=== PATIENT | female | born 1985 | race Caucasian/White ===

== ENCOUNTER 2022-10-04 12:18 | Emergency (ER) | payer OTHER, SELFPAY ==
[2022-10-04 12:30] VITALS: BP 118/88; PULSE 96; RESP 20; TEMP 36.9; O2SAT 99; BMI 35.4
--- NOTE | 2022-10-04 12:36 | XR_ITS ---
The [address] [address] Patient Name: OLR HILLMAN MRN: [id number] date: 1985 Sex: F Assigned Patient Location: ER Current Patient Location: ER Accession/Order Number: [id number] Exam Date: 10/04/2022 12:40 Report Date: 10/04/2022 13:08 At the request of: MARILYN GUTIERREZ Procedure: XR ankle LT min 3V PROCEDURE: XR ankle LT min 3V HISTORY: c/o pain ; acute medial left ankle pain; no known injury COMPARISON: None. FINDINGS: BONES:No fracture, dislocation, articular surface irregularity. A few tiny degenerative enthesophytes. Prominent 1.7 cm sclerotic focus within the dorsal aspect of posterior calcaneus. SOFT TISSUES:No visible soft tissue swelling. EFFUSION:None visible. OTHER: Negative. IMPRESSION: 1. No acute bone abnormality. 2. Sclerotic focus within posterior calcaneus; nonspecific but favoring a benign bone island. Electronically authenticated by: MEGAN MACDONALD Date: 10/04/2022 13:08
--- NOTE | 2022-10-04 13:12 | ED.LOWEXI1 ---
HPI - Extremity Injury (Lower) General Chief Complaint: Extremity Injury, Lower Stated Complaint: LOWER EXTREMITY INJURY LEFT LEG Time Seen by Provider: 10/04/22 13:11 Source: patient Mode of arrival: walk-in Limitations: no limitations History of Present Illness HPI Narrative: patient with posterior left ankle pain for the last week - no known injury. She said that after walking at [place] yesterday the pain became worse. Triage nurse sent her for xrays. She said that this area had not bothered her prior to last week. Related Data Allergies Allergy/AdvReac Type Severity Reaction Status Date / Time No Known Drug Allergies Allergy Verified 10/04/22 12:29 PFSH PFSH Social History Smoking status: Never smoker Exam Narrative Exam Narrative: Nurses notes and vital signs reviewed and patient is not hypoxic. AFEBRILE General: Well-appearing and in no apparent distress. Skin: Warm, dry, no pallor noted. No rash. Head: Normocephalic, atraumatic. Cardiovascular: normal peripheral perfusion. Respiratory: No accessory muscle use or respiratory distress. Musculoskeletal: tenderness throughout the left calcaneus without swelling or achilles deformity. Left foot and ankle with normal ROM. No calf or popliteal tenderness, no lower extremity edema/swelling Neurological: A&O x4. No cranial nerve dysfunction observed. No truncal ataxia. Moves all extremities. Sensation intact. Psychiatric: Cooperative and interactive. Normal mood and affect. Constitutional Vital Signs - 24 hr 10/04/22 12:30 Temperature 98.4 F Pulse Rate [Monitor] 96 H Respiratory Rate 20 Blood Pressure [Left Arm] 118/88 H Pulse Oximetry 99 Oxygen Delivery Method Room Air Course Vital Signs Vital signs: Vital Signs Temperature 98.4 F 10/04/22 12:30 Pulse Rate 96 H 10/04/22 12:30 Respiratory Rate 20 10/04/22 12:30 Blood Pressure 118/88 H 10/04/22 12:30 Pulse Oximetry 99 10/04/22 12:30 Oxygen Delivery Method Room Air 10/04/22 12:30 Temperature 98.4 F 10/04/22 12:30 Pulse Rate 96 H 10/04/22 12:30 Respiratory Rate 20 10/04/22 12:30 Blood Pressure 118/88 H 10/04/22 12:30 Pulse Oximetry 99 10/04/22 12:30 Oxygen Delivery Method Room Air 10/04/22 12:30 MDM - Extremity Injury (Lower) MDM Narrative Medical decision making narrative: the patient's xrays reveal a bone island on the left calcaneus, which may be causing the patient's pain. She asked for something to help support the left ankle so the ED nurse applied an air cast to the patient's left ankle. She was discharged home and referred to Podiatry for follow up. Recommended motrin/NSAIDs to control her pain. Imaging Data xr ankle: Attestation: I have reviewed the pertinent imaging results. Radiologist's impression: Patient Name: LOR HILLMAN MRN: [id number] date: 1985 Sex: F Assigned Patient Location: ER Current Patient Location: ER Accession/Order Number: [id number] Exam Date: 10/04/2022 12:40 Report Date: 10/04/2022 13:08 At the request of: MARILYN GUTIERREZ Procedure: XR ankle LT min 3V PROCEDURE: XR ankle LT min 3V HISTORY: c/o pain ; acute medial left ankle pain; no known injury COMPARISON: None. FINDINGS: BONES:No fracture, dislocation, articular surface irregularity. A few tiny degenerative enthesophytes. Prominent 1.7 cm sclerotic focus within the dorsal aspect of posterior calcaneus. SOFT TISSUES:No visible soft tissue swelling. EFFUSION:None visible. OTHER: Negative. IMPRESSION: 1. No acute bone abnormality. 2. Sclerotic focus within posterior calcaneus; nonspecific but favoring a benign bone island. Electronically authenticated by: MEGAN MACDONALD Date: 10/04/2022 13:08 Discharge Plan Discharge Chief Complaint: Extremity Injury, Lower Clinical Impression: Acute left ankle pain Patient Disposition: Home, Self-Care Time of Disposition Decision: 13:29 Instructions: Arthralgia (ED) Stand Alone Forms: Portal Instructions Referrals: Navi Delgado MD [Primary Care Provider] - 1 week Chaparro Shearer MD [Physician] - 1 week
== END 2022-10-04 13:46 | disposition home or self-care (01) ==
PROVIDERS: Emergency Provider Emergency Medicine; PCP Family Medicine
DX: M25.572 Pain in left ankle and joints of left foot (principal)
CPT/HCPCS: 73610; 99283

== ENCOUNTER 2022-11-13 22:42 | Outpatient (REF) | payer OTHER, SELFPAY ==
[2022-11-17 11:09] LABS: Age Gdln ACOG Testing Note (.); HPV Aptima Negative (Negative); IGP, Aptima HPV, rfx 16/18,45 Note (.)
== END 2022-11-13 22:43 | disposition home or self-care (01) ==
LOC: LAB 22:42
PROVIDERS: PCP Family Medicine; Visit Provider Obstetrics & Gynecology
DX: Z01.419 Encounter for gynecological examination (general) (routine) without abnormal findings (principal)
CPT/HCPCS: 87624; G0145

== ENCOUNTER 2022-12-23 05:52 | Emergency (ER) | payer OTHER, SELFPAY ==
[2022-12-23 05:59] LABS: Clarity Urine CLEAR (CLEAR); Color Urine DK. ORANGE (YELLOW)
[2022-12-23 06:00] LABS: Hematocrit 36.6 % (36.0-48.0); Hemoglobin 11.9 g/dL (12.0-16.0); Mean Corpuscular HGB Conc 32.5 g/dL (29.9-35.2); Mean Corpuscular Hemoglobin 28.4 pg (26.7-34.0); Mean Corpuscular Volume 87.4 fL (81.0-99.0); Mean Platelet Volume 8.7 fL (9.5-13.5); Platelet Count 258 10^3/uL (150-450); Red Blood Count 4.19 10^6/uL (4.20-5.40); Red Cell Distribution Width 13.7 % (11.0-15.0); White Blood Count 14.9 10^3/uL (4.0-11.0)
[2022-12-23 06:01] LABS: Basophils Percent Auto 0.2 % (0.2-2.0); Eosinophils Percent Auto 0.1 % (0.9-7.0); Immature Granulocytes Pct Auto 0.4 % (0.0-0.5); Lymphocytes Absolute Auto 1.3 10^3/uL (1.2-3.8); Lymphocytes Percent Auto 9.1 % (20.5-60.0); Monocytes Absolute Auto 0.8 10^3/uL (0.3-0.8); Monocytes Percent Auto 5.8 % (1.7-12.0); Neutrophils Percent Auto 84.4 % (43.0-75.0)
[2022-12-23 06:02] LABS: Anion Gap 14.6; BUN Creatinine Ratio 13.9; Calcium 7.6 mg/dL (8.5-10.1); Carbon Dioxide 27.1 mmol/L (21.0-32.0); Chloride 100 mmol/L (98-107); Estimated GFR (African America >60 (>=60); Estimated GFR (Non-African Ame >60 (>=60); Glucose 99 mg/dL (74-106); Immature Granulocytes Abs Auto 0.05 10^3/uL (0.00-0.03); Potassium 3.7 mmol/L (3.5-5.1); Sodium 138 mmol/L (136-145)
[2022-12-23 10:05] LABS: Bilirubin Urine COLOR INTERFERENCE (NEGATIVE); Blood Urine COLOR INTERFERENCE (NEGATIVE); Glucose Urine UA COLOR INTERFERENCE mg/dL (NEGATIVE); Ketones Urine COLOR INTERFERENCE mg/dL (NEGATIVE); Leukocyte Esterase Urine COLOR INTERFERENCE (NEGATIVE); Nitrite Urine COLOR INTERFERENCE (NEGATIVE); Protein Urine COLOR INTERFERENCE mg/dL (NEG/TRACE); Urobilinogen Urine COLOR INTERFERENCE EU/dL (0.2-1.0); pH Urine COLOR INTERFERENCE (5.0-9.0)
== END 2022-12-23 05:56 | disposition home or self-care (01) ==
LOC: ER 05:54
PROVIDERS: Emergency Provider Emergency Medicine; PCP Family Medicine
DX: M25.572 Pain in left ankle and joints of left foot (principal)
CPT/HCPCS: 36415; 80048; 81003; 85025; 87086; 87150; 87186; 99284

== ENCOUNTER 2023-11-08 11:42 | Outpatient (OUT) | payer OTHER, SELFPAY ==
--- NOTE | 2023-11-08 12:02 | XR_ITS ---
The [address] [address] Patient Name: LOR HILLMAN MRN: [id number] date: 1985 Sex: F Assigned Patient Location: LAB Current Patient Location: LAB Accession/Order Number: [id number] Exam Date: 11/08/2023 12:20 Report Date: 11/08/2023 12:46 At the request of: DAQUAN AGOSTO Procedure: XR hip BI w PEL 1V EXAMINATION: XR hip BI w PEL 1V HISTORY: Acute Hip Pain M25.559 COMPARISON: No relevant comparison available. FINDINGS: RIGHT FINDINGS: BONES: Normal. No significant arthropathy or acute abnormality. SOFT TISSUES: Negative. No visible soft tissue swelling. OTHER: Negative. LEFT FINDINGS: BONES: Normal. No significant arthropathy or acute abnormality. SOFT TISSUES: Negative. No visible soft tissue swelling. OTHER: Negative. XR/XR hip BI w PEL 1V IMPRESSION: No acute abnormality or significant arthritis of the hips Electronically authenticated by: EMILIE HUSSEIN Date: 11/08/2023 12:46
[2023-11-08 12:11] LABS: Erythrocyte Sedimentation Rate 97 mm/hr (<=20)
[2023-11-08 12:42] LABS: C Reactive Protein 2.12 mg/dL (<=0.50); Uric Acid 5.1 mg/dL (2.6-6.0)
[2023-11-09 04:07] LABS: Antistreptolysin O Ab 856.4 IU/mL (0.0-200.0); Rheumatoid Factor (RF) <10.0 IU/mL (<14.0)
[2023-11-09 16:10] LABS: Antinuclear Antibodies, IFA Negative (.)
== END 2023-11-08 11:43 | disposition home or self-care (01) ==
LOC: LAB 11:45
PROVIDERS: PCP Family Medicine; Visit Provider Family Medicine
DX: M25.551 Pain in right hip (principal); M25.552 Pain in left hip
CPT/HCPCS: 36415; 73523; 84550; 85652; 86038; 86060; 86140; 86431

== ENCOUNTER 2024-01-14 15:57 | Outpatient (OUT) | payer OTHER, SELFPAY ==
--- OUTSIDE RECORDS SUMMARY | 2024-01-14 16:02 | XMS_ITS | CCD ---
Author Organization [facility] Care Team Providers Care Contact Lens Molder Name Role Phone Daquan Delgado Primary Care Physician LEONARDO TUTTLE Attending Unavailable LEONARDO TUTTLE Attending Unavailable MD Merrick DUNCAN Attending Unavailable FLY, MD Merrick Doshi Admitting Unavailable DUNCAN, MD Mrerick Doshi Attending Unavailable DUNCAN, MD Merrick Doshi Referring Unavailable FLY, MD Merrick Doshi Admitting Unavailable FLY, MD Merrick Doshi Attending Unavailable DUNCAN, MD Merrick Doshi Consulting Unavailable DUNCAN, Merrick Doshi Consulting Unavailable DUNCAN, Merrick Doshi Consulting Unavailable DUNCAN, Merrick Doshi Consulting Unavailable DUNCAN, Merrick R Consulting Unavailable DUNCAN, Merrick R Consulting Unavailable DUNCAN, Merrick R Consulting Unavailable DUNCAN, Merrick R Consulting Unavailable DUNCAN, Merrick R Consulting Unavailable DUNCAN, Merrick R Consulting Unavailable DUNCAN, Merrick R Consulting Unavailable DUNCAN, Merrick R Consulting Unavailable DUNCAN, Merrick R Consulting Unavailable DUNCAN, Merrick Doshi Consulting Unavailable DUNCAN, MD Merrick Doshi Attending Unavailable FLY, MD Merrick Doshi Attending Unavailable HOY ., DR BUTT Admitting Unavailable HOY ., DR BUTT Attending Unavailable HOY ., DR BUTT Consulting Unavailable HOY ., DR BUTT Primary Care Unavailable KIRKLIN, DR EMILIE Connor Consulting Unavailable APRIL ., DR TAMEZ Admitting Unavailable APRIL ., DR TAMEZ Attending Unavailable HOY ., DR BUTT Primary Care Unavailable APRIL ., DR TAMEZ Consulting Unavailable APRIL ., DR TAMEZ Admitting Unavailable APRIL ., DR TAMEZ Attending Unavailable HOY ., DR BUTT Primary Care Unavailable APRIL ., DR TAMEZ Consulting Unavailable ZIEBER, DR RUSLAN Doshi Consulting Unavailable HOY ., DR BUTT Admitting Unavailable HOY ., DR BUTT Attending Unavailable HOY ., DR BUTT Consulting Unavailable HOY ., DR BUTT Primary Care Unavailable HOY ., DR BUTT Admitting Unavailable HOY ., DR BUTT Attending Unavailable TRINY ., DR BUTT Primary Care Unavailable APRIL ., DR TAMEZ Consulting Unavailable APRIL ., DR TAMEZ Admitting Unavailable APRIL ., DR TAMEZ Attending Unavailable TRINY ., DR BUTT Primary Care Unavailable TORRES, DR RUSLAN Doshi Consulting Unavailable AGUBOSIVINH Chance Consulting Unavailable SHARLA HAMMONDS Attending Unavailable DASHAWN EATON Attending Unavailable DASHAWN EATON Attending Unavailable Allergies Allergy Classification Reported Allergen(s) Allergy Type Date of Onset Reaction(s) Facility (6 sources) benzoin resin; Translations: [benzoin topical] Drug Allergy Skinrash, irritation, and blisters [facility] (2 sources) Adhesive agent Drug allergy (disorder) [facility] (2 sources) Latex Drug allergy (disorder) [facility] (1 source) Misc-Other; Translations: [Misc-Other] Propensity to adverse reactions (disorder) [facility] Medications Current Medications Medication Drug Class(es) Dates Sig (Normalized) Sig (Original) cephalexin 500 mg oral capsule (4 sources) Cephalosporin Antibacterial Start: 08-25-2021 take 1 capsule by mouth twice daily Keflex 500 mg Cap 500 mg = 1 cap(s), Oral, BID, Start the day prior to procedure, # 14 cap(s), Refills(s) 0, Pharmacy: [facility], 158, cm, 08/05/21 8:44:00 EDT, Height/Length Dosing, 89.3, kg, 08/05/21 8:44:00 EDT, Weight Dosing Start Date: 08/25/21 Status: Ordered Start: 12-03-2020 take 1 capsule by mo [facility] twice daily Keflex 500 mg Cap 500 mg = 1 cap(s), Oral, BID, Start on December 13, # 14 cap(s), Refills(s) 0, Pharmacy: [facility], 158, cm, 12/03/20 10:41:00 EDT, Height/Length Dosing, 88.2, kg, 12/03/20 10:41:00 EDT, Weight Dosing Start Date: 12/03/20 Status: Ordered citalopram 40 mg oral tablet (5 sources) Serotonin Reuptake Inhibitor Start: 08-05-2021 take 1 mg by mouth once daily CeleXA 40 mg Tab mg tab(s), Oral, Daily, Refills(s) 0 Start Date: 08/05/21 Status: Ordered Pristiq (5 sources) Serotonin and Norepinephrine Reuptake Inhibitor Start: 11-15-2020 Pristiq Oral, Daily, Refills(s) 0 Start Date: 11/15/20 Status: Ordered esomeprazole 40 mg delayed release oral capsule (1 source) Proton Pump Inhibitor Start: 01-24-2021 esomeprazole 40 mg Cap-EC 40 mg = 1 cap(s) Start Date: 01/24/21 Status: Ordered esomeprazole 40 mg Cap-EC (4 sources) Start: 01-24-2021 esomeprazole 40 mg Cap-EC 40 mg = 1 cap(s) Start Date: 01/24/21 Status: Ordered 24 hr metoprolol succinate 25 mg extended release oral tablet (5 sources) beta-Adrenergic Fanta Start: 08-05-2021 take 1 mg by mouth once daily metoprolol 25 mg ER Tab mg tab(s), Oral, Daily, Refills(s) 0 Start Date: 08/05/21 Status: Ordered 24 hr mirabegron 50 mg extended release oral tablet (4 sources) beta3-Adrenergic Agonist Start: 08-05-2021 take 1 tablet by mouth once daily Myrbetriq 50 mg oral tablet, extended release 50 mg = 1 tab(s), Oral, Daily, # 90 tab(s), Refills(s) 3, Pharmacy: [facility], 158, cm, 08/05/21 8:44:00 EDT, Height/Length Dosing, 89.3, kg, 08/05/21 8:44:00 EDT, Weight Dosing Start Date: 08/05/21 Status: Ordered solifenacin succinate 5 mg oral tablet (4 sources) Cholinergic Muscarinic Antagonist Start: 11-24-2020 take 1 tablet by mouth once daily solifenacin 5 mg Tab 5 mg = 1 tab(s), Oral, Daily, # 30 tab(s), Refills(s) 6, Pharmacy: [facility], 158, cm, 11/15/20 10:34:00 EDT, Height/Length Dosing, 88.2, kg, 11/15/20 10:34:00 EDT, Weight Dosing Start Date: 11/24/20 Status: Ordered Problems Active Problems Problem Classification Problem Date Documented Date Episodic/Chronic Abdominal pain (5 sources) Pain in pelvis 04-23-2020 Episodic Anxiety disorders (5 sources) Mixed anxiety and depressive disorder 04-23-2020 Chronic Asthma (5 sources) Asthma 04-23-2020 Chronic Deficiency and other anemia (5 sources) Anemia 04-23-2020 Episodic Genitourinary symptoms and ill-defined conditions (18 sources) Urge incontinence; Translations: [Stress incontinence (female) (male)] Onset: 08-05-2021 Chronic Genitourinary symptoms and ill-defined conditions (6 sources) Nocturia; Translations: [Nocturia] Onset: 08-05-2021 Episodic Heart valve disorders (5 sources) Mitral valve prolapse 04-23-2020 Chronic Inflammatory diseases of female pelvic organs (5 sources) Inflammation of cervix 04-23-2020 Episodic Nonspecific chest pain (1 source) Chest pain, unspecified; Translations: [CHEST PAIN UNSPECIFIED] Onset: 07-21-2022 Episodic Other female genital disorders (5 sources) Pain in female genitalia on intercourse 04-23-2020 Chronic Other lower respiratory disease (1 source) Acute respiratory distress; Translations: [ACUTE RESPIRATORY DISTRESS] Onset: 07-21-2022 Episodic Other non-traumatic joint disorders (1 source) Pain in unspecified joint; Translations: [PAIN IN UNSPECIFIED JOINT] Onset: 07-21-2022 Episodic Other nutritional; endocrine; and metabolic disorders (5 sources) Body mass index 30+ - obesity 04-23-2020 Chronic Residual codes; unclassified (4 sources) Obstructive sleep apnea (adult) (pediatric); Translations: [OBSTRUCTIVE SLEEP APNEA] Onset: 07-26-2022 Chronic Spondylosis; intervertebral disc disorders; other back problems (5 sources) Backache 04-23-2020 Episodic Thyroid disorders (5 sources) Hypothyroidism 04-23-2020 Chronic Unclassified (4 sources) Unspecified lump in the right breast, overlapping quadrants; Translations: [UNS LUMP RT BREAST OVRLPNG QUADRNTS] Onset: 11-10-2021 Past or Other Problems Problem Classification Problem Date Documented Date Episodic/Chronic Immunizations and screening for infectious disease (1 source) Encounter for screening for human papillomavirus (HPV); Translations: [ENC SCREENING HUMAN PAPILLOMAVIRUS] Onset: 11-12-2021 Episodic Nonmalignant breast conditions (5 sources) Unspecified lump in the right breast, upper outer quadrant; Translations: [Unspecified lump in the right breast, lower inner quadrant] Onset: 11-16-2021 Episodic Other and unspecified benign neoplasm (1 source) Benign neoplasm of right breast; Translations: [BENIGN NEOPLASM OF RIGHT BREAST] Onset: 11-21-2021 Episodic Other screening for suspected conditions (not mental disorders or infectious disease) (4 sources) Encounter for screening for malignant neoplasm of cervix; Translations: [ENC SCREENING MALIG NEOPLASM CERV] Onset: 11-09-2021 Episodic Results Test Name Value Interpretation Reference Range Facil ity INSULINon 07-14-2022 Insulin 28.7 uIU/mL Critically high 2.6-24.9 [facility] Comment on above: Performed By: #### I NSULIN #### [facility] [address] [place] [address] Dr. Hanna Seaman RHEUMATOID FACTORon 07-15-19 23 RA Latex Turbid. <10.0 Normal <14.0 [facility] Comment on above: Performed By: #### R F #### [facility] [address] [place] [address] Dr. Hanna Seaman CBC AUTO DIFFon 07-13-2022 BASO # 0.1 103/ul Normal 0.0-0.1 [facility] Comment on above: Performed By: #### C BC ####[facility] [address] [place] [address]Dr. Hanna Seaman Basophils/100 WBC (Bld) 0.6 % Normal 0.2-2.0 [facility] Comment on above: Performed By: #### C BC ####[facility] [address] [place] [address]Dr. Hanna Seaman EO # 0.1 103/ul Normal 0.0-0.7 [facility] Comment on above: Performed By: #### C BC ####[facility] [address] [place] [address]Dr. Hanna Seaman Eosinophils/100 WBC (Bld) 1.8 % Normal 0.9-7.0 [facility] Comment on above: Performed By: #### C BC ####[facility] [address] [place] [address]Dr. Hanna Seaman Erythrocyte distribution width (RBC) [Ratio] 13.5 % Normal 11.0-15.0 [facility] Comment on above: Performed By: #### C BC ####[facility] [address] [place], [place] [address]Dr. Hanna Seaman Hematocrit (Bld) [Volume fraction] 38.6 % Normal 36.0-48.0 [facility] Comment on above: Performed By: #### C BC ####[facility] [address] [place], [place] [address]Dr. Hanna Seaman Hemoglobin (Bld) [Mass/Vol] 12.5 g/dL Normal 12.0-16.0 [facility] Comment on above: Performed By: #### C BC ####[facility] [address] [place], [place] [address]Dr. Hanna Seaman IG # 0.03 10e3/ul Normal 0.00-0.03 [facility] Comment on above: Performed By: #### C BC ####[facility] [address] [place], [place] [address]Dr. Hanna Seaman IG % 0.4 % Normal 0.0-0.5 [facility] Comment on above: Performed By: #### C BC ####[facility] [address] [place], [place] [address]Dr. Hanna Seaman LYMPH # 2.4 103/ul Normal 1.2-3.8 [facility] Comment on above: Performed By: #### C BC ####[facility] [address] [place], [place] [address]Dr. Hanna Seaman Lymphocytes/100 WBC (Bld) 30.1 % Normal 20.5-60.0 [facility] Comment on above: Performed By: #### C BC ####[facility] [address] [place], [place] [address]Dr. Hanna Seaman MANUAL DIFF REQ NO Normal [facility] Comment on above: Performed By: #### C BC ####[facility] [address] [place] [address]Dr. Hanna Jurgen MCH (RBC) [Entitic mass] 28.2 pg Normal 26.7-34.0 [facility] Comment on above: Performed By: #### C BC ####[facility] [address] [place], [place] [address]Dr. Hanna Jurgen MCHC (RBC) [Mass/Vol] 32.4 g/dL Normal 29.9-35.2 [facility] Comment on above: Performed By: #### C BC ####[facility] [address] [place], [place] [address]Dr. Hanna Seaman MCV (RBC) [Entitic vol] 87.1 fL Normal 81.0-99.0 [facility] Comment on above: Performed By: #### C BC ####[facility] [address] [place], [place] [address]Dr. Hanna Seaman MONO # 0.5 103/ul Normal 0.3-0.8 [facility] Comment on above: Performed By: #### C BC ####[facility] Ran[address] [place], [place] [address]Dr. Hanna Seaman Monocytes/100 WBC (Bld) 6.2 % Normal 1.7-12.0 [facility] Comment on above: Performed By: #### C BC ####[facility] [address] [place], [place] [address]DrLink Seaman NEUT # 4.8 103/ul Normal 1.4-6.5 [facility] Comment on above: Performed By: #### C BC ####[facility] [address] [place], [place] [address]DrLink Seaman Neutrophils/100 WBC (Bld) 60.9 % Normal 43.0-75.0 [facility] Comment on above: Performed By: #### C BC ####[facility] S[address] [place], [place] [address]Dr. Hanna Seaman Platelet mean volume (Bld) [Entitic vol] 8.7 fL Critically low 9.5-13.5 [facility] Comment on above: Performed By: #### C BC ####[facility] [address] [place] [id number] Seaman PLT 305 103/ul Normal 150-450 [facility] Comment on above: Performed By: #### C BC ####[facility] [address] [place] [address]DrLink Seaman RBC 4.43 106/ul Normal 4.20-5.40 [facility] Comment on above: Performed By: #### C BC ####[facility] [address] [place] [address]DrLink Seaman WBC 7.9 103/ul Normal 4.0-11.0 [facility] Comment on above: Performed By: #### C BC ####[facility] [address] [place] [address]Dr. Hanna Seaman FREE THYROXINE INDEX T7on FTI 2.39 Normal 1.30-4.50 [facility] Comment on above: Performed By: #### C MP, LIPID, TSH, T7 #### [facility] [address] [place] [address] [address] Hanna Seaman T3U 31.0 % Normal 30.0-39.0 [facility] Comment on above: Performed By: #### C MP, LIPID, TSH, T7 #### [facility] [address] [place] [address] [address] Hanna Seaman T4 [Mass/Vol] 7.70 ug/dL Normal 4.80-13.90 [facility] Comment on above: Performed By: #### C MP, LIPID, TSH, T7 #### [facility] [address] [place] [address] [address] Hanna Seaman GLYCOHEMOGLOBIN A1Con 2022 ADA RECOMMENDATION SEE BELOW Normal [facility] Comment on above: Result Comment: ADA RECOMMENDED LIMIT 4.0 - 6.0 ADA THERAPEUTIC TARGET < 7.0 ACTION SUGGESTED > 7.0 Performed By: #### A 1C #### [facility] [address] [place] [address] [address] Hanna Seaman Glucose [Mass/Vol] 111 mg/dL Normal [facility] Comment on above: Performed By: #### A 1C #### [facility] [address] [place] [address] [address] Hanna Seaman HbA1c (Bld) [Mass fraction] 5.5 % Normal 4.5-6.2 [facility] Comment on above: Performed By: #### A 1C #### [facility] [address] [place] [address] [address] Hanna Seaman IRONon 07-13-2022 Iron [Mass/Vol] 40.0 ug/dL Critically low 50.0-170.[address] [facility] Comment on above: Performed By: #### I BROOKS ####[facility] [address] [place] [address]Dr. Hanna Seaman LIPID PROFILEon 07-13-2022 CHOL-HDL RATIO NORM SEE BELOW Normal [facility] Comment on above: Result Comment: 3.3 - 4.4 LOW RISK 4.4 - 7.1 AVERAGE RISK 7.1 - 11.0 MODERATE RISK >11.0 HIGH RISK Performed By: #### C MP, LIPID, TSH, T7 #### [facility] [address] [place] [address] [address] Hanna Seaman Cholesterol [Mass/Vol] 149 mg/dL Normal <=200 [facility] Comment on above: Performed By: #### C MP, LIPID, TSH, T7 #### [facility] [address] [place] [address] [address] Hanna Seaman Cholesterol in HDL [Mass/Vol] 41 mg/dL Normal 40-60 [facility] Comment on above: Performed By: #### C MP, LIPID, TSH, T7 #### [facility] [address] [place] [address] [address] Hanna Seaman Cholesterol in LDL [Mass/Vol] 81.0 mg/dL Normal [facility] Comment on above: Performed By: #### C MP, LIPID, TSH, T7 #### [facility] [address] [place], [place] [address] Dr. Hanna Seaman Cholesterol.total/C holesterol in HDL [Mass ratio] 3.6 {ratio} Normal [facility] Comment on above: Performed By: #### C MP, LIPID, TSH, T7 #### [facility] [address] [place], [place] [address] Dr. Hanna Seaman HDL NORMAL > or = 60 mg/dl - LOW CARDIOVASCULAR RISK <40 mg/dl - HIGH CARDIOVASCULAR RISK Normal [facility] Comment on above: Performed By: #### C MP, LIPID, TSH, T7 #### [facility] [address] [place] [address] [address] Hanna Seaman LDL CALC NORMAL SEE BELOW Normal [facility] Comment on above: Result Comment: <100 mg/dl OPTIMAL 100 - 129 mg/dl NEAR OR ABOVE OPTIMAL 130 - 159 mg/dl BORDERLINE HIGH 160 - 189 mg/dl HIGH >190 mg/dl VERY HIGH Performed By: #### C MP, LIPID, TSH, T7 #### [facility] [address] [place] [address] [address] Hanna Seaman Triglyceride [Mass/Vol] 135 mg/dL Normal <=150 [facility] Comment on above: Performed By: #### C MP, LIPID, TSH, T7 #### [facility] [address] [place] [address] [address] Hanna Seaman VLDL CALC 27.0 mg/dL Normal [facility] Comment on above: Performed By: #### C MP, LIPID, TSH, T7 #### [facility] [address] [place] [address] [address] Hanna Seaman NM STRESS/REST MULTIon 07-13 NM STRESS/REST MULTI Patient: LOR HILLMANLink Exam Date: 07/13/2022 : 1985 Gender:F Ordering : DR DAQUAN DELGADO . Admission #: [id number] Family : Order #: [id number] CLICK HERE TO VIEW EXAM RADIOLOGY REPORT PROCEDURE: RADIONUCLIDE IMAGING STRESS/REST MULTI COMPARISON: None. INDICATIONS: Chest pain TECHNIQUE: Exam Description: Stress/Rest one day protocol gated SPECT Rest Imagin.8 mCi Tc-99m Cardiolite IV on 07/13/2022 Stress Imaging 30.1 mCi Tc-99m Cardiolite IV on 07/13/2022 Exercise Protocol: Keagan Heart Rate (bpm): Rest: 78 Max: 166 PMHR: 90 Blood Pressure: Rest: 128/92 Max: 174/92 Exercise Time: Minutes: 8 Seconds: 00 Stage Reached: Stage: 3 Mets 10.1 Symptoms: none Rest and peak stress ECG findings were normal and the exercise portion of the study was normal per attending physician Dr. Simons . For more details please see separate cardiac stress test report. FINDINGS: QUALITY OF STUDY: Good. PERFUSION DEFECT: None. LOCATION: N/A SIZE: N/A. SEVERITY: N/A. TYPE: N/A. WALL MOTION: Normal. LV SIZE: Normal. 76 mL. TID / TCD: None; 0.6 LVEF: Normal. Calculated EF 73%. SUMMARY: Myocardial perfusion imaging study is NORMAL. CONCLUSION: 1. No reversible ischemia 2. Normal exercise test Dictated by: Emilie Grace MD on 07/13/2022 at 14:51 Approved by: Emilie Grace MD on 07/13/2022 at 14:55 Normal [facility] PROF 14(COMP METB)on 023 Albumin [Mass/Vol] 3.3 g/dL Critically low 3.4-5.0 [facility] Comment on above: Performed By: #### C MP, LIPID, TSH, T7 ####[facility] [address] [place] [id number] Seaman Albumin/Globulin [Mass ratio] 0.7 {ratio} Normal [facility] Comment on above: Performed By: #### C MP, LIPID, TSH, T7 ####[facility] [address] [place], [place] [address]Nx. Hanna Seaman ALP [Catalytic activity/Vol] 76 U/L Normal 46-116 [facility] Comment on above: Performed By: #### C MP, LIPID, TSH, T7 ####[facility] [address] [place] [id number] Seaman ALT [Catalytic activity/Vol] 30 U/L Normal 14-59 [facility] Comment on above: Performed By: #### C MP, LIPID, TSH, T7 ####[facility] [address] [place] [address]Dr. Hanna Seaman Anion gap [Moles/Vol] 13.2 mmol/L Normal [facility] Comment on above: Performed By: #### C MP, LIPID, TSH, T7 ####[facility] [address] [place] [address]Dr. Hanna Seaman AST [Catalytic activity/Vol] 17 U/L Normal 15-37 [facility] Comment on above: Performed By: #### C MP, LIPID, TSH, T7 ####[facility] [address] [place] [address]Dr. Hanna Seaman Bilirubin [Mass/Vol] 0.2 mg/dL Normal 0.2-1.0 [facility] Comment on above: Performed By: #### C MP, LIPID, TSH, T7 ####[facility] [address] [place] [address]Dr. Hanna Seaman Calcium [Mass/Vol] 8.0 mg/dL Critically low 8.5-10.1 [facility] Comment on above: Performed By: #### C MP, LIPID, TSH, T7 ####[facility] [address] [place] [address]Dr. Hanna Seaman Chloride [Moles/Vol] 101 mmol/L Normal 98-107 [facility] Comment on above: Performed By: #### C MP, LIPID, TSH, T7 ####[facility] [address] [place] [address]Dr. Hanna Seaman CO2 [Moles/Vol] 31.2 mmol/L Normal 21.0-32.0 [facility] Comment on above: Performed By: #### C MP, LIPID, TSH, T7 ####[facility] [address] [place] [address]Dr. Hanna Seaman Creatinine [Mass/Vol] 0.79 mg/dL Normal 0.55-1.02 [facility] Comment on above: Performed By: #### C MP, LIPID, TSH, T7 ####[facility] [address] [place] [id number]. Hanna Seaman EGFR-AF GUINEAN >60 Normal >=60 [facility] Comment on above: Performed By: #### C MP, LIPID, TSH, T7 ####[facility] [address] [place] [id number]. Hanna Seaman EGFR-NON AF GUINEAN >60 Normal >=60 [facility] Comment on above: Performed By: #### C MP, LIPID, TSH, T7 ####[facility] [address] [place] [id number]. Hanna Seaman Globulin (S) [Mass/Vol] 4.6 g/dL Normal [facility] Comment on above: Performed By: #### C MP, LIPID, TSH, T7 ####[facility] [address] [place] [id number]. Hanna Seaman Glucose [Mass/Vol] 94 mg/dL Normal 74-106 [facility] Comment on above: Performed By: #### C MP, LIPID, TSH, T7 ####[facility] [address] [place] [id number]. Hanna Seaman Potassium [Moles/Vol] 4.4 mmol/L Normal 3.5-5.1 [facility] Comment on above: Performed By: #### C MP, LIPID, TSH, T7 ####[facility] [address] [place] [id number]. Tomekalan Seaman Protein [Mass/Vol] 7.9 g/dL Normal 6.4-8.2 [facility] Comment on above: Performed By: #### C MP, LIPID, TSH, T7 ####[facility] [address] [place] [id number]. Hanna Seaman Sodium [Moles/Vol] 141 mmol/L Normal 136-145 [facility] Comment on above: Performed By: #### C MP, LIPID, TSH, T7 ####[facility] [address] [place] [address]Dr. Hanna Seaman Urea nitrogen [Mass/Vol] 17.0 mg/dL Normal 7.0-18.0 [facility] Comment on above: Performed By: #### C MP, LIPID, TSH, T7 ####[facility] [address] [place], [place] [address]Aw. Hanna Seaman Urea nitrogen/Creatinine [Mass ratio] 21.5 mg/mg Normal [facility] Comment on above: Performed By: #### C MP, LIPID, TSH, T7 ####[facility] [address] [place], [place] [address]Zl. Hanna Seaman TSHon 07-13-2022 TSH 1.591 uIU/mL Normal 0.358-3.740 [facility] Comment on above: Performed By: #### C MP, LIPID, TSH, T7 ####[facility] [address] [place], [place] [address]Ru. Hanna Seaman US VAC ASST BX BREAST RT W C LIPon 11-30-2021 US VAC ASST BX BREAST RT W CLIP Begin Addendum #1 COLLECTED DATE/TIME: 11/16/2021 08:49 EDT Final Diagnosis Report for [facility], [place] (A) RIGHT BREAST AT 10 O'CLOCK, BIOPSY: -FIBROCYSTIC CHANGES. -COLUMNAR CELL CHANGES. COMMENT: Deeper sections have been examined. (B) RIGHT BREAST AT 5 O'CLOCK MASS, EXCISION: -FIBROEPITHELIAL LESION, FAVOR FIBROADENOMA. 11/21/[address] Eaton. Verified with Tayla that report was present in the office. Original Report EXAM: US VAC ASST BX BREAST RT W CLIP, US BX BRST RT ADD LESION HISTORY: Lump of subareolar area of right breast COMPARISON: Ultrasound breast right 11/02/2021, mammography diagnostic 11/10/2021 TECHNIQUE: After obtaining informed consent a vacuum-assisted ultrasound-guided biopsy was performed in the usual sterile manner. The location of the biopsy was then marked as indicated below. FINDINGS: Specimen number, location: 4 core specimens 10:00 lesion; 3 core specimens 5:00 lesion. Biopsy needle: Separate 13-gauge vacuum core biopsy needle for each lesion. Markers placed: A metallic marker was placed at the 10:00 and 5:00 positions. Medication: Buffered 1% lidocaine with epinephrine administered locally. Complications: None Pathology: Pending IMPRESSION: 1. Uneventful ultrasound guided breast biopsies at 10:00 and 5:00. 2. Pathology results are pending. An addendum to this report will be provided after pathology results are available. Normal [facility] MAMMO POST BIOPSY RIGHTon MAMMO POST BIOPSY RIGHT Patient: LOR HILLMAN Exam Date: 11/16/2021 : 1985 Gender:F Ordering : DR DASHAWN EATON . Admission #: [id number] Family : Order #: [id number] CLICK HERE TO VIEW EXAM RADIOLOGY REPORT PROCEDURE: MAMMOGRAM POST BIOPSY IMAGES COMPARISON: MG MAMM DIAGNOSTIC 3D TY CAD, 11/10/2021. INDICATIONS: Mammographic mass of right breast BREAST COMPOSITION: FINDINGS: BIOPSY MARKER: A metallic marker has been placed in the targeted location at 5 o'clock (butterfly shaped marker), and 10 o'clock (spring shaped marker) of the right breast. BREAST FINDINGS: Expected post biopsy findings. RECOMMENDATIONS: Dictated by: Ruslan Rizzo M.D. on 11/16/2021 at 12:19 Approved by: Ruslan Rizzo M.D. on 11/16/2021 at 12:21 [facility] PAP ACOG PANEL 2: 30 to 65on 11-15-2021 . . Normal [facility] Comment on above: Result Comment: Perf ormed at: WB Performed By: #### [id number] ####[facility] [address] [place] [address]Dr. Hanna Seaman Age Gdln ACOG Testing 30-65 Normal [facility] Comment on above: Performed By: #### 4 [id number] ####[facility] [address] [place] [id number] Seaman DIAGNOSIS: Comment Normal [facility] Comment on above: Result Comment: NEGA TIVE FOR INTRAEPITHELIAL LESION OR MALIGNANCY. PREDOMINANCE OF COCCOBACILLI CONSISTENT WITH SHIFT IN VAGINAL CLAY IS PRESENT. Performed at: WB Performed By: #### [id number] ####[facility] [address] [place] [address]DrLink Seaman HPV Aptima Negative Normal Negative [facility] Comment on above: Result Comment: This nucleic acid amplification test detects fourteen high-risk HPV types (16,18,31,33,35,39,45,51,52,56,58,59,66,68) without differentiation. Performed at: =G Performed By: #### 4 [id number] ####[facility] [address] [place] [id number] Seaman Methodology: CTIM Normal [facility] Comment on above: Result Comment: The Thin Prep(R) Clinical Recruiter was unable to read this specimen. Therefore a manual review was performed. Performed at: WB Performed By: #### 4 [id number] ####[facility] [address] [place] [address]DrLink Seaman Note: Comment Normal [facility] Comment on above: Result Comment: The Pap smear is a screening test designed to aid in the detection of premalignant and malignant conditions of the uterine cervix. It is not a diagnostic procedure and should not be used as the sole means of detecting cervical cancer. Both false-positive and false-negative reports do occur. . Performed at: WB Performed By: #### [id number] ####[facility] [address] [place], [place] [address]DrLink Seaman Performed by: Comment Normal [facility] Comment on above: Result Comment: Jared Morgan, Cleaner Window (ASCP) Performed at: WB Performed By: #### 4 [id number] ####[facility] [address] [place], [place] [address]DrLink Seaman Specimen adequacy: Comment Normal [facility] Comment on above: Result Comment: Sati sfactory for evaluation. No endocervical cells are present. This is consistent with a history of hysterectomy. Performed at: WB Performed By: #### 4 [id number] ####[facility] [address] [place], [place] [address]DrLink Seaman MG MAMM DIAGNOSTIC 3D TY CA Don 11-10-2021 MG MAMM DIAGNOSTIC 3D TY CAD Patient: LOR HILLMAN Exam Date: 11/10/2021 : 1985 Gender:F Ordering : DR DASHAWN EATON . Admission #: [id number] Family : Order #: [id number] CLICK HERE TO VIEW EXAM RADIOLOGY REPORT PROCEDURE: MAMMOGRAM DIAGNOSTIC 3D BILATERAL CAD, 11/10/2021, 09:04 ULTRASOUND BREAST RIGHT LIMITED, 11/10/2021, 09:41 COMPARISON: None. INDICATIONS: Lump in right breast Calculator Name NCI Breast Cancer Risk Assessment Tool 5 Year Breast Cancer Risk Not Reported. Lifetime Breast Cancer Risk Not Reported. Personal Breast Cancer No Personal Ovarian Cancer No Treatments None Family Cancers None LOCATION: [facility] BREAST COMPOSITION: Heterogeneously dense,which may obscure small masses. FINDINGS: DIAGNOSTIC CATEGORY 4--SUSPICIOUS FOR MALIGNANCY. FINDING DOES NOT EXHIBIT CLASSIC FINDINGS OF BREAST CANCER: RIGHT BREAST: Subtle 9 x 6 mm opacity within the upper outer quadrant near the skin surface marker localizing the patient's palpable lump. Round well-circumscribed 1.3 cm mass within lower-inner quadrant. Ultrasound evaluation demonstrates a 6 x 5 x 3 mm geographic shaped hypodensity at the 10 o'clock position, 2a, which appears to have a thick rim and demonstrates posterior shadowing. Ultrasound-guided tissue sampling is recommended. Ultrasound evaluation demonstrates a 12 x 11 x 11 mm rounded heterogeneous hypoechoic mass with prominent posterior shadowing at the 5 o'clock position, 3b. Ultrasound-guided tissue sampling is recommended. Findings, recommendations, and alternatives were discussed with the patient and the patient's questions were addressed. Our radiology department nurse is working with the patient to schedule biopsy. LEFT BREAST: No significant suspicious finding. RECOMMENDATIONS: ULTRASOUND-GUIDED CORE BIOPSY: RIGHT BREAST PLEASE NOTE: A NORMAL MAMMOGRAM DOES NOT EXCLUDE THE POSSIBILITY OF BREAST CANCER. A CLINICALLY SUSPICIOUS PALPABLE LUMP SHOULD BE BIOPSIED. Dictated by: Ruslan Rizzo M.D. on 11/10/2021 at 10:07 Approved by: Ruslan Rizzo M.D. on 11/10/2021 at 10:24 Normal [facility] US BREAST RIGHT LIMITEDon US BREAST RIGHT LIMITED Patient: LOR HILLMAN Exam Date: 11/10/2021 : 1985 Gender:F Ordering : DR DASHAWN EATON . Admission #: [id number] Family : Order #: [id number] CLICK HERE TO VIEW EXAM RADIOLOGY REPORT PROCEDURE: MAMMOGRAM DIAGNOSTIC 3D BILATERAL CAD, 11/10/2021, 09:04 ULTRASOUND BREAST RIGHT LIMITED, 11/10/2021, 09:41 COMPARISON: None. INDICATIONS: Lump in right breast Calculator Name NCI Breast Cancer Risk Assessment Tool 5 Year Breast Cancer Risk Not Reported. Lifetime Breast Cancer Risk Not Reported. Personal Breast Cancer No Personal Ovarian Cancer No Treatments None Family Cancers None LOCATION: [facility] BREAST COMPOSITION: Heterogeneously dense,which may obscure small masses. FINDINGS: DIAGNOSTIC CATEGORY 4--SUSPICIOUS FOR MALIGNANCY. FINDING DOES NOT EXHIBIT CLASSIC FINDINGS OF BREAST CANCER: RIGHT BREAST: Subtle 9 x 6 mm opacity within the upper outer quadrant near the skin surface marker localizing the patient's palpable lump. Round well-circumscribed 1.3 cm mass within lower-inner quadrant. Ultrasound evaluation demonstrates a 6 x 5 x 3 mm geographic shaped hypodensity at the 10 o'clock position, 2a, which appears to have a thick rim and demonstrates posterior shadowing. Ultrasound-guided tissue sampling is recommended. Ultrasound evaluation demonstrates a 12 x 11 x 11 mm rounded heterogeneous hypoechoic mass with prominent posterior shadowing at the 5 o'clock position, 3b. Ultrasound-guided tissue sampling is recommended. Findings, recommendations, and alternatives were discussed with the patient and the patient's questions were addressed. Our radiology department nurse is working with the patient to schedule biopsy. LEFT BREAST: No significant suspicious finding. RECOMMENDATIONS: ULTRASOUND-GUIDED CORE BIOPSY: RIGHT BREAST PLEASE NOTE: A NORMAL MAMMOGRAM DOES NOT EXCLUDE THE POSSIBILITY OF BREAST CANCER. A CLINICALLY SUSPICIOUS PALPABLE LUMP SHOULD BE BIOPSIED. Dictated by: Ruslan Rizzo M.D. on 11/10/2021 at 10:07 Approved by: Ruslan Rizzo M.D. on 11/10/2021 at 10:24 Normal [facility] Ambulatory Visit Summaryon 0 09-28-2021 Ambulatory Visit Summary KADYLOR CARRASCO Robson :1985 Visit Date:09/28/2021 Ambulatory Visit Instructions Your Diagnosis Urge incontinence Tests Performed Urnls Dip Stick Auto w/o Microscopy POC 31609 Your Care Team Attending Physician - PARAG LOCKETT, LEONARDO Kenyon Primary Care Physician - Daquan Delgado MD This Is Your Medications List cephalexin (Keflex 500 mg Cap) citalopram (CeleXA 40 mg Tab) desvenlafaxine (Pristiq) esomeprazole (esomeprazole 40 mg Cap-EC) metoprolol (metoprolol 25 mg ER Tab) mirabegron (Myrbetriq 50 mg oral tablet, extended release) solifenacin (solifenacin 5 mg Tab) Procedures Performed Injection of therapeutic substance into bladder wall (01/11/2021), Abdominal hysterectomy (01/18/2018), Dilation and curettage of uterus (10/26/2017), Diagnostic laparoscopy (2011), CS - section (2010), CS - section (2006). Discharge Vitals Heart Rate (Peripheral) 78 Respiratory Rate 16 Blood Pressure 145/89 Height 158.0 cm Height 158 cm Weight 89.3 kg Weight 89.3 kg BMI 35.77 What to do next Scheduled Follow-Up Appointments Sunday 3:00 PM EST With: PARAG LOCKETT, LEONARDO Kenyon Where: [facility] Patient Educationon 09-29-19 Patient Education Obstetrics and Gynecology Overactive Bladder, Adult Overactive bladder refers to a condition in which a person has a sudden need to pass urine. The person may leak urine if he or she cannot get to the bathroom fast enough (urinary incontinence). A person with this condition may also wake up several times in the night to go to the bathroom. Overactive bladder is associated with poor nerve signals between your bladder and your brain. Your bladder may get the signal to empty before it is full. You may also have very sensitive muscles that make your bladder squeeze too soon. These symptoms might interfere with daily work or social activities. What are the causes? This condition may be associated with or caused by: ? Urinary tract infection. ? Infection of nearby tissues, such as the prostate. ? Prostate enlargement. ? Surgery on the uterus or urethra. ? Bladder stones, inflammation, or tumors. ? Drinking too much caffeine or alcohol. ? Certain medicines, especially medicines that get rid of extra fluid in the body (diuretics). ? Muscle or nerve weakness, especially from: ? A spinal cord injury. ? Stroke. ? Multiple sclerosis. ? Parkinson's disease. ? Diabetes. ? Constipation. What increases the risk? You may be at greater risk for overactive bladder if you: ? Are an older adult. ? Smoke. ? Are going through menopause. ? Have prostate problems. ? Have a neurological disease, such as stroke, dementia, Parkinson's disease, or multiple sclerosis (MS). ? Eat or drink things that irritate the bladder. These include alcohol, spicy food, and caffeine. ? Are overweight or obese. What are the signs or symptoms? Symptoms of this condition include: ? Sudden, strong urge to urinate. ? Leaking urine. ? Urinating 8 or more times a day. ? Waking up to urinate 2 or more times a night. How is this diagnosed? Your health care provider may suspect overactive bladder based on your symptoms. He or she will diagnose this condition by: ? A physical exam and medical history. ? Blood or urine tests. You might need bladder or urine tests to help determine what is causing your overactive bladder. You might also need to see a health care provider who specializes in urinary tract problems (urologist). How is this treated? Treatment for overactive bladder depends on the cause of your condition and whether it is mild or severe. You can also make lifestyle changes at home. Options include: ? Bladder training. This may include: ? Learning to control the urge to urinate by following a schedule that directs you to urinate at regular intervals (timed voiding). ? Doing Kegel exercises to strengthen your pelvic floor muscles, which support your bladder. Toning these muscles can help you control urination, even if your bladder muscles are overactive. ? Special devices. This may include: ? Biofeedback, which uses sensors to help you become aware of your body's signals. ? Electrical stimulation, which uses electrodes placed inside the body (implanted) or outside the body. These electrodes send gentle pulses of electricity to strengthen the nerves or muscles that control the bladder. ? Women may use a plastic device that fits into the vagina and supports the bladder (pessary). ? Medicines. ? Antibiotics to treat bladder infection. ? Antispasmodics to stop the bladder from releasing urine at the wrong time. ? Tricyclic antidepressants to relax bladder muscles. ? Injections of botulinum toxin type A directly into the bladder tissue to relax bladder muscles. ? Lifestyle changes. This may include: ? Weight loss. Talk to your health care provider about weight loss methods that would work best for you. ? Diet changes. This may include reducing how much alcohol and caffeine you consume, or drinking fluids at different times of the day. ? Not smoking. Do not use any products that contain nicotine or tobacco, such as cigarettes and e-cigarettes. If you need help quitting, ask your health care provider. ? Surgery. ? A device may be implanted to help manage the nerve signals that control urination. ? An electrode may be implanted to stimulate electrical signals in the bladder. ? A procedure may be done to change the shape of the bladder. This is done only in very severe cases. Follow these instructions at home: Lifestyle ? Make any diet or lifestyle changes that are recommended by your health care provider. These may include: ? Drinking less fluid or drinking fluids at different times of the day. ? Cutting down on caffeine or alcohol. ? Doing Kegel exercises. ? Losing weight if needed. ? Eating a healthy and balanced diet to prevent constipation. This may include: ? Eating foods that are high in fiber, such as fresh fruits and vegetables, whole grains, and beans. ? Limiting foods that are high in fat and processed sugars, such as fried and sweet foods. General instructions ? Take ove (more content not included)... Normal [facility] Urology Office/Clinic Noteon 09-28-2021 Urology Office/Clinic Note Chief Complaint follow up to Botox HPI Staff pt is PRW pt here for f/u to Botox done 09/06/21. previous dx: urgency incontinence (S/P botox 01/11/21. PVR-53ml), Nocturia, & stress incontinence. Dysuria: _Denies Incomplete bladder emptying: _Denies Hematuria: _Denies Frequency: _Denies Urgency: _mild Nocturia: _Denies Stream: _steady Leaking: _Denies Post void dripping: _Denies Wearing pads/ Depends: _Denies Urge incontinence: _Denies Stress incontinence: _Denies Incontinence without Sensory Awareness: _Denies Abdominal pain: _Denies Flank pain: _Denies Sexual complaints: _ History of Present Illness staff HPI reviewed and agree. Review of Systems PHQ Score Initial Depression Screen Score: 0 no fever, chills, malaise, myalgia. no rash/lesions. no chest pain, palpitations, or SOB. no abdominal pain, nausea, vomiting. no unilateral calf swelling, redness, pain Physical Exam Vitals & Measurements HR: 78(Peripheral) RR: 16 BP: 145/89 HT: 158.0 cm HT: 158 cm WT: 89.3 kg WT: 89.3 kg BMI: 35.77 General: nontoxic, NAD Mouth: moist mucosa Lungs: normal respiratory effort Cardio: regular rate, good distal perfusion Abdomen: nondistended, no suprapubic distention or tenderness, no CVA tenderness Neurologic: Grossly normal Skin: No rashes or suspicious lesions Assessment/Plan no bladder scanner so pt was straight cathed for PVR which was <1 oz UA completed in office today shows no microhematuria or signs of infection. 1. Urge incontinence (N39.41: Urge incontinence) pt doing much better since Botox 09/06. continues to take Myrbetriq 50 mg daily. discussed pros/cons of attempting to wean off this. she would like to at least try. advised that if sx return then just resume it and let us know. otherwise f/u in 6 mos. Ordered: E&M of Est. Patient Low 20-29 Min 76423 Urnls Dip Stick Auto w/o Microscopy POC 99578 Follow-up With When Contact Information PARAG LOCKETT, LEONARDO Kenyon, URL Within 6 months [address] [place] [address] [employer] (1) Additional Instructions: Patient Education Overactive Bladder, Adult Problem List/Past Medical History Ongoing Anemia Anxiety and depression Asthma Back pain Cervicitis Dyspareunia, female Hypothyroidism Mitral valve prolapse Nocturia Obesity (BMI 30-39.9) Pelvic pain Stress incontinence Urge incontinence Urgency incontinence Historical No qualifying data Procedure/Surgical History Injection of therapeutic substance into bladder wall (01/11/2021), Abdominal hysterectomy (01/18/2018), Dilation and curettage of uterus (10/26/2017), Diagnostic laparoscopy (2011), CS - section (2010), CS - section (2006). Medications CeleXA 40 mg Tab, Oral, Daily esomeprazole 40 mg Cap-EC, 40 mg= 1 cap(s) metoprolol 25 mg ER Tab, Oral, Daily Pristiq, Oral, Daily Allergies Benzoin Tincture (Skinrash, irritation, and blisters) Social History Alcohol - Low Risk, 04/23/2020 Tobacco - Denies Tobacco Use, 04/23/2020 Never (less than 100 in lifetime) Tobacco Use:. Never Smokeless Tobacco Use:., 09/28/2021 Family History Breast cancer: Grandparent. Liver cancer: Grandparent. Osteoporosis: Mother. Prostate cancer: Grandparent. Skin cancer: Father. Immunizations Vaccine Date Status Comments influenza virus vaccine, inactivated - Not Given Postpone due to refusal SARS-CoV-2 (COVID-19) Ad26 vaccine - Not Given Postpone due to refusal Lab Results Ambulatory Point of Care Results Bilirubin Urine Dipstick: Negative (09/28/21 11:12:00) Blood Urine Dipstick: Trace-lysed (09/28/21 11:12:00) Glucose Urine Dipstick: Negative (09/28/21 11:12:00) Ketones Urine Dipstick: Negative (09/28/21 11:12:00) Leukocytes Urine Dipstick: Negative (09/28/21 11:12:00) Nitrite Urine Dipstick: Negative (09/28/21 11:12:00) Protein Urine Dipstick: Negative (09/28/21 11:12:00) Specific [place] Urine Dipstick: 1.020 (09/28/21 11:12:00) Urine Appearance Urine Dipstick: Clear (09/28/21 11:12:00) Urine Color Urine Dipstick: Yellow (09/28/21 11:12:00) Urobilinogen Urine Dipstick: Normal 0.2-1 EU/dl (09/28/21 11:12:00) pH Urine Dipstick: 7 (09/28/21 11:12:00) Normal [facility] Comment on above: Result Comment: Elec tronically Signed By: LEONARDO TUTTLE PA-C\.br\Date and Time Signed: 09/28/21 14:19 EDT Coding Summary.on 09-08-2021 Coding Summary. CD:[id number] Gh0bWw+PGhlYWQ+PE1FV RIvN83abMVwuE6KQ7vNJ C7UDDDBUCWFCS8KXD4ra RP7NVaxK2PfwoNd TgitnNUoNR24TIn6KSL7 eRhgJSvyuO9auGIoR2n4 AyIfKH37aB97THrgAYIg KmC1ZnRcxlcswQCw U1vjXmJhyLMaVax+PHRh YmxlIHdpZHRoPScxMDAl PnWhlKelVD5gEu8gUVPn LWNvbGxhcHNlOiBj t5osQPSwQFoyJE0qyFyj H6KhuHS8AQApc4r3Ci93 dHI+YCSrAKM1wZamAOxa l050EwIxu8ciKHY2 pTSfODiaLKI1T81ia2H9 CIJrEAVcUYI0vML0lK6v lJmzxenhT6RjjAPjAgL9 YWV9bGWypX5tgDoo iqpzsM3wMac+B97YBB3E UCPYMU5EVod8K9PuDdjk dHI+QU38OLZrLE00jHYo pTWgz4yexNt7PbLt JFClVXP7qEkbRDeue3Yj BKMaE73cnUQdr4F0ASLb pTwngMHlJoHglJQ4kF8g KUuuclzxr5kgzhiq Liqot9bzxx90kR67V14n TUmxVKQeAYO4TJQkLXEr zZzbgm3sfS4sAg6+IDxj o7lax6mskZc2GsDr ERKnuoElaIciOXO8e2Zx Zw10W0UrtAits1NwAum5 qm53vNVrc0N4kEM6XMxt MNCjyE1wMWatHmU7 YPCyFoBieJ63yVSbZKre Es5wgXinuPmsXQ3eIWSk yzemKLLdxD4oCSEotVQo oEnhXF3eTZZzvymh j384UyYiWCF4KBOvsNHs X5JpsZ1nBsAaQWHbHTPf P9IyjKZrWQacC514KBgr NqS0NWRhzzRbG4Ae URCsfMjyJgT9w9U2Eo2G l7YtnhcqWQQ9TKabSAY0 AfX0NcAcSaJ2H9XpFkr4 ZGXyeGbuCN1hO6Ux ZUEegriuqqxpyRZ0PBJs UIRlfU35oKLzZEvfXw6r w4C6s185CAUfFWIvcN21 Su5okNkvUQDayOFT yZ8hcouna2qjeylgAxQi IABdCXt1PWe2DCHxgKiu LrMyHDQ0EoH7OMW4oXBn nO4bePdpbmwygG6n Oyc+C36ujD3zVOS6DHP1 mepfFZKxynWxCG82DH58 A6AzLglefOGfrYF+PGRp fbOgoFwgHB8jLeZp c4auj6RhTGbwN3IqSBDh DKcpMmk5HHLkQZW3gSI5 jC7oNFCtGAsnn3I5hEU1 P6NdjbUnzx6bf7rd TFJhLVsyW32bjFAku5P9 RTFjnNV6RZImnRmcAuXo hT63Rgm+LJUfaVpym5Kn Uhtgm9gcl2rksQw7 IjMwJSIgdmFsaWduPSJ0 j0RbHk94S04vJWluEIRz GTUbLEIhHCMoiUxzgd4k fO4lRs0+PGNvbCB3 mCT7tM2wQWEyTzX2KTxe R232LfVpjAEmVjhnb5zi w9mbfQh8RzImXGVoqwDc rXxbVTS3q9DgCz96 B52hEIxdSMJzLXAsHZFn ICOsyUqggc5zfR5pVu4+ IU8vv8kpxy45oB65vKG+ KZBkIOI9pGieHHsb KNPbeQ7xUWivDaJ8MOWp MwMxsY32gRMcPXvmCb3w oOzneJopQD3wSHGsewdq s656UjVyj4vpGANi tYNeVBvdULH4A23kx5O6 XEZrWXEqKJY1rNF8qU6a bGlnbjogbGVmdDsgdmVy eEbaENlySXzoF911 IHRvcDsnPlBhdGllbnQg ZsKtJMv8P2WrRuk9USVu dQyyTI5zjJEvUMiwKk9h zOpcoStpIA3fIXHw dgrpy382WdKkk1kzNTAe fAMaPZsmEJL0W53xo3U2 CTHbUUFcHVC0jHN4fO4h bGlnbjogbGVmdDsg dsTrtBanTPnoBJaaX100 IHRvcDsnPkJpcnRoIERh kYD4IR29MG19eDUqs8G9 eUR4V0SxGBCrytnu nypheYQ2HILzEDAfpD41 Mq2phOtyIv0jZYCdFBG9 ZPSvrGMaJ0HwvN7jWfJo KOBlDMPeG7XxkRCu MYfiB706MZssWzA6CVKu wbHfQ3QoGPEphAgyKxT7 l0I9Hd9SX7N9KI85HT04 dFGbe8M7zQU6V2Zq CLHdsjdbwvniuOP6TJAp XUDclW11Ca8aqIkkYd4t DTJbBDH3HXSqbEDfC9Bs hW6yDzZdFJWfUWJp F2JcrBEuKOsdU042EKga YdD2OABytfUhF8WaDPIo lYddMfV0b2Z3Cr0UTBh0 HK40OT21rYKgs7L2 cGL1Z2TkJQIydeblwjyo rLG0URKvZGPmkE06Jr6c oLqtGv1qTQWmTVL6DMYc mZDdE1DhjE0gSkLm LQFqBUUwR1JtqCFlAEmh R461IMgnNrF4YUKvjiDb I7OeFCNfaXozAxU5f5V1 Yk2WBPXwSY29BZR5 qGE7JZ47YL88J4RpDkqo dGFibGU+PHRhYmxlIHdp ZHRoPScxMDAlJyBzdHls GY6mFt4eHPUsFFUx hAlpzCXnCkNgk0yyAGLn WCuuYT1fwKcgA2YajHC4 GOYis0x8Nz72V50mD3Iz dXA+SFFsfHJ8lUU8 bE3hAwRsWaN5CAhsC510 DeAajCIhEwmeh1ftw9if hUt5MmY7KCImszBixYke BDL4x6SkIr43V07t IHdpZHRoPSIxNSUiIHZh vHopta8jnJ1tBa8+PGNv nDE0tQL5aV4dFeYtQsM3 VDxyD971OkBehBKw Rwjpj6xpw4ztgNt5YzEh PNYzpjAjgGexKYR6b2Jh Fj22N4WhuPztb9RyFiv2 qi39cPPdj5O7qJB1 V9JcRXGqbomkiXFobFgi SG0eHOLusqjiEICivT3q RGRwM6f9GcNdXcC3TSnm M9BnjsP5DYRauRIn DYzmZLP2O05oj9T4ZRJc PJQoECH9bJJ8lF5rvXpp bjogbGVmdDsgdmVydGlj MGylJRipW431FJPv pNefHBKnaN9dSNGrmOKh pBozWO4bLQXcxhskFxAK UEkQWVJBBXVFXI91C2Kx Why8EBAygXczZR0o aJPjIMhoPh4shAyxsTrm DG9hXHXqcinwXJXtnN9t YFNaqIAinEwsDQ8jUYCm lufar125TbCjMOD5 XHBywEOaB5AabS4wExJp VFZyGSRuT6VgeRJxDWlu Q305JKpxOjM5FRInnxKo W8DhTWGsgEdwYtT0 x8U9Pv7hPJ8lZp3pPIn7 IH56JT80xRVgj1Q1dIH7 N2DrBQTfgovpuuhxjOA0 WDDrXZQmaC55lIVd ZNsrVc3ag6R6r143FZOj IOQurM70Hz0xtBrfSDOe lVEIaY4wwltbq2kvrwyl JoTyAIJnDOk6RIf4 OXEqxMpkEiXtFOR1XxQ2 QBG6ySHxpO6yoJmzglym eS7lAzn+MzcgWWVhcnM8 Q1NnHsq9HNGpaDwb GH6xhERjSNsxKn2tnLzv fAsmIB2qYFYdtklgDKTs gJ8fUHKqjDFpjAmbJG1i DKHmdjaur023IjRv UBK0BKGhvNHtN3AsvS1s PuMtEZKoBBTbA8SegRLg DTigE687IRnwRjD9QAJo taLtH7AwOYQouRwg GaG1y3U4Of5XCP2urVX4 T4NdDry2JJIhzHkiHX8u eJByOTsaIi5jbJmbwNyn UF0cOMWsqkkfADSv xM9hKHFtbYPoqLokWI1t NVOnwrrky321IrRrYSN3 VBHpkNFsX4GmvA1gGhTy MGJxSDTzD7KvyGCf TCopN970ZMrzRwS5BUGl ctPyP2KwWPApvLvkDxC1 v0R0Aw7MRZEnEDJdwIOx XvB4P7FjXjstsLI+ JJ09XJWbGP67tRZriAGt x4jfsRi4WsTrTHGwGVG4 mTugDGyyj2JqQOAkO86a lJJsg6F1UEItsPen yAOkPiRhzVU4oP4cPTwa wzdkx3dsdxxkPqddd8dm kg98sL79Y20lVAihABEs PSIzMCUiIHZhbGln ba9bqC5uUg4+PGNvbCB3 dMA2iK2oXwWeCyF9GIwt W900LkCryQKqIrulh2rr d4iubRy2IvUsMOTr wlNnqEkxSSH3s8PjQj27 I26vSHetVCAcAOKpQXLt EJNlfNdjfz5jpM9oWk0+ XE3ef3hsvd53mL56 dHI+PIHxJJB2yRxcLXwt TSNofE3mTLdbBvS8CMUx VjLexG70yVVbLNrbOe0r qMfscHwfJG5jSQTr hrvjl826YkPgx8hcJZNb xREuVNgcEVJ5P67fg6X8 VHZeQORhYUO7zXA0vC9z bGlnbjogbGVmdDsg hrRwkUqiWEefXXijP340 NWLvdRrpXsVneGZbE8jd sgUJEX8iQfjbjPG+PHRk RTL4hXstPHsnJLAy dU3qHWQkE9l7FiHySyK8 ADlqS1XlbzB9XGUqiNDi RVSzwWBYxC9jjktvb7ct cjogIzAwMDAwMDt0 LMv3SUGvyDflHzXtHZF3 FjQ8BKT0hUOtyI8mgWrx nxfixM5fRqa+RklOOjwv dGQ+KIVnTLE4yNav RPaqQTKpxN1aXDToJ2h9 EkIfOvU9IJndG2ZivgI5 QCWlvACqYIAxfMYXjC2t zsdsw2cedjjmQsTv EOXhHPa9BHp5SJUumSby XdMbMDP5SbQ5ZWP8xFKp lC8woOotknywmT3bGnd+ TVJOOjwvdGQ+PHRk YYC8iNxqAQvcHQLrgV9a VOSkS6h1SqQqOjS2RZuz W0OkniM2MFKtvORuODAc bTROmU6bmzwle1uj rwtzObNxPPQcMVu7DZw4 ABGvqTciHdVrJDK1FhX6 VCE8qWIbuG9huBdlftco zH7tJik+OFG4KYU8 UG26AF13E5CuDlceuKMw bGU+PHRhYmxlIHdpZHRo ZEtkBPAsOdNtoKwvGS4j Ok2rRKJdUUAzqFip cHNl (more content not included)... Normal [facility] Coding Summary.on 09-07-2021 Coding Summary. CD:[id number]:[id number] Gh0bWw+PGhlYWQ+PE1FV VFeH80bjFNwjM3GC3hJD J4ZCESLNLQPND3NXW0qj SD5BVvyS3EyhgUj QwzhlSOjXD95ZUz5PXA5 qOxrMTikmS3hyGPbX0l5 YuTgCN04kC24WGmpSHLw SsA7HiVriatxbBIx W7cdFqHndASvStj+PHRh YmxlIHdpZHRoPScxMDAl EdOyjXtvDW0uIk2kPSNy LWNvbGxhcHNlOiBj b0tfINZqVKejJJ4mmHtk M5LinNS8FQGiu8i3Ru10 dHI+GKFyGMW3qEdcUUyr a224PwTck3lyOQG9 eKMdEPshWPO8B73rg9C0 ZPTkRCPdSYC4eGV3kM8b bPfiypbbI0TktJMtJpY7 YDL3vKUrfG2hiSdk biuevC0jDzz+A83GDY4J EPGEUB5QHcy6Q7LwHwee dHI+KM10NJHoQO83rDAc eJZck1hmmBc2AdKh KDBhYTC8vEmxSCkkj4Jr SGEaK28elBIcb5D9FTCh lHhxiWKcJuNugAX2tA9m IZlvdscsx7njvcpf Ycoac1jahp98gQ66L84l QDcvQAPzVLN2LNRrFEDg xCpafi8lnW2pHq3+IDxj o8ckg0sicTb0VjZr LTAnfpNqtWtzLCA2l1Ww On36E3KqwScez6XwFdy3 iu18kUDhb2W4sIT9HPuh WJTblT1uKAjzKsJ4 KDLyReUbdE26tPGhTLoo Kl7xaGvqmIrrPG5lLDTu abywVDZriM5iTIHdtSJw fHtwCC6nSNXwrzww d726LiTuUVZ5EUOrkRAh I6AgfM8eGiCpCGHoNCSz B0AnuJCwEJuwP920HInz KzJ8DMEupdGkD0Ji NZBscLpiAzH8x6H0Nk7R h2XnnvjrGWJ3PVpmLIS6 QcA9SvBaAaX3W8SxFjy4 CCPcdHwnQF6wR8Hr PWZwymmnsnwzgAT0BPZw LVEusP93vUAxYVzlQa5n y4R9f846TJItYRQhfO92 Jy3kiParARJllHMI hG4zktscq4gcwyxhQpWh GETpQCi5LLi9BSYmuZqs AgFyFED3ZcM4RVO7wMIh yA4axPhojvjsaN4f Oyc+S25suH0pKJP0TBI9 tzavNTWauoRxQU21LV11 E1GlOvqqvZHnlVJ+PGRp mvHjhLorVV8tFsPr t2arm8IpLIudD4IdXSBw BWftWio3HIGxATF6cBH2 yO1bTPJeKRnjk0T5pYH8 Z2XqgaIqlu5ih3fd GSRkOUshQ72psSZie4Q0 UKNhiVT8HDEagXsaVzTu nN43Rff+HFLfoRtzu5Md Esqcf6zou5lpoBr7 IjMwJSIgdmFsaWduPSJ0 u6HbEl21R31nQTvmUZZk PKNjHHYiNATvgZcgdi8z qH3rHg2+PGNvbCB3 cWB6kI8pYHZiBsJ5CUew J887VjPckVMxQjhhq5nt x3wzoGr5NoIkFILtibIp yFhpJSQ1t4ZuUk76 B38uFBpxXTJxPCPxDQNo SBAwsMuqzv5tiX1bWb6+ TJ0dg8vkum68dF60gAR+ EWOmPOK5jToyTOne RNThoU7pFFczHrZ5JFBl DlZdhS55vXUbYDfsPg6l dAispLnzXA5iAIVuafoc t062VgRqt6hwEGIv oJAhXRjwMOV4R57qf8H6 BTEzBLSgQAL9bMU9bV2a bGlnbjogbGVmdDsgdmVy lLgsTMqaBDtmO072 IHRvcDsnPlBhdGllbnQg PwSoDDp6N4UtIbb0QACz jEwcAY1pkNRgJEuaUn1l hWsuxDxbRW4cDUXz wajss837OpAud3yrIVYn bJPsDOugETJ7D00vo4P6 RHIwKKZhTAM5oOC2zT4l bGlnbjogbGVmdDsg ikPujBpuOQrqMJawL861 IHRvcDsnPkJpcnRoIERh eYI7GX51LS49mMWgz5Q7 bDE8U9JiUSPqbaub oxrpgAO1GCYoOJTjbC16 Rv4jkDsaUe1aNABzNMN8 OCYmtSXgP8AslH0zMdMl KNCzJVWxA8WacHQa FTuxZ489DMyqEkQ9NMAj loXnT6FbZMOmpRjkShV2 v6T1Gh6OX8V3QV53JS89 eSJzd5M2bCY1G3Nz TNVvdozzsnekdQF0IPPo VBZxlV67Xd0ypRgjXq7p PREnINC9GFVhxVSqC1Sq eZ4bIrDsNBGbCLZh F1GqqECwEVeiP665CSur XnT1ISNevyCaM2AoSDGk vBmmAcR2h4R1Kj3KNYg4 NU34CG22fWRzi8V7 wAV5Y3MrJOTgnxvezbfp aOP9MJWxAWOyuA75Gm3n jZzqHe8hVKYxCON9XEOy wJNeQ2XbkK7fLnTa XGThTBGnL0XasZSeCNay O753ASzrSfM3NWDmheDh P9BgZVDjdCxyJnI8o2O0 Ag5XSLSiGN62ZQD6 tHG4BW73TM52Z5KeMtto dGFibGU+PHRhYmxlIHdp ZHRoPScxMDAlJyBzdHls UE6iXh2aQMLqGKUw cUwpqTRaAvHqh0oyFSFr ELhoSM6mxIpvI0SeuDW6 NBWbr6y6Lw81L35vD1Zm dXA+PWYanRB9jLK5 tX0rVuGkZtT2VHryY870 XdJthYFpPyjgm1pvg3em iLo9ZwJ4BHBdneGbfAvu WOA0g7LxTt36N00l IHdpZHRoPSIxNSUiIHZh mGbzrh7tvW6mUq6+PGNv lNI6vJA1dW8tVgCuUpS5 EMtuH101TdNnrDFk Zziqa2uxm8xrxFy0TbMt WFKuoaPklMgvVLC1r5If Bd81D6DgtCzjb0LaDmr8 eu08tWWrn8R6cPK7 Z6XxZKEdnwicsORwbVzt MX0tSNIqjaktVCCxzI5l TJXhO7g0WbQvAqV1NUgg S1CftyI0ZMYnlFGf TIieIKM0Q54gw7D8SGDf PBHhLTP9mVQ4mR3izNdt bjogbGVmdDsgdmVydGlj KCzzPDpxQ883FTYn aPncOIFjfO3eHKNkoTSr tHtwRA3qIOYeylviHdKS GVvBPHYFZSFWNN07L7Dj Kjv6QQSlvImbYN9p cJEpRAewTc7bqLkcnXqr DB3yRCOqjuibRYWwqP3w DDQjmSDtaTdbTY7yANBu txkhb749AdWzUBS1 PCUhaVYiH7SuoD5mLvWn RQBqUGEhC0UwvMXnIBmh S058XOzkRbV7SRQsnbMo E3AfXWXkwLnrEhD5 r1S9Ij1zLX7zWp7vKPb9 MU28SS34eLQwy1A8mPR7 M5BeWLJsaxlkiohaoOT2 ZYUxDFStbX31sKNw JFieWy3vx2M3f291BTVe RVOcoL85Iu7mdLlsMWPe pVINhD8yppdue4hsedyb GwUsZPQjAGk7MNv8 XLPzaBfeNjSaSUH5SkW6 VKB3pWOhcL8dsIqrtkxv rT0yObg+MzcgWWVhcnM8 T0FpFmk9DHYgrDzj MF5clAVuKTkgVy2ibOvt gSnyQW9fHNEfimkaNBRd vK8bOZPezRFfsCovVP6y UGQddlezp091ZdZq TPX3FHFfcOUcL2FlaJ5i QlYfUONvVGMoE2ReyFSi QXxmY806WMasQgQ6XLEk gjNyP4XmCEDtiTov MzB6i4I6Jw1LRQ3vyFB8 N2KtQtp0FUSjfJcySQ1f iGQvXKukUn2ahHvblGoi VO3eTJShlifuYACk fQ9tVDEqiEZcjXarMG1z ANCqcnvmv931QsKjLFU4 NNWvxTOrE4LsbO2tCqYn PTEjWGCzH6KuhLCx OJccU210KTcyQeX0LUEh dkFzP0JeNCWaoMdwCkI9 x9H7Nv7OrGTdTKXgEI16 RY13DD34F5ZyQkcl dGFibGU+PHRhYmxlIHdp ZHRoPScxMDAlJyBzdHls IV4tHl9xCDGeRDElrRjk mVAcNtAkv0uzRCOa UJkiZT9grHckV5WzaZG5 UENxw0j3Sd42I52xC3Bs dXA+DCLsnTI1eBC4tG3i ZiKdSjR5SSljY581 JmAyeFYcYexpi3eox7pv xHd7OqIwPKQepzDucUbz SJQ0m8TmQy86R35yVIpm ZHRoPSIyMCUiIHZh zWxszp0mqE4kXi8+PGNv gIH9dVY7cS7aXuCgGjC8 VSmtL959AgYjjPJvJzea W57qH8DzxVR+PHRy Jty7FTIadMwuSM7laBGw XOxoRn8hAEF8GmVcFrAg QGmfH6XcOQLahiafmipz hGH4ZQOoNXHbyY00 Wu1daZsyEq1rYYOjJRO1 WAFjrFLyX7GdmJ3kPaGz ZOCpORSeF6SadIRjVRpy U302RLifVxT2VPBd jfZsW8HdXWGypDlwOgK0 k5K5Am7JrNlszSFgDU3f UwGrGAe6D6EeRln5NOHp pItzCI7zxWHaQRnc Bn4liUoetEedBF9dJTUw gyvlu029LdRjk5urYCRu tIYlOLyhHWK9N84tz2O4 RWJgGSJhWGN4tHM6 iH5heHsrpmqvfCRefUik wmUewEnaJUhpEZvbG046 MONxwUqdMnXYCii6W8Ns Prw7BTGjyPpaEV5h kPZpZFteYe9arJqhlIcq WN0qELOuxdgrr349PvDd c8atQXMxgYHmLIptRMH0 L99ri6A5BZZzEJRg BJH1bUZ9gP8spQalamhc bGVmdDsgdmVydGljYWwt GOviM854EFNsoIryXr0J Szu4V2IjXgb0UBHc zTasFF4quUJwFEpfFt9n dOvjcMokMD1oBRPrawav a316LeDre2lrERYgaPLj OGkgJRN0B50lg4G0 YLXzONDpHUF9pCL2rS5j bGlnbjogbGVmdDsgdmVy oZxzMPcvKQdjT731LVGy cDsnPlBheWVyOjwv dGQ+KX39au61I3CfTbfq Vpo6FJEjVCI9lDS1kM3f DSHeCYutp9S0wLY5H9Cd ybZitj2qm2pkOTDp ZTog (more content not included)... Normal [facility] Consent for Procedure/Surger yon 09-06-2021 Consent for Procedure/Surgery [id number] 4#1.00CD:127 Normal [facility] Consent for Treatmenton -2 Consent for Treatment [id number] #1.00CD:127 Normal [facility] IntraOperative Documentson 0 09-06-2021 IntraOperative Documents [id number] 3#1.00CD:127 [facility] Main OR Intraoperative Recor don 09-06-2021 Main OR Intraoperative Record IntraOp Document Type FTURO Summary Primary Physician: Merrick DUNCAN MD Finalized Date/Time: 09/06/21 12:14:38 Pt. Name: LOR HILLMAN/Sex: 1985 Female Med Rec #: [id number] Physician: Merrick DUNCAN MD Financial #: [id number] Pt. Type: O Room/Bed: / Admit/Disch: 09/06/21 10:46:07 - Institution: Case Times FTURO Entry 1 Patient Times In Room 09/06/21 11:55:00 Out Room 09/06/21 12:07:00 Procedure Times Start 09/06/21 11:58:00 Stop 09/06/21 12:04:00 Anesthesia Times Last Modified By: Gyale Saavedra RN 09/06/21 12:07:06 Case Attendance FTURO Entry 1 Entry 2 Entry 3 Case Attendee FLY STEINER, Merrick Workman MAT LINKER, Gayle Saavedra RN, Gayle Lopez Role Performed Surgeon - Primary Scrub - Primary Medical Lead - Primary Time In 09/06/21 11:55:00 09/06/21 11:55:00 09/06/21 11:55:00 Time Out 09/06/21 12:07:00 09/06/21 12:07:00 09/06/21 12:07:00 Procedure CYSTOSCOPY LOCAL BOTOX CYSTOSCOPY LOCAL BOTOX CYSTOSCOPY LOCAL BOTOX INJECTION(.) INJECTION(.) INJECTION(.) Comments Last Modified By: Quentin CHAUDHARY, Gayle Saavedra RN, Gayle Rivers RN 09/06/21 12:07:07 09/06/21 12:07:07 09/06/21 12:07:07 Surgical Procedures FTURO Entry 1 Procedure Description Procedure CYSTOSCOPY LOCAL BOTOX Modifiers . INJECTION Surgeon Description CYSTOSCOPY WITH BOTOX 100 UNITS LOT NUMBER [id number] EXP DATE Primary Procedure Yes Primary Surgeon Merrick DUNCAN MD 09/06/21 11:58:00 Stop 09/06/21 12:04:00 Anesthesia Type Local Surgical Service Urology Wound Class 2 - Clean-Contaminated Last Modified By: Gayle Saavedra RN 09/06/21 12:04:52 General Case Data FTURO Pre-Care Text: Classifies surgical wound, implements aseptic technique, initiates traffic control Entry 1 Case Information OR URO 1 FT Case Level None Wound Class 2 - Clean-Contaminated Specialty Urology Preop Diagnosis URGE INCONTINENCE Postop Same As Preop Yes Postop Diagnosis URGE INCONTINENCE Outcomes Met? Yes Last Modified By: Gayle Saavedra RN 09/06/21 12:02:48 Post-Care Text: The patient is free from signs and symptoms of infection EU IntraOp - FTURO Pre-Care Text: Implements protective measures prior to operative or invasive procedure, confirms identity before the operative or invasive procedure, verifies operative procedure, surgical site, and laterality Entry 1 EU Perioperative Protocols Procedure(s) CYSTOSCOPY LOCAL BOTOX Patient Identity Birthday, ID Band INJECTION(.) Verified (select at Check, Patient least 2): Participation Consents / H and P HandP, Surgery/Procedure Operative Site N/A Verified Consent Marking Verified Surgical Site Yes Laterality Verified Yes Verified Procedure Verified Yes Correct Patient Yes Position Verified Availability Equipment, Medication Time Out Merrick DUNCAN MD, Verified (If Participants Gayle Workman CST Applicable) Quentin Jones RN, Kimberly Y Time Out Complete 09/06/21 11:56:00 Allergies Reviewed? Yes Allergies Reviewed Self/Patient With Body Position Low Lithotomy Prep Area PERINEUM Prep Agents Betadine Solution Skin. Condition Dry, Warm, Unable to Description UNABLE TO VISALIZE DUE Visualize TO PATIENT PARTIALLY CLOTHED Additional None Specimens Collected Vitals - EU Blood Pressure 128/77 Pulse 90 bpm Respirations 16 br/min SPO2 EBL 0 IandO - EU Total Intake 0 mL Total Output 0 mL Outcomes Met? Yes Last Modified By: Gayle Saavedra RN 09/06/21 12:04:18 Post-Care Text: The patient is free from signs and symptoms of injury caused by extraneous objects Sign Out FTURO Entry 1 Before Patient Leaves OR Nurse verbally Yes Nurse verbally Yes confirms with the confirms with the team the name of team that the procedure(s) instrument, sponge, recorded and needle counts are correct (or N/A) Nurse verbally n/a Nurse verbally Yes confirms with the confirms with the team how the team whether there specimen is labeled are any equipment (including patient problems to be name), if applicable addressed Sign Out Complete 09/06/21 12:04:00 Last Modified By: Gayle Saavedra RN 09/06/21 12:04:51 Case Comments Finalized By: Gayle Saavedra RN Document Signatures Signed By: Gayle Saavedra RN 09/06/21 12:07 Gayle Saavedra RN 09/06/21 12:14 Normal [facility] Main OR Preoperative Recordo n 09-06-2021 Main OR Preoperative Record Holding Area Document Type FTURO Summary Primary Physician: Merrick DUNCAN MD Finalized Date/Time: 09/06/21 11:59:31 Pt. Name: LOR HILLMAN/Sex: 1985 Female Med Rec #: [id number] Physician: Merrick DUNCAN MD Financial #: [id number] Pt. Type: O Room/Bed: / Admit/Disch: 09/06/21 10:46:07 - Institution: Case Times Holding FTURO Pre-Care Text: Verifies consent for planned procedure, identifies individual values and wishes concerning care, includes family members in perioperative teaching Secures patient's records' belongings, and valuables, maintains patient's dignity and privacy, and maintains patient confidentiality Entry 1 In Holding 09/06/21 11:22:00 Outcomes Met? Yes Last Modified By: Sridhar Suazo LPN 09/06/21 11:22:21 Post-Care Text: The patient participates in decisions affecting his or her perioperative plan of care The patient's right to privacy is maintained Surgery Checklist FTURO Entry 1 Patient Birthday, Patient Procedure History and Physical, Identification: Participation Verification: Surgical Consent, With Patient NPO after Midnight: n/a Personal Items: Glasses Complaints of Pain: No Skin Integrity Unable to Visualize Vitals - EU Blood Pressure 128/77 Pulse 90 bpm Respirations 16 br/min SPO2 RN Reviewed Yes Last Modified By: Gayle Saavedra RN 09/06/21 11:59:29 General Comments: Temp 36.5 Finalized By: Gayle Saavedra RN Document Signatures Signed By: Sridhar Suazo LPN 09/06/21 11:25 Sridhar Suazo LPN 09/06/21 11:25 Gayle Saavedra RN 09/06/21 11:59 Normal [facility] Operative Reporton Operative Report Patient: LOR HILLMAN Age: 36 years Sex: Female : 1985 Associated Diagnoses: None Author: Merrick DUNCAN MD Procedure Operative Information Details: Date/ Time: 09/06/2021 12:06:00. Pre-Op Dx: Incont/Urge - N39.41. Post-Op Dx: Same. Anesthesia Type: Local. Procedure: Local Cystoscopy with botox injection. Complications: None. Risks/Benefits/Infor med Consent: Surgical risks, benefits, details of the procedure have been explained to the patient, Full informed consent has been obtained. Intraoperative Information Prepped: Patient is brought back to the endoscopy suite, Male Prep, Female Prep (Patient is placed in modified dorso/lithotomy position, 5 cc 2% Xylocaine Jelly is placed per Urethra, Straight cath inserted to obtain urine specimen, 60 cc 2% Xylocaine liquid inserted into bladder, 5 additional cc 2% Xylocaine Jelly is placed per Urethra, Patient in sitting position for 20 min dwell), Urine Specimen Results Negative for infection, Patient prepped in the usual fashion with Betadine solution, After waiting several minutes the Cystoscope is introduced. Procedure: The trigone was identified and evaluated, 20 template injection sites were identified, The bladder was instilled with enough saline to achieve adequate visualization for the injections, The needle was inserted approximately 2 mm into the detrusor spaced approximately 1 cm apart, A total of 20 injections with a 0.5 ml volume was delivered at each site for a total of 100 units of Botox. The Urethra is: Normal. The Bladder is: Normal, No bladder tumors. The ureteral orifices: Show efflux of clear urine. Devices Implanted: None. Removal: Cystoscope is removed, The patient tolerated it well. Postoperative Information Discharge: Patient is discharged home with antibiotic coverage, Follow up arranged. Patient is to follow-up in 2 weeks. Normal [facility] Comment on above: Result Comment: Elec tronically Signed By: FLY STEINER, Merrick Doshi\.br\Date and Time Signed: 09/06/21 12:07 EDT Reminderson 09-05-2021 Reminders - From: Cristiano Castillo MA To: EU - Clinical; Sent: 08/31/2021 11:40:26 EDT Show up: 09/03/2021 11:40:00 EDT Subject: Ambulatory Reminder Reminder/Recall urine culture Minh Dorsey addressed. Normal [facility] C Urineon 09-02-2021 Bacteria identified Cx Nom (U) Microbiology PROCEDURE: Urine Culture [R1] SOURCE: U Random BODY SITE: COLLECTED DATE/TIME: 08/31/2021 09:09 EDT RECEIVED DATE/TIME: 08/31/2021 18:10 EDT START DATE/TIME: 08/31/2021 18:10 EDT FREE TEXT SOURCE: FLY STEINER, Merrick DUNCAN MD, Merrick Doshi FINAL REPORTS Final Report [] Verified Date/Time: 09/02/2021 12:09 EDT 60,000 cfu/ml Escherichia coli SUSCEPTIBILITY RESULTS LEGEND: S=Susceptible, N/R=Not Reported, Blank=Data not available, or drug not advisable or tested, I=Intermediate, ESBL=Extended spectrum beta-lactamase, R=Resistant, TFG=Thymidine-depend ent strain, MARYLOU=Beta-lactamase positive, SHANELL=mcg/m;(mg/L), S*=Predicted susceptible interp, R*=Predicted resistant interp EC Antibiotic SHANELL Dilutn SHANELL Interp Amikacin <=16 S Ampicillin <=8 S Ampicillin/ <=8/4 S Sulbactam Aztreonam <=4 S Cefazolin <=2 S Cefepime <=2 S Cefoxitin <=8 S Ceftazidime <=1 S Ceftazidime/ <=8 S Avibactam Ceftriaxone <=1 S Ciprofloxacin <=1 S Ertapenem <=0.5 S Gentamicin <=4 S Levofloxacin <=2 S Meropenem <=1 S Nitrofurantoin <=32 S Piperacillin/ <=16 S Tazobactam Tetracycline <=4 S Tigecycline <=2 S Tobramycin <=4 S Trimethoprim/ <=2/38 S Sulfa Performing Locations R1: This test was performed at: [facility], [address] [place] [address], [id number], [facility] Comment on above: Performed By: #### [id number] ####[facility] Ince[address] Sa[address] [facility] [place] [address] Ambulatory Visit Summaryon 0 08-31-2021 Ambulatory Visit Summary LOR HILLMAN :1985 Visit Date:08/31/2021 Ambulatory Visit Instructions Your Care Team Attending Physician - FLY STEINER, Merrick Doshi Primary Care Physician - Daquan Delgado MD This Is Your Medications List cephalexin (Keflex 500 mg Cap) citalopram (CeleXA 40 mg Tab) desvenlafaxine (Pristiq) esomeprazole (esomeprazole 40 mg Cap-EC) metoprolol (metoprolol 25 mg ER Tab) mirabegron (Myrbetriq 50 mg oral tablet, extended release) solifenacin (solifenacin 5 mg Tab) Procedures Performed Injection of therapeutic substance into bladder wall (01/11/2021), Abdominal hysterectomy (01/18/2018), Dilation and curettage of uterus (10/26/2017), Diagnostic laparoscopy (2011), CS - section (2010), CS - section (2006). What to do next Scheduled Follow-Up Appointments Sunday 11:30 AM EDT With: Where: [facility] Sunday 10:00 AM EDT With: PARAG LOCKETT, LEONARDO Kenyon Where: [facility] [address] [place] [address]- \.br\ Medications\.br\ What How Much When Instructions\.br\ Unchanged cephalexin (Keflex 500 mg Cap) 1 Capsules By Mouth 2 times a day Start the day prior to procedure \.br\ Unchanged citalopram (CeleXA 40 mg Tab) By Mouth Every day\.br\ Unchanged desvenlafaxine (Pristiq) By Mouth Every day\.br\ Unchanged esomeprazole (esomeprazole 40 mg Cap-EC) 1 Capsules\.br\ Unchanged metoprolol (metoprolol 25 mg ER Tab) By Mouth Every day\.br\ Unchanged mirabegron (Myrbetriq 50 mg oral tablet, extended release) 1 Tablets By Mouth Every day\.br\ Unchanged solifenacin (solifenacin 5 mg Tab) 1 Tablets By Mouth Every day\.br\ Allergies\.br\ Benzoin Tincture (Skinrash, irritation, and blisters)\.br\ Problems\.br\ Ongoing - Any problem that you are currently receiving treatment for.\.br\ Anemia\.br\ Anxiety and depression\.br\ Asthma\.br\ Back pain\.br\ Cervicitis\.br\ Dyspareunia, female\.br\ Hypothyroidism\.br \ Mitral valve prolapse\.br\ Nocturia\.br\ Obesity (BMI 30-39.9)\.br\ Pelvic pain\.br\ Stress incontinence\.br\ Urge incontinence\.br\ Urgency incontinence\.br\ \.br\ [facility] Pre-Certification Formon Pre-Certification Form [id number] 4#1.00CD:127 Normal [facility] Ambulatory Visit Summaryon 0 08-05-2021 Ambulatory Visit Summary KADYFALLON CARRASCORobert Chance :1985 Visit Date:08/05/2021 Ambulatory Visit Instructions Your Diagnosis Urgency incontinence Nocturia Stress incontinence Tests Performed Urnls Dip Stick Auto w/o Microscopy POC 20128 Your Care Team Attending Physician - Merrick DUNCAN MD Primary Care Physician - Daquan Delgado MD This Is Your Medications List mirabegron (Myrbetriq 50 mg oral tablet, extended release) Contact prescribing physician if questions or concerns cephalexin (Keflex 500 mg Cap) citalopram (CeleXA 40 mg Tab) desvenlafaxine (Pristiq) esomeprazole (esomeprazole 40 mg Cap-EC) metoprolol (metoprolol 25 mg ER Tab) solifenacin (solifenacin 5 mg Tab) Procedures Performed Injection of therapeutic substance into bladder wall (01/11/2021), Abdominal hysterectomy (01/18/2018), Dilation and curettage of uterus (10/26/2017), Diagnostic laparoscopy (2011), CS - section (2010), CS - section (2006). Discharge Vitals Heart Rate (Peripheral) 79 Blood Pressure 150/91 Height 158 cm Height 158.0 cm Weight 89.3 kg Weight 89.3 kg BMI 35.77 What to do next Scheduled Follow-Up Appointments Sunday 8:00 AM EDT With: Merrick DUNCAN MD Where: [facility] Yovany Normal [facility] Patient Educationon 08-06-19 Patient Education Urology Urinary Incontinence Urinary incontinence refers to a condition in which a person is unable to control where and when to pass urine. A person with this condition will urinate when he or she does not mean to (involuntarily). What are the causes? This condition may be caused by: ? Medicines. ? Infections. ? Constipation. ? Overactive bladder muscles. ? Weak bladder muscles. ? Weak pelvic floor muscles. These muscles provide support for the bladder, intestine, and, in women, the uterus. ? Enlarged prostate in men. The prostate is a gland near the bladder. When it gets too big, it can pinch the urethra. With the urethra blocked, the bladder can weaken and lose the ability to empty properly. ? Surgery. ? Emotional factors, such as anxiety, stress, or post-traumatic stress disorder (PTSD). ? Pelvic organ prolapse. This happens in women when organs shift out of place and into the vagina. This shift can prevent the bladder and urethra from working properly. What increases the risk? The following factors may make you more likely to develop this condition: ? Older age. ? Obesity and physical inactivity. ? and childbirth. ? Menopause. ? Diseases that affect the nerves or spinal cord (neurological diseases). ? Long-term (chronic) coughing. This can increase pressure on the bladder and pelvic floor muscles. What are the signs or symptoms? Symptoms may vary depending on the type of urinary incontinence you have. They include: ? A sudden urge to urinate, but passing urine involuntarily before you can get to a bathroom (urge incontinence). ? Suddenly passing urine with any activity that forces urine to pass, such as coughing, laughing, exercise, or sneezing (stress incontinence). ? Needing to urinate often, but urinating only a small amount, or constantly dribbling urine (overflow incontinence). ? Urinating because you cannot get to the bathroom in time due to a physical disability, such as arthritis or injury, or communication and thinking problems, such as Alzheimer disease (functional incontinence). How is this diagnosed? This condition may be diagnosed based on: ? Your medical history. ? A physical exam. ? Tests, such as: ? Urine tests. ? X-rays of your kidney and bladder. ? Ultrasound. ? CT scan. ? Cystoscopy. In this procedure, a health care provider inserts a tube with a light and camera (cystoscope) through the urethra and into the bladder in order to check for problems. ? Urodynamic testing. These tests assess how well the bladder, urethra, and sphincter can store and release urine. There are different types of urodynamic tests, and they vary depending on what the test is measuring. To help diagnose your condition, your health care provider may recommend that you keep a log of when you urinate and how much you urinate. How is this treated? Treatment for this condition depends on the type of incontinence that you have and its cause. Treatment may include: ? Lifestyle changes, such as: ? Quitting smoking. ? Maintaining a healthy weight. ? Staying active. Try to get 150 minutes of moderate-intensity exercise every week. Ask your health care provider which activities are safe for you. ? Eating a healthy diet. ? Avoid high-fat foods, like fried foods. ? Avoid refined carbohydrates like white bread and white rice. ? Limit how much alcohol and caffeine you drink. ? Increase your fiber intake. Foods such as fresh fruits, vegetables, beans, and whole grains are healthy sources of fiber. ? Pelvic floor muscle exercises. ? Bladder training, such as lengthening the amount of time between bathroom breaks, or using the bathroom at regular intervals. ? Using techniques to suppress bladder urges. This can include distraction techniques or controlled breathing exercises. ? Medicines to relax the bladder muscles and prevent bladder spasms. ? Medicines to help slow or prevent the growth of a man's prostate. ? Botox injections. These can help relax the bladder muscles. ? Using pulses of electricity to help change bladder reflexes (electrical nerve stimulation). ? For women, using a medical customer service representative to prevent urine leaks. This is a small, tampon-like, disposable device that is inserted into the urethra. ? Injecting collagen or carbon beads (bulking agents) into the urinary sphincter. These can help thicken tissue and close the bladder opening. ? Surgery. Follow these instructions at home: Lifestyle ? Limit alcohol and caffeine. These can fill your bladder quickly and irritate it. ? Keep yourself clean to help prevent odors and skin damage. Ask your doctor about special skin creams and cleansers that can protect the skin from urine. ? Consider wearing pads or adult diapers. Make sure to change them regularly, and always change them right after experiencing incontinence. General instructions ? Take myoh-fih-pbiagzh and prescription medicines only as (more content not included)... Normal [facility] Urology Office/Clinic Noteon 08-05-2021 Urology Office/Clinic Note Chief Complaint pt is here for 6mo f/u due to stress incontinence HPI Staff pt is here for 6mo f/u due to stress incontinence. previous dx: urgency incontinence (S/P botox 01/11/21) pt says sxs have improved since treatment, nocturia, and stress incontinence. pt says 3mos after botox she could feel her bladder spasms coming back, at first they were just occasionally now it's getting worse.pt is still having some urgency, no incontinence yet, but she can tell it's getting back to that point. PVR-53ml Dysuria: _denies Incomplete bladder emptying: _denies Hematuria: _denies visibly,UA shows trace-intact Frequency: _denies Urgency: _yes Nocturia: _denies Stream: _steady Leaking: _denies Post void dripping: _denies Wearing pads/ Depends: _denies Urge incontinence: _not yet, but can tell it's getting back to that point Stress incontinence: _denies Incontinence without Sensory Awareness: _denies Abdominal pain: _denies Flank pain: _denies Sexual complaints: _ History of Present Illness I have reviewed and verified the staff HPI to be accurate for this encounter. Review of Systems PHQ Score Initial Depression Screen Score: 0 ROS - Provider Constitutional: denies weight loss, denies hot flashes. Eyes: denies eye problems. Gastrointestinal: denies nausea, denies vomiting. Cardiovascular: denies chest pain or angina. Integumentary: no dryness Musculoskeletal: denies musculoskeletal symptoms. ENMT: denies otolaryngeal symptoms. Respiratory: no shortness of breath. Heme/Lymph: denies easy bleeding tendency, denies easy bruising tendency. Psychiatric: no confusion, no anxiety. Genitourinary: denies vaginal discharge, denies incontinence, denies dysuria, denies hematuria, denies urinary frequency, denies amenorrhea, denies menorrhagia, denies abnormal bleeding, denies pelvic pain, denies genital sores, and denies decreased libido. Physical Exam Vitals & Measurements HR: 79(Peripheral) BP: 150/91 HT: 158 cm HT: 158.0 cm WT: 89.3 kg WT: 89.3 kg BMI: 35.77 General Appearance: alert , no acute distress, well nourished, well developed female. Genitourinary: bladder nonpalpable, no flank pain. Assessment/Plan 1. Urgency incontinence (N39.41: Urge incontinence) S/p Botox 01/11/21. PVR-53ml Pt states she did well with the Botox but after a few months but her bladder spasms have returned. Pt states it is not as bad as it was before her first Botox treatment but she definitely notices that things are starting to get worse again. Discussed with pt that when she gets a second treatment the results should last twice as long as the first treatment. Pt states the urgency is starting to come back gradually. Discussed with pt we can repeat the Botox treatment or we can try Myrbetriq. Pt states previous medications helped but she had side effects. We will start pt on Myrbetriq and start the process for another Botox treatment. Will schedule Botox. The procedural risks, benefits, details, and treatment alternatives have been discussed with the patient. These include bleeding, infection, continued problems with overactive bladder, inability to empty the bladder which could require an indwelling catheter or need for in/out catheterization to empty the bladder, and need for repeat procedures over time (usually lasts up to six months), as well as fatigue and insomnia, among others. There is a minimal risk of Botox entering the blood stream and causing neurological problems, which is quite rare. Full informed consent has been obtained. Will order Local anesthesia. 2. Nocturia (R35.1: Nocturia) pt denies at this time. Improved w/ Botox. 3. Stress incontinence (N39.3: Stress incontinence (female) (male)) Pt states this has improved and at times she does have to be careful so she doesn't leak when she sneezes. Follow-up With When Contact Information Merrick DUNCAN MD, FUNMILAYO In 3 months 11/04/2021 EDT [facility] [address] [place] [address]- [phone] Additional Instructions: Patient Education Urinary Incontinence I, Adriana Ventura, personally scribed for Dr. Duncan on 08/05/2021 09:11:32. . Documentation recorded by the scribe, Adriana Ventura, accurately reflects the services(s) I performed and decisions made by me. Problem List/Past Medical History Ongoing Anemia Anxiety and depression Asthma Back pain Cervicitis Dyspareunia, female Hypothyroidism Mitral valve prolapse Nocturia Obesity (BMI 30-39.9) Pelvic pain Stress incontinence Urge incontinence Urgency incontinence Historical No qualifying data Procedure/Surgical History Injection of therapeutic substance into bladder wall (01/11/2021), Abdominal hysterectomy (01/18/2018), Dilation and curettage of uterus (10/26/2017), Diagnostic laparoscopy (2011), CS - section (2010), CS - section (2006). Medications CeleXA 40 mg Tab, Oral, Daily es (more content not included)... Normal [facility] Comment on above: Result Comment: Elec tronically Signed By: Merrick DUNCNA MD\.br\Date and Time Signed: 08/05/21 09:15 EDT\.br\Electronically Co-Signed By: Adriana Ventura MA\.br\Date and Time Co-Signed: 08/05/21 09:11 EDT Vital Signs Date Time Vital Sign Value Performing Clinician Nae doyle 09-28-2021 10:48-0400 Blood Pressure Location LEONARDO TUTTLE [facility] 09-28-2021 10:48-0400 Diastolic blood pressure 89 mm[Hg] [facility] 09-28-2021 10:48-0400 Heart rate 78 /min LEONARDO TUTTLE [facility] [place] 09-28-2021 10:48-0400 Respiratory rate 16 /min LEONARDO TUTTLE [facility] Carpenter 09-28-2021 10:48-0400 Systolic blood pressure 145 mm[Hg] LEONARDO [facility]UTTLE [facility] 08-05-2021 08:42-0400 Blood Pressure Location [facility]UNCAN [facility] [employer] 08-05-2021 08:42-0400 Diastolic blood pressure 91 mm[Hg] Merrick DUNCAN [facility] [place] 08-05-2021 08:42-0400 Heart rate 79 /min Merrick DUNCAN [facility] Carpenter 08-05-2021 08:42-0400 Systolic blood pressure 150 mm[Hg] [facility] DUNCAN [facility] Encounters Encounter Date Encounter Type Care Provider Facility Start: 12-24-2023 End: 12-24-2023 ambulatory DASHAWN APRIL Not Available Start: 11-26-2023 End: 11-26-2023 ambulatory DASHAWN APRIL Not Available Start: 03-06-2023 End: 03-06-2023 ambulatory SHARLA HAMMONDS Not Available Start: 09-13-[address] DAQUAN DELGADO . Facili ty:[facility] Start: 07-26-2022 End: 07-27-[address] DAQUAN DELGADO . Facility:[facility] Start: 07-21-2022 Encounter for genera l adult medical examination without abnormal findings DR DAQUAN DELGADO . [facility] Start: 07-13-2022 End: 07-14-[address] DAQUAN DELGADO . Facility:[facility] Start: 07-13-2022 End: 07-14-2022 Encounter for general adult medical examination without abnormal findings DR DAQUAN DELGADO . Facility:[facility] Start: 04-12-2022 ambulatory LEONARDO TUTTLE Facili ty:[facility] Start: 11-16-2021 End: 11-16-[address] DASHAWN EATON . Facility: Start: 11-11-2021 ambulatory MD Merrick DUNCAN Fac ility:[facility] Start: 11-10-2021 End: 11-11-[address] DASHAWN EATON . Facility: Start: 11-09-2021 End: 11-09-[address] DASHAWN EATON . Facility: Start: 09-28-2021 End: 09-29-2021 ambulatory LEONARDO TUTTLE Facility:[facility] Start: 09-28-2021 End: 09-28-2021 Patient encounter procedure LEONARDO TUTTLE [facility] Start: 09-06-2021 End: 09-07-2021 ambulatory MD Merrick DUNCAN Facility:[facility] Start: 09-06-2021 End: 09-06-2021 Patient encounter procedure Merrick DUNCAN [facility] Start: 08-31-2021 End: 09-01-2021 ambulatory MD Merrick DUNCAN Facility:[facility] Start: 08-31-2021 End: 08-31-2021 Lab Drop off Merrick DUNCAN [facility] Start: 08-31-2021 End: 08-31-2021 Patient encounter procedure Merrick DUNCAN [facility] Start: 08-05-2021 End: 2021 ambulatory MD Merrick DUNCAN Facility:[facility] Start: 08-05-2021 End: 08-05-2021 Patient encounter procedure Merrick DUNCAN [facility] Procedures Date Procedure Procedure Detail Performing Clinician Start: 01-11-2021 Injection of therape utic substance into bladder wall Merrick DUNCAN Start: 01-18-2018 Abdominal hysterectomy Merrick DUNCAN Start: 10-26-2017 Dilation and curetta ge of uterus Merrick DUNCAN Start: 04-16-2011 Diagnostic laparoscopy Merrick DUNCAN Start: 04-16-2010 section Gerber DUNCAN Start: 04-16-2006 section Gerber flaquita FLY Immunizations Immunization Date Immunization Notes Care Provider Pooja tillman NEGATED: Highlighted row has not occurred!08-05-2021 influenza virus vaccine, unspecified formulation Merrick DUNCAN [facility] NEGATED: Highlighted row has not occurred!08-05-2021 SARS-CoV-2 (COVID-19) Ad26 vaccine, recombinant Merrick DUNCAN [facility] Payers Date Payer Category Payer Unknown [id number] 2.16.8 [id number] 1984 Unknown [id number] 2.16.8 [id number] 1984 Unknown [id number] 2.16.8 [id number] 1984 Unknown [id number] 2.16.8 [id number] 1984 Unknown [id number] 2.16.8 [id number] 1984 Unknown [id number] 2.16.8 [id number] 1984 Unknown [id number] 2.16.8 [id number] 1984 Unknown [id number] 2.16.84 [id number] 1984 Unknown [id number] 2.16.84 [id number] 1984 Unknown [id number] 2.16.84 [id number] 1984 Unknown [id number] 2.16.84 [id number] 1984 Unknown [id number] 2.16.84 [id number] 1984 Unknown [id number] 2.16.84 [id number] 1984 Unknown [id number] 2.16.84 [id number] 1984 Unknown [id number] 2.16.84 [id number] 1984 Unknown [id number] 2.16.840 .[id number] 1959 Unknown [id number] 1959 Unknown [id number] Social History Date Type Detail Facility Start: 08-05-2021 End: 09-28-2021 Tobacco smoking status Never smoked tobacco (finding) [facility] [place] Sex Assigned At Female [facility] Tobacco smoking status Never [facility] [place] Functional Status Date Assessment Result Facility 09-28-2021 Functional Status N/A [facility] [place] Clinical Notes 08-05-2021 to 09-28-2021 Note Date & Type Note Facility 09-28-2021 Hospital Discharg e instructions Patient Education 09/28/2021 14:18:58 Overactive Bladder, Adult Overactive Bladder, Adult Overactive bladder refers to a condition in which a person has a sudden need to pass urine. The person may leak urine if he or she cannot get to the bathroom fast enough (urinary incontinence). A person with this condition may also wake up several times in the night to go to the bathroom. Overactive bladder is associated with poor nerve signals between your bladder and your brain. Your bladder may get the signal to empty before it is full. You may also have very sensitive muscles that make your bladder squeeze too soon. These symptoms might interfere with daily work or social activities. What are the causes? This condition may be associated with or caused by: Urinary tract infection. Infection of nearby tissues, such as the prostate. Prostate enlargement. Surgery on the uterus or urethra. Bladder stones, inflammation, or tumors. Drinking too much caffeine or alcohol. Certain medicines, especially medicines that get rid of extra fluid in the body (diuretics). Muscle or nerve weakness, especially from: ?A spinal cord injury. ?Stroke. ?Multiple sclerosis. ?Parkinson's disease. Diabetes. Constipation. What increases the risk? You may be at greater risk for overactive bladder if you: Are an older adult. Smoke. Are going through menopause. Have prostate problems. Have a neurological disease, such as stroke, dementia, Parkinson's disease, or multiple sclerosis (MS). Eat or drink things that irritate the bladder. These include alcohol, spicy food, and caffeine. Are overweight or obese. What are the signs or symptoms? Symptoms of this condition include: Sudden, strong urge to urinate. Leaking urine. Urinating 8 or more times a day. Waking up to urinate 2 or more times a night. How is this diagnosed? Your health care provider may suspect overactive bladder based on your symptoms. He or she will diagnose this condition by: A physical exam and medical history. Blood or urine tests. You might need bladder or urine tests to help determine what is causing your overactive bladder. You might also need to see a health care provider who specializes in urinary tract problems (urologist). How is this treated? Treatment for overactive bladder depends on the cause of your condition and whether it is mild or severe. You can also make lifestyle changes at home. Options include: Bladder training. This may include: ?Learning to control the urge to urinate by following a schedule that directs you to urinate at regular intervals (timed voiding). ?Doing Kegel exercises to strengthen your pelvic floor muscles, which support your bladder. Toning these muscles can help you control urination, even if your bladder muscles are overactive. Special devices. This may include: ?Biofeedback, which uses sensors to help you become aware of your body's signals. ?Electrical stimulation, which uses electrodes placed inside the body (implanted) or outside the body. These electrodes send gentle pulses of electricity to strengthen the nerves or muscles that control the bladder. ?Women may use a plastic device that fits into the vagina and supports the bladder (pessary). Medicines. ?Antibiotics to treat bladder infection. ?Antispasmodics to stop the bladder from releasing urine at the wrong time. ?Tricyclic antidepressants to relax bladder muscles. ?Injections of botulinum toxin type A directly into the bladder tissue to relax bladder muscles. Lifestyle changes. This may include: ?Weight loss. Talk to your health care provider about weight loss methods that would work best for you. ?Diet changes. This may include reducing how much alcohol and caffeine you consume, or drinking fluids at different times of the day. ?Not smoking. Do not use any products that contain nicotine or tobacco, such as cigarettes and e-cigarettes. If you need help quitting, ask your health care provider. Surgery. ?A device may be implanted to help manage the nerve signals that control urination. ?An electrode may be implanted to stimulate electrical signals in the bladder. ?A procedure may be done to change the shape of the bladder. This is done only in very severe cases. Follow these instructions at home: Lifestyle Make any diet or lifestyle changes that are recommended by your health care provider. These may include: ?Drinking less fluid or drinking fluids at different times of the day. ?Cutting down on caffeine or alcohol. ?Doing Kegel exercises. ?Losing weight if needed. ?Eating a healthy and balanced diet to prevent constipation. This may include: ?Eating foods that are high in fiber, such as fresh fruits and vegetables, whole grains, and beans. ?Limiting foods that are high in fat and processed sugars, such as fried and sweet foods. General instructions Take genq-wsz-hyztkti and prescription medicines only as told by your health care provider. If you were prescribed an antibiotic medicine, take it as told by your health care provider. Do not stop taking the antibiotic even if you start to feel better. Use any implants or pessary as told by your health care provider. If needed, wear pads to absorb urine leakage. Keep a journal or log to track how much and when you drink and when you feel the need to urinate. This will help your health care provider monitor your condition. Keep all follow-up visits as told by your health care provider. This is important. Contact a health care provider if: You have a fever. Your symptoms do not get better with treatment. Your pain and discomfort get worse. You have more frequent urges to urinate. Get help right away if: You are not able to control your bladder. Summary Overactive bladder refers to a condition in which a person has a sudden need to pass urine. Several conditions may lead to an overactive bladder. Treatment for overactive bladder depends on the cause and severity of your condition. Follow your health care provider's instructions about lifestyle changes, doing Kegel exercises, keeping a journal, and taking medicines. This information is not intended to replace advice given to you by your health care provider. Make sure you discuss any questions you have with your health care provider. Document Released: 01/27/2010 Document Revised: 07/24/2019 Document Reviewed: 04/18/2018 [employer] Patient Education 2020 [employer]. Follow Up Care 08/25/2021 15:11:49 With:PARAG LOCKETT, LEONARDO Kenoyn, URL Address: [address] [place] [address] Business (1) When:6 months [facility] [place] 09-06-2021 Note [id number] [facility] 09-06-2021 Hospital Discharg e instructions Patient Education 09/06/2021 12:05:43 [facility] - Cystoscopy with Botox Injection Discharge Instructions (CUSTOM) Cystoscopy with Botox injection Voiding after the procedure: there may be some pain, burning, urgency, frequency and blood tinged urine following the procedure. These symptoms usually resolve within 2-5 days. Drink the amount of fluid it takes to keep the urine pink to yellow or clear in color. Drinking enough water and fluids will help to ease any discomfort after your procedure. It may take a few days to a week to notice a gradual improvement in the overactive bladder symptoms. If you are having problems that seem out of the ordinary, please call. If unable to contact your physician and you feel it is an emergency, go to the nearest emergency room or call 911 Do not lift more than fifteen pounds for 1-2 days. If you see a lot of blood, you probably did too much. Diet you may resume your normal diet. Pain control You may take extra strength Tylenol or Motrin for discomfort. Call if you have a fever over 100 degrees. Follow Up Care 08/25/2021 15:16:33 With:Merrick DUNCAN Address: [facility] [address] [place] [address]- Business (1) When: Unknown Comments:Keep scheduled appointment [facility] 09-06-2021 Note Custom Cystoscopy with Botox injection ? Voiding after the procedure: there may be some pain, burning, urgency, frequency and blood tinged urine following the procedure. These symptoms usually resolve within 2-5 days. Drink the amount of fluid it takes to keep the urine pink to yellow or clear in color. Drinking enough water and fluids will help to ease any discomfort after your procedure. ? It may take a few days to a week to notice a gradual improvement in the overactive bladder symptoms. ? If you are having problems that seem out of the ordinary, please call. ? If unable to contact your physician and you feel it is an emergency, go to the nearest emergency room or call 911 ? Do not lift more than fifteen pounds for 1-2 days. If you see a lot of blood, you probably did too much. ? Diet ? you may resume your normal diet. ? Pain control ? You may take extra strength Tylenol or Motrin for discomfort. ? Call if you have a fever over 100 degrees. [facility] 08-05-2021 Hospital Discharg e instructions Patient Education 08/05/2021 09:10:42 Urinary Incontinence Urinary Incontinence Urinary incontinence refers to a condition in which a person is unable to control where and when to pass urine. A person with this condition will urinate when he or she does not mean to (involuntarily). What are the causes? This condition may be caused by: Medicines. Infections. Constipation. Overactive bladder muscles. Weak bladder muscles. Weak pelvic floor muscles. These muscles provide support for the bladder, intestine, and, in women, the uterus. Enlarged prostate in men. The prostate is a gland near the bladder. When it gets too big, it can pinch the urethra. With the urethra blocked, the bladder can weaken and lose the ability to empty properly. Surgery. Emotional factors, such as anxiety, stress, or post-traumatic stress disorder (PTSD). Pelvic organ prolapse. This happens in women when organs shift out of place and into the vagina. This shift can prevent the bladder and urethra from working properly. What increases the risk? The following factors may make you more likely to develop this condition: Older age. Obesity and physical inactivity. and childbirth. Menopause. Diseases that affect the nerves or spinal cord (neurological diseases). Long-term (chronic) coughing. This can increase pressure on the bladder and pelvic floor muscles. What are the signs or symptoms? Symptoms may vary depending on the type of urinary incontinence you have. They include: A sudden urge to urinate, but passing urine involuntarily before you can get to a bathroom (urge incontinence). Suddenly passing urine with any activity that forces urine to pass, such as coughing, laughing, exercise, or sneezing (stress incontinence). Needing to urinate often, but urinating only a small amount, or constantly dribbling urine (overflow incontinence). Urinating because you cannot get to the bathroom in time due to a physical disability, such as arthritis or injury, or communication and thinking problems, such as Alzheimer disease (functional incontinence). How is this diagnosed? This condition may be diagnosed based on: Your medical history. A physical exam. Tests, such as: ?Urine tests. ?X-rays of your kidney and bladder. ?Ultrasound. ?CT scan. ?Cystoscopy. In this procedure, a health care provider inserts a tube with a light and camera (cystoscope) through the urethra and into the bladder in order to check for problems. ?Urodynamic testing. These tests assess how well the bladder, urethra, and sphincter can store and release urine. There are different types of urodynamic tests, and they vary depending on what the test is measuring. To help diagnose your condition, your health care provider may recommend that you keep a log of when you urinate and how much you urinate. How is this treated? Treatment for this condition depends on the type of incontinence that you have and its cause. Treatment may include: Lifestyle changes, such as: ?Quitting smoking. ?Maintaining a healthy weight. ?Staying active. Try to get 150 minutes of moderate-intensity exercise every week. Ask your health care provider which activities are safe for you. ?Eating a healthy diet. ?Avoid high-fat foods, like fried foods. ?Avoid refined carbohydrates like white bread and white rice. ?Limit how much alcohol and caffeine you drink. ?Increase your fiber intake. Foods such as fresh fruits, vegetables, beans, and whole grains are healthy sources of fiber. Pelvic floor muscle exercises. Bladder training, such as lengthening the amount of time between bathroom breaks, or using the bathroom at regular intervals. Using techniques to suppress bladder urges. This can include distraction techniques or controlled breathing exercises. Medicines to relax the bladder muscles and prevent bladder spasms. Medicines to help slow or prevent the growth of a man's prostate. Botox injections. These can help relax the bladder muscles. Using pulses of electricity to help change bladder reflexes (electrical nerve stimulation). For women, using a medical customer service representative to prevent urine leaks. This is a small, tampon-like, disposable device that is inserted into the urethra. Injecting collagen or carbon beads (bulking agents) into the urinary sphincter. These can help thicken tissue and close the bladder opening. Surgery. Follow these instructions at home: Lifestyle Limit alcohol and caffeine. These can fill your bladder quickly and irritate it. Keep yourself clean to help prevent odors and skin damage. Ask your doctor about special skin creams and cleansers that can protect the skin from urine. Consider wearing pads or adult diapers. Make sure to change them regularly, and always change them right after experiencing incontinence. General instructions Take [id number] and prescription medicines only as told by your health care provider. Use the bathroom about every 3 4 hours, even if you do not feel the need to urinate. Try to empty your bladder completely every time. After urinating, wait a minute. Then try to urinate again. Make sure you are in a relaxed position while urinating. If your incontinence is caused by nerve problems, keep a log of the medicines you take and the times you go to the bathroom. Keep all follow-up visits as told by your health care provider. This is important. Contact a health care provider if: You have pain that gets worse. Your incontinence gets worse. Get help right away if: You have a fever or chills. You are unable to urinate. You have redness in your groin area or down your legs. Summary Urinary incontinence refers to a condition in which a person is unable to control where and when to pass urine. This condition may be caused by medicines, infection, weak bladder muscles, weak pelvic floor muscles, enlargement of the prostate (in men), or surgery. The following factors increase your risk for developing this condition: older age, obesity, and childbirth, menopause, neurological diseases, and chronic coughing. There are several types of urinary incontinence. They include urge incontinence, stress incontinence, overflow incontinence, and functional incontinence. This condition is usually treated first with lifestyle and behavioral changes, such as quitting smoking, eating a healthier diet, and doing regular pelvic floor exercises. Other treatment options include medicines, bulking agents, medical devices, electrical nerve stimulation, or surgery. This information is not intended to replace advice given to you by your health care provider. Make sure you discuss any questions you have with your health care provider. Document Released: 05/10/2005 Document Revised: 04/12/2018 Document Reviewed: 07/12/2017 [employer] Patient Education 2020 [employer] Follow Up Care 01/24/2021 09:26:41 With:FLY STEINER, FUNMILAYO Bob Address: [facility] [address] [place] [phone]- [phone] When:11/04/2021 [facility] Evaluation + Plan note Future Appointments Appointment Date:11/11/2021 08:00:00 AM Scheduled Provider:Merrick DUNCAN MD Location:[facility] Appointment Type:URO Office Visit [facility] Evaluation + Plan note Future Appointments Appointment Date:09/06/2021 11:30:00 AM Scheduled Provider: Location:[facility] Appointment Type:Urology FT Appointment Date:09/28/2021 10:00:00 AM Scheduled Provider:LEONARDO TUTTLE PA-C [facility] Appoint[facility] Type:URO Office Visit Appointment Date:11/11/2021 08:00:00 AM Scheduled Provider:Merrick DUNCAN MD [facility] App[facility] Type:URO Office Visit [facility] Evaluation + Plan note Future Appointments Appointment Date:09/06/2021 11:30:00 AM Scheduled Provider: Location:[facility] Appointment Type:Urology FT Appointment Date:09/28/2021 10:00:00 AM Scheduled Provider:LEONARDO TUTTLE PA-C [facility] Appointment Type:URO Office Visit Appointment Date:11/11/2021 08:00:00 AM Scheduled Provider:Merrick DUNCAN MD [facility] Appointment Type:URO Office Visit Diagnostic Tests PendingUrine Culture 08/31/21 [facility] Evaluation + Plan note Future Appointments Appointment Date:09/28/2021 10:00:00 AM Scheduled Provider:LEONARDO TUTTLE PA-C [facility] Appointment Type:URO Office Visit Appointment Date:11/11/2021 08:00:00 AM Scheduled Provider:Merrick DUNCAN MD [facility] App[facility] Type:[facility] Office Visit [facility] Evaluation + Plan note Future Appointments Appointment Date:04/12/2022 03:00:00 PM Scheduled Provider:LEONARDO TUTTLE PA-C Location:[facility] Appointment Type:URO Office Visit [facility] Hospital course Narrative No data available for this section [facility] Hospital Discharge instructions No data available for this section [facility] Progress note No data available for this section [facility] Summary Purpose Family History No Family History Records FoundNo Family History Records FoundNo Family History Records Found Advance Directives No Advanced Directives Records FoundNo Advanced Directives Records FoundNo Advanced Directives Records Found Additional Source Comments Care Team (unrecognized sect ion and content) Personnel Name: Daquan Delgado MD Address: [address] [place] [address] INFORMATION SOURCE (unrecogn ized section and content) DATE CREATED AUTHOR 04/10/2022 [facility] DATE CREATED AUTHOR AUTHOR'S ORGANIZ ATION 09/22/[address] [facility] p[facility] DATE CREATED AUTHOR AUTHOR'S ORGANIZ ATION 12/25/2023 [facility] EPIC FOR RECORDS PERTAINING TO PATIENTS WHO ARE OR HAVE BEEN ENROLLED IN A CHEMICAL DEPENDENCY/SUBSTANCEABUSE PROGRAM, SOME INFORMATION MAY BE OMITTED. This clinical summary was aggregated from multiple sources. Caution should be exercised in using it in the provision of clinical care. This summary normalizes information from multiple sources, and as a consequence, information in this document may materially change the coding, format and clinical context of patient data. In addition, data may be omitted in some cases. CLINICAL DECISIONS SHOULD BE BASED ON THE PRIMARY CLINICAL RECORDS. [employer] provides no warranty or guarantee of the accuracy or completeness of information in this document.
[2024-01-14 17:04] LABS: Estimated Average Glucose 114 mg/dL; Glycohemoglobin A1C 5.6 % (4.5-6.2)
[2024-01-14 17:16] LABS: Free T3 1.55 pg/mL (2.18-3.98); Free T4 0.95 ng/dL (0.76-1.46); Glucose 88 mg/dL (74-106); Thyroid Stimulating Hormone 1.294 uIU/mL (0.358-3.740)
[2024-01-16 06:10] LABS: Sex Horm Binding Glob, Serum 40.1 nmol/L (24.6-122.0)
[2024-01-16 07:10] LABS: Estradiol 45.5 pg/mL (.)
[2024-01-16 08:13] LABS: Thyroid Peroxidase (TPO) Ab 15 IU/mL (0-34)
[2024-01-16 09:13] LABS: Insulin 42.1 uIU/mL (2.6-24.9)
[2024-01-16 10:12] LABS: C-Peptide, Serum 5.3 ng/mL (1.1-4.4)
[2024-01-16 16:12] LABS: Thyroglobulin Antibody <1.0 IU/mL (0.0-0.9)
== END 2024-01-14 15:58 | disposition home or self-care (01) ==
PROVIDERS: PCP Family Medicine; Visit Provider Obstetrics & Gynecology
DX: R61 Generalized hyperhidrosis (principal); E89.41 Symptomatic postprocedural ovarian failure; E34.9 Endocrine disorder, unspecified; Z90.710 Acquired absence of both cervix and uterus
CPT/HCPCS: 36415; 82530; 82627; 82652; 82670; 82679; 82728; 82947; 83036; 83525; 84144; 84260; 84270; 84402; 84403; 84432; 84436; 84439; 84443; 84481; 84482; 84681; 86376; 86800

== ENCOUNTER 2024-01-14 22:00 | Outpatient (REF) | payer OTHER, SELFPAY ==
--- OUTSIDE RECORDS SUMMARY | 2024-01-14 22:03 | XMS_ITS | CCD ---
Author Organization [facility] Care Team Providers Care Inside Solar Sales Consultant Name Role Phone Daquan Delgado Primary Care Physician LEONARDO TUTTLE Attending Unavailable LEONARDO TUTTLE Attending Unavailable MD Merrick DUNCAN Attending Unavailable FLY, MD Merrick Doshi Admitting Unavailable DUNCAN, MD Merrick Doshi Attending Unavailable DUNCAN, MD Merrick Doshi Referring Unavailable FLY, MD Merrick Doshi Admitting Unavailable FLY, MD Merrick Doshi Attending Unavailable DUNCAN, MD Merrick Doshi Consulting Unavailable DUNCAN, Merrikc Doshi Consulting Unavailable DUNCAN, Merrick Doshi Consulting [...] HOY ., DR BUTT Primary Care Unavailable [place], DR EMILIE Connor Consulting Unavailable APRIL ., [...] Skinrash, irritation, and blisters [facility] (2 sources) Adhesive agent Drug allergy (disorder) [facility] (2 sources) Latex Drug allergy (disorder) [facility] (1 source) Misc-Other; Translations: [Misc-Other] Propensity to adverse reactions (disorder) [facility] Medications Current Medications Medication Drug Class(es) Dates Sig (Normalized) Sig (Original) cephalexin 500 mg oral capsule (4 sources) Cephalosporin Antibacterial Start: 08-25-2021 take 1 capsule by mouth twice daily Keflex 500 mg Cap 500 mg = 1 cap(s), Oral, BID, Start the day prior to procedure, # 14 cap(s), Refills(s) 0, Pharmacy: [facility], 158, cm, 08/05/21 8:44:00 EDT, Height/Length Dosing, 89.3, kg, 08/05/21 8:44:00 EDT, Weight Dosing Start Date: 08/25/21 Status: Ordered Start: 12-03-2020 take 1 capsule by mo [facility] twice daily Keflex 500 mg Cap 500 mg = 1 cap(s), Oral, BID, Start on December 13, # 14 cap(s), Refills(s) 0, Pharmacy: [facility], 158, cm, 12/03/20 10:41:00 EDT, [...] Daily, # 90 tab(s), Refills(s) 3, Pharmacy: [facility], 158, cm, 08/05/21 8:44:00 EDT, Height/Length Dosing, 89.3, kg, 08/05/21 8:44:00 EDT, Weight Dosing Start Date: 08/05/21 Status: Ordered solifenacin succinate 5 mg oral tablet (4 sources) Cholinergic Muscarinic Antagonist Start: 11-24-2020 take 1 tablet by mouth once daily solifenacin 5 mg Tab 5 mg = 1 tab(s), Oral, Daily, # 30 tab(s), Refills(s) 6, Pharmacy: [facility], 158, cm, 11/15/20 10:34:00 EDT, [...] Insulin 28.7 uIU/mL Critically high 2.6-24.9 [facility] Comment on above: Performed By: #### I NSULIN #### [facility] [address] [place] [address] Dr. Hanna Seaman RHEUMATOID FACTORon 07-15-19 23 RA Latex Turbid. <10.0 Normal <14.0 [facility] Comment on above: Performed By: #### R F #### [facility] [address] [place] [address] Dr. Hanna Seaman CBC AUTO DIFFon 07-13-2022 BASO # 0.1 103/ul Normal 0.0-0.1 [facility] Comment on above: Performed By: #### C BC ####[facility] [address] [place] [address]Dr. Hanna Seaman Basophils/100 WBC (Bld) 0.6 % Normal 0.2-2.0 [facility] Comment on above: Performed By: #### C BC ####[facility] [address] [place] [address]Dr. Hanna Seaman EO # 0.1 103/ul Normal 0.0-0.7 [facility] Comment on above: Performed By: #### C BC ####[facility] [address] [place] [address]Dr. Hanna Seaman Eosinophils/100 WBC (Bld) 1.8 % Normal 0.9-7.0 [facility] Comment on above: Performed By: #### C BC ####[facility] [address]angaponn[address] [place] [address]Dr. Hanna Seaman Erythrocyte distribution width (RBC) [Ratio] 13.5 % Normal 11.0-15.0 [facility] Comment on above: Performed By: #### C BC ####[facility] [address] [place], [place] [address]Dr. Hanna Seaman Hematocrit (Bld) [Volume fraction] 38.6 % Normal 36.0-48.0 [facility] Comment on above: Performed By: #### C BC ####[facility] [address] [place], [place] [address]Dr. Hanna Seaman Hemoglobin (Bld) [Mass/Vol] 12.5 g/dL Normal 12.0-16.0 [facility] Comment on above: Performed By: #### C BC ####[facility] Y[address] [place], [place] [address]Dr. Hanna Seaman IG # 0.03 10e3/ul Normal 0.00-0.03 [facility] Comment on above: Performed By: #### C BC ####[facility] [address] [place], [place] [address]Dr. Hanna Seaman IG % 0.4 % Normal 0.0-0.5 [facility] Comment on above: Performed By: #### C BC ####[facility] Op[address] [place], [place] [address]Dr. Hanna Seaman LYMPH # 2.4 103/ul Normal 1.2-3.8 [facility] Comment on above: Performed By: #### C BC ####[facility] Pbqxkvldbb[address] [place], [place] [address]Dr. Hanna Seaman Lymphocytes/100 WBC (Bld) 30.1 % Normal 20.5-60.0 [facility] Comment on above: Performed By: #### C BC ####[facility] Opqnuzivmi[address] [place], [place] [address]Dr. Hanna Seaman MANUAL DIFF REQ NO Normal [facility] Comment on above: Performed By: #### C BC ####[facility] [address] [place] [address]Dr. Hanna Jurgen MCH (RBC) [Entitic mass] 28.2 pg Normal 26.7-34.0 [facility] Comment on above: Performed By: #### C BC ####[facility] [address] [place], [place] [address]Dr. Hanna Jurgen MCHC (RBC) [Mass/Vol] 32.4 g/dL Normal 29.9-35.2 [facility] Comment on above: Performed By: #### C BC ####[facility] [address] [place], [place] [address]Dr. Hanna Seaman MCV (RBC) [Entitic vol] 87.1 fL Normal 81.0-99.0 [facility] Comment on above: Performed By: #### C BC ####[facility] [address] [place], [place] [address]Dr. Hanna Seaman MONO # 0.5 103/ul Normal 0.3-0.8 [facility] Comment on above: Performed By: #### C BC ####[facility] [address] [place], [place] [address]Dr. Hanna Seaman Monocytes/100 WBC (Bld) 6.2 % Normal 1.7-12.0 [facility] Comment on above: Performed By: #### C BC ####[facility] [address] [place], [place] [address]DrLink Seaman NEUT # 4.8 103/ul Normal 1.4-6.5 [facility] Comment on above: Performed By: #### C BC ####[facility] Hun[address] [place], [place] [address]DrLink Seaman Neutrophils/100 WBC (Bld) 60.9 % Normal 43.0-75.0 [facility] Comment on above: Performed By: #### C BC ####[facility] [address]at[address] [place], [place] [address]Dr. Hanna Seaman Platelet mean volume (Bld) [Entitic vol] 8.7 fL Critically low 9.5-13.5 [facility] Comment on above: Performed By: #### C BC ####[facility] [address] [place] [id number] Seaman PLT 305 103/ul Normal 150-450 [facility] Comment on above: Performed By: #### C BC ####[facility] [address] [place] [address]DrLink Seaman RBC 4.43 106/ul Normal 4.20-5.40 [facility] Comment on above: Performed By: #### C BC ####[facility] [address] [place] [address]DrLink Seaman WBC 7.9 103/ul Normal 4.0-11.0 [facility] Comment on above: Performed By: #### C BC ####[facility] [address] [place] [address]Dr. Hanna Seaman FREE THYROXINE INDEX T7on FTI 2.39 Normal 1.30-4.50 [facility] Comment on above: Performed By: #### C MP, LIPID, TSH, T7 #### [facility] [address] [place] [address] [address] Hanna Seaman T3U 31.0 % Normal 30.0-39.0 [facility] Comment on above: Performed By: #### C MP, LIPID, TSH, T7 #### [facility] [address] [place] [address] [address] Hanna Seaman T4 [Mass/Vol] 7.70 ug/dL Normal 4.80-13.90 [facility] Comment on above: Performed By: #### C MP, LIPID, TSH, T7 #### [facility] [address] [place] [address] [address] Hanna Seaman GLYCOHEMOGLOBIN A1Con 2022 ADA RECOMMENDATION SEE BELOW Normal [facility] Comment on above: Result Comment: ADA RECOMMENDED LIMIT 4.0 - 6.0 ADA THERAPEUTIC TARGET < 7.0 ACTION SUGGESTED > 7.0 Performed By: #### A 1C #### [facility] [address] [place] [address] [address] Hanna Seaman Glucose [Mass/Vol] 111 mg/dL Normal [facility] Comment on above: Performed By: #### A 1C #### [facility] [address] [place] [address] [address] Hanna Seaman HbA1c (Bld) [Mass fraction] 5.5 % Normal 4.5-6.2 [facility] Comment on above: Performed By: #### A 1C #### [facility] [address] [place] [address] [address] Hanna Seaman IRONon 07-13-2022 Iron [Mass/Vol] 40.0 ug/dL Critically low 50.0-170.0 [facility] Comment on above: Performed By: #### I BROOKS ####[facility] [address] [place] [address]Dr. Hanna Seaman LIPID PROFILEon 07-13-2022 CHOL-HDL RATIO NORM SEE BELOW Normal [facility] Comment on above: Result Comment: 3.3 - 4.4 LOW RISK 4.4 - 7.1 AVERAGE RISK 7.1 - 11.0 MODERATE RISK >11.0 HIGH RISK Performed By: #### C MP, LIPID, TSH, T7 #### [facility] [address] [place] [address] [address] Hanna Seaman Cholesterol [Mass/Vol] 149 mg/dL Normal <=200 [facility] Comment on above: Performed By: #### C MP, LIPID, TSH, T7 #### [facility] [address] [place] [address] [address] Hanna Seaman Cholesterol in HDL [Mass/Vol] 41 mg/dL Normal 40-60 [facility] Comment on above: Performed By: #### C MP, LIPID, TSH, T7 #### [facility] [address] [place] [address] [address] Hanna Seaman Cholesterol in LDL [Mass/Vol] 81.0 mg/dL Normal [facility] Comment on above: Performed By: #### C MP, LIPID, TSH, T7 #### [facility] [address] [place], [place] [address] Dr. Hanna Seaman Cholesterol.total/C holesterol in HDL [Mass ratio] 3.6 {ratio} Normal [facility] Comment on above: Performed By: #### C MP, LIPID, TSH, T7 #### [facility] [address] [place], [place] [address] Dr. Hanna Seaman HDL NORMAL > or = 60 mg/dl - LOW CARDIOVASCULAR RISK <40 mg/dl - HIGH CARDIOVASCULAR RISK Normal [facility] Comment on above: Performed By: #### C MP, LIPID, TSH, T7 #### [facility] [address] [place] [address] [address] Hanna Seaman LDL CALC NORMAL SEE BELOW Normal [facility] Comment on above: Result Comment: <100 mg/dl OPTIMAL 100 - 129 mg/dl NEAR OR ABOVE OPTIMAL 130 - 159 mg/dl BORDERLINE HIGH 160 - 189 mg/dl HIGH >190 mg/dl VERY HIGH Performed By: #### C MP, LIPID, TSH, T7 #### [facility] [address] [place] [address] [address] Hanna Seaman Triglyceride [Mass/Vol] 135 mg/dL Normal <=150 [facility] Comment on above: Performed By: #### C MP, LIPID, TSH, T7 #### [facility] [address] [place] [address] [address] Hanna Seaman VLDL CALC 27.0 mg/dL Normal [facility] Comment on above: Performed By: #### C MP, LIPID, TSH, T7 #### [facility] [address] [place] [address] [address] Hanna Seaman NM STRESS/REST MULTIon 07-13 NM STRESS/REST MULTI Patient: LOR HILLMANLink Exam Date: 07/13/2022 : 1985 Gender:F Ordering : DR DAQUAN DELGADO . Admission #: [id number] Family : Order #: [id number] CLICK HERE TO VIEW EXAM RADIOLOGY REPORT [...] MD on 07/13/2022 at 14:55 Normal [facility] PROF 14(COMP METB)on 023 Albumin [Mass/Vol] 3.3 g/dL Critically low 3.4-5.[address] [facility] Comment on above: Performed By: #### C MP, LIPID, TSH, T7 ####[facility] [address] [place] [id number] Seaman Albumin/Globulin [Mass ratio] 0.7 {ratio} Normal [facility] Comment on above: Performed By: #### C MP, LIPID, TSH, T7 ####[facility] [address] [place], [place] [address]Uk. Hanna Seaman ALP [Catalytic activity/Vol] 76 U/L Normal 46-116 [facility] Comment on above: Performed By: #### C MP, LIPID, TSH, T7 ####[facility] [address] [place] [id number] Seaman ALT [Catalytic activity/Vol] 30 U/L Normal 14-59 [facility] Comment on above: Performed By: #### C MP, LIPID, TSH, T7 ####[facility] [address] [place] [address]Dr. Hanna Seaman Anion gap [Moles/Vol] 13.2 mmol/L Normal [facility] Comment on above: Performed By: #### C MP, LIPID, TSH, T7 ####[facility] [address] [place] [address]Dr. Hanna Seaman AST [Catalytic activity/Vol] 17 U/L Normal 15-37 [facility] Comment on above: Performed By: #### C MP, LIPID, TSH, T7 ####[facility] [address] [place] [address]Dr. Hanna Seaman Bilirubin [Mass/Vol] 0.2 mg/dL Normal 0.2-1.0 [facility] Comment on above: Performed By: #### C MP, LIPID, TSH, T7 ####[facility] [address] [place] [address]Dr. Hanna Seaman Calcium [Mass/Vol] 8.0 mg/dL Critically low 8.5-10.[address] [facility] Comment on above: Performed By: #### C MP, LIPID, TSH, T7 ####[facility] [address] [place] [address]Dr. Hanna Seaman Chloride [Moles/Vol] 101 mmol/L Normal 98-107 [facility] Comment on above: Performed By: #### C MP, LIPID, TSH, T7 ####[facility] [address] [place] [address]Dr. Hanna Seaman CO2 [Moles/Vol] 31.2 mmol/L Normal 21.0-32.0 [facility] Comment on above: Performed By: #### C MP, LIPID, TSH, T7 ####[facility] [address] [place] [address]Dr. Hanna Seaman Creatinine [Mass/Vol] 0.79 mg/dL Normal 0.55-1.02 [facility] Comment on above: Performed By: #### C MP, LIPID, TSH, T7 ####[facility] [address] [place] [id number]. Hanna Seaman EGFR-AF FIJIAN >60 Normal >=60 [facility] Comment on above: Performed By: #### C MP, LIPID, TSH, T7 ####[facility] [address]ox[address]enh[address] [place] [id number]. Hanna Seaman EGFR-NON AF FIJIAN >60 Normal >=60 [facility] Comment on above: Performed By: #### C MP, LIPID, TSH, T7 ####[facility] [address]bekarv[address] [place] [address]Dr. Hanna Seaman Globulin (S) [Mass/Vol] 4.6 g/dL Normal [facility] Comment on above: Performed By: #### C MP, LIPID, TSH, T7 ####[facility] [address] [place] [address]Dr. Hanna Seaman Glucose [Mass/Vol] 94 mg/dL Normal 74-106 [facility] Comment on above: Performed By: #### C MP, LIPID, TSH, T7 ####[facility] [address]ftmc[address] [place] [id number]. Hanna Seaman Potassium [Moles/Vol] 4.4 mmol/L Normal 3.5-5.1 [facility] Comment on above: Performed By: #### C MP, LIPID, TSH, T7 ####[facility] G[address]jfqlc[address] [place] [id number]. Tomekalan Seaman Protein [Mass/Vol] 7.9 g/dL Normal 6.4-8.2 [facility] Comment on above: Performed By: #### C MP, LIPID, TSH, T7 ####[facility] S[address]sojx[address] [place] [id number]. Hanna Seaman Sodium [Moles/Vol] 141 mmol/L Normal 136-145 [facility] Comment on above: Performed By: #### C MP, LIPID, TSH, T7 ####[facility] [address]ud[address] [place] [address]Dr. Hanna Seaman Urea nitrogen [Mass/Vol] 17.0 mg/dL Normal 7.0-18.0 [facility] Comment on above: Performed By: #### C MP, LIPID, TSH, T7 ####[facility] [address] [place], [place] [address]Cx. Hanna Seaman Urea nitrogen/Creatinine [Mass ratio] 21.5 mg/mg Normal [facility] Comment on above: Performed By: #### C MP, LIPID, TSH, T7 ####[facility] [address] [place], [place] [address]Pz. Hanna Seaman TSHon 07-13-2022 TSH 1.591 uIU/mL Normal 0.358-3.740 [facility] Comment on above: Performed By: #### C MP, LIPID, TSH, T7 ####[facility] [address] [place], [place] [address]Yf. Hanna Seaman US VAC ASST BX BREAST RT W C LIPon 11-30-2021 US VAC ASST BX BREAST RT W CLIP Begin Addendum #1 COLLECTED DATE/TIME: 11/16/2021 08:49 EDT Final Diagnosis Report for THE [place], [place] (A) RIGHT BREAST AT 10 O'CLOCK, [...] provided after pathology results are available. Normal [facility] MAMMO POST BIOPSY RIGHTon MAMMO POST BIOPSY RIGHT Patient: LOR HILLMAN Exam Date: 11/16/2021 : 1985 Gender:F Ordering : DR DASHAWN EATON . Admission #: [id number] Family : Order #: [id number] CLICK HERE TO VIEW EXAM RADIOLOGY REPORT [...] Ruslan Rizzo M.D. on 11/16/2021 at 12:21 [facility] PAP ACOG PANEL 2: 30 to 65on 11-15-2021 . . Normal [facility] Comment on above: Result Comment: Perf ormed at: WB Performed By: #### 4 [id number] ####[facility] [address] [place] [address]Dr. Hanna Seaman Age Gdln ACOG Testing 30-65 Normal [facility] Comment on above: Performed By: #### 4 [id number] ####[facility] [address] [place] [id number] Seaman DIAGNOSIS: Comment Normal [facility] Comment on above: Result Comment: NEGA TIVE FOR INTRAEPITHELIAL LESION OR MALIGNANCY. PREDOMINANCE OF COCCOBACILLI CONSISTENT WITH SHIFT IN VAGINAL CLAY IS PRESENT. Performed at: WB Performed By: #### 4 [id number] ####[facility] [address] [place] [address]DrLink Seaman HPV Aptima Negative Normal Negative [facility] Comment on above: Result Comment: This nucleic acid amplification test detects fourteen high-risk HPV types (16,18,31,33,35,39,45,51,52,56,58,59,66,68) without differentiation. Performed at: =G Performed By: #### 4 [id number] ####[facility] [address] [place] [id number] Seaman Methodology: CTIM Normal [facility] Comment on above: Result Comment: The Thin Prep(R) Back Up Machine Operator was unable to read this specimen. Therefore a manual review was performed. Performed at: WB Performed By: #### 4 [id number] ####[facility] [address] [place] [address]DrLink Seaman Note: Comment Normal [facility] Comment on above: Result Comment: The Pap smear is a screening test designed to aid in the detection of premalignant and malignant conditions of the uterine cervix. It is not a diagnostic procedure and should not be used as the sole means of detecting cervical cancer. Both false-positive and false-negative reports do occur. . Performed at: WB Performed By: #### 4 [id number] ####[facility] [address] [place], [place] [address]DrLink Seaman Performed by: Comment Normal [facility] Comment on above: Result Comment: Jared Morgan, Theatre Instructor (ASCP) Performed at: WB Performed By: #### 4 [id number] ####[facility] [address] [place], [place] [address]DrLink Seaman Specimen adequacy: Comment Normal [facility] Comment on above: Result Comment: Sati sfactory for evaluation. No endocervical cells are present. This is consistent with a history of hysterectomy. Performed at: WB Performed By: #### 4 [id number] ####[facility] [address] [place], [place] [address]DrLink Seaman MG MAMM DIAGNOSTIC 3D TY CA Don 11-10-2021 MG MAMM DIAGNOSTIC 3D TY CAD Patient: LOR HILLMAN Exam Date: 11/10/2021 : 1985 Gender:F Ordering : DR DASHAWN EATON . Admission #: [id number] Family : Order #: [id number] CLICK HERE TO VIEW EXAM RADIOLOGY REPORT PROCEDURE: MAMMOGRAM DIAGNOSTIC 3D BILATERAL CAD, 11/10/2021, 09:04 ULTRASOUND BREAST RIGHT LIMITED, 11/10/2021, 09:41 COMPARISON: None. INDICATIONS: Lump in right breast Calculator Name NCI Breast Cancer Risk Assessment Tool 5 Year Breast Cancer Risk Not Reported. Lifetime Breast Cancer Risk Not Reported. Personal Breast Cancer No Personal Ovarian Cancer No Treatments None Family Cancers None LOCATION: [facility] BREAST COMPOSITION: Heterogeneously dense,which may obscure small [...] M.D. on 11/10/2021 at 10:24 Normal [facility] US BREAST RIGHT LIMITEDon US BREAST RIGHT LIMITED Patient: LOR HILLMAN Exam Date: 11/10/2021 : 1985 Gender:F Ordering : DR DASHAWN EATON . Admission #: [id number] Family : Order #: [id number] CLICK HERE TO VIEW EXAM RADIOLOGY REPORT [...] Treatments None Family Cancers None LOCATION: [facility] BREAST COMPOSITION: Heterogeneously dense,which may obscure [...] M.D. on 11/10/2021 at 10:24 Normal [facility] Ambulatory Visit Summaryon 0 09-28-2021 Ambulatory Visit Summary KADYLOR CARRASCO Robson :1985 Visit Date:09/28/2021 Ambulatory Visit Instructions Your Diagnosis Urge incontinence Tests Performed Urnls Dip Stick Auto w/o Microscopy POC [id number] Your Care Team Attending Physician - PARAG [...] LOCKETT, LEONARDO Ken[place] Where: [facility] Patient Educationon 09-29-19 Patient Education Obstetrics and [...] Take ove (more content not included)... Normal [facility] Urology Office/Clinic Noteon 09-28-2021 Urology Office/Clinic Note [...] E&M of Est. Patient Low 20-29 Min [id number] Urnls Dip Stick Auto w/o Microscopy POC [id number] Follow-up With When Contact Information PARAG LOCKETT, LEONARDO [place], URL Within 6 months [address] [place] [address] Enlighted (1) Additional Instructions: Patient Education Overactive Bladder, [...] Protein Urine Dipstick: Negative (09/28/21 11:12:00) Specific [place] Urine Dipstick: 1.020 (09/28/21 11:12:00) Urine Appearance Urine Dipstick: Clear (09/28/21 11:12:00) Urine Color Urine Dipstick: Yellow (09/28/21 11:12:00) Urobilinogen Urine Dipstick: Normal 0.2-1 EU/dl (09/28/21 11:12:00) pH Urine Dipstick: 7 (09/28/21 11:12:00) Normal [facility] Comment on above: Result Comment: Elec tronically Signed By: LEONARDO TUTTLE PA-C\.br\Date and Time Signed: 09/28/21 14:19 EDT Coding Summary.on 09-08-2021 Coding Summary. [id number] Gh0bWw+PGhlYWQ+PE1FV DWcO76pzJTmqV0CY2dXC B9FSQNUBNZXIL6JTK7dt HA3LTaaM9AynpVn AnssaQBbIF96RNk8WBB0 qLesIZqdtC9caLFxT0r5 RxTxXW12fT99FWckJBOs YiJ3VnEshywwlYUn X4goGeRbdAEcBid+PHRh YmxlIHdpZHRoPScxMDAl VyAtjWgvXQ3xSf3aVUTt LWNvbGxhcHNlOiBj b5cqDKVxNNngOV5icQkm W3VenGV9UUJzh6r2Sm02 dHI+PKDaLTX0wXjrNSju t954XdHcz0lmZUK9 uPFwOVpvBRO8P68di0Z5 TUIjAOQbEVT6xIN2mR2o jOkxdszgL2OqwQCmCbG5 SMC1eBWzcK8bkVhf mwekpE2zCpd+Z84MKC5X IOYKYG7ISge2B6ToWkwp dHI+SA34DSSyKK03aOAm aNSpj4qlqUd3NjFo YGFiXDK7bUgnYQvij0To JLFtS47tcBXks7L2OMPr iTjapHGvXlTllBX0zB9k TPlfpkbwf9zqlrui Qcmvu1givw60nN16B40p FWjoHSJqNNA4OOPxBKMv bSqzkf1czG8zYh2+IDxj t5ahu9etvWf3UeXd GSTyawQprEwwHQF3z9Db Gq24S7ExwEpiw7QwHes1 vm78gAXup9Z1cFT2APid LWOuqQ0zYClyCpY3 CPTrOiVyrO82iGSnJSqv Dv8ohFalcMqpNG9aOGQn wsrxGOBwbE5uMERnkMXy wTmlFH4kETIksccw g082ZxVdXHS5IBTxcASr B0RjhL6eAhPuYVGfULFd H4JurVXtFMdkL122SRuc PrY0SMJfafEyM8Aj OGEreAduEtP9h4Y0Ke7P r9HpfsxeTBR7IBcnSYD3 DmY6ZnJaWiP6M1KqWhu9 XYLqtPisDH0nD8Xa FYByfqpnexxshSZ5ZPJg DSGevQ37mYQuZKkeWr8p s4K2l888YSHvNQOumQ09 At7jzVxsJDXsfKEN vY3fgftpi0leaoihXhGv XBUtKAt7AFw6HFAgiNsv UcEoDMT1UdO2RPI4gZGd iP8naZyjpbcntY0g Oyc+O12mhR0aZRS0XNF5 ukjqRACkkaIlEH72SH78 U4AiNnkwsDSrzAW+PGRp qpSzxHlgRP3fYdPe h5rdx1SkBEzjX7EgTMRg BExxJzh5FSOfQVA8mFH6 hV2fANXgJWclx2G4wEP9 D2IcxiVtpz5qy1gf SLVwPPsyF18fgMLkj0W4 HDCqgKT8NDQrjGdaClYb nV02Slj+IODsoAqzm3Ji Fpiyv2htx3bhhVe3 IjMwJSIgdmFsaWduPSJ0 p2LiZo68I78qHLyfNLIs VJHiMOArKAZzxZwouj3i kM0rXa4+PGNvbCB3 rRP1rT2gIPLcReE1VQmq V290HxXflFUjFpdzp8gn w6ygwSx6UzZxPWMpbxKk cMdzXNQ9x6QeIa89 N72cVPllTJGkJTFlYVNd XIClpXweuy6nxA4tAc5+ LA9vm5ssty07uI13xIH+ BBFlKOH1uNboSAgp HJHskZ2tNGfvEdG8SOKc WsEyvK05nNIhOOttPs9z fGzoqLhqQB2dHSLnkbih z478JqCey8ogYGCg vQOtOVycMSN3Q29vg0N2 NUEdMUGzOGS9kHA0nP8n bGlnbjogbGVmdDsgdmVy mHnwOClwUMneE551 IHRvcDsnPlBhdGllbnQg AvBoXLy6V8OpLpn9OKOa sQjxVS8nfTBsSHznSa3f eTsweMtnFO6rZMZk fqxla621JjUjn9wwHLAs nXQkHJyoQFR3U34mx1J6 LWKkBJIpQDK7cHL1bN5r bGlnbjogbGVmdDsg zkXjrRwkFLeaYKmfH354 IHRvcDsnPkJpcnRoIERh eUZ8UJ57BO06pUQtc8X4 iHG2Y8WcZZRgscvc djpexPC9DUDgYKHuaB05 Yk1osXurVm0gMOVzKIJ9 DAKykOOfU5IqzH5qKuEv TYKvFKOqS8JneNDk HUyaI487MHqbBlH9RQEm tiKlQ9AiWJTlwKfqQzB0 b6M7Jv3IL0L0HF85OL00 lVWhz1J8mOS9A6Gu LMCavaxynoejoGK4KHGc KCNdgK78Bd1tjKusMt6l CMVxYEA7GFTqsBZzS4Gw jK9bFnIvGRIkWAGw P9AbsASvXQroG925OQyh ErN8KBCvjhGeA7JbHHMg oBvxTjA5x6S7Up8YZFl6 NR97IU10qFYlb7S6 tCC2U5ZfYSVandfqrwbn iYW3IWGqPZBghQ14Iw4n jBngUg4iKIXdRYS3FSMq kMLkW3IsyX4fPhDt ICQoNAWgU5MngEPvXWow E832WOlyKkE4ZXWurwVp T5FlCYLdcLujCpV9o9G9 Xz8BHAInBS97GRJ2 aUU4OP72WQ97Z4JlGcva dGFibGU+PHRhYmxlIHdp ZHRoPScxMDAlJyBzdHls HK0tVq2wFVLfXMAb eRakxVNjAvYjf6mbLVRy HYavFQ5clEupY7QmwSW0 IJAux1f5Jh82K79mQ5Va dXA+PBSmlLJ1fEN8 uR8eKzSkIfF6ZAcpU168 VcNczNGqHcbju3wqo0lw cVf3OoZ9SMAqwoHnnSwa EWA9n0NlIa13O47g IHdpZHRoPSIxNSUiIHZh uIhjvd8ucO6jMy4+PGNv bPT4cWC9vP3mSvLeAbM8 ESxiW744TkVlyBAx Vypsp8srl5rfxKv7IfTt JMBrmgSsfZcfNRJ2i1Cr Dj55V4UctFpqa1JiWpm0 hm90nAGtc4C6pWE9 D3ViYEGechwrhVMwwPfu FJ4qITKqtvhcZJXvbM3v ZSLsZ2a9ZxNvYlY2YQwn G1PlbhN9NGEmyTTi UQxpMIE7A56hv8Y9LCBa KHVvZBF5fNW9oV5kdExx bjogbGVmdDsgdmVydGlj EZguRRlyT469XAXt gEuxHFUxvJ5lBPCzjJLa hIewTC5fBUMjokvgUxSC QJxAAPQPSCKKLP93N2Ux Xwi8LTVrnBtuQD0n rMWwVCuvAo1zzKesoSlm HT8lCNZcpkrlWQQprT0m QSSntKHloZrqEE0tIZYy jdpqf987IkBgYQR2 ONYbiUFvQ7EwbD0wZmFi ENXxQXWvW3NazQSeOEyb C805EUdpKzS1TULhxxIn M4WdXLSqnDzcCxE6 d3P1Ue4tNP4yEz2fPCm8 VO65BX46cOZgj6Y9bNL1 J3WcULCfbvdsllitdTD7 RMLjKEHpsT73aTYb XYgdUn8wz5P6j613ROEv OWEomF32Il6lzUfwQCLo zNOXtY0nsienj2bhzbsx JqLcQAKnMDd2ISh0 XLNojZoaRvGgGGT3NvL3 IPU4pVOpiI7fhXhenesf qC6oJev+MzcgWWVhcnM8 M4IeEqa0ONJboAxf HI6hsQDkWPccEp0kdPiv uUlmSI3aKQDvzdshONCx tY0xIGFqsWWqqGaqJG1a ERZjqapki953UsKx OPI5XPWanPFyH7WwmU5k SeQjZWYaQCYkL5VhwADs BFrfI827YHaiUvL5RCKk nyVwA3IuZZPomOdw PcK2a2W9Pd4EQQ9ipYW9 A3NyNad3WRWoiZbnJA8d jMXxLXofTj6klJxifUuo LJ3iGZRtqerlYIYr gI4oHMErqARigTcuPT2d DDNvsyqnb031IrKsSXD0 WVLprKXrX9JulP7kEiVj PMNpRREfQ0FjtKCx ZUpgS949NEelNaU4AQKl xrAdS9NcXKNyrEdlLsG9 d0U2Xv6PKDOxPTDujMSm QgS5X3IyLmngrJS+ NX01RXUxNF61pUCnfCGc r7hdtAm2MqVgMHXzSQR6 nPbyLGdvl1PyFQWxU37p zOIfj2Q3ZHVchNnb rZEcRbNzvLX3jC3nOAsx yscap6gfbxzkWgnuz7io fm60tH12P75jULhpDAUl PSIzMCUiIHZhbGln ax5laJ6uDt4+PGNvbCB3 sZS1xQ0jQnWkKlD8CGnf Q419DfIaqAZtTlqjg0yh b9mgjZb0QfEmNFCa xnVjpCguPOI7x7UqMm66 T57pQBkvNVUvMEDxUDYp YZMktGrhdc5bnE8iGu3+ DA7cl0oqls40mV36 dHI+KYCcOPK7dNnrYVtp RBRenK8hZWozClD4BDWq MpMijW60tCJgPVdbCq4a fBbpiNvhEJ3vGUJg eurva789LmLsv3daCCBy qRAfXLhkPXE3C85ue5Y6 QTJrZWFmTHP1vET7bN3a bGlnbjogbGVmdDsg esPwlKjaVAodFJfaP355 NZZsbTdwSiKeyJUtU6tl giYBJM2uFunkdNG+PHRk DBC5cIjiZNcgDPHi zD0cHHUrG9u1DiDuUuW0 TIxuG2KcylI1NRRzxUFc KLEqqUMCxT6pntajx0xh cjogIzAwMDAwMDt0 ASr6RLLwrCqjTaMaMOT6 EcH5YDT6tWRbkM3ivCaz mouemH4cFag+RklOOjwv dGQ+GGKbMFI7aFtw XEkbTPMuoU2bTQJvE6t6 VvEuNgI2FWhnB4InpjI9 FSAtvPOoCTKpbDDSmL8r xovmo6mfhcawItOg YUWfDDh3GLb1PTUljGwc DyUgYPC8MiQ6XYB4oNFi lP1syCuotynanJ3nIvh+ TVJOOjwvdGQ+PHRk LHR8jIozCAqpCEZheE4o IGPoC2d7GdKrRkJ1WDaj V3VkwiI2AAXosFOyRWXd uFASzJ6clteas4zm lcprHbBpBZOnTHd5COy9 WADaqRipQbIwJFM9VvE2 IGA3vFNscF4azNjrcemj nJ6dOrk+YDT8LYO9 NR89ER65H8JqVzbvvCOb bGU+PHRhYmxlIHdpZHRo HPhyJWMbPrLcvWjcKI0t Em9lLSKwHMKdsQsm cHNl (more content not included)... Normal [facility] Coding Summary.on 09-07-2021 Coding Summary. CD:[id number]:[id number] Gh0bWw+PGhlYWQ+PE1FV XDdY48wjJLqpE8CQ5jZU P3JVVADLKVGPE1ZLM0zu SK4YMxeH0CwxgHp ZrdqgCAhIZ75PHz7WEI4 pJzfIGpupZ8vnUTxM5r9 UlSdRL47fC61VIcbHPMo AaN4KqMnagsvhSIz F3sgTvZivQDdVnb+PHRh YmxlIHdpZHRoPScxMDAl HcEraBgbUE2xUr0kRUGr LWNvbGxhcHNlOiBj m5apSKXnDKbiHF2fgUlu H1EgvZY2ZBNcm7e9Fw15 dHI+NTAkKVI1lStmPWdg z133MbTiy2biHXX9 dFPqWNkePBV8O26os5T6 ETLoQLDkUFG6aIH0xK6p lDtweycoN9ZonSKaFwV2 WDG1pCIsqW0esHng vtqmvA9pLzo+L00OSJ5P WCPKUH6GLih8G1MsAntd dHI+OR60MJGhEP89jEHl eYVfz9acmSt4FxOp XHZyBSG4zQpfVVefd5Sv NWWxD23bzIBar2I8SILy lYftpRQkQpJocPL6qG0a GEvreizcr6qasedl Wfptj1wjox82fN33Q38z PXziVGUsDHX0UPTyEXEl sUlxae9eyB3hXf4+IDxj f3qbp5dpoSt0UoPb CBYgakMayPudDDD2z4Id Xh89Z9FgtAihz4OxKvu2 jm66uCDur1S2hMX4IXsx YDHyfL2cCGkjRvF3 PVLwVmYgrY00cALfPYwo Vl8maEfxwFuyXK4pJWVe iyfwCJAkwP6xOZIulLNn uUqhEY5eIISojaxe m864DpWhSGP3BFEgoRMn T0VmsF8mWaWvYOTpYSZx S7JhhNDtVVdcH116NYyy NlQ8MQThtcAvF2It VWSghAqgDrM0u0R1Og6J b8QmrrscBNZ4YJxhIQW4 JnA3AhPvEjO7G8NuEmo8 JYVyqLyjMU9mP1Si WTAzgelxvuojcCU0WMOv CISreS63wORjDTubLy9w y5E5r442NKIhKNSfeV49 Fr7wqMpiTXYetDPP oZ3uekolo1ayzyxiGlDf POAiHUi8QFy6ROJhfZly NdJpOLZ3SmD2XEB9zILk sX3tdTpvwbxhtK8c Oyc+C04ddC6yNTE4PGO3 iubbSAOrdxQhAI28XV34 W7KvBctxdQYduXY+PGRp ktOopIzdET7vZdKk y4hvl4HsEAmjA4GpIVCy RIqkDpv3EPTtGPI4aYQ7 wC3oXKHkXMrom4B8nAC6 Q8HcoxTbse0fe4ue MMZwCAokD00bcQUxh7Q5 CDBrcCS7ETAiuYoiQjIk pY50Bpt+KKEoaHuvd3Kl Mjhee9kzi1yjzYe8 IjMwJSIgdmFsaWduPSJ0 v2ZyBd83O70zEMpaIOFk AJXlXKQmQGIyvWmeur2r uK9xRp3+PGNvbCB3 zMP2bX9nBALdXaV6IYel N875FuSjuJKvJtmnd1sw f5nwsDs3JeOcBFUrubEk oVgnNTD2v3QoKy95 J60gJVojIGJnYCJjADIh FJXklFyqrt2qeO3gVb7+ EV5wc1xrew20mW55tMZ+ OBYbYFS1hQhpMXyo UGTeuG5lOKdvXjA3SFZv DkEmxD83tOGcYUekHr7s uOpseYlgVJ2cSMTpghei j453OkUqq9dvTGPc tZPiMVstZLD2A08gz1U9 XPSbLDEzYGK1sAY9fK1g bGlnbjogbGVmdDsgdmVy qIapTCczAEqjS316 IHRvcDsnPlBhdGllbnQg MkEaJQq9I3CnKxu5AMWm jOkuOO3upFNeKBlbWi9i xTpavOucAP4eDKXv mtvql542MnIcm8lsEDSv aFCmKTqpOTO4I93jd3O6 HHYfAREoZDT6rJE3iN7g bGlnbjogbGVmdDsg nhVlhXugLZwbTYnoZ323 IHRvcDsnPkJpcnRoIERh kMN4GZ31EW57rQUzs6K5 uES8V5UmGMHdwybj sldpdIP8BIZcKVPegZ54 Gg0wbMlmZc4sULGnBCJ7 APFsrVMjC0PhfD1qRcAp YSUlLRCaZ2VpdRQy YGioR431BXovMsC3PMFv zjQcK1RnDVWzmXjwPrN4 y5G4Yi0YP3F5WT79AM80 mYAwp6T2gLF4Z2Zo XMPyqucvhpwkqZH3QOVy MUCjiX18Zl6hhNuiOd4b CRPmHRZ9AWUnpLIyX7Th jS7cTsUdVJBzCHSr Y8PwwCMlXQjcS911XUbd KwO9PYQdcqJaK9JzZFGi gQphBsH4e1S6Nm1YYIy2 WQ52MY63sVNjj0C2 iQH6I7HlEMAmikjhcdqe nKA7LYVtXLMpfJ52Lg3q kIjeFa3oMLArBJJ7YKRi gWFuN6VrwG9fToGy FYZhELMiK2XcjKLkNHik I593IFfcXxV9XNEcnqIw O8UgVIJsgUsaXbT7m2U7 Rh3CWWSsMQ97QVK7 uBR2JM11KM09L3UqCdgg dGFibGU+PHRhYmxlIHdp ZHRoPScxMDAlJyBzdHls AE9vOk9iSIKgEUAg dMggcNOpHxWjz9wfZVIz BBskVP1klLyiL6IldQH3 QYKgd2c2Cg21F94kK5Jt dXA+UQXhqDG6sLY4 gI2cXbJgAcB2VYmhM955 KeNjxFKnQyftb2dxa3kl bMb8BeX2LENtzuAcvZku QNB2a4FjDj07C18f IHdpZHRoPSIxNSUiIHZh tZasbq2kmG0iOj6+PGNv sZF3vGV7kK1mKxDgOyC2 TTzjJ588DpXkqQPd Nvegm2hwv8eqsMk7OvGx VKSmggSunJrrFAB3d7Wg Lt78K0XpiHvbf0QbXcx4 nh78oXRkr7T2eZR6 M4LpHZLvhbwjfHUdnJyn RL8kSGAovkkkLHOfdX8q NRLoK3x1ThCeRmP2RDlw M7ViqdX7QQJxgKOm DXbuXMO5W76al9O7NLQq FHJcZYO5eVT5eJ1njMds bjogbGVmdDsgdmVydGlj XByvERjvB181PSKs mQflTYAibO6aVIDziAVk sPlsSH8oRUYuosrwAsPA HRuXRTRSXTRDLV86C1Zs Ucw4WIQmuKqzTF1p sDNkYEnvCk3rcGmleJqu OU1vMFCleckkJFNzwB2i LTEenLJtqKitSL6mJIVk zmino670WdNbTXW5 HDYjoGEvQ8GucD2hMdVr XPPpJHOhZ4SysSEsYGvg L356HFsuHuZ9XSJeklLj W7XuCXRszRbtUuT0 l6R9Ku5zZV6uKc5zGZi9 GJ42DS04wDElj2N8iJZ4 I9WgOHPugofbjynuaLG0 GBKfOLBbpC94xZDd PDdoLt4bt1Z1i852KUAy VIFyoC70Ln3tjVysOBSa bEJToG3eqcdsv3oiwhwm QlOiVNRzNBf3CYw0 XJXvqEjfMmHnBLM5OrH6 HJV8lICxxH0trUbuxkag aS1mSps+MzcgWWVhcnM8 X7YnBys6XDIdbNoq OW7hvNBjAVvmLo4aaPuf eAmyJO4aUJTpogzbVSNn sG6gDKCexFTxpYnbRK0w ZEMmyzeuz353IoMh OKH2WHGqhHDfO3KzoZ2m ClOoXXBoPLQsO3WgwGDx GFnwR180QAcyLuA1JYQc xzWaE6UnLBYulGve JeD0m4L7Gm0ESW1fbOF0 K1PqSvm4KIVjgVvsEX4p aDZgECokJr6kuByvgFty ZN6lGQLbnxaqPOHo rL8pKYKyjRYywGovIX9k PWLopooid475VhMiSYZ0 YRYqqMCiI3NqtP6zUiNp ECZfPUMrV1LxcZDd MYsgE975VPmsDgF3BXGg odHeM0YuBQWulWucRuS8 q5V8Ti7WiGHpNTJlPP24 KH73UO54V6MtRmox dGFibGU+PHRhYmxlIHdp ZHRoPScxMDAlJyBzdHls CH7hMz1aRRFdAIJnrVdk vYBkYxIgz3fxMPPg QIdiYF5gmCmiO4IvsWI6 RSAak2l1Ad79F35fT3Gv dXA+MCLerQV9oMU4fT8f RnVzRiT4POfnQ948 AxBbeHJvKiluy8xfy9wd pTz3GsCvDFXsqtUuoGnt CWT1v0BiDm57D52nWQer ZHRoPSIyMCUiIHZh bNipak1efJ0mPr4+PGNv hVL3eAW1eQ4dDdSfLrZ1 BHtjS977FsRyuYQkDzgp M22aA1IdgOA+PHRy Uwd3TOCgyVjiPQ9uaZEr OMiyZv6zVBW8MzTeCbFe OKqhA7PeRHBkvbdxyjoh cII2BVGwAHUbbY69 Lu7vmDfnWx8aKSKeTFI4 NZKjhLYgQ9MtdJ9gHvNj CHJtSZTrU8PrcXIsSAtq B029YZrfGdZ6ENJo hjIxG6JhZTTfiPjcVlX6 l2Q3Ml5NxEobtCVhCX0a NjZqXYm8T2CbPwb4UACd uDgeEE9jaBXxTZrc Ne6ueWrmvSovSW8gKQCp xtjic077HsOux1qqDIKj lCVgPYyyEWH7E69qp7D0 VKLbESViCCJ1hPN5 bG4piFaclwhvrCEslZga ceLmtHjxQUfkLHlvV493 QAOzjIkfVvCDLze7C5Nl Spq3PKYmnTwgLM1c hHIqLHzqPc4fbWpeuLvo JF4lZPKxezavg277WxVn s8igJRTjaVLfFRpfULM7 P71ag1Z6OSGyCGJi OJP1xMM8cD0baZutvuxi bGVmdDsgdmVydGljYWwt YFhsY896MVAdnEpiOu8F Bax5N1NeIcp6BJRw rRekXM6laGVlGTqnMf4w eFctcBdnBH1yISNcumov u676IsAjs8psIZYaeSWp PGrhQMS8L93qq6U9 UCByYZXwZTT2uJE2fU1l bGlnbjogbGVmdDsgdmVy hYzwYZooAWkmT270JKKz cDsnPlBheWVyOjwv dGQ+QF76bk69K2YuBshw Ksv8MNNzHZH6eLF0pE2x IZUkORxvl8I3zZN1Z5Yq msGuag4ro0glZNVs ZTog (more content not included)... Normal [facility] Consent for Procedure/Surger yon 09-06-2021 Consent for Procedure/Surgery [id number] 4#1.00CD:127 Normal [facility] Consent for Treatmenton -2 Consent for Treatment [id number] #1.00CD:127 Normal [facility] IntraOperative Documentson 0 09-06-2021 IntraOperative Documents [id number] 3#1.00CD:[address] [facility] Main OR Intraoperative Recor don 09-06-2021 Main OR Intraoperative Record IntraOp Document Type FTURO Summary Primary Physician: Merrick DUNCAN MD Finalized Date/Time: 09/06/21 12:14:38 Pt. Name: LOR HILLMAN/Sex: 1985 Female Med Rec #: [id number] Physician: Merrick DUNCAN MD Financial #: [id number] Pt. Type: O Room/Bed: / Admit/Disch: 09/06/21 10:46:07 - Institution: Case Times FTURO Entry 1 Patient Times In Room 09/06/21 11:55:00 Out Room 09/06/21 12:07:00 Procedure Times Start 09/06/21 11:58:00 Stop 09/06/21 12:04:00 Anesthesia Times Last Modified By: Gayle Saavedra RN 09/06/21 12:07:06 Case Attendance FTURO Entry 1 Entry 2 Entry 3 Case Attendee FLY STEINER, Merrick Workman TANK TRUCK MILK RECEIVER, Gayle Saavedra RN, Gayle Lopez Role Performed Surgeon - Primary Scrub - Primary Finishing Range Supervisor - Primary Time In 09/06/21 11:55:00 09/06/21 [...] CYSTOSCOPY WITH BOTOX 100 UNITS LOT NUMBER [id number] EXP DATE Primary Procedure Yes Primary Surgeon [...] 12:07 Gayle Saavedra RN 09/06/21 12:14 Normal [facility] Main OR Preoperative Recordo n 09-06-2021 Main OR Preoperative Record Holding Area Document Type FTURO Summary Primary Physician: Merrick DUNCAN MD Finalized Date/Time: 09/06/21 11:59:31 Pt. Name: LOR HILLMAN/Sex: 1985 Female Med Rec #: [id number] Physician: Merrick DUNCAN MD Financial #: [id number] Pt. Type: O Room/Bed: / Admit/Disch: 09/06/21 [...] 11:25 Gayle Saavedra RN 09/06/21 11:59 Normal [facility] Operative Reporton Operative Report Patient: LOR HILLMAN [...] is to follow-up in 2 weeks. Normal [facility] Comment on above: Result Comment: Elec tronically Signed By: FLY STEINER, Merrick Doshi\.br\Date and Time Signed: 09/06/21 12:07 EDT Reminderson 09-05-2021 Reminders - From: Cristiano Castillo MA To: EU - Clinical; Sent: 08/31/2021 11:40:26 EDT Show up: 09/03/2021 11:40:00 EDT Subject: Ambulatory Reminder Reminder/Recall urine culture Minh Dorsey addressed. Normal [facility] C Urineon 09-02-2021 Bacteria identified Cx Nom [...] Locations R1: [facility] at[facility] [address] [place] [address], [id number], [facility] Comment on above: Performed By: #### 2 [id number] ####[facility] Mrlderbfun193 Adalid Sa[facility] [place] [address] Ambulatory Visit Summaryon 0 08-31-2021 Ambulatory Visit [...] Appointments Sunday 11:30 AM EDT With: Where: [facility] Sunday 10:00 AM EDT With: PARAG LOCKETT, LEONARDO Kenyon Where: [facility] [address] [place] [address]- \.br\ Medications\.br\ What How Much When Instructions\.br\ [...] Stress incontinence\.br\ Urge incontinence\.br\ Urgency incontinence\.br\ \.br\ [facility] Pre-Certification Formon Pre-Certification Form [id number] 4#1.00CD:127 Normal [facility] Ambulatory Visit Summaryon 0 08-05-2021 Ambulatory Visit Summary KADYFALLON CARRASCORobert Chance :1985 Visit Date:08/05/2021 Ambulatory Visit Instructions Your Diagnosis Urgency incontinence Nocturia Stress incontinence Tests Performed Urnls Dip Stick Auto w/o Microscopy POC 44341 Your Care Team Attending Physician - Merrick [...] Merrick DUNCAN MD Where: [facility] [place] Normal [facility] Patient Educationon 08-06-19 Patient Education Urology Urinary [...] nerve stimulation). ? For women, using a diploma medical assistant to prevent urine leaks. This is a [...] after experiencing incontinence. General instructions ? Take enrl-kbi-adktdvq and prescription medicines only as (more content not included)... Normal [facility] Urology Office/Clinic Noteon 08-05-2021 Urology Office/Clinic Note [...] EDT [facility] [address] [place] [address]- [phone] Additional Instructions: Patient Education Urinary Incontinence I, [...] Daily es (more content not included)... Normal [facility] Comment on above: Result Comment: Elec tronically Signed By: Merrick DUNCAN MD\.br\Date and Time Signed: 08/05/21 09:15 EDT\.br\Electronically Co-Signed By: Adriana Ventura MA\.br\Date and Time Co-Signed: 08/05/21 09:11 EDT Vital Signs Date Time Vital Sign Value Performing Clinician Nae doyle 09-28-2021 10:48-0400 Blood Pressure Location LEONARDO TUTTLE [facility] 09-28-2021 10:48-0400 Diastolic blood pressure 89 mm[Hg] [facility] 09-28-2021 10:48-0400 Heart rate 78 /min LEONARDO TUTTLE [facility] [place] 09-28-2021 10:48-0400 Respiratory rate 16 /min LEONARDO TUTTLE [facility] [place] 09-28-2021 10:48-0400 Systolic blood pressure 145 mm[Hg] [facility] 08-05-2021 08:42-0400 Blood Pressure Location [facility] [place] 08-05-2021 08:42-0400 Diastolic blood pressure 91 mm[Hg] Merrick DUNCAN [facility] [place] 08-05-2021 08:42-0400 Heart rate 79 /min Merrick DUNCAN [facility] [place] 08-05-2021 08:42-0400 Systolic blood pressure 150 mm[Hg] [facility]UNCAN [facility] En[facility]ters Encounter Date Encounter Type Care Provider [...] without abnormal findings DR DAQUAN DELGADO . [facility] Start: 07-13-2022 End: 07-14-[address] DAQUAN DELGADO . Facility:[facility] Start: 07-13-2022 End: 07-14-2022 Encounter for general adult medical examination without abnormal findings DR DAQUAN DELGADO . Facility:[facility] Start: 04-12-2022 ambulatory LEONARDO TUTTLE Facili ty:[facility] Start: 11-16-2021 End: 11-16-[address] DASHAWN EATON . Facility: Start: 11-11-2021 ambulatory MD Merrick DUNCAN Fac ility:[facility] Start: 11-10-2021 End: 11-11-[address] DASHAWN EATON . Facility: Start: 11-09-2021 End: 11-09-[address] DASHAWN EATON . Facility: Start: 09-28-2021 End: 09-29-2021 ambulatory LEONARDO TUTTLE Facility:[facility] Start: 09-28-2021 End: 09-28-2021 Patient encounter procedure LEONARDO TUTTLE [facility] Start: 09-06-2021 End: 09-07-2021 ambulatory MD Merrick DUNCAN Facility:[facility] Start: 09-06-2021 End: 09-06-2021 Patient encounter procedure Merrick DUNCAN [facility] Start: 08-31-2021 End: 09-01-2021 ambulatory MD Merrick DUNCAN Facility:[facility] Start: 08-31-2021 End: 08-31-2021 Lab Drop off Merrick DUNCAN [facility] Start: 08-31-2021 End: 08-31-2021 Patient encounter procedure Merrick DUNCAN [facility] Start: 08-05-2021 End: 2021 ambulatory MD Merrick DUNCAN Facility:[facility] Start: 08-05-2021 End: 08-05-2021 Patient encounter procedure Merrick DUNCAN [facility] Procedures Date Procedure Procedure Detail Performing [...] unspecified formulation Merrick DUNCAN [facility] NEGATED: Highlighted row has not occurred!08-05-2021 SARS-CoV-2 (COVID-19) Ad26 vaccine, recombinant Merrick DUNCAN [facility] Payers Date Payer Category Payer Unknown [id number] 2.16.8 40.1.585400.3.579.2.727 1985 Unknown [id number] 2.16.8 40.1.209868.3.579.2.727 1985 Unknown [id number] 2.16.8 40.1.776058.3.579.2.727 1985 Unknown [id number] 2.16.8 40.1.224452.3.579.2.727 1985 Unknown [id number] 2.16.8 40.1.174720.3.579.2.727 1985 Unknown [id number] 2.16.8 40.1.105212.3.579.2.727 1984 Unknown [id number] 2.16.8 40.1.353436.3.579.2.727 1985 Unknown [id number] 2.16.84 0.1.684699.3.579.2.593 1985 Unknown [id number] 2.16.84 0.1.103815.3.579.2.593 1985 Unknown [id number] 2.16.84 0.1.906261.3.579.2.593 1985 Unknown [id number] 2.16.84 0.1.883642.3.579.2.593 1985 Unknown [id number] 2.16.84 0.1.846770.3.579.2.593 1985 Unknown [id number] 2.16.84 0.1.079548.3.579.2.593 1985 Unknown [id number] 2.16.84 0.1.342386.3.579.2.1259 1984 Unknown [id number] 2.16.84 0.1.294709.3.579.2.1259 1984 Unknown [id number] 2.16.840 .1.460204.3.579.2.1259 1959 Unknown [id number] 1959 Unknown [id number] Social History Date Type Detail Facility Start: 08-05-2021 End: 09-28-2021 Tobacco smoking status Never smoked tobacco (finding) [facility] Sex Assigned At Female [facility] Tobacco smoking status Never [facility] Functional Status Date Assessment Result Facility 09-28-2021 Functional Status N/A [facility] Clinical Notes 08-05-2021 to 09-28-2021 Note [...] fried and sweet foods. General instructions Take hgkt-iam-nmmnxzf and prescription medicines only as told by [...] 01/27/2010 Document Revised: 07/24/2019 Document Reviewed: 04/18/2018 [employer] Patient Education 2020 Intoloop. Follow Up Care 08/25/2021 15:11:49 With:PARAG LOCKETT, LEONARDO [place], URL Address: [address] [place] [address] Business (1) When:6 months [facility] 09-06-2021 Note [id number]:[id number] [facility] 09-06-2021 Hospital Discharg e instructions Patient Education [...] Address: [facility] [address] [place] [address]- Business (1) When: Unknown Comments:Keep scheduled appointment [facility] 09-06-2021 Note Custom Cystoscopy with Botox [...] you have a fever over 100 degrees. [facility] 08-05-2021 Hospital Discharg e instructions Patient Education [...] (electrical nerve stimulation). For women, using a diploma medical assistant to prevent urine leaks. This is a [...] right after experiencing incontinence. General instructions Take nzpj-nlq-lszqgxr and prescription medicines only as told by [...] 05/10/2005 Document Revised: 04/12/2018 Document Reviewed: 07/12/2017 [employer] Patient Education 2020 Intoloop. Follow Up Care 01/24/2021 09:26:41 With:FLY STEINER, FUNMILAYO Bob Address: [facility] [address] [place] [address]- [phone] When:11/04/2021 [facility] Evaluation + Plan note Future Appointments Appointment Date:11/11/2021 08:00:00 AM Scheduled Provider:Merrick DUNCAN MD [facility] Appointment Type:URO Office Visit [facility] Evaluation + Plan note Future Appointments Appointment Date:09/06/2021 11:30:00 AM Scheduled Provider: Location:[facility] Appointment Type:Urology FT Appointment Date:09/28/2021 10:00:00 AM Scheduled Provider:LEONARDO TUTTLE PA-C [facility] Type:[facility] Office Visit Appointment Date:11/11/2021 08:00:00 AM Scheduled Provider:Merrick DUNCAN MD [facility] Type:[facility]O Office Visit [facility] Evaluation + Plan note Future Appointments Appointment Date:09/06/2021 11:30:00 AM Scheduled Provider: Location:[facility] Appointment Type:Urology FT Appointment Date:09/28/2021 10:00:00 AM Scheduled Provider:LEONARDO TUTTLE PA-C [facility] App[facility] Type:URO Office Visit Appointment Date:11/11/2021 08:00:00 AM Scheduled Provider:Merrick DUNCAN MD [facility] App[facility] Type:URO Office Visit Diagnostic Tests PendingUrine Culture 08/31/21 [facility] Evaluation + Plan note Future Appointments Appointment Date:09/28/2021 10:00:00 AM Scheduled Provider:LEONARDO TUTTLE PA-C [facility] App[facility] Type:URO Office Visit Appointment Date:11/11/2021 08:00:00 AM Scheduled Provider:[facility] Office Visit [facility] Evaluation + Plan note Future Appointments Appointment Date:04/12/2022 03:00:00 PM Scheduled Provider:LEONARDO TUTTLE PA-C [facility] Appointment Type:URO Office Visit [facility] Hospital course Narrative No data available for this section [facility] Hospital Discharge instructions No data available for this section [facility] Progress note No data available for this section [facility] Summary Purpose Family History No Family History Records FoundNo Family History Records FoundNo Family History Records Found Advance Directives No Advanced Directives Records FoundNo Advanced Directives Records FoundNo Advanced Directives Records Found Additional Source Comments Care Team (unrecognized sect ion and content) Personnel Name: Daquan Delgado MD Address: [address] [place] [address] INFORMATION SOURCE (unrecogn ized section and content) DATE CREATED AUTHOR 04/10/2022 [facility] DATE CREATED AUTHOR AUTHOR'S ORGANIZ ATION 09/22/2022 [facility] pital DATE CREATED AUTHOR AUTHOR'S ORGANIZ ATION 12/25/2023 [facility] EPIC FOR RECORDS PERTAINING [...] BE BASED ON THE PRIMARY CLINICAL RECORDS. [employer] provides no warranty or guarantee of the accuracy or completeness of information in this document.
== END 2024-01-14 22:01 | disposition home or self-care (01) ==
LOC: LAB 22:00
PROVIDERS: PCP Family Medicine; Visit Provider Obstetrics & Gynecology
DX: Z01.419 Encounter for gynecological examination (general) (routine) without abnormal findings (principal); R61 Generalized hyperhidrosis; E89.41 Symptomatic postprocedural ovarian failure; E34.9 Endocrine disorder, unspecified; Z90.710 Acquired absence of both cervix and uterus
CPT/HCPCS: 36415; 82530; 82627; 82652; 82670; 82679; 82728; 82947; 83036; 83525; 84144; 84260; 84270; 84402; 84403; 84432; 84436; 84439; 84443; 84481; 84482; 84681; 86376; 86800; 87624; 88175

== ENCOUNTER 2025-01-27 15:41 | Outpatient (REF) | payer OTHER, SELFPAY ==
--- OUTSIDE RECORDS SUMMARY | 2025-01-27 15:47 | XMS_ITS | CCD ---
Author Organization [facility] Care Team Providers Care Gallery Or Museum Technician Name Role Phone Navi Delgado Primary Care Physician [phone] LEONARDO TUTTLE Attending Unavailable LEONARDO TUTTLE Attending Unavailable MD Merrick DUNCAN Attending Unavailable FLY, MD Merrick Doshi Admitting Unavailable DUNCAN, MD Merrick Doshi Attending Unavailable MD Merrick DUNCAN Referring Unavailable MD Merrick DUNCAN Admitting Unavailable DUNCAN, MD Merrick Doshi Attending Unavailable LFY, MD Merrick Doshi Consulting Unavailable DUNCAN, Merrick [...] Unavailable DUNCAN, Merrick R Consulting Unavailable DUNCAN, MD Merrick Doshi Attending Unavailable FLY, MD Merrick Doshi Attending Unavailable HOY ., DR BUTT Admitting Unavailable HOY ., DR BUTT Attending Unavailable HOY ., DR BUTT Consulting Unavailable HOY ., DR BUTT Primary Care Unavailable KEENAN, DR EMILIE Connor Consulting Unavailable UMA ., DR TAMEZ Admitting Unavailable UMA ., DR TAMEZ Attending Unavailable HOY ., DR BUTT Primary Care Unavailable UMA ., DR TAMEZ Consulting Unavailable UMA ., DR TAMEZ Admitting Unavailable UMA ., DR TAMEZ Attending Unavailable HOY ., DR BUTT Primary Care Unavailable UMA ., DR TAMEZ Consulting Unavailable ZIEBER, DR MEGAN Doshi Consulting Unavailable HOY ., DR BUTT Admitting Unavailable HOY ., DR BUTT Attending Unavailable HOY ., DR BUTT Consulting Unavailable HOY ., DR BUTT Primary Care Unavailable HOY ., DR NAVI Admitting Unavailable TRINY ., DR BUTT Attending Unavailable TRINY ., DR BUTT Primary Care Unavailable UMA ., DR TAMEZ Consulting Unavailable UMA ., DR TAEMZ Admitting Unavailable UMA ., DR TAMEZ Attending Unavailable TRINY ., DR BUTT Primary Care Unavailable TORRES, DR MEGAN Doshi Consulting Unavailable VINH BRAVO Consulting Unavailable Navi Delgado MD Primary Care Provider [phone] MARCEL EATON Attending Unavailable MARCEL EATON Attending Unavailable MARCEL EATON Attending Unavailable MARCEL EATON Attending Unavailable DAVID COLE Attending Unavailable Allergies Allergy Classification Reported Allergen(s) Allergy Type Date of Onset Reaction(s) Facility (20 sources) benzoin resin; Translations: [benzoin topical] Drug Allergy Unknown [facility] (2 sources) Adhesive agent Drug allergy (disorder) [facility] (2 sources) Latex Drug allergy (disorder) [facility] (1 source) Misc-Other; Translations: [Misc-Other] Propensity to adverse reactions (disorder) [facility] Medications Current Medications Medication Drug Class(es) Dates Sig (Normalized) Sig (Original) ALPRAZolam 0.25 mg oral tablet (12 sources) Benzodiazepine Start: 11-07-2023 take 1 tablet by mouth every six hours ALPRAZolam (Xanax) 0.25 MG tablet Take 0.25 mg by mouth every 6 (six) hours 11/07/2023 Active amitriptyline hydrochloride 25 mg oral tablet (2 sources) Tricyclic Antidepressant Start: 03-12-2024 End: 03-12-2025 take 1 tablet by mouth once daily amitriptyline (Elavil) 25 MG tablet Indications: Primary insomnia Take 1 tablet (25 mg) by mouth Daily 30 tablet 2 03/12/2024 03/12/2025 Active 24 hr buPROPion hydrochloride 150 mg extended release oral tablet (15 sources) Aminoketone Start: 11-26-2023 End: 11-25-2024 take 1 tablet by mouth once daily buPROPion XL (Wellbutrin XL) 150 MG 24 hr tablet Indications: Mood changes Take 1 tablet (150 mg) by mouth Daily Do not crush, chew, or split. 30 tablet 11 11/26/2023 03/12/2024 Discontinued (Ineffective) cephalexin 500 mg oral capsule (4 sources) Cephalosporin Antibacterial Start: 08-25-2021 take 1 capsule by mouth twice daily Keflex 500 mg Cap 500 mg = 1 cap(s), Oral, BID, Start the day prior to procedure, # 14 cap(s), Refills(s) 0, Pharmacy: [facility], 158, cm, 08/05/21 8:44:00 EDT, Height/Length Dosing, 89.3, kg, 08/05/21 8:44:00 EDT, Weight Dosing Start Date: 08/25/21 Status: Ordered Start: 12-03-2020 take 1 capsule by [facility] twice daily Keflex 500 mg Cap 500 mg = 1 cap(s), Oral, BID, Start on December 13, # 14 cap(s), Refills(s) 0, Pharmacy: [facility], 158, cm, 12/03/20 10:41:00 EDT, Height/Length Dosing, 88.2, kg, 12/03/20 10:41:00 EDT, Weight Dosing Start Date: 12/03/20 Status: Ordered citalopram 40 mg oral tablet (15 sources) Serotonin Reuptake Inhibitor Start: 08-05-2021 End: 01-28-2024 take 1 mg by mouth once daily CeleXA 40 mg Tab mg tab(s), Oral, Daily, Refills(s) 0 Start Date: 08/05/21 Status: Ordered Pristiq (5 sources) Serotonin and Norepinephrine Reuptake Inhibitor Start: 11-15-2020 Pristiq Oral, Daily, Refills(s) 0 Start Date: 11/15/20 Status: Ordered diclofenac sodium 75 mg delayed release oral tablet (12 sources) Nonsteroidal Anti-inflammatory Drug Start: 01-08-2024 take 1 tablet by mouth twice daily as needed diclofenac (Voltaren) 75 MG EC tablet Take 75 mg by mouth 2 (two) times a day as needed 01/08/2024 Active esomeprazole 40 mg delayed release oral capsule (1 source) Proton Pump Inhibitor Start: 01-24-2021 esomeprazole 40 mg Cap-EC 40 mg = 1 cap(s) Start Date: 01/24/21 Status: Ordered esomeprazole 40 mg Cap-EC (4 sources) Start: 01-24-2021 esomeprazole 40 mg Cap-EC 40 mg = 1 cap(s) Start Date: 01/24/21 Status: Ordered 24 hr metFORMIN hydrochloride 500 mg extended release oral tablet (17 sources) Biguanide Start: 11-13-2022 End: 03-23-2024 take 1 tablet by mouth every twenty-four hours in the morning metFORMIN XR (Glucophage-XR) 500 MG 24 hr tablet Indications: Encounter for weight management Take 1 tablet (500 mg) by mouth in the morning and 1 tablet (500 mg) before bedtime. Do not crush, chew, or split.. 60 tablet 2 12/24/2023 03/23/2024 Active 24 hr metoprolol succinate 25 mg extended release oral tablet (20 sources) beta-Adrenergic Fanta Start: 08-05-2021 take 1 mg by mouth once daily metoprolol 25 mg ER Tab mg tab(s), Oral, Daily, Refills(s) 0 Start Date: 08/05/21 Status: Ordered metoprolol tartr ate (Lopressor) 25 MG tablet Active 24 hr mirabegron 50 mg extended release oral tablet (11 sources) beta3-Adrenergic Agonist Start: 08-05-2021 take 1 tablet by mouth once daily Myrbetriq 50 mg oral tablet, extended release 50 mg = 1 tab(s), Oral, Daily, # 90 tab(s), Refills(s) 3, Pharmacy: [facility], 158, cm, 08/05/21 8:44:00 EDT, Height/Length Dosing, 89.3, kg, 08/05/21 8:44:00 EDT, Weight Dosing Start Date: 08/05/21 Status: Ordered End: 01-28-2024 mirabegron ER (Myrbetriq) 50 MG 24 hr tablet 01/28/2024 Discontinued pantoprazole 40 mg delayed release oral tablet (15 sources) Proton Pump Inhibitor Protonix 4 0 MG EC tablet Active phentermine hydrochloride 37.5 mg oral tablet (20 sources) Sympathomimetic Amine Anorectic Start: 11-26-19 End: 04-27-19 take 1 tablet by mouth before mealtime phentermine (Adipex-P) 37.5 MG tablet Indications: Encounter for weight management Take 1 tablet (37.5 mg) by mouth in the morning. Take before meals. 30 tablet 12/24/2023 01/23/2024 Active solifenacin succinate 5 mg oral tablet (4 sources) Cholinergic Muscarinic Antagonist Start: 11-25-19 take 1 tablet by mouth once daily solifenacin 5 mg Tab 5 mg = 1 tab(s), Oral, Daily, # 30 tab(s), Refills(s) 6, Pharmacy: [facility], 158, cm, 11/15/20 10:34:00 EDT, Height/Length Dosing, 88.2, kg, 11/15/20 10:34:00 EDT, Weight Dosing Start Date: 11/24/20 Status: Ordered 24 hr venlafaxine 37.5 mg extended release oral capsule (9 sources) Serotonin and Norepinephrine Reuptake Inhibitor Start: 03-12-20 End: 03-12-20 take 2 capsules by mouth once daily venlafaxine XR (Effexor XR) 37.5 MG 24 hr capsule Indications: Mood changes , Hormone disorder Take 2 capsules (75 mg) by mouth Daily Do not crush or chew. 30 capsule 6 03/12/2024 03/12/2025 Active Start: 01-28-2024 End: 01-27-2025 take 1 capsule by mouth once daily venlafaxine XR (Effexor XR) 37.5 MG 24 hr capsule Indications: Hormone disorder , Mood changes Take 1 capsule (37.5 mg) by mouth Daily Do not crush or chew. 30 capsule 6 01/28/2024 03/12/2024 Discontinued (Reorder) Problems Active Problems Problem Classification Problem Date Documented Date Episodic/Chronic Abdominal pain (5 sources) Pain in pelvis 04-23-2020 Episodic Administrative/social admission (3 sources) Patient encounter status; Translations: [Persons encountering health services in other specified circumstances] 01-28-2024 Episodic Anxiety disorders (5 sources) Mixed anxiety and depressive disorder 04-23-2020 Chronic Asthma (5 sources) Asthma 04-23-2020 Chronic Complications of surgical procedures or medical care (2 sources) Menopausal flushing; Translations: [Symptomatic postprocedural ovarian failure] 01-14-2024 Chronic Deficiency and other anemia (5 sources) Anemia 04-23-2020 Episodic Genitourinary symptoms and ill-defined conditions (18 sources) Urge incontinence; Translations: [Stress incontinence (female) (male)] Onset: 08-05-2021 Chronic Genitourinary symptoms and ill-defined conditions (6 sources) Nocturia; Translations: [Nocturia] Onset: 08-05-2021 Episodic Heart valve disorders (5 sources) Mitral valve prolapse 04-23-2020 Chronic Inflammatory diseases of female pelvic organs (5 sources) Inflammation of cervix 04-23-2020 Episodic Miscellaneous mental health disorders (2 sources) Primary insomnia; Translations: [Primary insomnia] 03-12-2024 Chronic Mood disorders (4 sources) Disturbance in mood; Translations: [Emotional lability] 01-28-2024 Episodic Nonspecific chest pain (1 source) Chest pain, unspecified; Translations: [CHEST PAIN UNSPECIFIED] Onset: 07-21-2022 Episodic Other endocrine disorders (6 sources) Disorder of endocrine system; Translations: [Endocrine disorder, unspecified] 01-28-2024 Episodic Other female genital disorders (5 sources) Pain in female genitalia on intercourse 04-23-2020 Chronic Other lower respiratory disease (1 source) Acute respiratory distress; Translations: [ACUTE RESPIRATORY DISTRESS] Onset: 07-21-2022 Episodic Other lower respiratory disease (2 sources) Snoring; Translations: [Snoring] 03-12-2024 Episodic Other non-traumatic joint disorders (1 source) Pain in unspecified joint; Translations: [PAIN IN UNSPECIFIED JOINT] Onset: 07-21-2022 Episodic Other nutritional; endocrine; and metabolic disorders (5 sources) Body mass index 30+ - obesity 04-23-2020 Chronic Other nutritional; endocrine; and metabolic disorders (2 sources) Overweight; Translations: [Overweight] 03-12-2024 Episodic Other skin disorders (14 sources) Night sweats; Translations: [Generalized hyperhidrosis] Onset: 01-14-2024 01-14-2024 Episodic Residual codes; unclassified (4 sources) Obstructive sleep apnea (adult) (pediatric); Translations: [OBSTRUCTIVE SLEEP APNEA] Onset: 07-26-2022 Chronic Residual codes; unclassified (2 sources) Obstructive sleep apnea syndrome; Translations: [Obstructive sleep apnea (adult) (pediatric)] 03-12-2024 Chronic Residual codes; unclassified (2 sources) Hypersomnia; Translations: [Hypersomnia, unspecified] 03-12-2024 Chronic Spondylosis; intervertebral disc disorders; other back [...] Name Value Interpretation Reference Range Facil ity MLR HEMOGLOBIN A1Con 024 Glucose [Mass/Vol] 114 mg/dL [facility] HbA1c (Bld) [Mass fraction] 5.6 % 4.5 - 6.2 % [facility] Comment on above: ADA RECOMMENDED LIMI T 4.0 - 6.0 ADA THERAPEUTIC TARGET < 7.0 ACTION SUGGESTED > 7.0 [facility] INSULINon 07-14-2022 Insulin 28.7 uIU/mL Critically high 2.6-24.9 [facility] Comment on above: Performed By: #### I NSULIN #### [facility] [address] [address] [address] Hanna Seaman RHEUMATOID FACTORon 07-15-19 23 RA Latex Turbid. <10.0 Normal <14.0 [facility] Comment on above: Performed By: #### R F #### [facility] [address], [place] [address] Dr. Hanna Seaman CBC AUTO DIFFon 07-13-2022 BASO # 0.1 103/ul Normal 0.0-0.1 [facility] Comment on above: Performed By: #### C BC ####[facility] [address] [id number]. Hanna Seaman Basophils/100 WBC (Bld) 0.6 % Normal 0.2-2.0 [facility] Comment on above: Performed By: #### C BC ####[facility] [address] [address]DrLink Seaman EO # 0.1 103/ul Normal 0.0-0.7 [facility] Comment on above: Performed By: #### C BC ####[facility] [address] [place] [address]DrLink Seaman Eosinophils/100 WBC (Bld) 1.8 % Normal 0.9-7.0 [facility] Comment on above: Performed By: #### C BC ####[facility] [address] [address]DrLink Seaman Erythrocyte distribution width (RBC) [Ratio] 13.5 % Normal 11.0-15.0 [facility] Comment on above: Performed By: #### C BC ####[facility] [address] [address]DrLink Seaman Hematocrit (Bld) [Volume fraction] 38.6 % Normal 36.0-48.0 [facility] Comment on above: Performed By: #### C BC ####[facility] [address] [place] [address]DrLink Seaman Hemoglobin (Bld) [Mass/Vol] 12.5 g/dL Normal 12.0-16.0 [facility] Comment on above: Performed By: #### C BC ####[facility] [address] [address]DrLink Seaman IG # 0.03 10e3/ul Normal 0.00-0.03 [facility] Comment on above: Performed By: #### C BC ####[facility] [address] [address]Dr. Tomekachela Seaman IG % 0.4 % Normal 0.0-0.5 [facility] Comment on above: Performed By: #### C BC ####[facility] [address] [address]Dr. Hanna Jurgen LYMPH # 2.4 103/ul Normal 1.2-3.8 [facility] Comment on above: Performed By: #### C BC ####[facility] [address] [place] [address]Dr. Tomekachela Seaman Lymphocytes/100 WBC (Bld) 30.1 % Normal 20.5-60.0 [facility] Comment on above: Performed By: #### C BC ####[facility] [address] [place], [place] [address]Dr. Hanna Seaman MANUAL DIFF REQ NO Normal [facility] Comment on above: Performed By: #### C BC ####[facility] [address] [address]Dr. Hanna Jurgen MCH (RBC) [Entitic mass] 28.2 pg Normal 26.7-34.0 [facility] Comment on above: Performed By: #### C BC ####[facility] [address] [address]Dr. Hanna Jurgen MCHC (RBC) [Mass/Vol] 32.4 g/dL Normal 29.9-35.2 [facility] Comment on above: Performed By: #### C BC ####[facility] [address] [address]Dr. Hanna Jurgen MCV (RBC) [Entitic vol] 87.1 fL Normal 81.0-99.0 [facility] Comment on above: Performed By: #### C BC ####[facility] [address] [place], [place] [address]Dr. Hanna Seaman MONO # 0.5 103/ul Normal 0.3-0.8 [facility] Comment on above: Performed By: #### C BC ####[facility] [address] [place] [id number]. Hanna Seaman Monocytes/100 WBC (Bld) 6.2 % Normal 1.7-12.0 [facility] Comment on above: Performed By: #### C BC ####[facility] [address] [place] [address]Dr. Hanna Seaman NEUT # 4.8 103/ul Normal 1.4-6.5 [facility] Comment on above: Performed By: #### C BC ####[facility] [address] [place] [address]Dr. Hanna Seaman Neutrophils/100 WBC (Bld) 60.9 % Normal 43.0-75.0 [facility] Comment on above: Performed By: #### C BC ####[facility] [address] [place] [id number]. Hanna Seaman Platelet mean volume (Bld) [Entitic vol] 8.7 fL Critically low 9.5-13.5 [facility] Comment on above: Performed By: #### C BC ####[facility] [address] [place] [id number]. Hanna Seaman PLT 305 103/ul Normal 150-450 [facility] Comment on above: Performed By: #### C BC ####[facility] [address] [place] [id number]. Hanna Seaman RBC 4.43 106/ul Normal 4.20-5.40 [facility] Comment on above: Performed By: #### C BC ####[facility] [address] [place] [id number]. Hanna Seaman WBC 7.9 103/ul Normal 4.0-11.0 [facility] Comment on above: Performed By: #### C BC ####[facility] [address] [place] [id number]. Hanna Seaman FREE THYROXINE INDEX T7on FTI 2.39 Normal 1.30-4.50 [facility] Comment on above: Performed By: #### C MP, LIPID, TSH, T7 #### [facility] [address] [address] [address] Hanna Seaman T3U 31.0 % Normal 30.0-39.0 [facility] Comment on above: Performed By: #### C MP, LIPID, TSH, T7 #### [facility] [address] [address] [address] Hanna Seaman T4 [Mass/Vol] 7.70 ug/dL Normal 4.80-13.90 [facility] Comment on above: Performed By: #### C MP, LIPID, TSH, T7 #### [facility] [address] [address] [address] Hanna Seaman GLYCOHEMOGLOBIN A1Con 2022 ADA RECOMMENDATION SEE BELOW Normal [facility] Comment on above: Result Comment: ADA RECOMMENDED LIMIT 4.0 - 6.0 ADA THERAPEUTIC TARGET < 7.0 ACTION SUGGESTED > 7.0 Performed By: #### A 1C #### [facility] [address] [address] [address] Hanna Seaman Glucose [Mass/Vol] 111 mg/dL Normal [facility] Comment on above: Performed By: #### A 1C #### [facility] [address] [address] [address] Hanna Seaman HbA1c (Bld) [Mass fraction] 5.5 % Normal 4.5-6.2 [facility] Comment on above: Performed By: #### A 1C #### [facility] [address] [address] [address] Hanna Seaman IRONon 07-13-2022 Iron [Mass/Vol] 40.0 ug/dL Critically low 50.0-170.0 [facility] Comment on above: Performed By: #### I BROOKS ####[facility] [address] [address]Dr. Hanna Seaman LIPID PROFILEon 07-13-2022 CHOL-HDL RATIO NORM SEE BELOW Normal [facility] Comment on above: Result Comment: 3.3 - 4.4 LOW RISK 4.4 - 7.1 AVERAGE RISK 7.1 - 11.0 MODERATE RISK >11.0 HIGH RISK Performed By: #### C MP, LIPID, TSH, T7 #### [facility] [address] [address] [address] Hanna Seaman Cholesterol [Mass/Vol] 149 mg/dL Normal <=200 [facility] Comment on above: Performed By: #### C MP, LIPID, TSH, T7 #### [facility] [address] [address] [address] Hanna Seaman Cholesterol in HDL [Mass/Vol] 41 mg/dL Normal 40-60 [facility] Comment on above: Performed By: #### C MP, LIPID, TSH, T7 #### [facility] [address] [address] [address] Hanna Seaman Cholesterol in LDL [Mass/Vol] 81.0 mg/dL Normal [facility] Comment on above: Performed By: #### C MP, LIPID, TSH, T7 #### [facility] [address] [place] [address] Dr. Hanna Seaman Cholesterol.total/C holesterol in HDL [Mass ratio] 3.6 {ratio} Normal [facility] Comment on above: Performed By: #### C MP, LIPID, TSH, T7 #### [facility] [address] [address] [address] Hanna Seaman HDL NORMAL > or = 60 mg/dl - LOW CARDIOVASCULAR RISK <40 mg/dl - HIGH CARDIOVASCULAR RISK Normal [facility] Comment on above: Performed By: #### C MP, LIPID, TSH, T7 #### [facility] [address] [place] [address] Dr. Hanna Seaman LDL CALC NORMAL SEE BELOW Normal [facility] Comment on above: Result Comment: <100 mg/dl OPTIMAL 100 - 129 mg/dl NEAR OR ABOVE OPTIMAL 130 - 159 mg/dl BORDERLINE HIGH 160 - 189 mg/dl HIGH >190 mg/dl VERY HIGH Performed By: #### C MP, LIPID, TSH, T7 #### [facility] [address] [address] [address] Hanna Seaman Triglyceride [Mass/Vol] 135 mg/dL Normal <=150 [facility] Comment on above: Performed By: #### C MP, LIPID, TSH, T7 #### [facility] [address] [place], [place] [address] Dr. Hanna Seaman VLDL CALC 27.0 mg/dL Normal [facility] Comment on above: Performed By: #### C MP, LIPID, TSH, T7 #### [facility] [address] [place], [place] [address] Dr. Hanna Seaman NM STRESS/REST MULTIon 07-13 NM STRESS/REST MULTI Patient: KALA HILLMAN Exam Date: 07/13/2022 : 1985 Gender:F Ordering : DR NAVI DELGADO . Admission #: [id number] Family : Order #: [id number] CLICK HERE TO VIEW EXAM RADIOLOGY REPORT [...] MD on 07/13/2022 at 14:55 Normal [facility] PROF 14(COMP METB)on 023 Albumin [Mass/Vol] 3.3 g/dL Critically low 3.4-5.0 [facility] Comment on above: Performed By: #### C MP, LIPID, TSH, T7 ####[facility] [address] [address]Dr. Hanna Seaman Albumin/Globulin [Mass ratio] 0.7 {ratio} Normal [facility] Comment on above: Performed By: #### C MP, LIPID, TSH, T7 ####[facility] [address] [address]Dr. Tomekachela Seaman ALP [Catalytic activity/Vol] 76 U/L Normal 46-116 [facility] Comment on above: Performed By: #### C MP, LIPID, TSH, T7 ####[facility] [address] [place] [address]Dr. Hanna Seaman ALT [Catalytic activity/Vol] 30 U/L Normal 14-59 [facility] Comment on above: Performed By: #### C MP, LIPID, TSH, T7 ####[facility] [address] [place] [address]Dr. Hanna Seaman Anion gap [Moles/Vol] 13.2 mmol/L Normal [facility] Comment on above: Performed By: #### C MP, LIPID, TSH, T7 ####[facility] [address] [address]Dr. Hanna Seaman AST [Catalytic activity/Vol] 17 U/L Normal 15-37 [facility] Comment on above: Performed By: #### C MP, LIPID, TSH, T7 ####[facility] [address] [place] [address]Dr. Hanna Seaman Bilirubin [Mass/Vol] 0.2 mg/dL Normal 0.2-1.0 [facility] Comment on above: Performed By: #### C MP, LIPID, TSH, T7 ####[facility] [address] [place] [address]Dr. Hanna Seaman Calcium [Mass/Vol] 8.0 mg/dL Critically low 8.5-10.1 [facility] Comment on above: Performed By: #### C MP, LIPID, TSH, T7 ####[facility] [address] [address]Dr. Hanna Seaman Chloride [Moles/Vol] 101 mmol/L Normal 98-107 [facility] Comment on above: Performed By: #### C MP, LIPID, TSH, T7 ####[facility] [address] [address]Dr. Hanna Seaman CO2 [Moles/Vol] 31.2 mmol/L Normal 21.0-32.0 [facility] Comment on above: Performed By: #### C MP, LIPID, TSH, T7 ####[facility] [address] [place] [address]Dr. Hanna Seaman Creatinine [Mass/Vol] 0.79 mg/dL Normal 0.55-1.02 [facility] Comment on above: Performed By: #### C MP, LIPID, TSH, T7 ####[facility] [address] [place] [address]Dr. Hanna Seaman EGFR-AF TOGOLESE >60 Normal >=60 [facility] Comment on above: Performed By: #### C MP, LIPID, TSH, T7 ####[facility] [address] [address]Dr. Hanna Seaman EGFR-NON AF TOGOLESE >60 Normal >=60 [facility] Comment on above: Performed By: #### C MP, LIPID, TSH, T7 ####[facility] [address] [place] [address]Dr. Hanna Seaman Globulin (S) [Mass/Vol] 4.6 g/dL Normal [facility] Comment on above: Performed By: #### C MP, LIPID, TSH, T7 ####[facility] [address] [place] [address]Dr. Hanna Seaman Glucose [Mass/Vol] 94 mg/dL Normal 74-106 [facility] Comment on above: Performed By: #### C MP, LIPID, TSH, T7 ####[facility] [address] [place] [address]Dr. Hanna Seaman Potassium [Moles/Vol] 4.4 mmol/L Normal 3.5-5.1 [facility] Comment on above: Performed By: #### C MP, LIPID, TSH, T7 ####[facility] [address] [place] [id number]. Hanna Seaman Protein [Mass/Vol] 7.9 g/dL Normal 6.4-8.2 [facility] Comment on above: Performed By: #### C MP, LIPID, TSH, T7 ####[facility] [address] [place] [id number]. Hanna Seaman Sodium [Moles/Vol] 141 mmol/L Normal 136-145 [facility] Comment on above: Performed By: #### C MP, LIPID, TSH, T7 ####[facility] [address] [place] [id number]. Hanna Seaman Urea nitrogen [Mass/Vol] 17.0 mg/dL Normal 7.0-18.0 [facility] Comment on above: Performed By: #### C MP, LIPID, TSH, T7 ####[facility] [address] [place] [id number]. Hanna Seaman Urea nitrogen/Creatinine [Mass ratio] 21.5 mg/mg Normal [facility] Comment on above: Performed By: #### C MP, LIPID, TSH, T7 ####[facility] [address] [place], [place] [address]Cj. Hanna Seaman TSHon 07-13-2022 TSH 1.591 uIU/mL Normal 0.358-3.740 [facility] Comment on above: Performed By: #### C MP, LIPID, TSH, T7 ####[facility] [address] [place] [id number]. Hanna Seaman US VAC ASST BX BREAST RT W C LIPon 11-30-2021 US VAC ASST BX BREAST RT W CLIP Begin Addendum #1 COLLECTED DATE/TIME: 11/16/2021 08:49 EDT Final Diagnosis Report for THE [place] (A) RIGHT BREAST AT 10 O'CLOCK, [...] provided after pathology results are available. Normal [facility] MAMMO POST BIOPSY RIGHTon MAMMO POST BIOPSY RIGHT Patient: KALA HILLMAN Exam Date: 11/16/2021 : 1985 Gender:F Ordering : DR MARCEL EATON . Admission #: [id number] Family : Order #: [id number] CLICK HERE TO VIEW EXAM RADIOLOGY REPORT [...] Expected post biopsy findings. RECOMMENDATIONS: Dictated by: Megan Rizzo M.D. on 11/16/2021 at 12:19 Approved by: Megan Rizzo M.D. on 11/16/2021 at 12:21 Normal [facility] PAP ACOG PANEL 2: 30 to 65on 11-15-2021 . . Normal [facility] Comment on above: Result Comment: Perf ormed at: WB Performed By: #### 4 [id number] ####[facility] [address] [place] [address]Dr. Tomekachela Jurgen Age Gdln ACOG Testing 30-65 Normal [facility] Comment on above: Performed By: #### 4 [id number] ####[facility] [address] [place] [address]Dr. Hanna Seaman DIAGNOSIS: Comment Normal [facility] Comment on above: Result Comment: NEGA TIVE FOR INTRAEPITHELIAL LESION OR MALIGNANCY. PREDOMINANCE OF COCCOBACILLI CONSISTENT WITH SHIFT IN VAGINAL CLAY IS PRESENT. Performed at: WB Performed By: #### 4 [id number] ####[facility] [address] [place], [place] [address]Dr. Hanna Seaman HPV Aptima Negative Normal Negative [facility] Comment on above: Result Comment: This nucleic acid amplification test detects fourteen high-risk HPV types (16,18,31,33,35,39,45,51,52,56,58,59,66,68) without differentiation. Performed at: =G Performed By: #### 4 [id number] ####[facility] [address] [place], [place] [address]Dr. Hanna Seaman Methodology: CTIM Normal [facility] Comment on above: Result Comment: The Thin Prep(R) Testing Engineer was unable to read this specimen. Therefore a manual review was performed. Performed at: WB Performed By: #### 4 [id number] ####[facility] [address] [place], [place] [address]Dr. Hanna Seaman Note: Comment Normal [facility] Comment on above: Result Comment: The Pap smear is a screening test designed to aid in the detection of premalignant and malignant conditions of the uterine cervix. It is not a diagnostic procedure and should not be used as the sole means of detecting cervical cancer. Both false-positive and false-negative reports do occur. . Performed at: WB Performed By: #### 4 [id number] ####[facility] [address] [place] [address]Fg. Hanna Seaman Performed by: Comment Normal [facility] Comment on above: Result Comment: Jared Morgan, Speech Therapist Early Intervention (ASCP) Performed at: WB Performed By: #### 4 [id number] ####[facility] [address] [place], [place] [address]Bt. Hanna Seaman Specimen adequacy: Comment Normal [facility] Comment on above: Result Comment: Sati sfactory for evaluation. No endocervical cells are present. This is consistent with a history of hysterectomy. Performed at: WB Performed By: #### 4 [id number] ####[facility] [address] [place], [place] [address]Xg. Hanna Seaman MG MAMM DIAGNOSTIC 3D TY CA Don 11-10-2021 MG MAMM DIAGNOSTIC 3D TY CAD Patient: KALA HILLMAN Exam Date: 11/10/2021 : 1985 Gender:F Ordering : DR MARCEL EATON . Admission #: [id number] Family : Order #: [id number] CLICK HERE TO VIEW EXAM RADIOLOGY REPORT [...] Treatments None Family Cancers None LOCATION: [facility] BREAST COMPOSITION: Heterogeneously dense,which may obscure small [...] PALPABLE LUMP SHOULD BE BIOPSIED. Dictated by: Megan Rizzo M.D. on 11/10/2021 at 10:07 Approved by: Megan Rizzo M.D. on 11/10/2021 at 10:24 Normal [facility] US BREAST RIGHT LIMITEDon US BREAST RIGHT LIMITED Patient: KALA HILLMAN Exam Date: 11/10/2021 : 1985 Gender:F Ordering : DR MARCEL EATON . Admission #: [id number] Family : Order #: [id number] CLICK HERE TO VIEW EXAM RADIOLOGY REPORT [...] Treatments None Family Cancers None LOCATION: [facility] BREAST COMPOSITION: Heterogeneously dense,which may obscure small [...] PALPABLE LUMP SHOULD BE BIOPSIED. Dictated by: Megan Rizzo M.D. on 11/10/2021 at 10:07 Approved by: Megan Rizzo M.D. on 11/10/2021 at 10:24 Normal [facility] Ambulatory Visit Summaryon 0 09-28-2021 Ambulatory Visit Summary KALA HILLMAN :1985 Visit Date:09/28/2021 Ambulatory Visit Instructions Your Diagnosis Urge incontinence Tests Performed Urnls Dip Stick Auto w/o Microscopy POC 26247 Your Care Team Attending Physician - LEONARDO TUTTLE PA-C Primary Care Physician - Navi Delgado MD This Is Your Medications List [...] Follow-Up Appointments Sunday 3:00 PM EST With: LEONARDO TUTTLE PA-C Where: [facility] Patient Educationon 09-29-19 Patient [...] Take ove (more content not included)... Normal [facility] Urology Office/Clinic Noteon 09-28-2021 Urology Office/Clinic Note [...] E&M of Est. Patient Low 20-29 Min 43183 Urnls Dip Stick Auto w/o Microscopy POC 83789 Follow-up With When Contact Information PARAG LOCKETT, LEONARDO [place], URL Within 6 months [address] [place] [address] [facility] (1) Additional Instructions: Patient Education Overactive Bladder, [...] Protein Urine Dipstick: Negative (09/28/21 11:12:00) Specific Piru Urine Dipstick: 1.020 (09/28/21 11:12:00) Urine Appearance Urine Dipstick: Clear (09/28/21 11:12:00) Urine Color Urine Dipstick: Yellow (09/28/21 11:12:00) Urobilinogen Urine Dipstick: Normal 0.2-1 EU/dl (09/28/21 11:12:00) pH Urine Dipstick: 7 (09/28/21 11:12:00) Normal [facility] Comment on above: Result Comment: Elec tronically Signed By: LEONARDO TUTTLE PA-C\Date and Time Signed: 09/28/21 14:19 EDT Coding Summary.on 09-08-2021 Coding Summary. [id number] Gh0bWw+PGhlYWQ+PE1FV NSvM44fqEWfzG4HY6kEQ D1LZFPQMIIWZC1OOF0rc NB9AYgvK5JlukQe XsnlsDIsBA67CAq0XUN0 eYzdCQbldO1xxLFvV2r4 KpRbHJ81jC84WQupMKXu MzX2SmDqavyymHLw D6yvZwGmfAVeKbm+PHRh YmxlIHdpZHRoPScxMDAl XxZgfFxpPX4cNu1yLHCo LWNvbGxhcHNlOiBj e0lkQMIiEQkmZI7fmGem J3EdgTJ5MQZoi3y5Lu72 dHI+IFXnPLI7eIxbLIvy q202EeSyd5hxIYK1 uFHyMVmpXKB9Z53bl2W6 JLJsGWKhETJ8qQV6xK1m uJobvjxlG4PddBLvMoZ9 HWK1iZDghD3vwFti wgceyK1yCbn+I70WGK0B FRBSWK3QFme2F5HjIdsk dHI+ZI35NDRnRM24xAPv zRDpc2moaWf5DtSn BEHyHFO2uPdbJBwoi6Mr EGMtL98gcCAjq5X9ETVd lJpszKIpNuOxjTQ1yY3u ODzkibojl3zqztwt Hutxf6ekwz63eS94B98h PNpzHBHuTZP0IAKbNJDi wEyopj8oeN5xXe0+IDxj s3tea4auaEx3CjMo CYZhozFqdZsqRVQ8q2Eh Zz76C9PwlNotg2WqIhj0 mo27kAOod6I3kKX3KNvu IDQynC1dTAduCdY2 DJTwZcWviZ86oHVgVTfh Nc9qrElycBiqPZ1qICJh opolFBMqmJ2qIEQohUTw kEktBF8cBQGqisds g028KkZnBXJ2IOCjwIVg I3JyaY0gBlHcFJGnIWDs C6TozHGiZSmbZ148AEnt EmK2EWLthtDgV1Qp YKUyfPquGmB2d8X2Zw2E u9LvwglxJWD7AMflRYH1 QzI2OnZqRqL3H5RhJbe8 ZQYijIbzAO1qO8Mi HJQskuihuxmkmOH6FORc JWUhaP34vLBsYCafRi6i n4M9n574HHCpSNAkiU05 Zl9fxOnmZSWcjPUW rF1melsdz7uiyecrKcSj XLKhWGe7ZTi5RTXinXsj WoOjCCA0BeU9QOB0hMBp pA6hoQvaanlmuW1l Oyc+J45gbL1vFSI2MIR1 qmevYFAovaKnPM59IN42 A6WvIphrlXYpeDS+PGRp mdAzaWugSE2iXjBb b9xcr8QqXWyaQ4VsYYAy DXksMfd1ARXhFTM2gRR7 gN2nUYXhYSwun2G5hYN7 B7TdxtSgyf3he4si DJXlQBpoC44ccKNjq7O5 LFZdsWN1VGYgjCqtGiUy sZ85Iht+OSSwoRcsv5Jf Iocgq5kxj6wacPg4 IjMwJSIgdmFsaWduPSJ0 z1VeVk28U51xKMadUZSk KLXuYWQwXMKwjDmixp2p tA9iAq7+PGNvbCB3 uUJ4zU6vKPZnGgA1UEkl L771VsXhdTRsZeins7jy i2grhMv7LyKpAHBqvkLe hPyxJHW6z0NkLe98 O42cQXnbYWNaVFVyZWOq XXKyqKivbo4xtP4jEc5+ ED6hf2doin29vI13kUQ+ VEUaUXU3aChfWVqr AFVboM5aVLlvFtT4CSAl JaPsjI94jGCoZVelAj3w nKioiEvvVQ8zVNTzgxpt o038GfXku6aaXMNz rNSsJFbiRUY0I34qn2L9 XRSkBXObKLY5bUV0kM9p bGlnbjogbGVmdDsgdmVy qPcaBIwrDZwjL229 IHRvcDsnPlBhdGllbnQg KsMxVBy6M3VhVlg0UFXz kMxuGE4nkPYeQWbaNr4m iBqmpRcvTR5uAQAe qgkqm920NiLlm5lyVCQt jYMaKSaxIRB4A10xp4L5 JTCsMHRjBRI6zHL9fC8l bGlnbjogbGVmdDsg frYlkFgfTLmvWUyuA444 IHRvcDsnPkJpcnRoIERh uFO2TH00EA12eCLjb7X0 fAD5D5WmNXLbyqsj zktmqQQ0SGQkQYOloQ35 Am9lhQxjJb5tQMVvJUM4 RVMkuOCpW5HxyB9gPzNg ACSzNOTqP9LfjRKv RTabW777OGapNhT4AJQp dcWnL3PvMRWirTpdSlK6 l8Z2Ag5CS3F1JM42WA27 qYCgk7V4jNM9Y8Ze PCQagxurhcinzYV1GTFq IWGpdL14Zw7wuHiuLj0g DZXyMVB7TCXcvIBcN3Zx xH2hOwHkFOHwYSVx V9WmiNTwWApvW300XCyu MpX3QOMctbEuR8VlVSMw fOrrHvA7a3H5Ln5RNUz1 BE98BE39gFQat0U6 fVL3S5NyUXRzcubmfoou tEQ4DESzLNFaqF28Pm3e cRinFu2mUFQlPHK2HMKs bMFvB4VlwY9gJyBo LBZbYHWkY4FeaPCqRTpe V700VSgeEhC7IUPtshKm K6QtIBPgmFbaMzI7c7W3 Wm9QKIKpYS61FLK0 mHT5ZX59LL26A8QrCeqa dGFibGU+PHRhYmxlIHdp ZHRoPScxMDAlJyBzdHls WT7lCz5dUWKjJHLk jRhgmTCqTqOcp9msCUMy JRfpVU0lgAesD8UwgFS0 TAZqe4y6Lb15P84tX3Ef dXA+LLNopSW8uPL6 uM2tHsKwWaB8FUkwB366 RpOytWFsUhngi3trx5mx fVl0PmE2EKDmgoJejMsa XTB3p8BoWk76E76i IHdpZHRoPSIxNSUiIHZh uRgqpz0mzW9jKm6+PGNv xAX4vCW2nU9uYcVfHlI5 EIpgA373QaCmuYVb Mfokb8tar5ayfGy1QkDc KPSgvoPttCogCXW0g6Eo In84C8TfxWbsj7HsLdw4 bb36rOVhg9J7qZH2 J7AnIMNsqvxvuDTwqRkl MW5lFLMflkanRKWpaM7s QSYjS4h0VtBbSvZ5WBsy M8TxubI6BCFnkOAp SPibKRM7I97mp5O7IFLq CQBtCQD4mVF7gE2ulVwj bjogbGVmdDsgdmVydGlj GIqgZLhbA775VFAn hLdhMSDjnM6dBJIvbGBy dLupZJ9hFEXhohacTeSL SNfPKKNSTCJRZW17W5Ls Skl0ELDfgYibPK5e xBBpOKtuJv3ovShnfFqk XX8aOXZyutweXGFhtZ3b VLBxhFEgbParHL5aHSYr wimkb481WxOvZRQ6 XCKbsZOdC7GgyA5cWjNs NRCuNRMoV0HpcFEgKBbv R798OZzlPbL4ISQmedQx Q4XiSKWanOdnOrL4 z2G0Fx1kYY1lMg4yTBm5 LD57FD79sGQij3P0iVA6 H7CsEAIfqpjparswkLP9 EZXoVHDwlC10yYYm OJtdNi9bc3B8y877RCXw VGTqnW31Ta2tyNkbXFOc uPDAwY2nsovwz3wgdpcj EeNvXFPoFZq7EQq5 RMFmzZbrDzBuAMG8FdY7 APY1oRWnuU7avRixjxfg rI1fUyy+MzcgWWVhcnM8 J1KlLaf4AADrxKvw VI9ycBSbVOytDi7wjHsl qOgoXY4fDYQyfmdaXPKa kE7nUHTazVTneFjvCU0g JTHxdlcsq193NyTm DXH1BGTsuKWnN9FrbE2f AeXmIVPeJLIqV1VgcLSj XTqiB146ZDcaItE8YOHs sgQyU8ApXAIfxWbg MlV7w2V6Xi3QNH5msID4 R2UrXde1EKUznWzqZJ1t sWOkIVkzPt5tcXtnwRyn OC1mOYWqnuibXJZi tR9iTNPfdJWjvMzpIC6o ZWVvxxtzf453RqLoWPP2 ERSgkBTgB0JrlN8vDzOw UAOuSVObU4ImnMPw LDwpA040DCorPxA2ZDVl apPlH0AgQDBnuMojIrJ8 c6W6Oj0BXUGtBVYtpHIo MxA0I4QmNlzjdCT+ ES87OWKiBG30nISbsKUl q8mlqNv6XiFrVGPyXSB2 eKzfHFcio8DhAJGnZ70m nASxm2G7JVZcnKqm vYCgUdDmjKW4bE0cPEan pekgj6recujxCbjec4ti mt04uX82N55qMTkiBGVr PSIzMCUiIHZhbGln fw8zrS9oOi0+PGNvbCB3 jJH8xF1oOtMiTcS2QOsw I337XgOctAKyBfsvf7is d6dmfNe4SaBmABRc luQhgIxvWXD0k4RiHy48 X77wINacRLIcRBNlLTZp GZEaxNoyko3xzX2zQf6+ HU4ma7idbk01mV92 dHI+UEIkIDL0yFovIPjd MILkzW0wCTjmQxB4RVNd JrHfxI80wLEkHMsdGf9q uGqhaXnuXA4zMKLp tcpon998MmKzf9yrZQIz gTKoWMuvUMI8L99yj2Y4 SLNbVBGnADO0wXX9uL2c bGlnbjogbGVmdDsg uoXlpCztPVcsDGqbR670 LOLxzDrxQvWswIOhH3tt qyVJZD8oYxpufZF+PHRk SOU3xLvrTChkQPSg kG6qDMZbH8n8VtUqCtZ4 XPtcN6EwwtL4XTBkfMIp ZZMeyJGUgS0atwnkq1el cjogIzAwMDAwMDt0 JNq3PKUneFhlYoLsEZM0 AfS9VXH7hUIehP7joFdq wyyajH8kGqy+RklOOjwv dGQ+UNRmHFY3xAdp DTqiJEFtsU7oKUOvY5g5 DgOdWzP4IOniW7YaibR3 BSBwsTKnGNQwjMZPpE9q agaje2vpygobYoDm FJAvPMk5DCf2BYYgrCpd TsWbZCD2XdS0RMC3mHWk wF5ltVrwhkqlcY5tIpb+ TVJOOjwvdGQ+PHRk VEE8rTcpMCojCDDquG8n NTHvW4v1HvXqEzH3QWll K0NphpB4DQWmnLUnTRLi lYEUyR8rhduzj7uf wcdxNeQfMRPgVBx6OHt0 DOMxdMcwExMgSEG7KpT9 DHQ8eFBeyX3kaNqvaicq cZ0aVph+ZRT0NWD7 TN21RQ21Q3VnLvkwyHRw bGU+PHRhYmxlIHdpZHRo FJzwBCWoWpPttFgcCR7c Bv6xVYDoYWNgiFpn cHNl (more content not included)... Normal [facility] Coding Summary.on 09-07-2021 Coding Summary. CD:[id number] Gh0bWw+PGhlYWQ+PE1FV CQgN18pgBSkiA3SD1cVP Z7BMHBGRTSLXT6DTU9pv XR6FRjuO6AvjwJc BlfemXZjHW39SMt6GCZ8 gDyeHVutoE5dxSWjO9o0 FoKyYD15lG05HShjRLDa LmO5FpAniwqqeFVc K6ocAuCwfCEwIhk+PHRh YmxlIHdpZHRoPScxMDAl DePopArmJK9vUg5hMIAq LWNvbGxhcHNlOiBj p5ykOOQqMYhmWD3vcOjy C2XxqGI9ZMCqv2y9Ur73 dHI+SHLaOMS9pGyySIob o468SbRvf2rcNLK0 gPTxBDgtTFA2L33lt9F0 XSPuVHLlESH3iHF5yL4j jEpizrseA4LuhMRnHgG8 YEI9aFJxeF6ueXwe wikimV7pZsy+W01OWR5B DQPKUB8LGco3Z0TeSqcw dHI+LV94SLHjVV47cFTa cWYol8hqpTc3PlAa OWWkTEW6mWxwIOkdh7Ng LEYaC37fjQXrn4F6CVTi fVvmsFNbKcTggEB2sD4f ZRtfxwibe9ceauyh Lavzu1ygbb71mN72N02y HOjiJNWkTQI4RLNlWJKy pZmslc3edB4sQp2+IDxj d3nsb0mckPj1ZzNk HZJkyzMgtUjeMDV9e2Jt Ez04Y8OewOxeq6DjCoz5 zx64sSAfr6G3fAG7OGuk VLRllW1eGSkoQaI7 TIEuReZnzR09yBZwFWiv Mu2qkYwgvXxePX2vBKPf fqomEDYdyW6mTJIwiMVg jGwqAS9iAMFkgcpa e060ExTnVSG2AONkiWJg O7ZytP7pVrAxRVIrXVEa Z0SbiNSwJTiiB343UOaq ZpG2SJIragTeB8Uk JOMmfIvtIfE0d6O4Ur2I m6GcdophBWI1ZMziNOQ0 ZoB8ZxVdHzM7J0EjZee5 BKIrxXirNM1jF8Nt XVVonkbxbzmrqUT3WIQn JIFjiV99jKCwLVpdWu6x g8I3g511NHLjAUSkyQ58 Rd5evUjhHFHxcACA xT5sxxgnn3ywcldzZoZc XZCjPMk4GYq0XMHanHjb IgAhBFH4ImK1ZFW8dWOk sE1wbGkjkclajQ5w Oyc+G13ozE0aIHZ4KJQ0 xgiwNQOlcqWhMD36WQ43 J0SxHrxbgABrnSW+PGRp jpSbvLkiEI8yWcMe g5ual7GaJObxV3NpLQEx PFreGvh5DZXnQZO5bAK8 yC1jABGoRSvdy1X0gGR5 I2PkqyBgov7wh1wb MUMhWYevE07icIMwx5U6 QCMbmYF3BJJinAtjKmVw fP08Fgi+RBSaqBzvg5Rv Dukto8uls7jxbEt7 IjMwJSIgdmFsaWduPSJ0 n3AaCe95O63xXQokLUQq KCAtZNUzGMWiyDjtqr7s rZ2eTb7+PGNvbCB3 gAK2iI9hXDPzFsN1FYpc E075WnCgxWTpDhbkh3he o7uikZf4JgUiBGAjjdUy mXqkGWR3s1MnYy31 I27gGAebSPDwFATxPSGd BMYosTtipf4ymB0uAg8+ UW6dd3xxmo81bO29sJR+ XWNoZVM4pYkjROho LUVkjB6hJQinNeJ6PWJk ZoFpqN06fDOjBVhtSf0s nEfuzEivVT3vBEThozch j848VrCxt4geINUe rXWlTOjwAMS8O10hf7W3 PCPgBCVuEJV9yZO8cI2e bGlnbjogbGVmdDsgdmVy rIgrBIfpQLpsS630 IHRvcDsnPlBhdGllbnQg DdNyWFw6T4IjXkk4ILTd cHrpCU5qmQMqBIejAx2d zIvttVpiJV7sIVUt kbtdk671SxMji7dxXDPx xDDqWXqfJHR0C55ge3W3 SFTrCZFzEKR7jJI2nN4b bGlnbjogbGVmdDsg ixFdmGpcNAxpUDcxZ332 IHRvcDsnPkJpcnRoIERh vZC0LD59WK05bSYht8Z1 qIA9B5YlQNBouwho ozmyaOO2WBUhKSCmuK52 Jr5qnUcySx3aHVYsPAA4 SYOsrCJjF8GxmN6oBmXo RYOrMUAyG6XwuXZt IEhaW976XUhqFtN5GYGk nhQlQ6VlZHMunVjgAzR9 j7M7Aj8WE7N1SD31AD58 oLJut8W4xDY5I5Ng WCFmvvrbwcxvcLQ6VUQi ENNjcS51Mb9xeZzmXs4q ZZMoVDP4STHurVCjN4Jv kR4yHtUtDQAaNQMv F4KagWObTUetP012BZlc WfC7WVAplhNtY5RcYAJf zChbWxH8a6V1Mx6OTDm2 NX61AF97sVSwl8B5 pRW9S7RgSIYsptwqsgyv uYA4GUVnHLMakF35Mh6q kGjbFq8bRGKvMEM4GRYl iPCuN7AfpT9kUeIm OJHeUFEeF9AiyMBsXLqu Y911RXkeEkX3MVPhtbRm W4UyOHCttFleTrL4y4D3 Nk7CIUBaSJ58HKW3 kYS7OJ07FS51P1FtLcec dGFibGU+PHRhYmxlIHdp ZHRoPScxMDAlJyBzdHls BW8cSd5jQAGmBMDo xAmzhOXaFkTrl7cpHXCt PNgfGC3lvZohH3UpyYO1 FOZsz9y1Zz72J40gN6Ky dXA+TBKhmXY3nNW6 oZ3bNlDuImV1VOztU875 SbJafVQrDonio9kfh8tb mHi3FzD2HAHgejBagUiv WFX6b2ZmSm66L94o IHdpZHRoPSIxNSUiIHZh iMjzzn9zwB2qNu4+PGNv zGL8iRQ3zG5yFvYqVqK3 GPvfY718GnDvjGGm Bywia5kkk0jfqFa9RqPj WVJzyhTqyNvfMVM4l4Yn Wo51U0AliHgmh2FrNur7 nt95rSNjy9R3pLO9 W8FxJFXlwrxhgGDbvCcq AX6vGPPrzhtlFYZvpW0v FDEoS1l6RkVkHxW2CAhy C2XtnuA4UHUycAGb DHgqUSS2E09oq9N0TEQz PMJmRLU3uCN8bE6snLie bjogbGVmdDsgdmVydGlj OJbfSRilM522AMOg yBupNAUajX2iVSOgfUGr yFniXE8iGQGftiyaRlWV XHuCLGOMLAEJQX87R2Kq Nvn5RQKbzVztYY5w qYUeMBuwIb0kxGqqhBzj UW1jUXRaxyxnNLKiwJ4l YBOehMIkhGgfDS3vWMCz ztbex172OwMmPXG7 XIWvqGPfS3LdfN7oQiUc DNKqXZZaI1GsvKOoQGby J601IDukErR9KTWlmjYy O1AqOMTaaFxgJaE6 z7V6Mj5cEM6tHx4hAYa3 JW60NQ51pHTlf6P9mZT4 Z3XsIZNktartmonnaHH0 SGRsQYFngJ80cRUn CQqvSl5kc7I3f044DHJw OYSkpO37Qv6bbZklHXBi zSXXnY7rysszt7pvvbpx DeVqSGKuBMz3WHn9 WLJpcEhyXmXlITN2OeO3 EUO6qKNtsA0rcMaliqfz pU0dYsp+MzcgWWVhcnM8 C7EeAom2XKMciHgf XY7lzETyAOjxKg3yoNyx jYcxOU4yKYOnnieoNWFc oH5hCWLplGYykCgjST4e VVWkewxkb020MxRv FJI2ZWMfqDGqE6SjkV4s YrQwHNFdIDPeX3OodMDd IBqpF639ZBtgOxY3HOQw cgKtD8BzUEGakYzb XiQ3q2Y1Vq3PAY1qmAZ7 W1HmWzn0CYOwrNcxBE5g qLXtYObhYt7ckZpmlKfx OA5mIRBgwfusRDRj dA2mDTCulESxlGlwHE0s FLSipauxr624YdQxJXU3 PJDgsKWgJ0JpwG3uGqMh XVJmVCRwH4FvhOLd PGejI549RZwqPiV7VJLb eaIzU1JbBOFqeYpeVpU7 u2P4Er6PvYZbOKUeRQ94 EZ38PY40J5HwQqij dGFibGU+PHRhYmxlIHdp ZHRoPScxMDAlJyBzdHls TG1oFr4bRUCoODJuvIln nSUzBbGdp7hhTVAd WKfjMR7sfAgcN1KcnWS8 ACWue6h9Bs07T76fY5Dv dXA+VOMlxNU6iVE2uX3q YmSmJyA0APadR543 OpPvrRVwSxfki3vge5qn vLd2SwBuHMFqioVafQuf DXA1b6TiMg65S95wOFlf ZHRoPSIyMCUiIHZh fMzkhc8ctB4yBl3+PGNv fAF6lRJ9wI2sAiGzXvI2 ZWvxJ346BnFtiGVsRujf A40hT6FvnAI+PHRy Lzw8UCYozKoyUZ0vwJEu UVrmZt5gXLM7ZzJrTtUx ADboT6PzQLMxebaordou vXM0IPSwOZWnaI62 Pw3fhVfdIm8tYMXnVTS0 RALtuGMmQ1XhfD3fDyBy TYUjSUGpQ3LpmICzNBid T859JLyaArU1SQGa itQgE3EzJKBybSmxSwP6 w4I0Ub8YuZosoCTxLF6k KtAnTEg9X3YpHxc6QEJb vAhwNX9pkOHmJZvh Sj4saHibpAhtCS3vYIXv zuqtx673DdBpy9bhNCZr hKVcIYtwVLW2X53sa2C4 QYTiMPOrUDW6qNR8 yH3sbXrgezpvvUAkmDyz paDbsUncFZupCYfoS514 GVEmtBanCkJZCvg3F7Ti Hzh7RFLhiPtiBU2b bQQtGSplQf5csCuiaEgh SH7tEUVegiejy971AkGk e9rnXPGeySYnPVzpGFT4 I40my6N1IPQwXCYx BKY1iCA8qD0jpGotpmoa bGVmdDsgdmVydGljYWwt YItoN031YXUgmRvmEs9P Fty3H7LuEdf1SQNw oYiaDA7eiFLlTAvnMv6x cAfgqNcqFX6pHTLnfxds j927OjKkc6nkPRXfvARi VUpeJDQ3Y83mi9T6 AZGqXYYgTXG3xJI4bM6h bGlnbjogbGVmdDsgdmVy dWpgNFlwLMpzE087OFKr cDsnPlBheWVyOjwv dGQ+QF92cp31X8RaSxro Gov6NCToHBV5fBZ0kN8g NXLtOHmji8K9uVB9O4Nj lrLmaq9cy7qbGJCe ZTog (more content not included)... Normal [facility] Consent for Procedure/Surger yon 09-06-2021 Consent for Procedure/Surgery [id number] 4#1.00CD:127 [facility] Consent for Treatmenton 2 Consent for Treatment [id number] #1.00CD:127 [facility] IntraOperative Documentson 0 09-06-2021 IntraOperative Documents [id number] 3#1.00CD:127 [facility] Main OR Intraoperative Recor don 05-24-2022 Main OR Intraoperative Record IntraOp Document Type FTURO Summary Primary Physician: Merrick DUNCAN MD Finalized Date/Time: 09/06/21 12:14:38 Pt. Name: KALA HILLMAN Robson Morales/Sex: 1985 Female Med Rec #: [id number] Physician: Merrick DUNCAN MD Financial #: [id number] Pt. Type: O Room/Bed: / Admit/Disch: 09/06/21 10:46:07 - Institution: Case Times FTURO Entry 1 Patient Times In Room 09/06/21 11:55:00 Out Room 09/06/21 12:07:00 Procedure Times Start 09/06/21 11:58:00 Stop 09/06/21 12:04:00 Anesthesia Times Last Modified By: Gayle Saavedra RN 09/06/21 12:07:06 Case Attendance FTURO Entry 1 Entry 2 Entry 3 Case Attendee Merrcik DUNCAN MD SAMPLE PREPARATION SUPERVISOR, Gayle Saavedra RN, Gayle Lopez Role Performed Surgeon - Primary Scrub - Primary Head Custodian - Primary Time In 09/06/21 11:55:00 09/06/21 11:55:00 09/06/21 11:55:00 Time Out 09/06/21 12:07:00 09/06/21 12:07:00 09/06/21 12:07:00 Procedure CYSTOSCOPY LOCAL BOTOX CYSTOSCOPY LOCAL BOTOX CYSTOSCOPY LOCAL BOTOX INJECTION(.) INJECTION(.) INJECTION(.) Comments Last Modified By: Gayle Saavedra RN, RN, Gayle Rivers RN 09/06/21 12:07:07 09/06/21 12:07:07 09/06/21 12:07:07 Surgical Procedures FTURO Entry 1 Procedure Description Procedure CYSTOSCOPY LOCAL BOTOX Modifiers . INJECTION Surgeon Description CYSTOSCOPY WITH BOTOX 100 UNITS LOT NUMBER [id number] EXP DATE Primary Procedure Yes Primary Surgeon Merrick DUNCAN MD Start 09/06/21 11:58:00 Stop 09/06/21 12:04:00 Anesthesia Type [...] Position Verified Availability Equipment, Medication Time Out FLY STEINER, Merrick Doshi, Verified (If Participants Gayle Workman CST Applicable) [...] 12:07 Gayle Saavedra RN 09/06/21 12:14 Normal [facility] Main OR Preoperative Recordo n 09-06-2021 Main OR Preoperative Record Holding Area Document Type FTURO Summary Primary Physician: Merrick DUNCAN MD Finalized Date/Time: 09/06/21 11:59:31 Pt. Name: JOSKALA D.O.B./Sex: 1985 Female Med Rec #: [id number] Physician: Merrick DUNCAN MD Financial #: [id number] Pt. Type: O Room/Bed: / Admit/Disch: 09/06/21 [...] 11:25 Gayle Saavedra RN 09/06/21 11:59 Normal [facility] Operative Reporton Operative Report Patient: KALA HILLMAN Age: 36 years Sex: Female : [...] is to follow-up in 2 weeks. Normal [facility] Comment on above: Result Comment: Elec tronically Signed By: Merrick DUNCAN MD\.br\Date and Time Signed: 09/06/21 12:07 EDT Reminderson 05-23-2022 Reminders - From: Jonathan HARTLEY, Cristiano Schaeffer To: EU - Clinical; Sent: 08/31/2021 11:40:26 EDT Show up: 09/03/2021 11:40:00 EDT Subject: Ambulatory Reminder Reminder/Recall urine culture Minh Willian addressed. [facility] C Urineon 09-02-2021 Bacteria identified Cx Nom [...] Locations R1: This test was performed at: [facility], [address] [place] [address], [facility] , , [facility] Comment on above: Performed By: #### [id number] ####[facility] [id number] [place] [address] Ambulatory Visit Summaryon 0 08-31-2021 Ambulatory Visit Summary KALA HILLMAN Robson :1985 Visit Date:08/31/2021 Ambulatory Visit Instructions Your Care Team Attending Physician - FLY STEINER, Merrick Doshi Primary Care Physician - Navi Delgado MD This Is Your Medications List [...] Appointments Sunday 11:30 AM EDT With: Where: [facility] Sunday 10:00 AM EDT With: LEONARDO TUTTLE PA-C Where: [facility] Normal [address] [place] [address] [place] [address]- \.br\ Medications\.br\ What How Much When Instructions\.br\ [...] depression\.br\ Asthma\.br\ Back pain\.br\ Cervicitis\.br\ Dyspareunia, female\.br\ Hypothyroidism\.b r\ Mitral valve prolapse\.br\ Nocturia\.br\ Obesity (BMI 30-39.9)\.br\ Pelvic pain\.br\ Stress incontinence\.br\ Urge incontinence\.br\ Urgency incontinence\.br\ \.br\ [facility] Pre-Certification Formon Pre-Certification Form [id number] 4#1.00CD:127 Normal [facility] Ambulatory Visit Summaryon 0 08-05-2021 Ambulatory Visit Summary KALA HILLMAN :1985 Visit Date:08/05/2021 Ambulatory Visit Instructions Your Diagnosis Urgency incontinence Nocturia Stress incontinence Tests Performed Urnls Dip Stick Auto w/o Microscopy POC [id number] Your Care Team Attending Physician - FLY STEINER, Merrick Doshi Primary Care Physician - Navi Delgado MD This Is Your Medications List [...] Follow-Up Appointments Sunday 8:00 AM EDT With: FLY STEINER, Merrick Doshi Where: [facility] Patient Educationon 08-06-19 Patient Education Urology Urinary [...] stimulation). ? For women, using a medical office professional instructor to prevent urine leaks. This is a [...] after experiencing incontinence. General instructions ? Take [id number] and prescription medicines only as (more content not included)... Normal [facility] Urology Office/Clinic Noteon 08-05-2021 Urology Office/Clinic Note [...] she sneezes. Follow-up With When Contact Information FLY STEINER, FUNMILAYO Bob In 3 months 11/04/2021 EDT [facility] [address], [place] [address] [phone] Additional Instructions: Patient Education Urinary Incontinence IAdriana, personally scribed for Dr. Duncan on 08/05/2021 09:11:32. . Documentation recorded by the scribeAdriana, accurately reflects the services(s) I performed and [...] Daily es (more content not included)... Normal [facility] Comment on above: Result Comment: Elec tronically Signed By: Merrick DUNCAN MD\.br\Date and Time Signed: 08/05/21 09:15 EDT\.br\Electronically Co-Signed By: Adriana Ventura MA\.br\Date and Time Co-Signed: 08/05/21 09:11 EDT Vital Signs Date Time Vital Sign Value Performing Clinician Facility 03-12-2024 09:29-0500 Body height 160 cm David Ethan DO Work Phone: [facility] 03-12-2024 09:29-0500 Body mass index (BMI) [Ratio] 34.54 kg/m2 David Ethan DO Work Phone: [facility] 03-12-2024 09:29-0500 Body weight 88.45 kg David Ethan DO Work Phone: [facility] 03-12-2024 09:29-0500 Diastolic blood pressure 86 mm[Hg] David Ethan DO Work Phone: [facility] 03-12-2024 09:29-0500 Heart rate 97 /min David Ethan DO Work Phone: [facility] 03-12-2024 09:29-0500 SaO2% (BldA) [Mass fraction] 97 % David Ethan DO Work Phone: [facility] 03-12-2024 09:29-0500 Systolic blood pressure 126 mm[Hg] David Ethan DO Work Phone: [facility] 01-28-2024 15:17-0400 Body mass index (BMI) [Ratio] 36.38 kg/m2 Marcel Uma DO Work Phone: [facility] 01-28-2024 15:17-0400 Body weight 93.17 kg Marcel Uma DO Work Phone: [facility] 01-28-2024 15:17-0400 Diastolic blood pressure 70 mm[Hg] Marcel Uma DO Work Phone: [facility] 01-28-2024 15:17-0400 Systolic blood pressure 120 mm[Hg] Marcel Uma DO Work Phone: [facility] 01-14-2024 14:58-0400 Body mass index (BMI) [Ratio] 36.31 kg/m2 Marcel Uma DO Work Phone: [facility] 01-14-2024 14:58-0400 Body weight 92.99 kg Marcel Uma DO Work Phone: [facility] 01-14-2024 14:58-0400 Diastolic blood pressure 74 mm[Hg] Marcel Uma DO Work Phone: [facility] 01-14-2024 14:58-0400 Systolic blood pressure 122 mm[Hg] Marcel Uma DO Work Phone: [facility] 12-24-2023 10:32-0400 Body height 160 cm Marcel Uma DO Work Phone: [facility] 12-24-2023 10:32-0400 Body mass index (BMI) [Ratio] 37.2 kg/m2 Marcel Uma DO Work Phone: [facility] 12-24-2023 10:32-0400 Body weight 95.25 kg Marcel Uma DO Work Phone: [facility] 12-24-2023 10:32-0400 Diastolic blood pressure 80 mm[Hg] Marcel Uma DO Work Phone: [facility] 12-24-2023 10:32-0400 Systolic blood pressure 116 mm[Hg] Marcel Uma DO Work Phone: [facility] 09-28-2021 10:48-0400 Blood Pressure Location LEONARDO TUTTLE [facility] 09-28-2021 10:48-0400 Diastolic blood pressure 89 mm[Hg] [facility] 09-28-2021 10:48-0400 Heart rate 78 /min LEONARDO TUTTLE [facility] 09-28-2021 10:48-0400 Respiratory rate 16 /min LEONARD[facility] TUTTLE [facility] 09-28-2021 10:48-0400 Systolic blood pressure 145 mm[Hg] LEONARDO TUTTLE [facility] 08-05-2021 08:42-0400 Blood Pressure Location Merrick DUNCAN [facility] 08-05-2021 08:42-0400 Diastolic blood pressure 91 mm[Hg] Merrick DUNCAN [facility] 08-05-2021 08:42-0400 Heart rate 79 /min Merrick DUNCAN [facility] 08-05-2021 08:42-0400 Systolic blood pressure 150 mm[Hg] Merrick DUNCAN [facility] Encounters Encounter Date Encounter Type Care Provider Facility Start: 03-12-2024 End: 03-12-2024 Davidboo flowssavannah Cole DO Work Phone: [facility] Start: 03-12-2024 End: 03-12-2024 Bamboo flowsheet David Cole [facility] [address] Start: 03-12-2024 End: 03-12-2024 Office outpatient visit 25 minutes David Cole DO Work Phone: [facility] [place] [address] Comment on above: JARETH (obstructive sle ep apnea) (Primary Dx); Hypersomnia; Primary insomnia; Snoring; Overweight Start: 03-12-2024 End: 03-12-2024 ambulatory DAVID COLE Not Available Start: 03-11-2024 End: 03-11-2024 Phys/qhp telephone evaluation 5-10 min Marcel Uma DO Work Phone: [facility] Comment on above: Mood changes; Hormone disorder Start: 01-28-2024 End: 01-28-2024 ambulatory MARCEL UMA Not Available Start: 01-28-2024 End: 01-28-2024 Office outpatient visit 15 minutes Marcel Uma DO Work Phone: [facility] Comment on above: Encounter for weight management; Hormone disorder; Mood changes Start: 01-28-2024 End: 01-28-2024 Bamboo flowsheet Marcel Uma DO Work Phone: [facility] Start: 01-28-2024 End: 01-28-2024 Bamboo flowsheet Marcel Uma DO Work Phone: [facility] Start: 01-21-2024 End: 01-22-2024 Telephone encounter Delfina George [employer] Work Phone: [facility] Start: 01-14-2024 End: 01-14-2024 Periodic preventive med est patient 18-39 yrs Marcel Uma DO Work Phone: [facility] Comment on above: Well woman exam with routine gynecological exam; H/O: hysterectomy; Night sweats; Hot flashes due to surgical menopause; Hormone disorder Start: 01-14-2024 End: 01-14-2024 ambulatory MARCEL UMA Not Available Start: 01-14-2024 End: 01-14-2024 Bamboo flowsheet Marcel Uma DO Work Phone: [facility] Start: 01-14-2024 End: 01-14-2024 Bamboo flowsheet Marcel Uma DO Work Phone: [facility] Start: 01-14-2024 End: 01-14-2024 Clinisync Result Encounter Marcel Uma DO Work Phone: [facility] Unsolicited Start: 01-14-2024 End: 01-14-2024 Patient encounter procedure Marcel Uma DO Work Phone: [facility] Start: 12-24-2023 End: 12-24-2023 Bamboo flowsheet Marcel Uma DO Work Phone: [facility] Start: 12-24-2023 End: 12-24-2023 Bamboo flowsheet Marcel Uma DO Work Phone: [facility] Start: 12-24-2023 End: 12-24-2023 Office outpatient visit 5 minutes Marcel Uma DO Work Phone: [facility] Comment on above: Encounter for weight management Start: 12-24-2023 End: 12-24-2023 ambulatory MARCEL UMA Not Available Start: 11-26-2023 End: 11-26-2023 ambulatory MARCEL UMA Not Available Start: 09-13-[address] NAVI DELGADO . Facili ty:[facility] Start: 07-26-2022 End: 07-27-[address] NAVI DELGADO . Facility:[facility] Start: 07-21-2022 Encounter for genera l adult medical examination without abnormal findings DR NAVI DELGADO . [facility] Start: 07-13-2022 End: 07-14-[address] NAVI DELGADO . Facility:[facility] Start: 07-13-2022 End: 07-14-2022 Encounter for general adult medical examination without abnormal findings DR NAVI DELGADO . Facility:[facility] Start: 04-12-2022 ambulatory LEONARDO TUTTLE Facili ty:[facility] Start: 11-16-2021 End: 11-16-[address] MARCEL EATON . Facility: Start: 11-11-2021 ambulatory MD Merrick DUNCAN [facility] ility:[facility] Start: 11-10-2021 End: 11-11-[address] MARCEL EATON . Facility:[facility] Start: 11-09-2021 End: 11-09-[address] MARCEL EATON . Facility: Start: 09-28-2021 End: 09-29-2021 ambulatory LEONARDO Chantale TUTTLE Facility:[facility] Start: 09-28-2021 End: 09-28-2021 Patient encounter procedure LEONARDO TUTTLE [facility] Start: 09-06-2021 End: 09-07-2021 ambulatory MD Merrick DUNCAN Facility:[facility] Start: 09-06-2021 End: 09-06-2021 Patient encounter procedure Merrick DUNCAN [facility] Start: 08-31-2021 End: 09-01-2021 ambulatory MD Merrick DUNCAN Facility:[facility] Start: 08-31-2021 End: 08-31-2021 Lab Drop off Merrick DUNCAN [facility] Start: 08-31-2021 End: 08-31-2021 Patient encounter procedure Merrick DUNCAN [facility] Start: 08-05-2021 End: 2021 ambulatory MD Merrick DUNCAN Facility:[facility] Start: 08-05-2021 End: 08-05-2021 Patient encounter procedure Merrick DUNCAN [facility] Procedures Date Procedure Procedure Detail Performing Clinician Start: 01-14-2024 MLR HEMOGLOBIN A1C Core y Uma DO Work Phone: Start: 01-14-2024 H/O: hysterectomy H/O: hysterectomy Marcel Uma DO Work Phone: Start: 01-11-2021 Injection of therape utic substance into bladder wall Merrick DUNCAN Start: 01-18-2018 Abdominal hysterectomy Merrick DUNCAN Start: 10-26-2017 Dilation and curetta ge of uterus Merrick DUNCAN Start: 04-16-2011 Diagnostic laparoscopy Merrick DUNCAN Start: 04-16-2010 section Gerber DUNCAN Start: 04-16-2006 section Gerber DUNCAN Plan of Treatment Date Care Activity Detail Author Start: 01-20-2025 End: 01-20-2025 Patient encounter procedure 01/20/2025 9:00 AM EDT Office Visit [facility] [address] [place] [address] Marcel Eaton DO [address] [place], [place] [id number] [facility] Start: 03-12-2024 End: 03-12-2024 Patient encounter procedure 03/12/2024 9:30 AM EST Office Visit [facility] [address] [place] [phone] David Cole, DO [address] [place] [address] Arrived [facility] [address] Comment on above: Arrived Start: 03-11-2024 End: 03-11-2024 Patient encounter procedure 03/11/2024 8:10 AM EST Office Visit [facility] [address] [place] [address] Marcel Eaton DO [address] [place] [address] [facility] Start: 01-21-2024 End: 01-21-2024 Patient encounter procedure 01/21/2024 2:30 PM EDT Office Visit [facility] [address] [phone] Tiffanie Redding PA [address] [place] [address] [facility] Start: 01-16-2024 End: 01-16-2024 Patient encounter procedure 01/16/2024 9:30 AM EDT [facility] [address] [place] [address] Karyn Ohara, LJ [address] [place], [place] [facility] [address] Start: 01-14-2024 End: 01-14-2024 Patient encounter procedure [facility] Comment on above: Arrived Start: 01-14-2024 End: 01-13-2025 C-peptide C-peptide Lab Routine H/O: hysterectomy Night sweats Hot flashes due to surgical menopause Hormone disorder Expected: 01/14/2024 (Approximate), Expires: 01/13/2025 [facility] Comment on above: Expected: 01/14/2024 (Approximate), Expires: 01/13/2025 Start: 01-14-2024 End: 01-13-2025 Cortisol free Cortisol, free Lab Routine H/O: hysterectomy Night sweats Hot flashes due to surgical menopause Hormone disorder Expected: 01/14/2024 (Approximate), Expires: 01/13/2025 [facility] Comment on above: Expected: 01/14/2024 (Approximate), Expires: 01/13/2025 Start: 01-14-2024 End: 01-13-2025 Glucose [Mass/volume] in Serum or Plasma Glucose, random Lab Routine H/O: hysterectomy Night sweats Hot flashes due to surgical menopause Hormone disorder Expected: 01/14/2024 (Approximate), Expires: 01/13/2025 [facility] Comment on above: Expected: 01/14/2024 (Approximate), Expires: 01/13/2025 Start: 01-14-2024 End: 01-13-2025 Insulin, total Insulin, total Lab Routine H/O: hysterectomy Night sweats Hot flashes due to surgical menopause Hormone disorder Expected: 01/14/2024 (Approximate), Expires: 01/13/2025 [facility] Comment on above: Expected: 01/14/2024 (Approximate), Expires: 01/13/2025 Start: 01-14-2024 End: 01-13-2025 Serotonin serum Serotonin serum Lab Routine H/O: hysterectomy Night sweats Hot flashes due to surgical menopause Hormone disorder Expected: 01/14/2024 (Approximate), Expires: 01/13/2025 [facility] Comment on above: Expected: 01/14/2024 (Approximate), Expires: 01/13/2025 Start: 01-14-2024 End: 01-13-2025 Thyroglobulin Thyroglobulin Lab Routine H/O: hysterectomy Night sweats Hot flashes due to surgical menopause Hormone disorder Expected: 01/14/2024 (Approximate), Expires: 01/13/2025 [facility] Comment on above: Expected: 01/14/2024 (Approximate), Expires: 01/13/2025 Start: 01-14-2024 End: 01-13-2025 Thyroglobulin Antibody Thyroglobulin Antibody Lab Routine H/O: hysterectomy Night sweats Hot flashes due to surgical menopause Hormone disorder Expected: 01/14/2024 (Approximate), Expires: 01/13/2025 [facility] Comment on above: Expected: 01/14/2024 (Approximate), Expires: 01/13/2025 Start: 01-14-2024 End: 01-13-2025 Thyrotropin [Units/volume] in Serum or Plasma [facility] Comment on above: Ordered: 01/14/2024 Expected: 01/14/2024 (Approximate), Expires: 01/13/2025 Start: 12-24-2023 End: 12-24-2023 Patient encounter procedure 12/24/2023 10:20 AM EDT Office Visit [facility] [address] [place] [phone] Marcel Eaton DO [address] [place] [address] Arrived [facility] Comment on above: Arrived Cytology Cervical or vaginal smear or scraping study Pap Smear Pathology and Cytology Routine Well woman exam with routine gynecological exam Ordered: 01/14/2024 [facility] Work Phone: Comment on above: Ordered: 01/14/2024 DHEA-sulfate DHEA-sulfate Lab Routine H/O: hysterectomy Night sweats Hot flashes due to surgical menopause Hormone disorder Ordered: 01/14/2024 [facility] Comment on above: Ordered: 01/14/2024 Estradiol Estradiol Lab Ro utine H/O: hysterectomy Night sweats Hot flashes due to surgical menopause Hormone disorder Ordered: 01/14/2024 [facility] Comment on above: Ordered: 01/14/2024 Estrone Estrone Lab Rout ine H/O: hysterectomy Night sweats Hot flashes due to surgical menopause Hormone disorder Ordered: 01/14/2024 [facility] Comment on above: Ordered: 01/14/2024 Ferritin [Mass/volum e] in Serum or Plasma Ferritin Lab Routine H/O: hysterectomy Night sweats Hot flashes due to surgical menopause Hormone disorder Ordered: 01/14/2024 [facility] Comment on above: Ordered: 01/14/2024 Hemoglobin A1c/Hemoglobin.total in Blood Hemoglobin A1c Lab Routine H/O: hysterectomy Night sweats Hot flashes due to surgical menopause Hormone disorder Ordered: 01/14/2024 [facility] Comment on above: Ordered: 01/14/2024 Human papilloma viru s DNA [Presence] in Unspecified specimen by Probe with amplification HPV DNA probe, amplified Microbiology Routine Well woman exam with routine gynecological exam Ordered: 01/14/2024 [facility] Comment on above: Ordered: 01/14/2024 Progesterone Progesterone Lab Routine H/O: hysterectomy Night sweats Hot flashes due to surgical menopause Hormone disorder Ordered: 01/14/2024 [facility] Comment on above: Ordered: 01/14/2024 Sex hormone binding globulin Sex hormone binding globulin Lab Routine H/O: hysterectomy Night sweats Hot flashes due to surgical menopause Hormone disorder Ordered: 01/14/2024 [facility] Comment on above: Ordered: 01/14/2024 T3, reverse T3, reverse Lab Routine H/O: hysterectomy Night sweats Hot flashes due to surgical menopause Hormone disorder Ordered: 01/14/2024 [facility] Comment on above: Ordered: 01/14/2024 TESTOSTERONE, FREE TESTOSTERONE, FREE Lab Routine H/O: hysterectomy Night sweats Hot flashes due to surgical menopause Hormone disorder Ordered: 01/14/2024 [facility] Comment on above: Ordered: 01/14/2024 Testosterone, free, total Testos terone, free, total Lab Routine H/O: hysterectomy Night sweats Hot flashes due to surgical menopause Hormone disorder Ordered: 01/14/2024 [facility] Comment on above: Ordered: 01/14/2024 Thyroid peroxidase antibody Thyroid peroxidase antibody Lab Routine H/O: hysterectomy Night sweats Hot flashes due to surgical menopause Hormone disorder Ordered: 01/14/2024 [facility] Comment on above: Ordered: 01/14/2024 Thyroxine (T4) free [Mass/volume] in Serum or Plasma T4, free Lab Routine H/O: hysterectomy Night sweats Hot flashes due to surgical menopause Hormone disorder Ordered: 01/14/2024 [facility] Comment on above: Ordered: 01/14/2024 Triiodothyronine (T3 ) Free [Mass/volume] in Serum or Plasma T3, free Lab Routine H/O: hysterectomy Night sweats Hot flashes due to surgical menopause Hormone disorder Ordered: 01/14/2024 [facility] Comment on above: Ordered: 01/14/2024 Vitamin D 1,25 dihydroxy Vitamin D 1,25 dihydroxy Lab Routine H/O: hysterectomy Night sweats Hot flashes due to surgical menopause Hormone disorder Ordered: 01/14/2024 [facility] Comment on above: Ordered: 01/14/2024 Immunizations Immunization Date Immunization Notes Care Provider Pooja tillman NEGATED: Highlighted row has not occurred!08-05-2021 influenza virus vaccine, unspecified formulation Merrick DUNCAN [facility] NEGATED: Highlighted row has not occurred!08-05-2021 SARS-CoV-2 (COVID-19) Ad26 vaccine, recombinant Merrick DUNCAN [facility] Payers Date Payer Category [facility]ayer [facility] [employer] [place] [id number] 2021-Present [address] [place] [address] [id number] 2021 Private Health Insurance [facility] [id number] 1984 Unknown [id number] 1984 Unknown [id number] 2.840.1.091064.3.579.2 1984 Unknown [id number] [id number] 1984 Unknown [id number] 2.840.1.574568.3.579.2 1984 Unknown [id number] 2.0.1.808729.3.579.2 1984 Unknown [id number] 2.840.1.062028.3.579.2 1984 Unknown [id number] 2.840.1.345276.3.579.2 1984 Unknown [id number] 2.16.840.1.487332.3.579.2. 593 1984 Unknown [id number] 2.16.840.1.550792.3.579.2. 593 1984 Unknown [id number] 2.16.840.1.571088.3.579.2. 593 1984 Unknown [id number] 2.16.840.1.499521.3.579.2. 593 1984 Unknown [id number] 2.16.840.1.296487.3.579.2. 593 1984 Unknown [id number] 2.16.840.1.243495.3.579.2. 593 1984 Unknown [id number] 2.16.840.1.439565.3.579.2. 1259 1984 Unknown [id number] 2.16.840.1.912874.3.579.2. 9 1984 Unknown [id number] 2.16.840.1.040270.3.579.2. 1259 1984 Unknown [id number] 2.16.840.1.346907.3.579.2. 9 1984 Unknown [id number] 2.16.840.1.125048.3.579.2. 1259 1959 Unknown [id number] 1959 Unknown [id number] Social History Date Type Detail Facility Start: 08-05-2021 End: 12-24-2023 Tobacco smoking status Never smoked tobacco (finding) [facility] Start: 12-24-2023 End: 01-14-2024 Sex Assigned At Female [facility] Tobacco smoking status Never [facility] Start: 12-24-2023 Tobacco use and exposure Smokeless tobacco non-user [facility] Start: 12-24-2023 End: 01-14-2024 Alcoholic beverage intake Lifetime non-drinker (finding) [facility] Start: 12-24-2023 End: 01-14-2024 History of Social function [facility] Start: 1985 Sex assigned at Female [facility] Start: 11-06-2022 Gender identity Identifies as female gender (finding) [facility] Start: 11-06-2022 Sexual orientation Heterosexual (finding) [facility] Tobacco smoking stat [facility] Tobacco smoking consumption unknown [facility] Functional Status Date Assessment Result Facility 09-28-2021 Functional Status N/A [facility] Clinical Notes 08-05-2021 to 03-12-2024 David Cole, DO - 03/12/2024 9:30 AM Ashok Herzog, [employer] [facility] - 03/11/2024 8:10 AM Meet Bustillo, [facility] - 01/28/2024 2:50 PM EDTTelephone Encounter - Delfina George, [facility] - 01/21/2024 3:05 PM EDT Note Date & Type Note Facility 03-12-2024 History of Presen t illness Narrative Images from the original note were not included. Chief Complaint Patient presents with Sleep Apnea Subjective Kala Chance Jos, 38 y.o., female being seen in sleep consultation at the request of Dr. Delgado. HPI The patient was sent because she was very tired and was snoring. That was give her headaches and sore throat. The patient is using her machine nightly. She changed the nose piece due to she felt like it was pinching her nose. She didn't like the change and changed back. She states that she is having trouble falling asleep and is tired all day long. She goes to bed by 11 pm. There are some nights that she doesn't fall asleep until 2-3 am. She will get up around 6:30 am. She is ok on supplies. Past Medical History: Diagnosis Date Adenomyosis 2018- hysterectomy Anemia Anxiety Asthma (CMS/HCC) Depression (CMS/HCC) Fibrocystic breast Hypothyroidism (CMS/HCC) Left breast lump MVP (mitral valve prolapse) Ovarian cyst PCB (post coital bleeding) Polycystic ovary syndrome Age 15 Sleep apnea 2022 Past Surgical History: Procedure Laterality Date BREAST BIOPSY 10/2021 SECTION, LOW TRANSVERSE COLPOSCOPY 2007? DILATION AND CURETTAGE HYSTERECTOMY PAP SMEAR 09/12/2018 Normal Family History Problem Relation Name Age of Onset Breast cancer Mother Megan Cancer Mother Megan Chiari malformation Mother Megan Sleep apnea Mother Megan Cancer Father Melanoma Sleep apnea Father Melanoma Diabetes Mother's Brother kendall Miller Breast cancer Father's Sister jake Tran Cancer Maternal Grandfather Liver cancer Cancer Paternal Grandmother Cancer Paternal Grandfather Prostate cancer Social History Tobacco Use Smoking status: Never Smokeless tobacco: Never Substance Use Topics Alcohol use: Never Allergies: Benzoin and Benzoin General: No fever or chills HEENT: No nasal congestion or runny nose Pulmonary: No shortness of breath or cough Cardiovascular: No chest pain or palpitations GI: No nausea or vomiting : No dysuria or hematuria Musculoskeletal: No new aches or pains or muscle weakness Infectious: no recurrent fevers or infections Dermatologic: No rashes or skin lesions Neurologic: No new headaches or dizziness Vitals: 03/12/24 0929 BP: 126/86 Pulse: 97 SpO2: 97% Body mass index is 34.54 kg/m . weight: 195 lb Neurologic exam: General: Normal body habitus, cooperative, pleasant Mental status: Awake, alert to person, place and time. Recent and remote memory are intact. Attention and concentration are normal. Fund of knowledge is appropriate for level of education. HEENT: NC/AT Cranial nerves: CN II: Visual simpson full to confrontation. No loss of vision CN III, IV, : pupils equal round and reactive to light. Extraocular movements intact. No ptosis present. CN V: Facial sensation is normal. CN VII: Full and symmetric facial movement. CN VIII: Hearing is normal CN IX and X: Palate elevates symmetrically. CN XI: Shoulder shrug is normal bilaterally. CN XII: Tongue is midline without atrophy or fasciculation. Speech: Clear and fluent no aphasia or dysarthria Pronator drift: Negative bilateral upper extremity Coordination: Intact, no signs of dysmetria Good finger to nose and rapid alternating movements Sensory: Sensation is intact to light, temperature and vibratory touch throughout four extremities. Motor: LUE 5/5 RUE 5/5 LLE 5/5 RLE 5/5 Tone: Physiologic, no tremor, bradykinesia or rigidity DTR: Bilateral Biceps 2/4 Bilateral BR 2/4 Bilateral Patellar 2/4 No spasticity Gait: Normal to casual gait Romberg's Negative Review and summary of old records: Assessment/Plan Diagnoses and all orders for this visit: JARETH (obstructive sleep apnea) Hypersomnia Primary insomnia - amitriptyline (Elavil) 25 MG tablet; Take 1 tablet (25 mg) by mouth Daily Snoring Overweight [age] year old female with a severe obstructive sleep apnea leading to daytime hypersomnolence and snoring. She does have her machine she is getting benefit from it and she is compliant. Now she is having more issues with insomnia. She is having trouble falling asleep. She thinks some of this may be more hormonal in nature and she is working with her clin nurse with this. However she is only getting a few hours of sleep some nights. It is better quality sleep she realizes but just not enough hours. She did not get a sleep apnea pillow as instructed. She did not increase her cardiovascular exercise as instructed. We will go ahead and start her on low-dose amitriptyline and see if that will help with her sleep. Plan Trial of amitriptyline 25 mg half to 1 at bedtime and see if that will help improve her sleep She is compliant with the machine using it 100 percent of the time with 97 percent of the time greater than 4 hours with an average nightly usage of 7 hours and 48 minutes and residual AHI of 0.4. Her [place] Sleepiness scale is a 12 The patient was counseled on proper sleep hygiene and adequate hours of sleep. She should increase her cardiovascular exercise which will help consolidate her sleep Get a sleep apnea pillow The patient was counseled on the risks of stroke, AR, and sudden with JARETH, along with the need for compliance with the CPAP/BiPAP treatment. The diagnosis was all discussed with the patient. All questions were answered and they agreed with the treatment plan. Patient will call if there are any new issues or questions. Pt has been fully educated on their diagnosis, treatment options, follow up plan, and return instructions Return to clinic: documented in this encounter [facility] 03-11-2024 History of Presen t illness Narrative Reason for Appointment: Patient ID: Kala Hillman is a 38 y.o. female who presents for Telehealth Patient presents today via telephone call for a telehealth appointment. Patients Phone #: [phone] (mobile) Current Medications: has a current medication list which includes the following prescription(s): alprazolam, amitriptyline, bupropion xl, diclofenac, metformin xr, metoprolol tartrate, phentermine, protonix, and venlafaxine xr. Medical History: Active Ambulatory Problems Diagnosis Date Noted Well woman exam with routine gynecological exam 01/14/2024 H/O: hysterectomy 01/14/2024 Night sweats 01/14/2024 Resolved Ambulatory Problems Diagnosis Date Noted No Resolved Ambulatory Problems Past Medical History: Diagnosis Date Adenomyosis 2018- hysterectomy Anemia Anxiety Asthma (CMS/HCC) Depression (CMS/HCC) Fibrocystic breast Hypothyroidism (CMS/HCC) Left breast lump MVP (mitral valve prolapse) Ovarian cyst PCB (post coital bleeding) Polycystic ovary syndrome Age 15 Sleep apnea 2022 Family History Problem Relation Name Age of Onset Breast cancer Mother Megan Cancer Mother Megan Chiari malformation Mother Mgean Sleep apnea Mother Megan Cancer Father Melanoma Sleep apnea Father Melanoma Diabetes Mother's Brother kendall Miller Breast cancer Father's Sister jake Tran Cancer Maternal Grandfather Liver cancer Cancer Paternal Grandmother Cancer Paternal Grandfather Prostate cancer Social History Tobacco Use Smoking status: Never Smokeless tobacco: Never Substance Use Topics Alcohol use: Never Drug use: Never Past Surgical History: Procedure Laterality Date BREAST BIOPSY 10/2021 SECTION, LOW TRANSVERSE COLPOSCOPY 2007? DILATION AND CURETTAGE HYSTERECTOMY PAP SMEAR 09/12/2018 Normal Allergies Allergen Reactions Benzoin Other Reaction(s): Skinrash, irritation, and blisters Benzoin Unknown Vitals: Estimated body mass index is 34.54 kg/m as calculated from the following: Height as of 03/12/24: 5' 3 . Weight as of 03/12/24: 195 lb. BP: No LMP recorded (lmp unknown). Patient has had a hysterectomy. Assessment/Plan Encounter Diagnoses Name Primary? Mood changes Hormone disorder Pt was called to discuss Wellbutrin and Effexor. Pt is continuing Effexor and stopped Wellbutrin. Pt states feeling better. With the time change and grayness during this time of year pt desires increase. Effexor will be increased. Pt to return as needed. Today's telehealth visit consisted of spending 10 minutes talking to patient on the phone. Documented by Tayla Herzog LPN on behalf of: Marcel Eaton DO documented in this encounter [facility] 01-28-2024 History of Presen t illness Narrative Reason for Appointment: Patient ID: Kala Hillman is a 38 y.o. female who presents for encounter for weight management Patient presents today for Weight Management Consult. MEDICATIONS Current Outpatient Medications Medication Instructions ALPRAZolam (XANAX) 0.25 mg, Every 6 hours buPROPion XL (WELLBUTRIN XL) 150 mg, Oral, Daily, Do not crush, chew, or split. diclofenac (VOLTAREN) 75 mg, 2 times daily PRN metFORMIN XR (GLUCOPHAGE-XR) 500 mg, Oral, 2 times daily, Do not crush, chew, or split. metoprolol tartrate (Lopressor) 25 MG tablet phentermine (ADIPEX-P) 37.5 mg, Oral, Daily before breakfast Protonix 40 MG EC tablet ALLERGIES Allergies Allergen Reactions Benzoin Other Reaction(s): Skinrash, irritation, and blisters Benzoin Unknown PROBLEMS Active Ambulatory Problems Diagnosis Date Noted Well woman exam with routine gynecological exam 01/14/2024 H/O: hysterectomy 01/14/2024 Night sweats 01/14/2024 Resolved Ambulatory Problems Diagnosis Date Noted No Resolved Ambulatory Problems Past Medical History: Diagnosis Date Adenomyosis 2018- hysterectomy Anemia Anxiety Asthma (CMS/HCC) Fibrocystic breast Hypothyroidism (CMS/HCC) Left breast lump MVP (mitral valve prolapse) Ovarian cyst PCB (post coital bleeding) Polycystic ovary syndrome Age 15 HISTORY PAST MEDICAL HISTORY SOCIAL HISTORY Past Medical History: Diagnosis Date Adenomyosis 2018- hysterectomy Anemia Anxiety Asthma (CMS/HCC) Fibrocystic breast Hypothyroidism (CMS/HCC) Left breast lump MVP (mitral valve prolapse) Ovarian cyst PCB (post coital bleeding) Polycystic ovary syndrome Age 15 Social History Tobacco Use Smoking status: Never Smokeless tobacco: Never Substance Use Topics Alcohol use: Never Drug use: Never FAMILY HISTORY Family History Problem Relation Name Age of Onset Cancer Maternal Grandfather Liver cancer Cancer Paternal Grandmother Cancer Paternal Grandfather Prostate cancer Breast cancer Mother Megan Cancer Mother Megan Cancer Father Melanoma Breast cancer Father's Sister jake Tran Diabetes Mother's Brother kendall Miller SURGICAL HISTORY Past Surgical History: Procedure Laterality Date BREAST BIOPSY 10/2021 SECTION, LOW TRANSVERSE COLPOSCOPY 2007? DILATION AND CURETTAGE HYSTERECTOMY PAP SMEAR 09/12/2018 Normal REVIEW OF SYSTEMS Review of Systems: Review of Systems All other systems reviewed and are negative. OBJECTIVE Objective: Physical Exam Constitutional: Appearance: Normal appearance. She is well-developed. Cardiovascular: Rate and Rhythm: Normal rate and regular rhythm. Pulmonary: Effort: Pulmonary effort is normal. Breath sounds: Normal breath sounds. Abdominal: General: Bowel sounds are normal. There [...] nursing note reviewed. Exam conducted with a tire layer present. Vitals: Estimated body mass index is 36.38 kg/m as calculated from the following: Height as of 12/24/23: 5' 3 . Weight as of this encounter: 205 lb 6.4 oz. BP: 120/70 No LMP recorded (lmp unknown). Patient has had a hysterectomy. ASSESSMENT & PLAN ICD-10-CM 1. Encounter for weight management Z76.89 phentermine (Adipex-P) 37.5 MG tablet DISCONTINUED: phentermine (Adipex-P) 37.5 MG tablet Patient presents today for weight management. Patient has made changes in life style and has been successful with current weight loss. Patient will be given Adipex prescription for 90 day supply and return to office in 3 month if desires to continue weight management. Patient voiced that her goal weight is 170 at this time. Patient has stopped taking Celexa and still taking Wellbutrin. Discussed increasing Wellbutrin to 150mg BID and/or adding Effexor. Discussed pros/cons of Effexor. Patient voiced that she tried Cymbalta in the past and knows from then that she would need to ween of Effexor if she does not desire to continue medication. Effexor sent to patients pharmacy. Discussed Serotonin levels and discussed that this is a baseline at this time verses needing treatment right away. Sent Effexor and patient to call office with any concerns. Patient to schedule TeleHealth appointment in 6 weeks to follow up on Effexor. Documented by Elidia Bustillo LPN on behalf of: Marcel Eaton DO documented in this encounter [facility] 01-21-[address] Delgado's office called wondering what the plan for for pt's low serotonin level. I told them that Dr. Eaton was on vacation but as soon as we herd from him that we would let them know. [facility] 01-21-[address] Delgado's office called wondering what the plan for for pt's low serotonin level. I told them that Dr. Eaton was on vacation but as soon as we herd from him that we would let them know. documented in this encounter [facility] 01-14-2024 History of Presen t illness Narrative Reason for Appointment: Patient ID: Kala Hillman is a 38 y.o. female who presents for Gynecologic Exam Patient presents today for Annual Exam. MEDICATIONS Current Outpatient Medications Medication Instructions ALPRAZolam (XANAX) 0.25 mg, Oral, Every 6 hours buPROPion XL (WELLBUTRIN XL) 150 mg, Oral, Daily, Do not crush, chew, or split. citalopram (CELEXA) 40 mg, Oral, Daily diclofenac (VOLTAREN) 75 mg, Oral, 2 times daily PRN metFORMIN XR (GLUCOPHAGE-XR) 500 mg, Oral, 2 times daily, Do not crush, chew, or split. metoprolol tartrate (Lopressor) 25 MG tablet mirabegron ER (Myrbetriq) 50 MG 24 hr tablet phentermine (ADIPEX-P) 37.5 mg, Oral, Daily before breakfast Protonix 40 MG EC tablet ALLERGIES Allergies Allergen Reactions Benzoin Other Reaction(s): Skinrash, irritation, and blisters Benzoin Unknown PROBLEMS Active Ambulatory Problems Diagnosis Date Noted No Active Ambulatory Problems Resolved Ambulatory Problems Diagnosis Date Noted No Resolved Ambulatory Problems Past Medical History: Diagnosis Date Adenomyosis 2018- hysterectomy Anemia Anxiety Asthma (CMS/HCC) Fibrocystic breast Hypothyroidism (CMS/HCC) Left breast lump MVP (mitral valve prolapse) Ovarian cyst PCB (post coital bleeding) Polycystic ovary syndrome Age 15 HISTORY PAST MEDICAL HISTORY SOCIAL HISTORY Past Medical History: Diagnosis Date Adenomyosis 2018- hysterectomy Anemia Anxiety Asthma (CMS/HCC) Fibrocystic breast Hypothyroidism (CMS/HCC) Left breast lump MVP (mitral valve prolapse) Ovarian cyst PCB (post coital bleeding) Polycystic ovary syndrome Age 15 Social History Tobacco Use Smoking status: Never Smokeless tobacco: Never Substance Use Topics Alcohol use: Never Drug use: Never FAMILY HISTORY Family History Problem Relation Name Age of Onset Cancer Maternal Grandfather Liver cancer Cancer Paternal Grandmother Cancer Paternal Grandfather Prostate cancer Breast cancer Mother Megan Cancer Mother Megan Cancer Father Melanoma Breast cancer Father's Sister jake Tran Diabetes Mother's Brother kendall Miller SURGICAL HISTORY Past Surgical History: Procedure Laterality Date BREAST BIOPSY 10/2021 SECTION, LOW TRANSVERSE COLPOSCOPY 2007? DILATION AND CURETTAGE HYSTERECTOMY PAP SMEAR 09/12/2018 Normal REVIEW OF SYSTEMS Review of Systems: Review of Systems All other systems reviewed and are negative. OBJECTIVE Objective: Physical Exam Constitutional: Appearance: Normal appearance. She is well-developed. Genitourinary: Vulva normal. Vaginal cuff intact. Cervix is not absent. Uterus is not absent. Breasts: Breasts are soft. Right: Normal. Left: Normal. Cardiovascular: Rate and Rhythm: Normal rate and [...] nursing note reviewed. Exam conducted with a tire layer present. Vitals: Estimated body mass index is 36.31 kg/m as calculated from the following: Height as of 12/24/23: 5' 3 . Weight as of this encounter: 205 lb. BP: 122/74 No LMP recorded (lmp unknown). Patient has had a hysterectomy. ASSESSMENT & PLAN ICD-10-CM 1. Well woman exam with routine gynecological exam Z01.419 Pap Smear HPV DNA probe, amplified 2. H/O: hysterectomy Z90.710 Annual Exam: Patient presents today for an annual exam. Patient states she is doing well and has complaints of hot flashes and night sweats. Pap was obtained without difficulty. Patient does not desire to have hormone replacement due to family history of breast cancer. Will give patient samples of LoLoEstrin Fe and patient to have hormonal labs drawn and then start OCP to see if it helps with symptoms. Also, discussed Gabapentin and that is an option in the future if patient desires. Patient is currently taking Metformin and Adipex. Discussed pt to obtain labs and then start OCP. Orders Placed This Encounter Procedures HPV DNA probe, amplified Follow Up: Patient is to return in one year for annual unless needed otherwise. Documented by Elidia Bustillo LPN on behalf of: Marcel Eaton DO documented in this encounter [facility] 12-24-2023 History of Presen t illness Narrative Reason for Appointment: Patient ID: Kala Hillman is a 38 y.o. female who presents for Weight Management Patient presents today for a weight management consultation. Patient has been prescribed Adipex and she is here for her 2nd prescription. Today's Vitals: Estimated body mass index is 37.2 kg/m as calculated from the following: Height as of this encounter: 5' 3 . Weight as of this encounter: 210 lb. Previous Weight/BMI: Wt Readings from Last 2 Encounters: 12/24/23 210 lb 11/26/23 214 lb 6.4 oz BMI Readings from Last 2 Encounters: 12/24/23 37.20 kg/m 11/26/23 37.98 kg/m Allergies as of 12/24/2023 - Reviewed 12/24/2023 Allergen Reaction Noted Benzoin 12/12/2022 Benzoin Unknown 12/12/2022 Past Medical History: Diagnosis Date Adenomyosis 2018- hysterectomy Anemia Anxiety Asthma (CMS/HCC) Fibrocystic breast Hypothyroidism (CMS/HCC) Left breast lump MVP (mitral valve prolapse) Ovarian cyst PCB (post coital bleeding) Polycystic ovary syndrome Age 15 Past Surgical History: Procedure Laterality Date BREAST BIOPSY 10/2021 SECTION, LOW TRANSVERSE COLPOSCOPY 2007? DILATION AND CURETTAGE HYSTERECTOMY PAP SMEAR 09/12/2018 Normal Assessment/Plan Encounter Diagnoses Name Primary? Encounter for weight management Well woman exam with routine gynecological exam Adipex: Patient presents today for 2nd Adipex prescription. Patients weight and blood pressure has been captured and discussed with the patient. I have discussed/reiterated the importance of keeping a food journal, proper nutrition/diet, and exercise regimen while taking Adipex. Patient verbalized understanding and was given a printed prescription signed by provider to take to their local pharmacy. Follow Up: Patient is to return to the office in 1 month for further evaluation to assess patient progress. Weight and blood pressure will need to be obtained in order for patient to receive 3rd prescription. Documented by: Afshan Wilcox on behalf of Marcel Eaton DO documented in this encounter [facility] 09-28-2021 Hospital Discharg e instructions Patient Education [...] fried and sweet foods. General instructions Take waql-fsc-agjadqs and prescription medicines only as told by [...] 01/27/2010 Document Revised: 07/24/2019 Document Reviewed: 04/18/2018 [employer] Patient Education 2020 [employer]. Follow Up Care 08/25/2021 15:11:49 With:LEONARDO TUTTLE PA-C, URL Address: [address] [place] [address] Business (1) When:6 months [facility] 09-06-2021 Note [id number]:[id number] [facility] 09-06-2021 Hospital Discharg e instructions Patient Education [...] With:Merrick DUNCAN Address: [facility] [address] [place] [address]- Business (1) When: Unknown Comments:Keep scheduled appointment [facility] 09-06-2021 Note Custom Cystoscopy with Botox injection [...] you have a fever over 100 degrees. [facility] 08-05-2021 Hospital Discharg e instructions Patient Education [...] nerve stimulation). For women, using a medical office professional instructor to prevent urine leaks. This is a [...] right after experiencing incontinence. General instructions Take fmwy-upi-jfckllg and prescription medicines only as told by [...] 05/10/2005 Document Revised: 04/12/2018 Document Reviewed: 07/12/2017 [employer] Patient Education 2020 [employer]. Follow Up Care 01/24/2021 09:26:41 With:FLY STEINER, Merrick Doshi, URL Address: [facility] [address], [facility] [place] [address]- [phone] When:11/04/2021 [facility] Evaluation + Plan note Future Appointments Appointment Date:11/11/2021 08:00:00 AM Scheduled Provider:Merrick DUNCAN MD Location:[facility] Appointment Type:URO Office Visit [facility] Evaluation + Plan note Future Appointments Appointment Date:09/06/2021 11:30:00 AM Scheduled Provider: Location:[facility] Appointment Type:Urology FT Appointment Date:09/28/2021 10:00:00 AM Scheduled Provider:LEONARDO TUTTLE PA-C Location:[facility] Appointment Type:URO Office Visit Appointment Date:11/11/2021 08:00:00 AM Scheduled Provider:Merrick DUNCAN MD Location:[facility] Appointment Type:URO Office Visit [facility] Evaluation + Plan note Future Appointments Appointment Date:09/06/2021 11:30:00 AM Scheduled Provider: Location:[facility] Appointment Type:Urology FT Appointment Date:09/28/2021 10:00:00 AM Scheduled Provider:LEONARDO TUTTLE PA-C Location:[facility] Appointment Type:URO Office Visit Appointment Date:11/11/2021 08:00:00 AM Scheduled Provider:Merrick DUNCAN MD Location:[facility] Appointment Type:URO Office Visit Diagnostic Tests PendingUrine Culture 08/31/21 [facility] Evaluation + Plan note Future Appointments Appointment Date:09/28/2021 10:00:00 AM Scheduled Provider:LEONARDO TUTTLE PA-C Location:[facility] Appointment Type:URO Office Visit Appointment Date:11/11/2021 08:00:00 AM Scheduled Provider:Merrick DUNCAN MD Location:[facility] Appointment Type:URO Office Visit [facility] Evaluation + Plan note Future Appointments Appointment Date:04/12/2022 03:00:00 PM Scheduled Provider:LEONARDO TUTTLE PA-C Location:[facility] Appointment Type:URO Office Visit [facility] Evaluation note Diagnosis Encounter for weight management Hormone disorder Unspecified endocrine disorder Mood changes Unspecified episodic mood disorder [facility] Diagnosis JARETH (obstructive sleep apnea)- Primary Obstructive sleep apnea (adult) (pediatric) Hypersomnia Hypersomnia, unspecified Primary insomnia Persistent disorder of initiating or maintaining sleep Snoring Other dyspnea and respiratory abnormality Overweight [facility]* Diagnosis Mood changes Unspecified episodic mood disorder Hormone disorder Unspecified endocrine disorder [facility]* Diagnosis Encounter for weight management [facility] Diagnosis Well woman exam with routine gynecological exam Routine gynecological examination H/O: hysterectomy Acquired absence of both cervix and uterus Night sweats Generalized 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 Hormone disorder Unspecified endocrine disorder [facility] Narrative No data available for this section [facility] Hospital Discharge instructions No data available for this section [facility] progress note No data available for this section [facility] Summary Purpose Family History No Family History Records FoundNo Family History Records FoundNo Family History Records Found Advance Directives No Advanced Directives Records FoundNo Advanced Directives Records FoundNo Advanced Directives Records Found Additional Source Comments Care Team (unrecognized sect ion and content) Gallery Or Museum 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 Relationship Specialty Start Date End Date Navi Delgado MD [address] [facility], [place] [address] PCP - General Family Medicine 11/13/22 Gallery Or Museum Technician Relationship Specialty Start Date End Date Navi Delgado MD [address] [facility], [place] [address] PCP - General Family Medicine 11/13/22 Gallery Or Museum Technician Relationship Specialty Start Date End Date Navi Delgado MD [address] [facility], [place] [address] PCP - General Family Medicine 11/13/22 Gallery Or Museum Technician Relationship Specialty Start Date End Date Navi Delgado MD [address] [facility], [place] [address] PCP - General Family Medicine 11/13/22 Gallery Or Museum Technician Relationship Specialty Start Date End Date Navi Delgado MD [address] [facility], [place] [address] PCP - General Family Medicine 11/13/22 Gallery Or Museum Technician Relationship Specialty Start Date End Date Navi Delgado MD [address] [facility], [place] [address] PCP - General Family Medicine 11/13/22 Gallery Or Museum Technician Relationship Specialty Start Date End Date Navi Delgado MD [address] [place] [address] PCP - General Family Medicine 11/13/22 Gallery Or Museum Technician Relationship Specialty Start Date End Date Navi Delgado MD [address] [place] [address] PCP - General Family Medicine 11/13/22 Gallery Or Museum Technician Relationship Specialty Start Date End Date Navi Delgado MD [address] [place] [address] PCP - General Family Medicine 11/13/22 INFORMATION SOURCE (unrecogn ized section and content) DATE CREATED AUTHOR 04/10/2022 [facility] DATE CREATED AUTHOR AUTHOR'S ORGANIZ ATION 09/22/2022 [facility] DATE CREATED AUTHOR AUTHOR'S ORGANIZ ATION 03/15/2024 [facility] EPIC Reason for Visit (unrecogniz ed section and content) Reason Comments encounter for weight management Reason Comments Sleep Apnea Reason Comments Telehealth AD (Adjustment Disorder) Reason Comments Weight Management Reason Comments Gynecologic Exam FOR RECORDS PERTAINING TO PATIENTS WHO ARE [...] BE BASED ON THE PRIMARY CLINICAL RECORDS. The [employer] provides no warranty or guarantee of the accuracy or completeness of information in this document.
[2025-01-30 15:13] LABS: Age Gdln ACOG Testing Note (.); IGP, Aptima HPV, rfx 16/18,45 Note (.)
== END 2025-01-27 15:42 | disposition home or self-care (01) ==
LOC: LAB 15:41
PROVIDERS: PCP Family Medicine; Visit Provider Obstetrics & Gynecology
DX: Z01.419 Encounter for gynecological examination (general) (routine) without abnormal findings (principal)
CPT/HCPCS: 87624; 88175

== ENCOUNTER 2025-01-31 12:17 | Outpatient (OUT) | payer OTHER, SELFPAY ==
--- OUTSIDE RECORDS SUMMARY | 2025-01-27 13:00 | XMS_ITS | Encounter Summary ---
Author Organization [facility] Address [address] [place] [address] Care Team Providers Care Ed Educational Aide Name Role Phone Navi Delgado MD Primary Care Provider [phone] Marcel Eaton DO Unavailable Reason for Visit * Reason Comments Well Women Visit Encounter Details Date Type Department Care Team (Late st Contact Info) Description 01/27/2025 1:00 PM EDT Office Visit [facility] [address] [place] [id number] Marcel Eaton DO [address] [place] [address] Well woman exam with routine gynecological exam; Encounter for screening mammogram for malignant neoplasm of breast; Hormone disorder; Weight gain Social History Tobacco Use Types Packs/Day Years Used Date Smoking Tobacco: Never Smokeless Tobacco: Never Alcohol Use Standard Drinks/Week Comments Never 0 (1 standard drink = 0.6 oz pur e alcohol) Comments No Sex and Gender Information Value Date Recorded Sex Assigned at Female 11/06/2022 12:48 PM EDT Legal Sex Female 7:07 PM EDT Gender Identity Female 11/06/2022 12:48 PM EDT Sexual Orientation Straight 11/06/2022 12 :48 PM EDT documented as of this encounter Last Filed Vital Signs Vital Sign Reading Time Taken Comments Blood Pressure 142/86 01/27/2025 1:17 PM EDT Pulse - - Temperature - - Respiratory Rate - - Oxygen Saturation - - Inhaled Oxygen Concentration - - Weight 101 kg (222 lb 8 oz) 01/27/2025 1:17 PM E DT Height - - Body Mass Index 39.41 03/12/2024 9:29 AM EST documented in this encounter Progress Notes * Tayla Herzog, [employer] - 01/27/2025 1:00 PM EDT Reason for Appointment: Patient ID: Kala Arguello is a 39 y.o. female who presents for Well Women Visit Patient presents today for Annual Exam. MEDICATIONS Current Outpatient Medications Medication Instructions albuterol HFA 90 mcg/act inhaler INHALE 1 PUFF BY MOUTH EVERY 4 HOURS NEEDED ALPRAZolam (XANAX) 0.25 mg, Every 6 hours metFORMIN XR (Glucophage-XR) 500 MG 24 hr tablet TAKE 1 TABLET BY MOUTH TWICE DAILY (MORNING AND BEFORE BEDTIME) DO NOT CRUSH CHEW OR SPLIT metoprolol tartrate (Lopressor) 25 MG tablet Protonix 40 MG EC tablet venlafaxine XR (EFFEXOR XR) 75 mg, Oral, Daily, Do not crush or chew. ALLERGIES Allergies[1] PROBLEMS Active Ambulatory Problems Diagnosis Date Noted Well woman exam with routine gynecological exam 01/14/2024 H/O: hysterectomy 01/14/2024 Night sweats 01/14/2024 Resolved Ambulatory Problems Diagnosis Date Noted No Resolved Ambulatory Problems Past Medical History: Diagnosis Date Adenomyosis 2018- hysterectomy Anemia Anxiety Asthma (HCC) Depression Fibrocystic breast Hypothyroidism Left breast lump MVP (mitral valve prolapse) Ovarian cyst PCB (post coital bleeding) Polycystic ovary syndrome Age 15 Sleep apnea 2022 HISTORY PAST MEDICAL HISTORY SOCIAL HISTORY Medical History[2] Social History Tobacco Use Smoking status: Never Smokeless tobacco: Never Substance Use Topics Alcohol use: Never Drug use: Never FAMILY HISTORY Family History[3] SURGICAL HISTORY Surgical History[4] REVIEW OF SYSTEMS Review of Systems: Review of Systems Constitutional: Negative. HENT: Negative. Eyes: Negative. Respiratory: Negative. Cardiovascular: Negative. Gastrointestinal: Negative. Genitourinary: Negative. Musculoskeletal: Negative. Skin: Negative. Neurological: Negative. All other systems reviewed and are negative. Hematological: Negative. Endocrine: Negative. Allergic/Immunologic: Negative. OBJECTIVE Objective: Physical Exam Constitutional: Appearance: Normal appearance. She is well-developed. Genitourinary: Vulva normal. Vaginal cuff intact. Cervix is absent. Uterus is absent. Cardiovascular: Rate and Rhythm: Normal rate and regular rhythm. Abdominal: General: Bowel sounds are normal. There is no distension. Palpations: Abdomen is soft. Tenderness: There is no abdominal tenderness. There is no guarding or rebound. Musculoskeletal: General: No swelling. Normal range of motion. Right lower leg: No edema. Left lower leg: No edema. Neurological: Mental Status: She is alert and oriented to person, place, and time. Skin: General: Skin is warm and dry. Psychiatric: Mood and Affect: Mood normal. Behavior: Behavior normal. Vitals and nursing note reviewed. Exam conducted with a fondant cooker present. Vitals: Estimated body mass index is 39.41 kg/m?? as calculated from the following: Height as of 03/12/24: 5' 3 . Weight as of this encounter: 222 lb 8 oz. BP: 142/86 No LMP recorded (lmp unknown). Patient has had a hysterectomy. ASSESSMENT & PLAN ICD-10-CM 1. Well woman exam with routine gynecological exam Z01.419 THIN PREP TIS PAP AND HR HPV DNA 2. Encounter for screening mammogram for malignant neoplasm of breast Z12.31 Bilateral screening mammogram Bilateral screening mammogram Orders Placed This Encounter Procedures Bilateral screening mammogram Annual Wellness Exam (Post Hysterectomy): Patient presents today for routine annual exam. Patient states she has complaints of weight gain, hot flashes and night sweats. Discussed adding climara patch for symptoms. Pt given labs to have obtained. Pt to start adipex at this time. . Patients vitals were reviewed and within normal limits. Growth and development is noted to be appropriate for age. Menstrual history is noted to be obsolete due to patients history of hysterectomy. No mental health concerns was expressed. Pap Smear: Speculum was inserted into the vagina and pap was obtained without difficulty. HPV testing was performed per guidelines. Patient was advised that pap results could take anywhere from 7 to 10 days to receive and our office will reach out to the patient with those once we have them. Patient can also view results via [employer]. I reinforced importance of condom use for STI prevention. Patient declined cultures to be performed with today's visit. Breast Exam: Upon examination, clinical breast exam was noted to be normal. Patient was counseled on breast self-awareness, including the importance of knowing what is normal for her own breasts and promptly reporting any changes such as new lumps, skin dimpling, nipple discharge, or pain. Screening mammogram recommended annually beginning at age 40 or earlier if risk factors are present. Discussed signs and symptoms of breast cancer and when to seek medical attention. Answered all patient questions. Follow Up: Patient is to return to our office in one year for annual exam unless needed otherwise. Documented by Tayla Herzog LPN on behalf of: Marcel Eaton DO [1] Allergies Allergen Reactions Benzoin Other Reaction(s): Skinrash, irritation, and blisters Benzoin Unknown [2] Past Medical History: Diagnosis Date Adenomyosis 2018- hysterectomy Anemia Anxiety Asthma (HCC) Depression Fibrocystic breast Hypothyroidism Left breast lump MVP (mitral valve prolapse) Ovarian cyst PCB (post coital bleeding) Polycystic ovary syndrome Age 15 Sleep apnea 2022 [3] Family History Problem Relation Name Age of Onset Breast cancer Mother Megan Cancer Mother Megan Chiari malformation Mother Megan Sleep apnea Mother Megan Cancer Father Melanoma Sleep apnea Father Melanoma Diabetes Mother's Brother Paul,kendall Breast cancer Father's Sister jake Tran Cancer Maternal Grandfather Liver cancer Cancer Paternal Grandmother Nieves Breast cancer Paternal Grandmother Nieves Cancer Paternal Grandfather Prostate cancer Cancer Mother's Sister Raisa- lung cancer Cancer Mother's Brother Kendall- oral cancer/melanoma [4] Past Surgical History: Procedure Laterality Date BREAST BIOPSY 10/2021 SECTION, LOW TRANSVERSE COLPOSCOPY 2007? DILATION AND CURETTAGE HYSTERECTOMY PAP SMEAR 09/12/2018 Normal documented in this encounter Plan of Treatment Upcoming Encounters Date Type Department Care Team (Late st Contact Info) Description 03/03/2025 10:40 AM EST Office Visit [facility] [address] [place] [phone] Marcel Eaton DO [address] [place] [address] Scheduled Orders Name Type Priority Associated Diagnoses Orde r Schedule Bilateral screening mammogram Imaging Routine Encounter for screening mammogram for malignant neoplasm of breast Expected: 01/27/2025 (Approximate), Expires: 03/29/2026 THIN PREP TIS PAP AND HR HPV DNA Pathology and Cytology Routine Well woman exam with routine gynecological exam Ordered: 01/27/2025 Estradiol Lab Routine Hormone disorder Ordered: 01/27/2025 Estrone Lab Routine Hormone disorder Ordered: 01/27/2025 Cortisol, free Lab Routine Hormone disorder Expected: 01/27/2025 (Approximate), Expires: 01/27/2026 DHEA-sulfate Lab Routine Hormone disorder Ordered: 01/27/2025 Sex hormone binding globulin Lab Routine Hormone disorder Ordered: 01/27/2025 Insulin, total Lab Routine Hormone disorder Expected: 01/27/2025 (Approximate), Expires: 01/27/2026 Serotonin serum Lab Routine Hormone disorder Expected: 01/27/2025 (Approximate), Expires: 01/27/2026 TSH Lab Routine Hormone disorder Ordered: 01/27/2025 T4, free Lab Routine Hormone disorder Ordered: 01/27/2025 T3, reverse Lab Routine Hormone disorder Ordered: 01/27/2025 Progesterone Lab Routine Hormone disorder Ordered: 01/27/2025 Vitamin D 1,25 dihydroxy Lab Routine Hormone disorder Ordered: 01/27/2025 Ferritin Lab Routine Hormone disorder Ordered: 01/27/2025 T3, free Lab Routine Hormone disorder Ordered: 01/27/2025 Thyroglobulin Lab Routine Hormone disorder Expected: 01/27/2025 (Approximate), Expires: 01/27/2026 Thyroglobulin Antibody Lab Routine Hormone disorder Expected: 01/27/2025 (Approximate), Expires: 01/27/2026 Thyroid peroxidase antibody Lab Routine Hormone disorder Ordered: 01/27/2025 T4 Lab Routine Hormone disorder Expected: 01/27/2025 (Approximate), Expires: 01/27/2026 TESTOSTERONE, FREE Lab Routine Hormone disorder Ordered: 01/27/2025 Testosterone, free, total Lab Routine Hormone disorder Ordered: 01/27/2025 Hemoglobin A1c Lab Routine Hormone disorder Ordered: 01/27/2025 Glucose, random Lab Routine Hormone disorder Expected: 01/27/2025 (Approximate), Expires: 01/27/2026 C-peptide Lab Routine Hormone disorder Expected: 01/27/2025 (Approximate), Expires: 01/27/2026 documented as of this encounter Visit Diagnoses Diagnosis Well woman exam with routine gynecological exam Routine gynecological examination Encounter for screening mammogram for malignant neoplasm of breast Hormone disorder Unspecified endocrine disorder Weight gain Other symptoms concerning nutrition, metabolism, and development documented in this encounter Care Teams Ed Educational Aide Relationship Specialty Start Date End Date Navi Delgado MD PCP - General Family Medicine 11/13/22 Marcel Eaton DO [address] [place] [address] [place] [address] PCP - [facility] 04/16/24 documented as of this encounter
--- OUTSIDE RECORDS SUMMARY | 2025-01-31 12:21 | XMS_ITS | CCD ---
Author Organization [facility] Care Team Providers Care Real Estate Professional Name Role Phone Navi Delgado Primary Care Physician LEONARDO TUTTLE Attending Unavailable LEONARDO TUTTLE Attending Unavailable MD Merrick DUNCAN Attending Unavailable FLY, MD Merrick Doshi Admitting Unavailable DUNCAN, MD Merrick Doshi Attending Unavailable MD Merrick DUNCAN Referring Unavailable MD Merrick DUNCAN Admitting Unavailable DUNCAN, MD Merrick Doshi Attending Unavailable FLY, MD Merrick Doshi Consulting Unavailable DUNCAN, Merrick [...] DR BUTT Admitting Unavailable HOY ., DR BTUT Attending Unavailable HOY ., DR BUTT Consulting Unavailable HOY ., DR BUTT Primary Care Unavailable HOY ., DR NAVI Admitting Unavailable TRINY ., DR BUTT Attending Unavailable TRINY ., DR BUTT Primary Care Unavailable UMA ., DR TAMEZ Consulting Unavailable UAM ., DR TAMEZ Admitting Unavailable UMA ., DR TAMEZ Attending Unavailable TRINY ., DR BUTT Primary Care Unavailable TORRES, DR MEGAN Doshi Consulting Unavailable VINH BRAVO Consulting Unavailable Navi Delgado MD Primary Care Provider [phone] Navi Delgado MD Primary Care Provider [phone] Marcel Eaton DO Unavailable MARCEL EATON Attending Unavailable DAVID COLE Attending Unavailable Allergies Allergy Classification Reported Allergen(s) Allergy Type Date of Onset Reaction(s) Facility (20 sources) benzoin resin; Translations: [benzoin topical] Drug Allergy 3 Unknown [facility] (2 sources) Adhesive agent Drug allergy (disorder) [facility] (2 sources) Latex Drug allergy (disorder) [facility] (1 source) Misc-Other; Translations: [Misc-Other] Propensity to adverse reactions (disorder) [facility] Medications Current Medications Medication Drug Class(es) Dates Sig (Normalized) Sig (Original) [id number] 200 actuat albuterol 0.09 mg/actuat metered dose inhaler (2 sources) beta2-Adrenergic Agonist Start: 03-27-2024 take 1 puff(s) by mouth every four hours as needed albuterol HFA 90 mcg/act inhaler INHALE 1 PUFF BY MOUTH EVERY 4 HOURS NEEDED 03/27/2024 Active ALPRAZolam 0.25 mg oral tablet (15 sources) Benzodiazepine Start: 11-07-2023 take 1 tablet by mouth every six hours ALPRAZolam (Xanax) 0.25 MG tablet Take 0.25 mg by mouth every 6 (six) hours 11/07/2023 Active 24 hr buPROPion hydrochloride 150 mg [...] procedure, # 14 cap(s), Refills(s) 0, Pharmacy: [facility], 158, cm, 08/05/21 8:44:00 EDT, Height/Length Dosing, 89.3, kg, 08/05/21 8:44:00 EDT, Weight Dosing Start Date: 08/25/21 Status: Ordered Start: 12-03-2020 take 1 capsule by mo [facility] twice daily Keflex 500 mg Cap 500 mg = 1 cap(s), Oral, BID, Start on December 13, # 14 cap(s), Refills(s) 0, Pharmacy: [facility] 1429, 158, cm, 12/03/20 10:41:00 [...] hydrochloride 500 mg extended release oral tablet (20 sources) Biguanide Start: 01-19-2025 take 1 tablet by mouth twice daily at bedtime metFORMIN XR (Glucophage-XR) 500 MG 24 hr tablet Indications: Encounter for weight management TAKE 1 TABLET BY MOUTH TWICE DAILY (MORNING AND BEFORE BEDTIME) DO NOT CRUSH CHEW OR SPLIT 60 tablet 01/19/2025 Active Start: 11-13-2022 End: 03-23-2024 take 1 tablet [...] Daily, # 90 tab(s), Refills(s) 3, Pharmacy: [facility] 1429, 158, cm, 08/05/21 8:44:00 EDT, Height/Length Dosing, 89.3, kg, 08/05/21 8:44:00 EDT, Weight Dosing Start Date: 08/05/21 Status: Ordered End: 01-28-2024 mirabegron ER (Myrbetriq) 50 MG 24 hr tablet 01/28/2024 Discontinued pantoprazole 40 mg delayed release oral tablet (18 sources) Proton Pump Inhibitor Protonix 4 0 MG EC tablet Active solifenacin succinate 5 mg oral tablet (4 sources) Cholinergic Muscarinic Antagonist Start: 11-25-19 take 1 tablet by mouth once daily solifenacin 5 mg Tab 5 mg = 1 tab(s), Oral, Daily, # 30 tab(s), Refills(s) 6, Pharmacy: [facility], 158, cm, 11/15/20 10:34:00 EDT, Height/Length Dosing, 88.2, kg, 11/15/20 10:34:00 EDT, Weight Dosing Start Date: 11/24/20 Status: Ordered 24 hr venlafaxine 75 mg extended release oral capsule (12 sources) Serotonin and Norepinephrine Reuptake Inhibitor Start: 03-25-20 End: 03-25-20 take 1 capsule by mouth once daily venlafaxine XR (Effexor XR) 75 MG 24 hr capsule Indications: Mood changes Take 1 capsule (75 mg) by mouth Daily Do not crush or chew. 30 capsule 11 03/25/2024 03/25/2025 Active Start: 03-12-2024 End: 03-12-2025 take 2 capsules by mouth once daily [...] 30 capsule 6 01/28/2024 03/12/2024 Discontinued (Reorder) Completed/Discontinued Medications Medication Drug Class(es) Dates Sig (Normalized) Sig (Original) amitriptyline hydrochloride 25 mg oral tablet (5 sources) Tricyclic Antidepressant Start: 03-12-2024 End: 03-12-2025 take 1 tablet by mouth once daily amitriptyline (Elavil) 25 MG tablet Indications: Primary insomnia Take 1 tablet (25 mg) by mouth Daily 30 tablet 2 03/12/2024 01/27/2025 Discontinued diclofenac sodium 75 mg delayed release oral tablet (15 sources) Nonsteroidal Anti-inflammatory Drug Start: 01-08-2024 End: 01-27-2025 take 1 tablet by mouth twice daily as needed diclofenac (Voltaren) 75 MG EC tablet Take 75 mg by mouth 2 (two) times a day as needed 01/08/2024 01/27/2025 Discontinued phentermine hydrochloride 37.5 mg oral tablet (20 sources) Sympathomimetic Amine Anorectic Start: 11-26-2023 End: 02-26-2025 take 1 tablet by mouth before mealtime phentermine (Adipex-P) 37.5 MG tablet Indications: Encounter for weight management Take 1 tablet (37.5 mg) by mouth in the morning. Take before meals. 90 tablet 01/28/2024 01/27/2025 Discontinued Problems Active Problems Problem Classification Problem Date [...] UNSPECIFIED] Onset: 07-21-2022 Episodic Other endocrine disorders (8 sources) Disorder of endocrine system; Translations: [Endocrine [...] sources) Overweight; Translations: [Overweight] 03-12-2024 Episodic Other nutritional; endocrine; and metabolic disorders (2 sources) Weight increased; Translations: [Abnormal weight gain] 01-27-2025 Episodic Other screening for suspected conditions (not mental disorders or infectious disease) (6 sources) Encounter for screening for malignant neoplasm of cervix; Translations: [Patient encounter status] Onset: 11-09-2021 Episodic Residual codes; unclassified (4 sources) Obstructive [...] OF RIGHT BREAST] Onset: 11-21-2021 Episodic Other skin disorders (17 sources) Night sweats; Translations: [Generalized hyperhidrosis] Onset: 01-14-2024 01-14-2024 Episodic Results Test Name Value Interpretation Reference Range Facil ity MLR HEMOGLOBIN A1Con 024 Glucose [Mass/Vol] 114 mg/dL [facility] HbA1c (Bld) [Mass fraction] 5.6 % 4.5 - 6.2 % [facility] Comment on above: ADA RECOMMENDED LIMI T 4.0 - 6.0 ADA THERAPEUTIC TARGET < 7.0 ACTION SUGGESTED > 7.0 [facility] INSULINon 07-14-2022 Insulin 28.7 uIU/mL Critically high 2.6-24.9 [facility] Comment on above: Performed By: #### I NSULIN #### [facility] [address] [place] [address] Dr. Hanna Seaman RHEUMATOID FACTORon 07-15-19 23 RA Latex Turbid. <10.0 Normal <14.0 [facility] Comment on above: Performed By: #### R F #### [facility] [address] [place] [address] Dr. Hanna Seaman CBC AUTO DIFFon 07-13-2022 BASO # 0.1 103/ul Normal 0.0-0.1 [facility] Comment on above: Performed By: #### C BC ####[facility] [address] [place] [address]Dr. Hanna Seaman Basophils/100 WBC (Bld) 0.6 % Normal 0.2-2.0 [facility] Comment on above: Performed By: #### C BC ####[facility] [address] [place] [address]Dr. Hanna Seaman EO # 0.1 103/ul Normal 0.0-0.7 [facility] Comment on above: Performed By: #### C BC ####[facility] [address] [place] [address]Dr. Hanna Seaman Eosinophils/100 WBC (Bld) 1.8 % Normal 0.9-7.0 [facility] Comment on above: Performed By: #### C BC ####[facility] [address] [place] [address]Dr. Hanna Seaman Erythrocyte distribution width (RBC) [Ratio] 13.5 % Normal 11.0-15.0 [facility] Comment on above: Performed By: #### C BC ####[facility] [address] [place], [place] [address]Dr. Hanna Seaman Hematocrit (Bld) [Volume fraction] 38.6 % Normal 36.0-48.0 [facility] Comment on above: Performed By: #### C BC ####[facility] [address] [place], [place] [address]Dr. Hanna Seaman Hemoglobin (Bld) [Mass/Vol] 12.5 g/dL Normal 12.0-16.0 [facility] Comment on above: Performed By: #### C BC ####[facility] [address] [place], [place] [address]Dr. Hanna Seaman IG # 0.03 10e3/ul Normal 0.00-0.03 [facility] Comment on above: Performed By: #### C BC ####[facility] [address] [place], [place] [address]Dr. Hanna Seaman IG % 0.4 % Normal 0.0-0.5 [facility] Comment on above: Performed By: #### C BC ####[facility] [address] [place], [place] [address]Dr. Hanna Seaman LYMPH # 2.4 103/ul Normal 1.2-3.8 [facility] Comment on above: Performed By: #### C BC ####[facility] [address] [place], [place] [address]Dr. Hanna Seaman Lymphocytes/100 WBC (Bld) 30.1 % Normal 20.5-60.0 [facility] Comment on above: Performed By: #### C BC ####[facility] [address] [place] [id number]. Hanna Seaman MANUAL DIFF REQ NO Normal [facility] Comment on above: Performed By: #### C BC ####[facility] [address] [place] [id number]. Hanna Seaman MCH (RBC) [Entitic mass] 28.2 pg Normal 26.7-34.0 [facility] Comment on above: Performed By: #### C BC ####[facility] [address] [place] [address]Dr. Hanna Seaman MCHC (RBC) [Mass/Vol] 32.4 g/dL Normal 29.9-35.2 [facility] Comment on above: Performed By: #### C BC ####[facility] [address] [place] [address]Dr. Hanna Jurgen MCV (RBC) [Entitic vol] 87.1 fL Normal 81.0-99.0 [facility] Comment on above: Performed By: #### C BC ####[facility] [address] [place], [place] [address]Dr. Hanna Jurgen MONO # 0.5 103/ul Normal 0.3-0.8 [facility] Comment on above: Performed By: #### C BC ####[facility] [address] [place], [place] [address]Dr. Tomekachela Seaman Monocytes/100 WBC (Bld) 6.2 % Normal 1.7-12.0 [facility] Comment on above: Performed By: #### C BC ####[facility] [address] [place], [place] [address]Dr. Hanna Seaman NEUT # 4.8 103/ul Normal 1.4-6.5 [facility] Comment on above: Performed By: #### C BC ####[facility] [address] [place], [place] [address]Dr. Tomekachela Seaman Neutrophils/100 WBC (Bld) 60.9 % Normal 43.0-75.0 [facility] Comment on above: Performed By: #### C BC ####[facility] [address] [place] [id number]. Hanna Seaman Platelet mean volume (Bld) [Entitic vol] 8.7 fL Critically low 9.5-13.5 [facility] Comment on above: Performed By: #### C BC ####[facility] [address] [place], [place] [address]VvLink Seaman PLT 305 103/ul Normal 150-450 [facility] Comment on above: Performed By: #### C BC ####[facility] [address] [place] [address]Dr. Hanna Seaman RBC 4.43 106/ul Normal 4.20-5.40 [facility] Comment on above: Performed By: #### C BC ####[facility] [address] [place] [address]DrLink Seaman WBC 7.9 103/ul Normal 4.0-11.0 [facility] Comment on above: Performed By: #### C BC ####[facility] [address] [place] [address]Dr. Hanna Seaman FREE THYROXINE INDEX T7on FTI 2.39 Normal 1.30-4.50 [facility] Comment on above: Performed By: #### C MP, LIPID, TSH, T7 #### [facility] [address] [place] [address] [address] Hanna Seaman T3U 31.0 % Normal 30.0-39.0 [facility] Comment on above: Performed By: #### C MP, LIPID, TSH, T7 #### [facility] [address] [place] [address] [address] Hanna Seaman T4 [Mass/Vol] 7.70 ug/dL Normal 4.80-13.90 [facility] Comment on above: Performed By: #### C MP, LIPID, TSH, T7 #### [facility] [address] [place] [address] [address] Hanna Seaman GLYCOHEMOGLOBIN A1Con 2022 ADA RECOMMENDATION SEE BELOW Normal [facility] Comment on above: Result Comment: ADA RECOMMENDED LIMIT 4.0 - 6.0 ADA THERAPEUTIC TARGET < 7.0 ACTION SUGGESTED > 7.0 Performed By: #### A 1C #### [facility] [address] [place] [address] [address] Hanna Seaman Glucose [Mass/Vol] 111 mg/dL Normal [facility] Comment on above: Performed By: #### A 1C #### [facility] [address] [place] [address] [address] Hanna Seaman HbA1c (Bld) [Mass fraction] 5.5 % Normal 4.5-6.2 [facility] Comment on above: Performed By: #### A 1C #### [facility] [address] [place] [address] [address] Hanna Seaman IRONon 07-13-2022 Iron [Mass/Vol] 40.0 ug/dL Critically low 50.0-170.0 [facility] Comment on above: Performed By: #### I BROOKS ####[facility] [address] [place] [address]Dr. Hanna Seaman LIPID PROFILEon 07-13-2022 CHOL-HDL RATIO NORM SEE BELOW Normal [facility] Comment on above: Result Comment: 3.3 - 4.4 LOW RISK 4.4 - 7.1 AVERAGE RISK 7.1 - 11.0 MODERATE RISK >11.0 HIGH RISK Performed By: #### C MP, LIPID, TSH, T7 #### [facility] [address] [place] [address] [address] Hanna Seaman Cholesterol [Mass/Vol] 149 mg/dL Normal <=200 [facility] Comment on above: Performed By: #### C MP, LIPID, TSH, T7 #### [facility] [address] [place] [address] [address] Hanna Seaman Cholesterol in HDL [Mass/Vol] 41 mg/dL Normal 40-60 [facility] Comment on above: Performed By: #### C MP, LIPID, TSH, T7 #### [facility] [address] [address] [address] Hanna Seaman Cholesterol in LDL [Mass/Vol] 81.0 mg/dL Normal [facility] Comment on above: Performed By: #### C MP, LIPID, TSH, T7 #### [facility] [address] [address] [address] Hanna Seaman Cholesterol.total/C holesterol in HDL [Mass ratio] 3.6 {ratio} Normal [facility] Comment on above: Performed By: #### C MP, LIPID, TSH, T7 #### [facility] [address] [place] [address] [address] Hanna Seaman HDL NORMAL > or = 60 mg/dl - LOW CARDIOVASCULAR RISK <40 mg/dl - HIGH CARDIOVASCULAR RISK Normal [facility] Comment on above: Performed By: #### C MP, LIPID, TSH, T7 #### [facility] [address] [place] [address] [address] Hanna Seaman LDL CALC NORMAL SEE BELOW Normal [facility] Comment on above: Result Comment: <100 mg/dl OPTIMAL 100 - 129 mg/dl NEAR OR ABOVE OPTIMAL 130 - 159 mg/dl BORDERLINE HIGH 160 - 189 mg/dl HIGH >190 mg/dl VERY HIGH Performed By: #### C MP, LIPID, TSH, T7 #### [facility] [address] [place] [address] [address] Hanna Seaman Triglyceride [Mass/Vol] 135 mg/dL Normal <=150 [facility] Comment on above: Performed By: #### C MP, LIPID, TSH, T7 #### [facility] [address] [place] [address] [address] Hanna Seaman VLDL CALC 27.0 mg/dL Normal [facility] Comment on above: Performed By: #### C MP, LIPID, TSH, T7 #### [facility] [address] [place] [address] [address] Hanna Seaman NM STRESS/REST MULTIon 07-13 NM STRESS/REST MULTI Patient: KALA HILLMAN Exam Date: 07/13/2022 : 1985 Gender:F Ordering : DR NAVI DELGADO . Admission #: [id number] Family : Order #: [id number] CLICK HERE TO VIEW EXAM RADIOLOGY REPORT [...] MD on 07/13/2022 at 14:55 Normal [facility] PROF 14(COMP METB)on 023 Albumin [Mass/Vol] 3.3 g/dL Critically low 3.4-5.0 [facility] Comment on above: Performed By: #### C MP, LIPID, TSH, T7 ####[facility] [address] [place] [id number]. Hanna Seaman Albumin/Globulin [Mass ratio] 0.7 {ratio} Normal [facility] Comment on above: Performed By: #### C MP, LIPID, TSH, T7 ####[facility] [address] [place], [place] [address]Sf. Hanna Seaman ALP [Catalytic activity/Vol] 76 U/L Normal 46-116 [facility] Comment on above: Performed By: #### C MP, LIPID, TSH, T7 ####[facility] [address] [place], [place] [address]Nn. Hanna Seaman ALT [Catalytic activity/Vol] 30 U/L Normal 14-59 [facility] Comment on above: Performed By: #### C MP, LIPID, TSH, T7 ####[facility] [address] [place] [address]Dr. Hanna Seaman Anion gap [Moles/Vol] 13.2 mmol/L Normal [facility] Comment on above: Performed By: #### C MP, LIPID, TSH, T7 ####[facility] [address] [place] [address]Dr. Hanna Seaman AST [Catalytic activity/Vol] 17 U/L Normal 15-37 [facility] Comment on above: Performed By: #### C MP, LIPID, TSH, T7 ####[facility] [address] [place] [address]Dr. Hanna Seaman Bilirubin [Mass/Vol] 0.2 mg/dL Normal 0.2-1.0 [facility] Comment on above: Performed By: #### C MP, LIPID, TSH, T7 ####[facility] [address] [place] [address]Dr. Hanna Seaman Calcium [Mass/Vol] 8.0 mg/dL Critically low 8.5-10.1 [facility] Comment on above: Performed By: #### C MP, LIPID, TSH, T7 ####[facility] [address] [place] [address]Dr. Hanna Seaman Chloride [Moles/Vol] 101 mmol/L Normal 98-107 [facility] Comment on above: Performed By: #### C MP, LIPID, TSH, T7 ####[facility] [address] [place] [address]Dr. Hanna Seaman CO2 [Moles/Vol] 31.2 mmol/L Normal 21.0-32.0 [facility] Comment on above: Performed By: #### C MP, LIPID, TSH, T7 ####[facility] [address] [place] [address]Dr. Hanna Seaman Creatinine [Mass/Vol] 0.79 mg/dL Normal 0.55-1.02 [facility] Comment on above: Performed By: #### C MP, LIPID, TSH, T7 ####[facility] [address] [place] [address]Dr. Hanna Seaman EGFR-AF FIJIAN >60 Normal >=60 [facility] Comment on above: Performed By: #### C MP, LIPID, TSH, T7 ####[facility] [address] [place] [address]Dr. Hanna Seaman EGFR-NON AF FIJIAN >60 Normal >=60 [facility] Comment on above: Performed By: #### C MP, LIPID, TSH, T7 ####[facility] [address] [place] [address]Dr. Hanna Seaman Globulin (S) [Mass/Vol] 4.6 g/dL Normal [facility] Comment on above: Performed By: #### C MP, LIPID, TSH, T7 ####[facility] [address] [place] [address]Dr. Hanna Seaman Glucose [Mass/Vol] 94 mg/dL Normal 74-106 [facility] Comment on above: Performed By: #### C MP, LIPID, TSH, T7 ####[facility] [address] [place] [address]Dr. Hanna Seaman Potassium [Moles/Vol] 4.4 mmol/L Normal 3.5-5.1 [facility] Comment on above: Performed By: #### C MP, LIPID, TSH, T7 ####[facility] [address] [place] [id number]. Hanna Seaman Protein [Mass/Vol] 7.9 g/dL Normal 6.4-8.2 [facility] Comment on above: Performed By: #### C MP, LIPID, TSH, T7 ####[facility] [address] [place] [address]Dr. Hanna Seaman Sodium [Moles/Vol] 141 mmol/L Normal 136-145 [facility] Comment on above: Performed By: #### C MP, LIPID, TSH, T7 ####[facility] [address] [place] [address]Dr. Hanna Seaman Urea nitrogen [Mass/Vol] 17.0 mg/dL Normal 7.0-18.0 [facility] Comment on above: Performed By: #### C MP, LIPID, TSH, T7 ####[facility] [address] [place], [place] [address]Eb. Hanna Seaman Urea nitrogen/Creatinine [Mass ratio] 21.5 mg/mg Normal [facility] Comment on above: Performed By: #### C MP, LIPID, TSH, T7 ####[facility] [address] [place], [place] [address]Nm. Hanna Seaman TSHon 07-13-2022 TSH 1.591 uIU/mL Normal 0.358-3.740 [facility] Comment on above: Performed By: #### C MP, LIPID, TSH, T7 ####[facility] [address] [place], [place] [address]Hu. Hanna Seaman US VAC ASST BX BREAST RT W C LIPon 11-30-2021 US VAC ASST BX BREAST RT W CLIP Begin Addendum #1 COLLECTED DATE/TIME: 11/16/2021 08:49 EDT Final Diagnosis Report for THE [facility], [place] (A) RIGHT BREAST AT 10 O'CLOCK, [...] provided after pathology results are available. Normal [facility] MAMMO POST BIOPSY RIGHTon MAMMO POST BIOPSY RIGHT Patient: KALA HILLMAN Exam Date: 11/16/2021 : 1985 Gender:F Ordering : DR MARCEL EATON . Admission #: [id number] Family : Order #: [id number] CLICK HERE TO VIEW EXAM RADIOLOGY REPORT PROCEDURE: MAMMOGRAM POST BIOPSY IMAGES COMPARISON: MAMM DIAGNOSTIC 3D TY CAD, 11/10/2021. INDICATIONS: [...] Megan Rizzo M.D. on 11/16/2021 at 12:21 [facility] PAP ACOG PANEL 2: 30 to 65on 11-15-2021 . . Normal [facility] Comment on above: Result Comment: Perf ormed at: WB Performed By: #### [id number] ####[facility] [address] [place] [address]DrLink Seaman Age Gdln ACOG Testing 30-65 Normal [facility] Comment on above: Performed By: #### [id number] ####[facility] [address] [place] [address]DrLink Seaman DIAGNOSIS: Comment Normal [facility] Comment on above: Result Comment: NEGA TIVE FOR INTRAEPITHELIAL LESION OR MALIGNANCY. PREDOMINANCE OF COCCOBACILLI CONSISTENT WITH SHIFT IN VAGINAL CLAY IS PRESENT. Performed at: WB Performed By: #### [id number] ####[facility] [address] [place] [address]DrLink Seaman HPV Aptima Negative Normal Negative [facility] Comment on above: Result Comment: This nucleic acid amplification test detects fourteen high-risk HPV types (16,18,31,33,35,39,45,51,52,56,58,59,66,68) without differentiation. Performed at: =G Performed By: #### [id number] ####[facility] [address] [place] [address]DrLink Seaman Methodology: CTIM Normal [facility] Comment on above: Result Comment: The Thin Prep(R) Nurse'S Aides Teacher was unable to read this specimen. Therefore a manual review was performed. Performed at: WB Performed By: #### [id number] ####[facility] [address] [place], [place] [address]DrLink Seaman Note: Comment Normal [facility] Comment on above: Result Comment: The Pap smear is a screening test designed to aid in the detection of premalignant and malignant conditions of the uterine cervix. It is not a diagnostic procedure and should not be used as the sole means of detecting cervical cancer. Both false-positive and false-negative reports do occur. . Performed at: WB Performed By: #### [id number] ####[facility] [address] [place], [place] [address]DrLink Seaman Performed by: Comment Normal [facility] Comment on above: Result Comment: Jared Morgan, Mysql Dba (ASCP) Performed at: WB Performed By: #### [id number] ####[facility] [address] [place], [place] [address]DrLink Seaman Specimen adequacy: Comment Normal [facility] Comment on above: Result Comment: Sati sfactory for evaluation. No endocervical cells are present. This is consistent with a history of hysterectomy. Performed at: WB Performed By: #### [id number] ####[facility] [address] [place] [address]DrLink Seaman MG MAMM DIAGNOSTIC 3D TY CA Don 11-10-2021 MG MAMM DIAGNOSTIC 3D TY CAD Patient: KALA HILLMAN Exam Date: 11/10/2021 : 1985 Gender:F Ordering : DR MARCEL EATON . Admission #: [id number] Family : Order #: [id number] CLICK HERE TO VIEW EXAM RADIOLOGY REPORT [...] Treatments None Family Cancers None LOCATION: [facility] BREAST COMPOSITION: Heterogeneously dense,which may [...] M.D. on 11/10/2021 at 10:24 Normal [facility] US BREAST RIGHT LIMITEDon US BREAST RIGHT LIMITED Patient: KALA HILLMAN Exam Date: 11/10/2021 : 1985 Gender:F Ordering : DR MARCEL EATON . Admission #: [id number] Family : Order #: [id number] CLICK HERE TO VIEW EXAM RADIOLOGY REPORT [...] Treatments None Family Cancers None LOCATION: [facility] BREAST COMPOSITION: Heterogeneously dense,which may [...] M.D. on 11/10/2021 at 10:24 Normal [facility] Ambulatory Visit Summaryon 0 09-28-2021 Ambulatory Visit Summary KALA HILLMAN :1985 Visit Date:09/28/2021 Ambulatory Visit Instructions Your Diagnosis Urge incontinence Tests Performed Urnls Dip Stick Auto w/o Microscopy POC 14626 Your Care Team Attending Physician - PARAG LOCKETT, LEONARDO Sanchez Primary Care Physician - Navi Delgado MD [...] LEONARDO TUTTLE PA-C Where: [facility] Patient Educationon 09-29-19 Patient Education [...] Take ove (more content not included)... Normal [facility] Urology Office/Clinic Noteon 09-28-2021 Urology Office/Clinic [...] E&M of Est. Patient Low 20-29 Min 69371 Urnls Dip Stick Auto w/o Microscopy POC 10850 Follow-up With When Contact Information PARAG LOCKETT, LEONARDO Sanchez, URL Within 6 months [address] [place] [address] [facility] (1) Additional Instructions: Patient Education Overactive Bladder, [...] Protein Urine Dipstick: Negative (09/28/21 11:12:00) Specific [place] Urine Dipstick: 1.020 (09/28/21 11:12:00) Urine Appearance Urine Dipstick: Clear (09/28/21 11:12:00) Urine Color Urine Dipstick: Yellow (09/28/21 11:12:00) Urobilinogen Urine Dipstick: Normal 0.2-1 EU/dl (09/28/21 11:12:00) pH Urine Dipstick: 7 (09/28/21 11:12:00) Normal [facility] Comment on above: Result Comment: Elec tronically Signed By: LEONARDO TUTTLE PA-C\Date and Time Signed: 09/28/21 14:19 EDT Coding Summary.on 09-08-2021 Coding Summary. CD:[id number] Gh0bWw+PGhlYWQ+PE1FV HFnO98eaHUynC9QA9zJR V7MGDKWTDRCCI3IJP1bf QP1EYjgZ2MxehFf NfbjgPSyVE58LYw6AGP8 yEkqXIvemE2qvOZbC6g0 GdFiND26fX43VVjiULAp PeA0SoVtxcivgICk X5cnFyHogBEuOnv+PHRh YmxlIHdpZHRoPScxMDAl ZlQnhIbdQH2oHo1gYXXf LWNvbGxhcHNlOiBj k1jxGLQaJKptGV8lvLdl M2ZrfMU2ZUHbq4y4Ru53 dHI+ZVBwHRO6dHqoWPis c976NkWgp1lkHHY6 qGKbICmpGOB4K23kg1M9 VVTbNSEbIAA9xIG4bZ1l aWmbvjftJ4ElqHHzVvB4 PEQ5vXZkrQ5xmNoo kbpkqV2wAez+D74FXM0S CXLKBM0SDhm7N3DmJteb dHI+CI58KTLwVY76oDJl rYAql0gckKi6LiNg EITbUAM1dShfYUqrr7La HXHwQ01bhHXtr9T7JNRb iCetmYHmLuSpaHM8bS2g UZlqdqgmk4stvnak Tnmch7ftsw97wY28T94k SDgcTBOxBHK4VMDsGALa tOsttd6pfK5lYs1+IDxj s3zpu9mkjNs4VbTc JYUehwFmmSjqVGG4h3Nz Kp50W3ZuhTpsc0JyDck6 ik22lQTum1E5kVX2EYpl GDMrmX1sEGlzMqA2 KPChMmZbfZ46zPLqKEwo Hm1jtIdgkHroNX2sTFPv jyseDBIxeA8fMJYvlFOr xXhiNQ8bOAVualpk x345VlPkTBW5IKBekVTs K0VysK4qWuPqAMTiHALq Q2HurIRyVFlwH744RCxr RyG9JQXvivGwU5Zg ORTlzBbbUeP4v4W5It5A b5NsdvgqBHD9LTnrYUL1 VnG5IhGaOlC8H6JbPno1 QZPfyPwpEL1aE1Vx NRGoovvhnkssrSJ2QIXw AZUguC61cZJgVZkiDi0a s2Y9l505QWNyMVGepD98 Jb4zrLewPHBflQKY iR8onztxr4llvkfqUxTi ZFZvOMa2NNc6XZXokNgz UfYkEXG6TpN9WIQ5fPAb sS9npLsgwjhzeG3p Oyc+O93odD5kZYZ4ZBD6 vxccVQEkokZpCA02GR48 V6AsEnofaDWdgRY+PGRp nsExvPkqXJ0zOpSo p9zsv6NkYCjtH8FkWPPm FJexAij9IKRkMAA8tDJ9 xF1gXUNtCFcap6V4qPM7 V4HntgJudb6es2wg HRSuQLmbE33qpRXta0Z3 NANwnSX5LCEniQycJhVh sD38Mbl+FCYnfYook2Pj Aasgj3lws8yerNd3 IjMwJSIgdmFsaWduPSJ0 o7MdXu52A75dNPziQNFy XPUuSWDwQUCjzAiucv0u eY0pYp0+PGNvbCB3 oJX7wB4bMIGrFtX5ULkr L935SeGjmICnKzksv9xn h8pmxLx4DpSqNGNgzbGk kDihEQA3z9LbSm66 O32nNZyaIRFmFYTbHDVm ZPFwoBicxn0awF0pEm0+ BG8ot5byka66iL71cDS+ LFZmACL8aDcuBAye IWIxyA0tBZduXpQ1HUYk VbXoiC47fJTyQXkyUn7q bMqesXruYD7gPTMjrzmm h937BpFph0rtOFXv oDYkJKkaHLZ8M34fz2L8 OLChKEDlXOP9nDB5pD5n bGlnbjogbGVmdDsgdmVy kQxhZBcwPNukG077 IHRvcDsnPlBhdGllbnQg JvZyBUk2G5GfTjx7TJNu uDwpQY3ooARuGOedAs7v qIpmwIoqWB0gAIOe dxkza765NxDtl9xtCGWx aAZvIRcsGEF8W89se6P7 LRRdHBOwNZG0sJA7xB8w bGlnbjogbGVmdDsg ffNznDmwWJeqBOwoJ454 IHRvcDsnPkJpcnRoIERh hJV0XW54TH99bQOkb5R3 xRE5A0ZnBXDmiexl aqajoMB6QVXoLIKrsB65 Zl0urYwjQn6iZNFoQVT8 KJOhzIMzK8ChaD2rMcHd IZJxSMSjB6MpeMTn GFwtW245JEjiGxY6YNDn wxWlX8NsHHQfoTwbYpU9 l8R0Rt5OH3L2FH32VH55 xALqi8P5zJP8R5Dn MZInhnyktwwscMN6HYKq BERbrS11Wl5ipNgaGa2r WJIsMIP2OALrdOYmO0Ly zS0yLjDrVRNlXWTb F0CvqHLaUYteQ715ZGqk BtY1CYWegeObH2LdMBLv qCdyUgA4u4I8Ds4YDOw1 ND62LG60sFDkm7P6 sMS7V4JwVRNxkvvsaktl lOX5CXOmMCRypY49Et1o jJqmQk4tNHYyHZI6YGIn yMSrH4KpeZ0tDkOa XDWxJOHnY5KpoISgPClk S573HEhkYjO2AKCbhuEn E7HmKBQmhFthTjG9v7X5 Re8KZZGiXG31RJV4 wDP4RO89AM45R2GeWxof dGFibGU+PHRhYmxlIHdp ZHRoPScxMDAlJyBzdHls DI7eGq0jFPLfNNVx gDctoBGpHlSwq1ooZBCk KRzhUI5mdCeyG8QjjEA2 GJVtg0v6Jo85G92sS3Kc dXA+UPUdoGM8hIQ3 uX6aOiQbRfG8HYyzS834 QpArwYTkWelkf0ntj3bz tHn1YmS5TLPgycLlvFna QWW8z5FxEp40Z61u IHdpZHRoPSIxNSUiIHZh pVttyi8euG9pIz4+PGNv gKM7hOV1kX3tReTqKzB6 IMijT123JuCrkVNe Tmrtr7arm4gpcCu8WhVw IPOgjkFvoEezCLO4i9Of Cm08B5UddVmbm3HeUea1 be28nSWae9Q9zEW8 D2SkCQHyeuaorAYhgXov MA3pLGVprmpwCSIkjJ1k PLVtU8r9NgRiDvK8GPti Q2SrucI5ARVscGAn GTmmRJY9B51uz5X6ZLYw QMYsLSA5lMU4tB9naPsc bjogbGVmdDsgdmVydGlj QRgiTEguD407JHCg lWohCUSksJ6tYMVsgAWd sKusBJ6sFSOjxlisIiOS AYiTNFCOINREMU46C3Xz Vfy4RDFqtXqoBQ6d rOMfKVajKz8ynBxrkClj YS0aMWVkytilBUKvuG4k YOJklHNvqVkuCW7yQEAk dkttn642WqAfQUR2 RFPvmNZhX2WenH0aUrFc JPTfNQWwZ6HxgUCrRGmd D501PKpfToQ9ZLHwgjPe J9IbWDXxhRqjPnO9 x8R2At1aJY2hDh9zBJp2 SP08DB38gFUvc4U9dVJ1 V4JxAOFyvrbqpgmhnCU1 MGHdYBTzhG95vIFx TBafEx0gc2Q5w328OBRz FWOmlM61Jo5nnRpjPHLg hKGOjL2vskprw3eyhdof OuTaUBCmCDp5SIu8 DSFpsLqkLgRdFSS6TmX0 DMZ9xLJdzJ5anOaxhpvi eF7gAbl+MzcgWWVhcnM8 Q5WcUwy0FUYetHhk RE8ojJPjXNnxWq8waVbc lDqyCN5uXNScbhuxGZOg kP8yKZBscPVskJosLE6x YLLhjiiru173MaWi WNN4TWUhqVBmX1IsqG8t JcGyMULuNHPgV7QplQYu BKikO837MAayDyQ1YCMj vtEqA0JdKHXylYft QxL9c6Y4Ab2TST0ddVG1 D3HiIfi1BASxsFyaTA8z sMWkMJwiUj8qsIqqmDsp NS1pSPZwviyfAEMv sJ8yKBHxxKVjgTjzRQ8e VUSrvzckt968MtAwVSL0 CXFpgHEpG6EghA5qJuGm JBWhTOTpC4UxxNGc UFnaV621YVlfFjZ5DDTk ahLhS0UpXRNmfIxeCxR5 g1Z8Ui8QNKQjVKEanGFu WkH7T1YtBfmxhTS+ DP57EYRqRT47sVFrrFSj o8forVr2XoKvUYTyNKQ0 vVtcAKiue5TeEWWjQ33b jJKff8G5JIYrmVbk aJUeSwVkpZG7zH1lSEsh goptd3mowhfnJjgcu2if yv30eJ55I40oAVmwZJLq PSIzMCUiIHZhbGln vt1joF9xCy2+PGNvbCB3 xWJ3tD2kMcAoWnH7ZLef T543BbJhzEQcXtwvq7qj c2kgyWz2TaVePGOh bcMkkQvaMEC5f1OjRq71 Y94yKLecHCAwRONgCBFd NSNsbCkcqm8irV2lMc4+ GJ3pl3fhqc54cS16 dHI+DBJgNJA6tUlhAOzu CFHjqS2cEChuBgG9DNRf QbTsbX73dGHrFPrtJr4a vBzgnLbgBP3hVRDb yznhq850FcBld0znTQTr rFHtRKhjTUI3B20am4P3 KOXdWRRfIGT5zVF2mM2y bGlnbjogbGVmdDsg clJklXgkMEfqLDswO162 OTWlrJljDtNyqJKuU2wz zoQHJK3dXmtapKN+PHRk CTE0sGrtZKhhDNKf pG2mOQFrJ8f5MjHkOiT2 FSroU4TjqjV0KTPllZOt ZPOxtLAVzG2qewmbq8sf cjogIzAwMDAwMDt0 SQb0TDCqkYlyEyZqHSO7 FlC0PVI4vNFmzM5kpDkr lrentI2iSef+RklOOjwv dGQ+TWYoDWV5fAty FTerFWLvbO6pPZSiW2n4 HvBxSoN7XBjrI4JkppB9 RSFzgSIwLBLneTPVuY2n wtjor9yefzlpVbNm DTFvEEe4FVh0OCQrvEwp QeSkOAW9XuI5EJN6rRDw aF2noBfcybnokA1pMno+ TVJOOjwvdGQ+PHRk GZQ6hKcnYQgiFWScrG4c DFVkV6x1MrYzJnP2XNxn M3DirkP1XDYohIHbVDEt kKODfD3onhnyt5id pkhzTzNbLDObXUn0EDj0 HHJsnFkcAyQyKPP6AzD7 IWQ0yHPbiN1wkComjgdx rC9hFam+XKM8NZP0 KZ55XW46Y6ZuKkvphZTt bGU+PHRhYmxlIHdpZHRo JUeyYPLsXjZakZfkBX0u Nv7xDVNoQBMlaLaf cHNl (more content not included)... [facility] Coding Summary.on 09-07-2021 Coding Summary. CD:[id number] Gh0bWw+PGhlYWQ+PE1FV PIpM77jzFPrnH1MX6vSV H7JJSSTOQKXZB6CTP5hc VR0TCtaY0UhvmHr UpuojFNaJO28AGc7ERP5 kMfsFBbccA9ycYXtM4w9 AhAmSR53bX90JZutCNUe KlN7ZgZrmmirhOKj H7vzQfQjlZCyKdi+PHRh YmxlIHdpZHRoPScxMDAl JxSpvNipXD9gRb0oOUVz LWNvbGxhcHNlOiBj f3inRKDlRRliNQ4aqGht Q1IjyUS1ACCvf1g5Xe55 dHI+VKJcSWG6xIirAYiv n640DtHpq1ooBPX5 tAGgMJirFWQ7U76gt3I5 GNMkAKYzFWX5pVI3hA9c pCjuvkfoP7JeaNErQuU1 KUP0pYBivH6ipXse gxyisZ9fNmy+H27WMZ1V NJGKOY3SLvc4J4QePkna dHI+MJ81ODBxYJ10vQNk xKYig4ibiXe7AcJh JMFnTZY3rZtmQCrrw4Vj LMYuE76edSJeh4E6GWRc iAjohHKeFlNraSZ0kA9s TLqrkmpkm2agwtup Sslgs2rsnb26uL05Q05c OZjlECTwNSK1FUGaPRUe qNdldk4wnI0qVm9+IDxj x5whv5kglUj4FwCm CRTzgjWpeEsmOSS4h4Ng Ml70N1DtcQttc2ImNnf1 wn73zYPol8L8jHO0WWoo NBZiqD3dANdxGcB6 DJOtQwNvvL14aRYnHRne Kj9dlRuqtJtwSY0oGEPj fcddWNEbhN2jRMWbyDVl mTkbLD5kGKCbpszh p679GcMfAVR3QNQliSMi D9VndH9sIqUsVQBqOWVc K1PetTAbQYszW720NMuq TcN5OISdliKiG1Mh GPIwiCtoObD8o3Y5Rp4O j8EsayzoFSE0UGxxCVV1 AiJ5NyPnIdN9T1RzEdz5 ZPGplZjvWO2vR1Un GWIfbvxocehoiYJ1GWNx MYMyaA39oECiNAiqHq2f o9F0a614JGMeQABidZ50 Vk1maWzkJYIvvEBH gX5qrnhpi5zchxpjKtFs LDElUJe8LIw8CZZuyViv ZhEuXCD6MpB3XKR2hIHc eS8xcDvcvgnuaV7s Oyc+L79uiU7vCKI9KPB2 jcymDRIwdtWaEN95BD46 P3FyJanftCVocNN+PGRp ttUfnLfdZI5fUrVa k2cxz9OeFFnkG7SqONSd TAhdDnv7QZEnNAC7nIY7 oB2mHKLfDEuoz9Y1bSN9 E1DpsuDsoh5eg9nz ZPPhSWziN59ahVBod2C3 RQGzaUW9IUNapWsrDoOi gJ11Udl+XRLayQoud1Te Vauuk0plm2svzIv9 IjMwJSIgdmFsaWduPSJ0 f0AlUu55R60gCGztKEEb YDUkDWJhWGUakPugmx3b cM1yVq0+PGNvbCB3 kCG3cA8iFIBdEdA2YInt C406OnLyxMUwYrtrj2zp o3fwdTh8ZvOaTQGwitJp wVgjXOB3b4QxMr09 O27hEGvwTCQxWEXbKJXs FHXjfOgpzc2uyA2zRq0+ RI2eo2ieqj01oJ52eCI+ QKDpVLU6uIozOWoj MFSpzE3xYKzjTvL1RHIy UlWwqW93yMRdWYmnSc5d aQjwdMtyRZ8xBOXlcweq p106HhPhb9ugYRYa pQVfJHhlPVN0S15ct6C8 WKKsVGIeUMT7oZU2zI2i bGlnbjogbGVmdDsgdmVy wZoqITqnIYxzT738 IHRvcDsnPlBhdGllbnQg BxChTQm1J7NyDnn9GCZk iZrcYI1auKOdERtrDn3e yZskgIsaJZ2jOSYb vnljb854XqDyw9ugXDZf fMQdUAduJSE9S47tr0I6 BBIzSSAsODR9cXJ7lN1h bGlnbjogbGVmdDsg jiMjiZqiUXrdXWfsN466 IHRvcDsnPkJpcnRoIERh yLY6VB63GV04yDDbk4I5 lKI9Y2DpMFVphdmf vqcsrDT6PNEsEUIklS68 Kl1hdRuoKq0bIYNiDCS7 AVTvrXUmR1QsmU7wRtTg OGVoMGNvG2ZqlHDi VFnhY984CTpwMdY2HFBt whNkV3VbYQThuScfYtN5 c2C8Zs0VT9O9TU87FK41 uKRhk8L0nCF0X9Do FNMvtfbpkhgarWV5EFVr VPTgsC70Tv7qvBybTq3k OTSqGBQ3FJJtrEOlD4Mr zX2qSjFnOQWnERCm B1EsvXNtKSueX067TIbt OvV9YAJurgEkD5HjGUOk vSrxFrZ8b7M2Tu5HAEc3 TB55PV34tZLkq3J0 cWR6U6WpAOWvwtuhipme vZD9IJJmTDVnpV51By4q fXkyRi5bLHZoXVY0OYYf ySUaY1ZbsG9vNjEx XFOjOPTlW5QgnXCbHDnt Y208PDkhJqA5YDBpaeMv N3KmPOPruQctElU3n7F1 Sh8OGYOsSM29ZGE9 oIF7VN33KE84K5FmMzzd dGFibGU+PHRhYmxlIHdp ZHRoPScxMDAlJyBzdHls RM6jLg2sWLBdVTHx qStvgQDjBpFem1wuWMTo NXyrZV0ljZztQ4FzvCJ5 BOSpz4v8Dk16X62hD3Ym dXA+QBBqbGP4mNE3 jD3vCfLzHsA0NSjoI617 XnQwhQAaTdxny5vcl1me sNl1KlX6LHLodzFmsKjj RWM8d8WgSb18W45z IHdpZHRoPSIxNSUiIHZh vHxxhn1liP2cTj3+PGNv eGO0pCN3dA3wUqXnDbP4 AZioF777BkMqvSYz Ivshi3dwh7ttdOj7HbJw WCIhdsMojMdqCTJ1m6Xe Ym25H6AmyCkmb9RbOht8 ba53bBIrp8K8cVW4 C1KtSGMvdlnywGTpkUiw VX5oGILxmufgZJAcqF4q EKUaY7p7ZuDqWuD0AGhb N6KjwsZ4VPGobVKz XOwbRAN4J30xl8I8RAFv FQAtHUK8iHM9lT2fbWwf bjogbGVmdDsgdmVydGlj OOdqDRolE419LJUu gZymSIAbmQ2qBAFaeNFa tBddWD2tQVGreaepWgNI LIpFSCMAINDGUL01X9Yb Vdw0TLWwaLjpKA8n qZHwTVmuOq9vhQpreAuc UB7yFQOttsvgDIKedB4p BRGkwIKngDibFH3lXWEf yhmaj409FtHcOEA8 GVMkrQAxH9SxhM3yFmZc FJLgJXUbW7AluZMqSGuz V810YXohJdD4MTFgywCt M2HiYGElmVboBrQ2 d5Q8Vb1wPO4iMs2mACt6 XK02YD27vEKoa1K8gED3 W8KkTQYgdqthneksmUR2 OTLqBYEgkV58zGNc ZHmlYw0ie2V6h093CBWf VFSvqF47Lm8ehWpnDEWd bKAEjL1ptpscc9ljorjm PbDhPELvKCo2CDm2 NXPraUalAhCiPGR8CcR3 WSI3sTIqyT7fcOpvghyy kM9vNbg+MzcgWWVhcnM8 H8NiGht4PSKrfQjt AS2uvKGkNXszHp7haUyu bPxmPS3uZBUaumjxYOAj bJ7uPVLxhOOkiIrxEG9w YRYmytklv603BmId KZV7XQRfiRZpD0TfmD9s BfNbURZoFFFfT9ZpnREg YWaoU072RMlbTiN1KXGu wuRoB9FiPBCxfKxb AvD1w1K7Rt3VEW6fdKE7 F2SuJpp7WPRewHkhEU3l zEWhOApuSs8grOqldTdf UC8dHZWbysaxCKSw kO6eRCKctMLhlQapTE8u HZFejebvp095BnFaOYE3 FNJguKWfK1YcpO4eTfKg MLFiEAKnD9TsvUAk ZWjcA570WGoqPfT4AVSm drGjT3LtVKDunGrqNjN4 c6S9Nh6RbSQhIYFwAJ15 FY49KZ24D4NyRujo dGFibGU+PHRhYmxlIHdp ZHRoPScxMDAlJyBzdHls NV3mVw6yDTAxNLIjvDkg xEYiYmGhp9wdYWMs DUjdYK8qrZpqU8GwfEX4 XPEjj9u8Bo29F91aK1Jr dXA+NKPvsEP7wQF0eH9j OvUwNpH8PFmuQ807 EtXefQQjWlijl2eaz1rs lRj9MtDoFBEdkySfcTxn HCB8r6RfCi23V23tNUyp ZHRoPSIyMCUiIHZh xYzrfl2vsX9oWt4+PGNv uHS4aAD2bD9jUxKpIeH1 PKtcH436YmMpxLMpXywn J98wE8RcbAS+PHRy Vbm0SJUfbIheFC4upNBq KHbeWg7lSMR8XdUoIvMo ZActA4OrYVGvhjabeoes tIL8CVVtJDVkfT71 Uz5vlBniRy0sSJSoSIV3 EZOirVJvO2XzhS4sDqGe CRIcLOBuA5GffYPwWOhs B777QEqyScZ8AEBb xpTmR0PlPWNleXgoBmW7 t2R8Bs1BgCletFNfOR1f EbZlVZf8G9WuDhe5XKJd zYovEL7wpSCnGPas Bw8exQrkfRvfAC1hLXLf oreed115NwZvn6iaLFHc uEQqZFmuGGC4T18kw3Y8 IVFkXJRgQWL2nHN5 bP9zyUbhdcshkGZdiCzs mnHgnMuoWUmfWOerD931 LVJyiUjpCpXRUha3I7Sk Pvn8QFOpgScdQP6z xVZeAFveWa1fdXxdlMja SH8aKYSxlgcaa101TbTe e2jsMVGhdPLmXTucBRH8 W14yy7Z9FMHrMOTs JCG1yAX3uX2tlZpeqbmg bGVmdDsgdmVydGljYWwt DHiiL085RURnaKiuVy8Q Sca5Z7JfYwi8PQBe gHtcZL4jhHEbUNejQz5b eWzacKeeQL9eAQCdsbtu p101HoOzy9jdLWOlqTDd LIimCDW5G70lr8X1 ELQbNPIwKNM6aVG8lJ2q bGlnbjogbGVmdDsgdmVy hVkwUNntGIoqK598XJYv cDsnPlBheWVyOjwv dGQ+KS06ko75R3DjVvbe Bll1IKWbQTN6lCR0vF3i HUVyQVhfb7V7hJO0J9Xv sqPbib9ij8wtJFGw ZTog (more content not included)... [facility] Consent for Procedure/Surger yon 09-06-2021 Consent for Procedure/Surgery [id number] 4#1.00CD:127 [facility] Consent for Treatmenton 05-2 Consent for Treatment [id number] #1.00CD:127 [facility] IntraOperative Documentson 0 09-06-2021 IntraOperative Documents [id number] 3#1.00CD:127 [facility] Main OR Intraoperative Recor don 09-06-2021 Main OR Intraoperative Record IntraOp Document Type FTURO Summary Primary Physician: Merrick DUNCAN MD Finalized Date/Time: 09/06/21 12:14:38 Pt. Name: KALA HILLMAN/Sex: 1985 Female Med Rec #: [id number] Physician: Merrick DUNCAN MD Financial #: [id number] Pt. Type: O Room/Bed: / Admit/Disch: 09/06/21 10:46:07 - Institution: Case Times FTURO Entry 1 Patient Times In Room 09/06/21 11:55:00 Out Room 09/06/21 12:07:00 Procedure Times Start 09/06/21 11:58:00 Stop 09/06/21 12:04:00 Anesthesia Times Last Modified By: Quentin CHAUDHARY, Gayle Lopez 09/06/21 12:07:06 Case Attendance FTURO Entry 1 Entry 2 Entry 3 Case Attendee FLY STEINER, Merrick Workman ENGINE SPECIALIST, Gayle Saavedra RN, Gayle Lopez Role Performed Surgeon - Primary Scrub - Primary Development Disability Specialist - Primary Time In 09/06/21 11:55:00 09/06/21 11:55:00 09/06/21 11:55:00 Time Out 09/06/21 12:07:00 09/06/21 12:07:00 09/06/21 12:07:00 Procedure CYSTOSCOPY LOCAL BOTOX CYSTOSCOPY LOCAL BOTOX CYSTOSCOPY LOCAL BOTOX INJECTION(.) INJECTION(.) INJECTION(.) Comments Last Modified By: Quentin RN, Gayle Saavedra RN, Gayle Rivers RN 09/06/21 12:07:07 09/06/21 12:07:07 09/06/21 12:07:07 Surgical Procedures FTURO Entry 1 Procedure Description Procedure CYSTOSCOPY LOCAL BOTOX Modifiers . INJECTION Surgeon Description CYSTOSCOPY WITH BOTOX 100 UNITS LOT NUMBER [id number] EXP DATE Primary Procedure Yes Primary Surgeon FLY STEINER, Merrick Doshi Start 09/06/21 11:58:00 Stop 09/06/21 12:04:00 Anesthesia [...] 12:07 Gayle Saavedra RN 09/06/21 12:14 [facility] Main OR Preoperative Recordo n 09-06-2021 Main OR Preoperative Record Holding Area Document Type FTURO Summary Primary Physician: Merrick DUNCAN MD Finalized Date/Time: 09/06/21 11:59:31 Pt. Name: KALA HILLMAN/Sex: 1985 Female Med Rec #: [id number] Physician: Merrick DUNCAN MD Financial #: [id number] Pt. Type: O Room/Bed: / Admit/Disch: 09/06/21 [...] 11:25 Gayle Saavedra RN 09/06/21 11:59 [facility] Operative Reporton Operative Report Patient: KALA [...] is to follow-up in 2 weeks. [facility] Comment on above: Result Comment: Elec tronically Signed By: FLY STEINER, Merrick Doshi\.br\Date and Time Signed: 09/06/21 12:07 EDT Reminderson 09-05-2021 Reminders - From: Cristiano Castillo MA To: EU - Clinical; Sent: 08/31/2021 11:40:26 EDT Show up: 09/03/2021 11:40:00 EDT Subject: Ambulatory Reminder Reminder/Recall urine culture Minh Dorsey addressed. [facility] C Urineon 09-02-2021 Bacteria identified Cx Nom [...] Locations R1: This test was performed at: [facility], [address] [place] [address], [address] , [place], [facility] Comment on above: Performed By: #### [id number] ####[facility] [id number] [place] [address] Ambulatory Visit Summaryon 0 08-31-2021 Ambulatory Visit Summary KALA HILLMAN :1985 Visit Date:08/31/2021 Ambulatory Visit Instructions Your Care Team Attending Physician - FLY STEINER, Merrick Doshi Primary Care Physician - Triny STEINER, Navi This Is Your Medications List cephalexin (Keflex [...] Appointments Sunday 11:30 AM EDT With: Where: [facility] Sunday 10:00 AM EDT With: LEONARDO TUTTLE PA-C Where: [facility] [address] [place] [address]- \.br\ Medications\.br\ What How Much When Instructions\.br\ [...] Stress incontinence\.br\ Urge incontinence\.br\ Urgency incontinence\.br\ \.br\ [facility] Pre-Certification Formon Pre-Certification Form [id number] 4#1.00CD:127 [facility] Ambulatory Visit Summaryon 0 08-05-2021 Ambulatory Visit Summary KALA HILLMAN :1985 Visit Date:08/05/2021 Ambulatory Visit Instructions Your Diagnosis Urgency incontinence Nocturia Stress incontinence Tests Performed Urnls Dip Stick Auto w/o Microscopy POC [id number] Your Care Team Attending Physician - Merrick DUNCAN MD Primary Care Physician - Navi Delgado MD [...] STEINER, Merrick Doshi Where: [facility] Patient Educationon 08-06-19 Patient Education [...] nerve stimulation). ? For women, using a ophthalmic medical technologist to prevent urine leaks. This is a [...] after experiencing incontinence. General instructions ? Take ztux-mcg-ntallhp and prescription medicines only as (more content not included)... [facility] Urology Office/Clinic Noteon 08-05-2021 Urology Office/Clinic [...] EDT [facility] [address], [place] [address] [phone] Additional Instructions: Patient Education Urinary Incontinence I, Adriana Ventura, personally scribed for Dr. Duncan on 08/05/2021 09:11:32. . Documentation recorded by the scribAdriana sanchez, accurately reflects the services(s) I performed and [...] Daily es (more content not included)... [facility] Comment on above: Result Comment: Elec tronically Signed By: Merrick DUNCAN MD\.br\Date and Time Signed: 08/05/21 09:15 EDT\.br\Electronically Co-Signed By: Adriana Ventura MA\.br\Date and Time Co-Signed: 08/05/21 09:11 EDT Vital Signs Date Time Vital Sign Value Performing Clinician Facility 01-27-2025 13:17-040 Body mass index (BMI) [Ratio] 39.41 kg/m2 Tarisa Work Phone: [facility] 01-27-2025 13:170400 Body weight 100.92 kg Tarisa Work Phone: [facility] 01-27-2025 13:17-0400 Diastolic blood pressure 86 mm[Hg] Marcel Uma DO Work Phone: [facility] 01-27-2025 13:17-0400 Systolic blood pressure 142 mm[Hg] Marcel Uma DO Work Phone: [facility] 03-12-2024 09:29-0500 Body height 160 cm David Ethan DO Work Phone: [facility] 03-12-2024 09:29-0500 Body mass index (BMI) [Ratio] 34.54 kg/m2 David Ethan DO Work Phone: [facility] 03-12-2024 09:29-0500 Body weight 88.45 kg David Ethan DO Work Phone: [facility] 03-12-2024 09:29-0500 Diastolic blood pressure 86 mm[Hg] David Ethan DO Work Phone: [facility] 03-12-2024 09:29-0500 Heart rate 97 /min David Ethan DO Work Phone: [facility] 03-12-2024 09:29-0500 SaO2% (BldA) [Mass fraction] 97 % David Ethan DO Work Phone: [facility] 03-12-2024 09:29-0500 Systolic blood pressure 126 mm[Hg] David Ethan DO Work Phone: [facility] 01-28-2024 15:17-0400 Body mass index (BMI) [Ratio] 36.38 kg/m2 Marcel Uma DO Work Phone: [facility] 01-28-2024 15:17-0400 Body weight 93.17 kg Marcel Uma DO Work Phone: [facility] 01-28-2024 15:17-0400 Diastolic blood pressure 70 mm[Hg] Marcel Uma DO Work Phone: [facility] 01-28-2024 15:17-0400 Systolic blood pressure 120 mm[Hg] Marcel Uma DO Work Phone: [facility] 01-14-2024 14:58-0400 Body mass index (BMI) [Ratio] 36.31 kg/m2 Marcel Uma DO Work Phone: [facility] 01-14-2024 14:58-0400 Body weight 92.99 kg Marcel Uma DO Work Phone: [facility] 01-14-2024 14:58-0400 Diastolic blood pressure 74 mm[Hg] Marcel Uma DO Work Phone: [facility] 01-14-2024 14:58-0400 Systolic blood pressure 122 mm[Hg] Marcel Uma DO Work Phone: [facility] 12-24-2023 10:32-0400 Body height 160 cm Marcel Uma DO Work Phone: [facility] 12-24-2023 10:32-0400 Body mass index (BMI) [Ratio] 37.2 kg/m2 Marcel Uma DO Work Phone: [facility] 12-24-2023 10:32-0400 Body weight 95.25 kg Marcel Uma DO Work Phone: [facility] 12-24-2023 10:32-0400 Diastolic blood pressure 80 mm[Hg] Marcel Uma DO Work Phone: [facility] 12-24-2023 10:32-0400 Systolic blood pressure 116 mm[Hg] Marcel Uma DO Work Phone: [facility] 09-28-2021 10:48-0400 Blood Pressure Location LEONARDO TUTTLE [facility] 09-28-2021 10:48-0400 Diastolic blood pressure 89 mm[Hg] LEONARDO TUTTLE [facility] 09-28-2021 10:48-0400 Heart rate 78 /min LEONARDO TUTTLE [facility] 09-28-2021 10:48-0400 Respiratory rate 16 /min LEONARDO TUTTLE [facility] [place] 09-28-2021 10:48-0400 Systolic blood pressure 145 mm[Hg] [facility]-05-[facility]21 08:42-0400 Blood Pressure Location [facility] DUNCAN [facility] 08-05-2021 08:42-0400 Diastolic blood pressure 91 mm[Hg] Merrick DUNCAN [facility] 08-05-2021 08:42-0400 Heart rate 79 /min Merrick DUNCAN [facility] 08-05-2021 08:42-0400 Systolic blood pressure 150 mm[Hg] Merrick DUNCAN [facility] Encounters Encounter Date Encounter Type Care Provider Facility Start: 01-27-2025 End: 01-27-2025 Bamboo flowsheet Marcel Uma DO Work Phone: [facility] OBGYN Start: 01-27-2025 End: 01-27-2025 Bamboo flowsheet Marcel Uma DO Work Phone: [facility] [place] [facility] Start: 01-27-2025 End: 01-27-2025 Patient encounter procedure Marcel Uma DO Work Phone: [facility] Start: 01-27-2025 End: 01-27-2025 Periodic preventive med est patient 40-64yrs Marcel Uma DO Work Phone: [facility] [place] [facility] Comment on above: Well woman exam with routine gynecological exam; Encounter for screening mammogram for malignant neoplasm of breast; Hormone disorder; Weight gain Start: 01-27-2025 End: 01-27-2025 ambulatory MARCEL UMA Not Available Start: 03-12-2024 End: 03-12-2024 Bamboo flowsheet David Cole [facility] [place] [address] Start: 03-12-2024 End: 03-12-2024 Bamboo flowsheet David Cole DO Work Phone: [facility] [employer] [address] Start: 03-12-2024 End: 03-12-2024 Office outpatient visit 25 minutes David Cole DO Work Phone: [facility] [place] [address] Comment on above: JARETH (obstructive sle ep apnea) (Primary Dx); Hypersomnia; Primary insomnia; Snoring; Overweight Start: 03-12-2024 End: 03-12-2024 ambulatory DAVID COLE Not Available Start: 03-11-2024 End: 03-11-2024 Phys/qhp telephone evaluation 5-10 min Marcel Uma DO Work Phone: [facility] Comment on above: Mood changes; Hormone disorder Start: 01-28-2024 End: 01-28-2024 Office outpatient visit 15 minutes Marcel Uma DO Work Phone: [facility] Comment on above: Encounter for weight management; Hormone disorder; Mood changes Start: 01-28-2024 End: 01-28-2024 Bamboo flowsheet Marcel Uma DO Work Phone: [facility] Start: 01-28-2024 End: 01-28-2024 Bamboo flowsheet Marcel Uma DO Work Phone: [facility] Start: 01-21-2024 End: 01-22-2024 Telephone encounter 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 George 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: [facility] Start: 01-14-2024 End: 01-14-2024 Periodic preventive med est patient 18-39 yrs Marcel Uma DO Work Phone: [facility] Comment on above: Well woman exam with routine gynecological exam; H/O: hysterectomy; Night sweats; Hot flashes due to surgical menopause; Hormone disorder Start: 01-14-2024 End: 01-14-2024 Bamboo flowsheet Marcel Uma DO Work Phone: [facility] Start: 01-14-2024 End: 01-14-2024 Bamboo flowsheet Marcel Uma DO Work Phone: [facility] Start: 01-14-2024 End: 01-14-2024 Clinisync Result Encounter Marcel Uma DO Work Phone: [facility] Unsolicited Start: 01-14-2024 End: 01-14-2024 Patient encounter procedure Marcel Uma DO Work Phone: [facility] Start: 12-24-2023 End: 12-24-2023 Bamboo flowsheet Marcel Uma DO Work Phone: [facility] Start: 12-24-2023 End: 12-24-2023 Bamboo flowsheet Marcel Uma DO Work Phone: [facility] Start: 12-24-2023 End: 12-24-2023 Office outpatient visit 5 minutes Marcel Uma DO Work Phone: [facility] Comment on above: Encounter for weight management Start: 09-13-[address] NAVI DELGADO . Facili ty:[facility] Start: 07-26-2022 End: 07-27-[address] NAVI DELGADO . Facility:[facility] Start: 07-21-2022 Encounter for genera l adult medical examination without abnormal findings DR NAVI DELGADO . [facility] Start: 07-13-2022 End: 07-14-[address] NAVI DELGADO . Facility: Start: 07-13-2022 End: 07-14-2022 Encounter for general adult medical examination without abnormal findings DR NAVI DELGADO . Facility: Start: 04-12-2022 ambulatory LEONARDO TUTTLE Facili ty:[facility] Start: 11-16-2021 End: 11-16-[address] MARCEL EATON . Facility: Start: 11-11-2021 ambulatory MD Merrick DUNCAN Fac ility:[facility] Start: 11-10-2021 End: 11-11-[address] MARCEL EATON . Facility: Start: 11-09-2021 End: 11-09-[address] MARCEL AETON . Facility: Start: 09-28-2021 End: 09-29-2021 ambulatory LEONARDO TUTTLE Facility:[facility] Start: 09-28-2021 End: 09-28-2021 Patient encounter procedure LEONARDO TUTTLE [facility] Start: 09-06-2021 End: 09-07-2021 ambulatory MD Merrick DUNCAN Facility:[facility] Start: 09-06-2021 End: 09-06-2021 Patient encounter procedure Merrick DUNCAN [facility] Start: 08-31-2021 End: 09-01-2021 ambulatory MD Merrick DUNCAN Facility:[facility] Start: 08-31-2021 End: 08-31-2021 Lab Drop off Merrick DUNCAN [facility] Start: 08-31-2021 End: 08-31-2021 Patient encounter procedure Merrick DUNCAN [facility] Start: 08-05-2021 End: 2021 ambulatory MD [facility] DUNCAN [facility] Start: 08-05-2021 End: 08-05-2021 Patient encounter procedure Merrick DUNCAN [facility] [place] Procedures Date Procedure Procedure Detail Performing Clinician [...] Treatment Date Care Activity Detail Author Start: 03-03-2025 End: 03-03-2025 Patient encounter procedure 03/03/2025 10:40 AM EST Office Visit KARL LOPEZ [address] [place] [phone] Marcel Eaton DO [address] [place] [address] KARL LOPEZ Start: 01-27-2025 End: 01-27-2026 C-peptide C-peptide Lab Routine Hormone disorder Expected: 01/27/2025 (Approximate), Expires: 01/27/2026 [facility] Comment on above: Expected: 01/27/2025 (Approximate), Expires: 01/27/2026 Start: 01-27-2025 End: 01-27-2026 Cortisol free Cortisol, free Lab Routine Hormone disorder Expected: 01/27/2025 (Approximate), Expires: 01/27/2026 [facility] Comment on above: Expected: 01/27/2025 (Approximate), Expires: 01/27/2026 Start: 01-27-2025 End: 01-27-2026 Glucose [Mass/volume] in Serum or Plasma Glucose, random Lab Routine Hormone disorder Expected: 01/27/2025 (Approximate), Expires: 01/27/2026 [facility] Comment on above: Expected: 01/27/2025 (Approximate), Expires: 01/27/2026 Start: 01-27-2025 End: 01-27-2026 Insulin, total Insulin, total Lab Routine Hormone disorder Expected: 01/27/2025 (Approximate), Expires: 01/27/2026 [facility] Comment on above: Expected: 01/27/2025 (Approximate), Expires: 01/27/2026 Start: 01-27-2025 End: 03-29-2026 MG Breast - bilateral Screening Bilateral screening mammogram Imaging Routine Encounter for screening mammogram for malignant neoplasm of breast Expected: 01/27/2025 (Approximate), Expires: 03/29/2026 [facility] Work Phone: Comment on above: Expected: 01/27/2025 (Approximate), Expires: 03/29/2026 Start: 01-27-2025 End: 01-27-2026 Serotonin serum Serotonin serum Lab Routine Hormone disorder Expected: 01/27/2025 (Approximate), Expires: 01/27/2026 [facility] Comment on above: Expected: 01/27/2025 (Approximate), Expires: 01/27/2026 Start: 01-27-2025 End: 01-27-2026 Thyroglobulin Thyroglobulin Lab Routine Hormone disorder Expected: 01/27/2025 (Approximate), Expires: 01/27/2026 [facility] Comment on above: Expected: 01/27/2025 (Approximate), Expires: 01/27/2026 Start: 01-27-2025 End: 01-27-2026 Thyroglobulin Antibody Thyroglobulin Antibody Lab Routine Hormone disorder Expected: 01/27/2025 (Approximate), Expires: 01/27/2026 [facility] Comment on above: Expected: 01/27/2025 (Approximate), Expires: 01/27/2026 Start: 01-27-2025 End: 01-27-2026 Thyrotropin [Units/volume] in Serum or Plasma [facility] Comment on above: Ordered: 01/27/2025 Expected: 01/27/2025 (Approximate), Expires: 01/27/2026 Start: 01-27-2025 End: 01-27-2025 Patient encounter procedure 01/27/2025 1:00 PM EDT Office Visit KARL ANDERSONN [address] [place] [phone] Marcel Eaton, DO [address] [facility] [facility] [address] [place] [place], [place] [id number] [facility] [place] [facility] Comment on above: Arrived Start: 01-20-2025 End: 01-20-2025 Patient encounter procedure 01/20/2025 9:00 AM EDT Office Visit [facility] [address] [place] [phone] Marcel Eaton, DO [address] [facility] [address] [place], [place] [id number] [facility] Start: 12-15-2024 Influenza vaccination Influenza Vacc ine (#1) [facility] Start: 2024 Screening for malign ant neoplasm of breast Mammogram [facility] Start: 03-12-2024 End: 03-12-2024 Patient encounter procedure 03/12/2024 9:30 AM EST Office Visit [facility]L [address] [place] [phone] David Cole, DO [address] [place] [address] [facility]rived [facility] [address] [address] Comment on above: Arrived Start: 03-11-2024 End: 03-11-2024 Patient encounter procedure 03/11/2024 8:10 AM EST Office Visit [facility] [address] [place] [phone] Marcel Eaton DO [address] [facility] [place] [address] [facility] Start: 01-21-2024 End: 01-21-2024 Patient encounter procedure 01/21/2024 2:30 PM EDT Office Visit [facility] [address] [place] [phone] Tiffanie Redding PA [address] [facility] [address] [place], [place] [phone] [facility] Start: 01-16-2024 End: 01-16-2024 Patient encounter procedure 01/16/2024 9:30 AM EDT Office Visit KARL [address] [place] [address] Karyn Ohara, LJ [address] [place], [place] [facility] [place] [address] Start: 01-14-2024 End: 01-14-2024 Patient encounter procedure [facility] Comment on above: Arrived Start: 01-14-2024 [...] 01-13-2025 Thyrotropin [Units/volume] in Serum or Plasma [facility] Comment on above: Ordered: 01/14/2024 Expected: 01/14/2024 (Approximate), Expires: 01/13/2025 Start: 12-24-2023 End: 12-24-2023 Patient encounter procedure 12/24/2023 10:20 AM EDT [facility] [address] [place] [phone] Marcel Eaton DO [address] [facility] [place] [address] Arrived [facility] Comment on above: Arrived Cytology Cervical or vaginal smear or scraping study Pap Smear Pathology and Cytology Routine Well woman exam with routine gynecological exam Ordered: 01/14/2024 [facility] Work Phone: Comment on above: Ordered: 01/14/2024 DHEA-sulfate DHEA-sulfate Lab Routine H/O: hysterectomy Night sweats Hot flashes due to surgical menopause Hormone disorder Ordered: 01/14/2024 [facility] Comment on above: Ordered: 01/14/2024 DHEA-sulfate DHEA-sulfate Lab Routine Hormone disorder Ordered: 01/27/2025 [facility] Comment on above: Ordered: 01/27/2025 Estradiol Estradiol Lab Ro utine H/O: hysterectomy Night sweats Hot flashes due to surgical menopause Hormone disorder Ordered: 01/14/2024 [facility] Comment on above: Ordered: 01/14/2024 Estradiol Estradiol Lab Ro utine Hormone disorder Ordered: 01/27/2025 [facility] Comment on above: Ordered: 01/27/2025 Estrone Estrone Lab Rout ine H/O: hysterectomy Night sweats Hot flashes due to surgical menopause Hormone disorder Ordered: 01/14/2024 [facility] Comment on above: Ordered: 01/14/2024 Estrone Estrone Lab Rout ine Hormone disorder Ordered: 01/27/2025 [facility] Comment on above: Ordered: 01/27/2025 Ferritin [Mass/volum e] in Serum or Plasma Ferritin Lab Routine H/O: hysterectomy Night sweats Hot flashes due to surgical menopause Hormone disorder Ordered: 01/14/2024 [facility] Comment on above: Ordered: 01/14/2024 Ferritin [Mass/volum e] in Serum or Plasma Ferritin Lab Routine Hormone disorder Ordered: 01/27/2025 [facility] Comment on above: Ordered: 01/27/2025 Hemoglobin A1c/Hemoglobin.total in Blood Hemoglobin A1c Lab Routine H/O: hysterectomy Night sweats Hot flashes due to surgical menopause Hormone disorder Ordered: 01/14/2024 [facility] Comment on above: Ordered: 01/14/2024 Hemoglobin A1c/Hemoglobin.total in Blood Hemoglobin A1c Lab Routine Hormone disorder Ordered: 01/27/2025 [facility] Comment on above: Ordered: 01/27/2025 Human papilloma viru s DNA [Presence] in Unspecified specimen by Probe with amplification HPV DNA probe, amplified Microbiology Routine Well woman exam with routine gynecological exam Ordered: 01/14/2024 [facility] Comment on above: Ordered: 01/14/2024 Progesterone Progesterone Lab Routine H/O: hysterectomy Night sweats Hot flashes due to surgical menopause Hormone disorder Ordered: 01/14/2024 [facility] Comment on above: Ordered: 01/14/2024 Progesterone Progesterone Lab Routine Hormone disorder Ordered: 01/27/2025 [facility] Comment on above: Ordered: 01/27/2025 Sex hormone binding globulin Sex hormone binding globulin Lab Routine H/O: hysterectomy Night sweats Hot flashes due to surgical menopause Hormone disorder Ordered: 01/14/2024 [facility] Comment on above: Ordered: 01/14/2024 Sex hormone binding globulin Sex hormone binding globulin Lab Routine Hormone disorder Ordered: 01/27/2025 [facility] Comment on above: Ordered: 01/27/2025 T3, reverse T3, reverse Lab Routine H/O: hysterectomy Night sweats Hot flashes due to surgical menopause Hormone disorder Ordered: 01/14/2024 [facility] Comment on above: Ordered: 01/14/2024 T3, reverse T3, reverse Lab Routine Hormone disorder Ordered: 01/27/2025 [facility] Comment on above: Ordered: 01/27/2025 TESTOSTERONE, FREE TESTOSTERONE, FREE Lab Routine H/O: hysterectomy Night sweats Hot flashes due to surgical menopause Hormone disorder Ordered: 01/14/2024 [facility] Comment on above: Ordered: 01/14/2024 TESTOSTERONE, FREE TESTOSTERONE, FREE Lab Routine Hormone disorder Ordered: 01/27/2025 [facility] Comment on above: Ordered: 01/27/2025 Testosterone, free, total Testos terone, free, total Lab Routine H/O: hysterectomy Night sweats Hot flashes due to surgical menopause Hormone disorder Ordered: 01/14/2024 [facility] Comment on above: Ordered: 01/14/2024 Testosterone, free, total Testos terone, free, total Lab Routine Hormone disorder Ordered: 01/27/2025 [facility] Comment on above: Ordered: 01/27/2025 THIN PREP TIS PAP AN D HR HPV DNA THIN PREP TIS PAP AND HR HPV DNA Pathology and Cytology Routine Well woman exam with routine gynecological exam Ordered: 01/27/2025 [facility] Comment on above: Ordered: 01/27/2025 Thyroid peroxidase antibody Thyroid peroxidase antibody Lab Routine H/O: hysterectomy Night sweats Hot flashes due to surgical menopause Hormone disorder Ordered: 01/14/2024 [facility] Comment on above: Ordered: 01/14/2024 Thyroid peroxidase antibody Thyroid peroxidase antibody Lab Routine Hormone disorder Ordered: 01/27/2025 [facility] Comment on above: Ordered: 01/27/2025 Thyroxine (T4) free [Mass/volume] in Serum or Plasma T4, free Lab Routine H/O: hysterectomy Night sweats Hot flashes due to surgical menopause Hormone disorder Ordered: 01/14/2024 [facility] Comment on above: Ordered: 01/14/2024 Thyroxine (T4) free [Mass/volume] in Serum or Plasma T4, free Lab Routine Hormone disorder Ordered: 01/27/2025 [facility] Comment on above: Ordered: 01/27/2025 Triiodothyronine (T3 ) Free [Mass/volume] in Serum or Plasma T3, free Lab Routine H/O: hysterectomy Night sweats Hot flashes due to surgical menopause Hormone disorder Ordered: 01/14/2024 [facility] Comment on above: Ordered: 01/14/2024 Triiodothyronine (T3 ) Free [Mass/volume] in Serum or Plasma T3, free Lab Routine Hormone disorder Ordered: 01/27/2025 [facility] Comment on above: Ordered: 01/27/2025 Vitamin D 1,25 dihydroxy Vitamin D 1,25 dihydroxy Lab Routine H/O: hysterectomy Night sweats Hot flashes due to surgical menopause Hormone disorder Ordered: 01/14/2024 [facility] Comment on above: Ordered: 01/14/2024 Vitamin D 1,25 dihydroxy Vitamin D 1,25 dihydroxy Lab Routine Hormone disorder Ordered: 01/27/2025 [facility] Comment on above: Ordered: 01/27/2025 Immunizations Immunization Date Immunization Notes Care Provider Pooja tillman NEGATED: Highlighted row has not occurred!08-05-2021 influenza virus vaccine, unspecified formulation Merrick DUNCAN [facility] NEGATED: Highlighted row has not occurred!08-05-2021 SARS-CoV-2 (COVID-19) Ad26 vaccine, recombinant Merrick DUNCAN [facility] Payers Date Payer Category Payer Medicaid [employer] [place] [id number] 2021-Present [address] [place] [address] [id number] 2021 Private Health Insurance [facility] MEDICA[facility] [id number] 1984 Unknown [id number] [id number] 1984 Unknown [id number] .[id number]. 1984 Unknown [id number] 1984 Unknown [id number] 2.16.840.1.173325.3.579.2. 727 1984 Unknown [id number] 2.16.840.1.106354.3.579.2. 727 1984 Unknown [id number] 2.16.840.1.409410.3.579.2. 727 1984 Unknown [id number] 2.16.840.1.008542.3.579.2. 727 1984 Unknown [id number] 2.16.840.1.895720.3.579.2. 593 1984 Unknown [id number] 2.16.840.1.644213.3.579.2. 593 1984 Unknown [id number] 2.16.840.1.650939.3.579.2. 593 1984 Unknown [id number] 2.16.840.1.120224.3.579.2. 593 1984 Unknown [id number] 2.16.840.1.070144.3.579.2. 593 1984 Unknown [id number] 2.16.840.1.818132.3.579.2. 593 1984 Unknown [id number] 2.16.840.1.980716.3.579.2. 1259 1984 Unknown [id number] 2.16.840.1.594271.3.579.2. 1259 1959 Unknown [id number] 1959 Unknown [id number] Social History Date Type Detail Facility Start: 08-05-2021 End: 12-24-2023 Tobacco smoking status Never smoked tobacco (finding) [facility] Start: 01-14-2024 End: 03-12-2024 Sex Assigned At Female [facility] Start: 06-28-2022 Tobacco smoking status Never [facility] Start: 12-24-2023 Tobacco use and exposure Smokeless tobacco non-user [facility] Start: 01-14-2024 End: 01-27-2025 Alcoholic beverage intake Lifetime non-drinker (finding) [facility] Start: 01-14-2024 End: 03-12-2024 History of Social function [facility] Start: 1985 Sex assigned at Female [facility] Start: 11-06-2022 Gender identity Identifies as female gender (finding) [facility] Start: 11-06-2022 Sexual orientation Heterosexual (finding) [facility] Functional Status Date Assessment Result Facility 09-28-2021 Functional Status N/A [facility] Clinical Notes 08-05-2021 to 01-27-2025 Tayla Herzog LPN - 01/27/2025 1:00 PM EDTDavid Cole, - 03/12/2024 9:30 AM Ashok Herzog LPN - 03/11/2024 8:10 AM Meet Bustillo, OIL WELL FISHING TOOL OPERATOR - 01/28/2024 2:50 PM EDT Note Date & Type Note Facility 01-27-2025 History of Presen t illness Narrative Reason for Appointment: Patient ID: Kala Hillman is a 39 y.o. female who presents for [facility] Visit Patient presents today for Annual Exam. [...] PROBLEMS Active Ambulatory Problems Diagnosis Date Noted [facility] woman exam with routine gynecological exam 01/14/2024 [...] nursing note reviewed. Exam conducted with a comber tender present. Vitals: Estimated body mass index is 39.41 kg/m as calculated from the following: Height [...] them. Patient can also view results via [employer]. 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 However she is only getting [...] minutes and residual AHI of 0.4. Her [place] Sleepiness scale is a 12 The patient was counseled on proper sleep hygiene and adequate hours of sleep. She should increase her cardiovascular exercise which will help consolidate her sleep Get a sleep apnea pillow The patient was counseled on the risks of stroke, NC, and sudden with JARETH, along with the [...] Return to clinic: documented in this encounter [facility] 03-11-2024 History of Presen t illness Narrative Reason for Appointment: Patient ID: Kala Hillman is a 38 y.o. female who presents for Telehealth Patient presents today via telephone call for a telehealth appointment. Patients Phone #: [phone] (mobile) Current Medications: has a current medication [...] Marcel Eaton DO documented in this encounter [facility] 01-28-2024 History of Presen t illness Narrative [...] Father's Sister jake Tran Diabetes Mother's Brother Paulkendall SURGICAL HISTORY Past Surgical History: Procedure Laterality [...] nursing note reviewed. Exam conducted with a comber tender present. Vitals: Estimated body mass index is 36.38 kg/m as calculated from the following: Height as of 24: 5' 3 . Weight as of this [...] Marcel Eaton DO documented in this encounter [facility] 01-21-[address] Delgado's office called wondering what the plan for for pt's low serotonin level. I told them that Dr. Eaton was on vacation but as soon as we herd from him that we would let them know. [facility] 01-21-[address] Delgado's office called wondering what the plan for for pt's low serotonin level. I told them that Dr. Eaton was on vacation but as soon as we herd from him that we would let them know. documented in this encounter [facility] 01-14-2024 History of Presen t illness Narrative [...] nursing note reviewed. Exam conducted with a comber tender present. Vitals: Estimated body mass index is [...] Marcel Eaton DO documented in this encounter [facility] 12-24-2023 History of Presen t illness Narrative [...] Marcel Eaton DO documented in this encounter [facility] 09-28-2021 Hospital Discharg e instructions Patient Education [...] fried and sweet foods. General instructions Take ymyp-nir-drzbngm and prescription medicines only as told by [...] 01/27/2010 Document Revised: 07/24/2019 Document Reviewed: 04/18/2018 [employer] Patient Education 2020 [employer].S[employer]. Follow Up Care 08/25/2021 15:11:49 With:LEONARDO TUTTLE PA-C, URL Address: [address] [place] [address] Business (1) When:6 months [facility] 09-06-2021 Note [id number]:127 [facility] 09-06-2021 Hospital Discharg e instructions Patient [...] With:Merrick DUNCAN Address: [facility] [address] [place] [address]- Business (1) When: Unknown Comments:Keep scheduled appointment [facility] 09-06-2021 Note Custom Cystoscopy with Botox [...] you have a fever over 100 degrees. [facility] 08-05-2021 Hospital Discharg e instructions Patient [...] (electrical nerve stimulation). For women, using a ophthalmic medical technologist to prevent urine leaks. This is a [...] right after experiencing incontinence. General instructions Take ltfg-fcg-qhdepcf and prescription medicines only as told by [...] 05/10/2005 Document Revised: 04/12/2018 Document Reviewed: 07/12/2017 [employer] Patient Education 2020 [employer] Follow Up Care 01/24/2021 09:26:41 With:Merrick DUNCAN MD, URL Address: [facility] [address], [place] [phone] When:11/04/2021 [facility] Evaluation + Plan note Future Appointments Appointment Date:11/11/2021 08:00:00 AM Scheduled Provider:Merrick DUNCAN MD [facility] Type:URO Office Visit [facility] Evaluation + Plan note Future Appointments Appointment Date:09/06/2021 11:30:00 AM Scheduled Provider: Location:[facility] Appointment Type:Urology FT Appointment Date:09/28/2021 10:00:00 AM Scheduled Provider:LEONARDO TUTTLE PA-C [facility] Appointment Type:URO Office Visit Appointment Date:11/11/2021 08:00:00 AM Scheduled Provider:Merrick DUNCAN MD Location[facility] Appointment Type:URO Office Visit [facility] Evaluation + Plan note Future Appointments Appointment Date:09/06/2021 11:30:00 AM Scheduled Provider: Location:[facility] Appointment Type:Urology FT Appointment Date:09/28/2021 10:00:00 AM Scheduled Provider:LEONARDO TUTTLE PA-C Location:[facility] [place] Appointment Type:URO Office Visit Appointment Date:11/11/2021 08:00:00 AM Scheduled Provider:Merrick DUNCAN MD Location:[facility] [place] Appointment Type:URO Office Visit Diagnostic Tests PendingUrine Culture 08/31/21 [facility] Evaluation + Plan note Future Appointments Appointment Date:09/28/2021 10:00:00 AM Scheduled Provider:LEONARDO TUTTLE PA-C [facility] Appointment Type:URO Office Visit Appointment Date:11/11/2021 08:00:00 AM Scheduled Provider:Merrick DUNCAN MD Location:[facility] Appointment Type:URO Office Visit [facility] Evaluation + Plan note Future Appointments Appointment Date:04/12/2022 03:00:00 PM Scheduled Provider:LEONARDO TUTTLE PA-C Location:[facility] Appointment Type:URO Office Visit [facility] Evaluation note Diagnosis Encounter for weight management [...] metabolism, and development documented [facility] Narrative No data available for this section [facility] Hospital Discharge instructions No data available for this section [facility] progress note No data available for this section [facility] Summary Purpose Family History No Family History Records FoundNo Family History Records FoundNo Family History Records Found Advance Directives No Advanced Directives Records FoundNo Advanced Directives Records FoundNo Advanced Directives Records Found Additional Source Comments Care Team (unrecognized sect ion and content) Real Estate Professional Relationship Specialty Start Date End Date Navi Delgado MD [address] [place] [address] PCP - General Family Medicine 11/13/22 Real Estate Professional Relationship Specialty Start Date End Date Navi Delgado MD [address] [place] [address] PCP - General Family Medicine 11/13/22 Real Estate Professional Relationship Specialty Start Date End Date Navi Delgado MD [address] [place] [facility] [place] [address] PCP - General Family Medicine 11/13/22 Real Estate Professional Relationship Specialty Start Date End Date Navi Delgado MD [address] [place] [facility] [place] [address] PCP - General Family Medicine 11/13/22 Real Estate Professional Relationship Specialty Start Date End Date Navi Delgado MD [address] [place] [address] PCP - General Family Medicine 11/13/22 Real Estate Professional Relationship Specialty Start Date End Date Navi Delgado MD [address] [place] [facility] [place] [address] PCP - General Family Medicine 11/13/22 Real Estate Professional Relationship Specialty Start Date End Date Navi Delgado MD [address] [place] [facility] [place] [address] PCP - General Family Medicine 11/13/22 Real Estate Professional Relationship Specialty Start Date End Date Navi Delgado MD [address] [place] [facility] [place] [address] PCP - [facility] 11/13/22 Real Estate Professional Relationship Specialty Start Date End Date Navi Delgado MD [address] [place] [address] [address] PCP - General Family Medicine 11/13/22 Real Estate Professional Relationship Specialty Start Date End Date Navi Delgado MD PCP - [facility] 11/13/22 Marcel Eaton DO [address] [place] [address] PCP - [facility] 04/16/24 Real Estate Professional Relationship Specialty Start Date End Date Navi Delgado MD PCP - [facility] 11/13/22 Marcel Eaton DO [address] [place] [address] PCP - [facility] 04/16/24 INFORMATION SOURCE (unrecogn ized section and content) DATE CREATED AUTHOR 04/10/2022 [facility] DATE CREATED AUTHOR AUTHOR'S ORGANIZ ATION 09/22/2022 [facility] DATE CREATED AUTHOR AUTHOR'S ORGANIZ ATION 01/29/2025 [facility] EPIC Reason for Visit (unrecogniz ed section and content) Reason Comments encounter for weight management Reason Comments Sleep Apnea Reason Comments Telehealth AD (Adjustment Disorder) Reason Comments Weight Management Reason Comments Gynecologic Exam Reason Comments Well Women Visit FOR RECORDS PERTAINING TO PATIENTS WHO ARE [...] BE BASED ON THE PRIMARY CLINICAL RECORDS. [facility]. provides no warranty or guarantee of the accuracy or completeness of information in this document.
--- OUTSIDE RECORDS SUMMARY | 2025-01-31 12:22 | XMS_ITS | Encounter Summary ---
Author Organization [facility] Address [address] [place] [address] Care Team Providers Care Online Advertising Director Name Role Phone Navi Delgado MD Primary Care Provider [phone] Marcel Eaton DO Unavailable Reason for Visit * Reason Comments Med Refill Encounter Details Date Type Department Care Team (Late Contact Info) Description 01/17/2025 Refill [facility] [address] [place] [address] Marcel Eaton DO [address], [place] [address] Encounter for weight management Social History Tobacco Use Types Packs/Day Years [...] PM EDT documented as of this encounter Plan of Treatment Upcoming Encounters Date Type Department Care Team (Late Contact Info) Description 03/03/2025 10:40 AM EST Office Visit [facility] [address] [place] [address] Marcel Eaton DO [address] [place] [address] documented as of this encounter Visit Diagnoses Diagnosis Encounter for weight management documented in this encounter Care Teams Online Advertising Director Relationship Specialty Start Date End Date Navi Delgado MD PCP - General Family Medicine 11/13/22 Marcel Eaton DO [address] [place] [address] [place] [address] PCP - [facility] 04/16/24 documented as of this encounter
--- OUTSIDE RECORDS SUMMARY | 2025-01-31 12:22 | XMS_ITS | Encounter Summary ---
Author Organization [facility] Address [address] [place] [address] Care Team Providers Care Bottle Blowing Machine Tender Name Role Phone Navi Delgado MD Primary Care Provider + Marcel Eaton DO Unavailable Encounter Details Date Type Department Care Team (Latest Contact Info) Description 01/27/2025 Travel Social History Tobacco Use Types Packs/Day Years [...] AM EST Office Visit [facility] [address] [place] [address] Marcel Eaton DO [address] [facility] [address] [place] [id number] documented as of this encounter Visit Diagnoses Not on filedocumented in this encounter Care Teams Bottle Blowing Machine Tender Relationship Specialty Start Date End Date Navi Delgado MD PCP - General Family Medicine 11/13/22 Marcel Eaton DO [facility] [address] PCP - [facility] 04/16/24 documented as of this encounter
--- OUTSIDE RECORDS SUMMARY | 2025-01-31 12:23 | XMS_ITS | Encounter Summary ---
Author Organization [facility] Address [address] [facility] [place] [address] Care Team Providers Care Synthetic Filament Extruder Name Role Phone Navi Delgado MD Primary Care Provider [phone] Marcel Eaton DO Unavailable Encounter Details Date Type Department Care Team (Late st Contact Info) Description 12/05/2023 Abstract [facility] [address] [place] [address] Marcel Eaton DO [address], [place] [phone] Social History Tobacco Use Types Packs/Day Years Used Date Smoking Tobacco: Never Assessed Comments No Sex and Gender Information Value [...] 10:40 AM EST Office Visit [facility] [address] [place] [address] Marcel Eaton DO [address], [place] [phone] documented as of this encounter Visit Diagnoses Not on filedocumented in this encounter Care Teams Synthetic Filament Extruder Relationship Specialty Start Date End Date Navi Delgado MD PCP - General Family Medicine 11/13/22 Marcel Eaton DO [address] [place] [address] [place] [address] PCP - [facility] 04/16/24 documented as of this encounter
--- OUTSIDE RECORDS SUMMARY | 2025-01-31 12:23 | XMS_ITS | Clinical Summary ---
Author Organization [facility] Address [address] [place] [address] Care Team Providers Care Community Facilitator Name Role Phone Navi Delgado MD Primary Care Provider [phone] Marcel Eaton DO Unavailable Allergies Active Allergy Reactions Criticality Noted Date Comments Benzoin Medium 12/12/2022 Other Reaction(s): Skinrash, irritation, and blisters Benzoin Unknown 12/12/2022 Medications metoprolol tartrate (Lopressor) 25 MG tablet Active Protonix 40 MG EC tablet Active ALPRAZolam (Xanax) 0.25 MG tablet Take 0.25 mg by mouth every 6 (six) hours 4 Active venlafaxine XR (Effexor XR) 75 MG 24 hr capsuleIndicat ions:Mood changes Take 1 capsule (75 mg) by mouth Daily Do not crush or chew. 30 capsule 11 4 03/25/20 25 Active metFORMIN XR (Glucophage-XR ) 500 MG 24 hr tabletIndicati ons:Encounter for weight management TAKE 1 TABLET BY MOUTH TWICE DAILY (MORNING AND BEFORE BEDTIME) DO NOT CRUSH CHEW OR SPLIT 60 tablet 5 Active albuterol HFA 90 mcg/act inhaler INHALE 1 PUFF BY MOUTH EVERY 4 HOURS NEEDED 4 Active phentermine (Adipex-P) 37.5 MG tabletIndicati ons:Weight gain Take 1 tablet (37.5 mg) by mouth Daily before meals 30 tablet 5 02/27/20 25 Active diclofenac (Voltaren) 75 MG EC tablet Take 75 mg by mouth 2 (two) times a day as needed 4 01/28/20 25 Discontinued phentermine (Adipex-P) 37.5 MG tabletIndicati ons:Encounter for weight management Take 1 tablet (37.5 mg) by mouth in the morning. Take before meals. 90 tablet 4 01/28/20 25 Discontinued amitriptyline (Elavil) 25 MG tabletIndicati ons:Primary insomnia Take 1 tablet (25 mg) by mouth Daily 30 tablet 2 4 01/28/20 25 Discontinued metFORMIN XR (Glucophage-XR ) 500 MG 24 hr tabletIndicati ons:Encounter for weight management TAKE 1 TABLET BY MOUTH TWICE DAILY (IN THE MORNING AND BEFORE BEDTIME) DO NOT CRUSH, CHEW, OR SPLIT 60 tablet 1 5 01/20/20 25 Discontinued Active Problems Problem Noted Date Diagnosed Date Well woman exam with routine gynecological exam 01/14/2024 H/O: hysterectomy 01/14/2024 Night sweats 01/14/2024 Encounters Date Type Department Care Team Description 01/27/2025 1:00 PM EDT Office Visit [facility] [address] [place] [address] aMrcel Eaton DO Well woman exam with routine gynecological exam; Encounter for screening mammogram for malignant neoplasm of breast; Hormone disorder; Weight gain 01/27/2025 Bamboo flowsheet [facility] ANDERSONN [address] [place] [address] Marcel Eaton DO 01/27/2025 Travel 01/17/2025 Refill [facility] TODDGYN [address] [place] [address] Marcel Eaton DO Encounter for weight management 11/19/2024 Refill [facility] TODDGYN [address] [place] [address] Marcel Eaton, Encounter for weight management from Last 3 Months Family History Medical History Relation Name Comments Cancer Father Melanoma Sleep apnea Father Melanoma Breast cancer Father's Sister jake Tran Cancer Maternal Grandfather Liver cancer Breast cancer Mother Megan Cancer Mother Megan Chiari malformation Mother Megan Sleep apnea Mother Megan Diabetes Mother's Brother 1 Paul,kendall Cancer Mother's Brother 2 Kendall- oral cancer/rebekah anoma Cancer Mother's Sister Raisa- lung cancer Cancer Paternal Grandfather Prostate cancer Breast cancer Paternal Grandmother Nieves Cancer Paternal Grandmother Nieves Relation Name Status Comments Father Melanoma Alive Father's Sister jake Tran Maternal Grandfather Liver cancer Maternal Grandmother Alive Mother Megan Alive Mother's Brother 1 Paul,kendall Mother's Brother 2 Kendall- oral cancer/melanoma Alive Mother's Sister Raisa- lung cancer Alive Paternal Grandfather Prostate cancer Paternal Grandmother Nieves Alive Social History Tobacco Use Types Packs/Day Years [...] Orientation Straight 11/06/2022 12 :48 PM EDT Last Filed Vital Signs Vital Sign Reading Time Taken Comments Blood Pressure 142/86 01/27/2025 1:17 PM EDT Pulse 97 03/12/2024 9:29 AM EST Temperature - - Respiratory Rate - - Oxygen Saturation 97% 03/12/2024 9:29 AM EST Inhaled Oxygen Concentration - - Weight 101 kg (222 lb 8 oz) 01/27/2025 1:17 PM E DT Height 160 cm (5' 3 ) 03/12/2024 9:29 AM EST Body Mass Index 39.41 03/12/2024 9:29 AM EST Plan of Treatment Upcoming Encounters Date Type Department Care Team (Late st Contact Info) Description 03/03/2025 10:40 AM EST Office Visit [facility] [address] [facility] [place] [address] Marcel Eaton, [address] [place] [address] Health Maintenance Due Date Last Done Comments Mammogram 2024 Influenza Vaccine (#1) 2024 HPV/Cotest Discontinued 12/01/2022 Cervical Cancer Screening Discontinued Pap Smear Discontinued 01/14/2024, 11/13/2022 Procedures Procedure Name Priority Date/Time Associated Diagnosis Comments PAP SMEAR Routine 01/14/2024 12:00 AM EDT THINPREP PAP AND HPV MRNA E6/E7 W/RFL HPV 16,18/45 Routine 12/01/2022 10:07 AM EDT Well woman exam with routine gynecological exam from Last 3 Months or Most Recently Relevant to Health Maintenance Results * Pap Smear (01/14/2024 12:00 AM EDT) Swab Cervical swab / Unknown us Marcel Uma DO LAB CYTOLOGY ORDERABLES Final Re sult EXTERNAL LAB * THINPREP PAP AND HPV MRNA E6/E7 W/RFL HPV 16,18/45 (12/01/2022 10:07 AM EDT) us Marcel Uma DO LAB BLOOD ORDERABLES Final Resul t EXTERNAL LAB from Last 3 Months or Most Recently Relevant to Health Maintenance Insurance [employer] Care Teams Community Facilitator Relationship Specialty Start Date End Date Navi Delgado MD PCP - General Family Medicine 11/13/22 Marcel Eaton DO [address] [place] [address] [place] [address] PCP - [facility] 04/16/24
--- OUTSIDE RECORDS SUMMARY | 2025-01-31 12:23 | XMS_ITS | Encounter Summary ---
Author Organization [facility] Address [address] [facility] [place] [address] Care Team Providers Care Personal Companion Name Role Phone Navi Delgado MD Primary Care Provider [phone] Marcel Eaton DO Unavailable Encounter Details Date Type Department Care Team (Late st Contact Info) Description 12/05/2023 Abstract [facility] LOEPZ [address] [place] [address] Marcel Eaton DO [address], [place] [phone] Social History Tobacco Use Types Packs/Day Years [...] Visit [facility] LOPE[facility] [address] [place] [address] Marcel Eaton DO [address] [place], [place] [phone] documented as of this encounter Visit Diagnoses Not on filedocumented in this encounter Care Teams Personal Companion Relationship Specialty Start Date End Date Navi Delgado MD PCP - General Family Medicine 11/13/22 Marcel Eaton DO [address] [place] [address] [place] [address] PCP - [facility] 04/16/24 documented as of this encounter
--- OUTSIDE RECORDS SUMMARY | 2025-01-31 12:23 | XMS_ITS | Patient Health Record ---
Author Organization [facility] [place] Address [address] [place] [address] Care Team Providers Care Wet Mixer Name Role Phone Paul Delgado Primary Care Provider [phone] Bianca Meyers Unavailable [phone] Allergies No Known Allergies Results Component Value Reference Range Notes IGP,Aptima HPV,Age Gdln (Not yet reviewed by provider) Interpretation: Performing Lab: Notes/Report: SPATULA-ALONE VAGINA [facility] , Age Gdln ACOG Testing Note . TESTS RESULT FLAG UNITS REF RANGE LAB Clinician Provided Cytology Information Source.............Vagina No. of containers..01 ThinPrep Vial Age Algo ACOG Elke... FLAG LEGEND: L-Low Normal,H-High Normal,LL-Alert Low,HH-Alert High <-Panic Low,>-Panic High,A-Abnormal,AA-Critical Abnormal Performed at: 01 =G [facility] [place] [address] [place] [address] Patrica Renee MD, IGP, Aptima HPV, rfx 16/18,45 Note . TESTS RESULT FLAG UNITS REF RANGE LAB DIAGNOSIS: 02 NEGATIVE FOR INTRAEPITHELIAL LESION OR MALIGNANCY. Specimen adequacy: 02 Satisfactory for evaluation. No endocervical cells are present. This is consistent with a history of hysterectomy. Performed by: 02 Keagan Hargrove, Panelboard Tank Pumper ([facility]) . 02 Note: Note 02 The Pap smear is a screening test designed to aid in the detection of premalignant and malignant conditions of the uterine cervix. It is not a diagnostic procedure and should not be used as the sole means of detecting cervical cancer. Both false-positive and false-negative reports do occur. Test Methodology: Note 02 This liquid based ThinPrep(R) pap test was interpreted using the [employer](R) Inside(TM) Cervical Algorithm whole slide imaging system. HPV Genotype Reflex Note 02 Criteria not met, HPV Genotype not performed. FLAG LEGEND: L-Low Normal,H-High Normal,LL-Alert Low,HH-Alert High <-Panic Low,>-Panic High,A-Abnormal,AA-Critical Abnormal Performed at: 02 WB [facility] [place] [address] [facility] [place] [address] Patrica Renee MD, HPV Aptima Negative Negative This nucleic acid amplification test detects fourteen high- risk HPV types (16,18,31,33,35,39,45,51,52,56,5 8,59,66,68) without differentiation. Performed at: =[facility] [address] [id number] Stock Transfer Clerk: Patrica Renee MD, Phone: [phone] Performed at: [facility] [address] [id number] Stock Transfer Clerk: Patrica Renee MD, Phone: [phone] Performing Lab: see note - [facility] Reason For Referral No Information Medications Medication SIG (Take, Route, Frequency, Duration) Notes Start Date End Date Status metFORMIN HCl 500 MG 1 tablet with a pierre l Orally Once a day Active Benzonatate 200 MG 1 capsule as needed Orally Three times a day; Duration: 7 days 02/21/2024 Active Albuterol Sulfate HFA 108 (90 Base) MCG/ACT 1 puff as needed Inhalation every 4 hrs 02/21/2024 Active ALPRAZolam 0.25 MG 1 tablet Orally q 6 hours; Duration: 2 days F41.9 11/07/2023 Active Pantoprazole Sodium 40 MG 1 tablet Oral once daily; Duration: 30 days Active Diclofenac Sodium 75 MG 1 tablet as need ed Orally Twice a day; Duration: 30 days 11/07/2023 Active Amoxicillin-Pot Clavulanate 875-125 MG 1 tablet Orally every 12 hrs; Duration: 10 days 02/21/2024 Active Metoprolol Tartrate 25 MG 1 tablet with food Orally Twice a day; Duration: 30 days Active Effexor XR 37.5 MG 1 capsule with food Orally Once a day Active Social History Tobacco Use: Social History Observation Description Date Details (start date - stop date) Never Smoker NA - NA Tobacco Use/Smoking Question Answer Notes Patient is a nonsmoker Alcohol Screen (Audit-C) Question Answer Notes Did you have a drink contain ing alcohol in the past year? Yes How often did you have 6 or more drinks on one occasion in the past year? Never (0 point) How many drinks did you have on a typical day when you were drinking in the past year? 1 or 2 drinks (0 point) How often did you have a dri nk containing alcohol in the past year? Less than monthly (1 point) Points 1 Interpretation Negative AUDIT-C (Standard) Question Answer Notes Did you have a drink containing alcohol in the p ast year? No Points 0 Interpretation Negative Problems Problem Type SNOMED Code ICD Code Onset Dates Problem Status W/U Status Risk Notes Problem Obstructive sleep apnea syndrome (disorder) (39512307) Obstructive sleep apnea (adult) (pediatric) (G47.33) Active confirmed Problem Arthralgia of the ankle and/or foot (200652595) Right ankle pain (M25.571) Active confirmed Problem Arthralgia of the pelvic region and thigh (344739518) Hip pain, acute (M25.559) Active confirmed Vital Signs Heart Rate 100 /min 02/21/2024 Temperature 98.4 degrees Fahrenheit 02/21/2024 Blood pressure diastolic 60 mm Hg 02/21/2024 Oximetry 99 % 02/21/2024 Height 63 in 02/21/2024 Blood pressure systolic 102 mm Hg 02/21/2024 Weight 203.6 lbs 02/21/2024 BMI 36.06 kg/m2 02/21/2024 Encounters Encounter Location Date Provider Diagnosis [id number] [place] [address] 03/17/2024 [facility] [address] [place] [address] 04/22/2024 [facility] [address] [place] [address] 03/12/2024 [facility] [address] [place] [address] 02/21/2024 Bianca Meyers Bronchitis J40 Assessments Encounter Date Diagnosis (ICD Code) Assessment Notes Treatment Notes Treatment Clinical Notes Section Notes 02/21/2024 Bronchitis (ICD-10 - J40) fu if not improving Plan Of Treatment Pending Test Test Name Order Date ESR 11/11/2023 RHEUMATOID PANEL 11/07/2023 ANTI-DNA DS AB 11/11/2023 ANTISTREPTOLYSIN O AB (ASO) 11/11/2023 CBC AUTO DIFF 11/11/2023 CRP 11/11/2023 SED RATE WESTERGREN 11/07/2023 MRI ANKLE RT WO CON 10/18/2022 XR HIP LT 2 3V W PELVIS 11/07/2023 XR HIP RT 2 3V W PELVIS 11/07/2023 IGP,Aptima HPV,Age Gdln 01/27/2025 Insurance Providers Payer Name Payer Address Payer Phone Subscriber Number Group Number Insured Name Patient Relationship to Insured Coverage Start Date Coverage End Date [employer] [place] [employer] [address] [place] [address] [phone] [id number] Kala Arguello Self - patient is the insured Medical (General) History Medical History History ICD Code Asthma J45.909 COVID-19 U07.1 Essential Hypertension I10 Fibrocystic breast disease N60.19 GERD (gastroesophageal reflux disease) K 21.9 Generalized anxiety disorder F41.1 Iron deficiency anemia D50.9 Mitral valve prolapse I34.1 Migraine headache G43.909 Tricuspid regurgitation I07.1 Thyroid nodule E04.1 Surgical History Surgery Date(Month/Year) hyst 01/2018 Diagnostic Laparoscopy
--- OUTSIDE RECORDS SUMMARY | 2025-01-31 12:23 | XMS_ITS | Encounter Summary ---
Author Organization [facility] Address [address] [place] [address] Care Team Providers Care Fundraising Sale Representative Name Role Phone Navi Delgado MD Primary Care Provider [phone] Marcel Eaton DO Unavailable Encounter Details Date Type Department Care Team (Late st Contact Info) Description 12/09/2022 Abstract [facility] [address] [place] [address] Tiffanie Redding PA [facility] [address] [place], [facility] Social History Tobacco Use Types Packs/Day Years Used Date Smoking Tobacco: Never Assessed Comments Unknown Sex and Gender Information Value Date Recorded Sex Assigned at Female 11/06/2022 12:48 PM EDT Legal Sex Female 7:07 PM EDT Gender Identity Female 11/06/2022 12:48 PM EDT Sexual Orientation Straight 11/06/2022 12 :48 PM EDT COVID-19 Exposure Response Date Recorded In the last 10 days, have yo u been in contact with someone who was confirmed or suspected to have Coronavirus/COVID-19? No / Unsure 12/05/2022 8:39 AM EDT documented as of this encounter Plan of Treatment Upcoming Encounters Date Type Department Care Team (Late st Contact Info) Description 03/03/2025 10:40 AM EST Office Visit [facility] [address] [place] [address] Marcel Eaton DO [address] [place] [address] documented as of this encounter Visit Diagnoses Not on filedocumented in this encounter Care Teams Fundraising Sale Representative Relationship Specialty Start Date End Date Navi Delgado MD PCP - General Family Medicine 11/13/22 Marcel Eaton DO [address] [place] [address] PCP - [facility] 04/16/24 documented as of this encounter
--- OUTSIDE RECORDS SUMMARY | 2025-01-31 12:23 | XMS_ITS | Encounter Summary ---
Author Organization [facility] Address [address] [place] [address] Care Team Providers Care Tool Design Engineer Name Role Phone Navi Delgado MD Primary Care Provider [phone] Marcel Eaton DO Unavailable Encounter Details Date Type Department Care Team (Late st Contact Info) Description 01/27/2025 Bamboo flowsheet NOM[facility] LOPEZ [address] [place] [address] Marcel Eaton DO [address], [place] [address] Social History Tobacco Use Types Packs/Day Years [...] AM EST Office Visit [facility] LOPEZ [address] [place] [address] Marcel Eaton DO [address], [facility] documented as of this encounter Visit Diagnoses Not on filedocumented in this encounter Care Teams Tool Design Engineer Relationship Specialty Start Date End Date Navi Delgado MD PCP - General Family Medicine 11/13/22 Marcel Eaton DO [address] [place] [address] [place] [address] PCP - [facility] 04/16/24 documented as of this encounter
--- OUTSIDE RECORDS SUMMARY | 2025-01-31 12:23 | XMS_ITS | Encounter Summary ---
Author Organization [facility] Address [address] [facility] [place] [address] Care Team Providers Care Cryptographic Clerk Name Role Phone Navi Delgado MD Primary Care Provider [phone] Marcel Eaton DO Unavailable Encounter Details Date Type Department Care Team (Late st Contact Info) Description 01/23/2024 Orders Only [facility] LOPEZ [facility] [employer] [place] [address] Delfina George LPN [address] [employer] [place] [id number] Social History Tobacco Use Types Packs/Day Years [...] Description 03/03/2025 10:40 AM EST Office Visit [facility] LOPEZ [address] [place] [address] Marcel Eaton DO [address] [employer] [place], [facility]11 documented as of this encounter Procedures Procedure Name Priority Date/Time Associated Diagnosis Comments PAP SMEAR Routine 01/14/2024 12:00 AM EDT documented in this encounter Results * Pap Smear (01/14/2024 12:00 AM EDT) Swab Cervical swab / Unknown us Marcel Eaton DO LAB CYTOLOGY ORDERABLES Final Re sult EXTERNAL LAB documented in this encounter Visit Diagnoses Not on filedocumented in this encounter Care Teams Cryptographic Clerk Relationship Specialty Start Date End Date Navi Delgado MD PCP - General Family Medicine 11/13/22 Marcel Eaton DO [address] [place] [address] [place] [address] PCP - [facility] 04/16/24 documented as of this encounter
[2025-01-31 14:17] LABS: Ferritin 121.0 ng/mL (8.0-252.0)
[2025-01-31 14:20] LABS: Free T3 2.86 pg/mL (2.18-3.98); Glucose 89 mg/dL (74-106); Thyroid Stimulating Hormone 0.934 uIU/mL (0.358-3.740)
[2025-02-02 11:08] LABS: Sex Horm Binding Glob, Serum 34.2 nmol/L (24.6-122.0)
[2025-02-03 14:09] LABS: Calcitriol(1,25 di-OH Vit D) 66.3 pg/mL (24.8-81.5)
== END 2025-01-31 12:18 | disposition home or self-care (01) ==
LOC: LAB 12:19
PROVIDERS: PCP Family Medicine; Visit Provider Obstetrics & Gynecology
DX: E34.9 Endocrine disorder, unspecified (principal)
CPT/HCPCS: 36415; 82530; 82627; 82652; 82670; 82679; 82728; 82947; 83036; 83525; 84144; 84260; 84270; 84402; 84403; 84432; 84436; 84439; 84443; 84481; 84482; 84681; 86376; 86800

== ENCOUNTER 2025-02-17 14:44 | Outpatient (OUT) | payer OTHER, SELFPAY ==
--- OUTSIDE RECORDS SUMMARY | 2025-02-03 06:15 | XMS_ITS ---
Author Organization [facility] [place] Address [address] [place] [address] Care Team Providers Care Bookstore Clerk Name Role Phone Paul Delgado Primary Care Provider Allergies No Known Allergies REASON FOR VISIT Presents to office alone for c/o elevated blood pressure Medications Medication SIG (Take, Route, Frequency, Duration) Notes Start Date End Date Status metFORMIN HCl 500 MG 1 tablet with a meal Orally Once a day ActiveEffexor XR 37.5 MG1 capsule with food Orally Once a dayActiveAlbuterol Sulfate HFA 108 (90 Base) MCG/ACT1 puff as needed Inhalation every 4 hrs 4ActiveALPRAZolam 0.25 MG 1 tablet Orally q 6 hours; Duration: 2 days F41.9 4ActiveMetoprolol Tartrate 50 MG1 tablet with food Orally Twice a day; Duration: 30 daysActivePantoprazole Sodium 40 MG1 tablet Oral once daily; Duration: 30 daysActive Social History Tobacco Use: Social History Observation Description Date Details (start date - stop date) Never Smoker NA - NA Tobacco Use/Smoking Question Answer Notes Patient is a nonsmoker AUDIT-C (Standard) Question Answer Notes Did you have a drink containing alcohol in the p ast year? No Kkalvy6BhcmbfcoduarpaBuynqqda Problems Problem Type SNOMED Code ICD Code Onset Dates Problem Status W/U Status Risk Notes Problem Hypertension (05757257) Hypertension (I10 ) Activeconfirmed Vital Signs Weight 222.2 lbs 02/03/2025 Height 63 in 02/03/2025 Blood pressure systolic 144 mm Hg 02/04/20 25 Blood pressure diastolic 92 mm Hg 025 BMI 39.36 kg/m2 02/03/2025 Procedures Procedure Date Ordered Date Performed Result Body Sit e CARDIO Echocardiogram 02/03/2025 N/A Encounters Encounter Location Date Provider Diagnosis [facility] [address] [place] [address] 02/03/2025 Paul Delgado Hypertension I10 and Well adult Z00.00 Assessments Encounter Date Diagnosis (ICD Code) Assessment Notes Treatment Notes Treatment Clinical Notes Section Notes 02/03/2025 Hypertension (ICD-10 - I10) 02/03/2025Well adult (ICD-10 - Z00.00) Plan Of Treatment Medication Medication Name Sig Start Date Stop Date Notes Metoprolol Tartrate 50 MG 1 tablet with food Orally Twice a day; Duration: 30 days Pending Test Test Name Order Date LIPID PANEL (CHOL/TRIG/HDL/LDL) 02/04/20 25 CARDIO Echocardiogram 02/03/2025 RHEUMATOID PANEL 02/03/2025 SED RATE WESTERGREN 02/03/2025 CMP (COMP MET CHOI) w/eGFR CKD-EPI 2024 Progress Notes * Kala ARGUELLO MDOB:1985 (39 yo F)Acc No.[id number]:02/03/2025 Progress Note Patient: Jessica Kala FLOYD :?Navi Patiño Sandy ([facility]), MDDOB:1985???Age: 39 Y???Sex:FemaleDate:02/03/2025Phone:[phone]:[address]Check In:11:06 AM ESTCheck Out:12:20 PM EST Subjective: * Chief Complaints: * P resents to office alone for c/o elevated blood pressure * HPI: ???Depression Screening:?PHQ-2 (2015 Edition)?Little interest or pleasure in doing things? Several days ?Feeling down, depressed, or hopeless??Not at all ?Total Score?1 ? BP up - 150's /90's tried 1 1/2 tabl of the metopropol. ???Interim History:? Patient presents for high blood pressure check. Doing well on medication. Denies chest pain, palpitations, lightheadedness, or vision changes. * ROS: ???General/Constitutional:?Lightheadedness?denies.?Fever?denies.?Headache?denies.?Cardiovascular:?Chest pain?denies.?Palpitations?denies.?Respiratory:?Cough?denies.?Shortness of breath?denies.? * Active Problem List G47.33 Obstructive sleep ap maria elena (adult) (pediatric) Modified On:09/19/2022W/U Status:ermrmqxagU79.571Right ankle pain Modified On:10/18/2022W/U Status:khhyqgunkZ63.559Hip pain, acute Modified On:11/07/2023W/U Status:[id number] Modified On:02/03/2025W/U Status:confirmed * Medical History: * Surgical History: D iagnostic Laparoscopy hyst 01/2018 * Hospitalization/Major Diagno stic Procedure: * Family History: F ather: alive 72 yrs. M other: alive 68 yrs. B rother(s): alive. S ister(s): alive. S on(s): alive. D kaleer(s): alive. 1 brother(s) , 1 sister(s) - healthy. 1 son(s) , 1 daughter(s) - healthy. . * Social History: ???Tobacco Use:?Tobacco Use/Smoking?Patient is a?nonsmoker ???Drug/Alcohol:?AUDIT-C (Standard)?Did you have a drink containing alcohol in the past year??No ?Points?0 ?Interpretation?Negative * Medications: T akingAlbuterol Sulfate HFA 108 (90 Base) MCG/ACT Aerosol Solution 1 puff as needed Inhalation every 4 hrs ALPRAZolam 0.25 MG Tablet 1 tablet Orally q 6 hours F41.9Effexor XR(Venlafaxine HCl ER) 37.5 MG Capsule Extended Release 24 Hour 1 capsule with food Orally Once a day metFORMIN HCl 500 MG Tablet 1 tablet with a meal Orally Once a day Metoprolol Tartrate 25 MG Tablet 1 tablet with food Orally Twice a day Pantoprazole Sodium 40 MG Tablet Delayed Release 1 tablet Oral once daily Taking Albuterol Sulfate HFA 108 (90 Base) MCG/ACT Aerosol Solution 1 puff as needed Inhalation every 4 hrs Taking ALPRAZolam 0.25 MG Tablet 1 tablet Orally q 6 hours F41.9Taking Effexor XR(Venlafaxine HCl ER) 37.5 MG Capsule Extended Release 24 Hour 1 capsule with food Orally Once a day Taking metFORMIN HCl 500 MG Tablet 1 tablet with a meal Orally Once a day Taking Metoprolol Tartrate 25 MG Tablet 1 tablet with food Orally Twice a day Taking Pantoprazole Sodium 40 MG Tablet Delayed Release 1 tablet Oral once daily DiscontinuedAmoxicillin-Pot Clavulanate 875-125 MG Tablet 1 tablet Orally every 12 hrs Benzonatate 200 MG Capsule 1 capsule as needed Orally Three times a day Diclofenac Sodium 75 MG Tablet Delayed Release 1 tablet as needed Orally Twice a day Medication List reviewed and reconciled with the patientDiscontinued Amoxicillin-Pot Clavulanate 875-125 MG Tablet 1 tablet Orally every 12 hrs Discontinued Benzonatate 200 MG Capsule 1 capsule as needed Orally Three times a day Discontinued Diclofenac Sodium 75 MG Tablet Delayed Release 1 tablet as needed Orally Twice a day Medication List reviewed and reconciled with the patient * Allergies: N .K.D.A.no[Allergies Verified] Objective: * Vitals: W t:222.2lbs, Ht: 63 in, BP:144/92mm Hg, BMI:39.36Index, Ht-cm: 160.02 cm, Wt-k.79 kg. * Examination: ???General Examination: ?GENERAL APPEARANCE:? in no acute distress, well developed,well nourished.?LUNGS:? clear to auscultation bilaterally.?CARDIO:? regular rate and rhythm, S1, S2 normal, no murmurs.? Assessment: * Assessment: 1.?Hypertension - I10 (Primary)???2.?Well adult - Z00.00??? Plan: * Treatment: Refill Metoprolol Tartrate Tablet, 50 MG, 1 tablet with food, Orally, Twice a day, 30 days, 60 Tablet, Refills 11.?LAB: RHEUMATOID PANEL ?LAB: SED RATE WESTERGREN ?Procedure: CARDIO Echocardiogram2.?Well adult?LAB: LIPID PANEL (CHOL/TRIG/HDL/LDL) ?LAB: CMP (COMP MET HCOI) w/eGFR CKD-EPI * Procedure Codes: 3 080F DIAST BP > OR = 90 MM BO0027Q SYST BP > OR = 140 MM HG * Preventive Medicine: ??Screenings/Counseling:?BMI ACTION PLAN?Above Normal BMI Follow-up?Dietary management education, guidance, and counseling See treatment section of progress note for complete details of management plan. * * Sign off status: CompletedVisit Status:?CHK (Check Out) true * Provider: Sharon Delgado (TTC)MD Date: 1 Generated for Printing/Faxing/eTransmitting on:?02/17/2025 02:48 PM EST History and Physical Notes * HPI (History of Present Illness) CategorySub-CategoryDetailNotesCategory NotesDepression ScreeningPHQ-2 (2015 Edition)Little interest or pleasure in doing things?: Several days BP up - 150's /90's tried 1 1/2 tabl of the metopropol Feeling down, depressed, or hopeless?: Not at allTotal Score: 1 Examination CategorySub-CategoryDetailNotesCategory NotesGeneral ExaminationGENERAL APPEARANCE:in no acute distress, well developed, well nourishedCARDIO:regular rate and rhythm, S1, S2 normal, no murmursLUNGS:clear to auscultation bilaterally
--- OUTSIDE RECORDS SUMMARY | 2025-02-17 14:48 | XMS_ITS | Encounter Summary ---
Author Organization [facility] Address [address] [place] [address] Care Team Providers Care Event Security Officer Name Role Phone Navi Delgado MD Primary Care Provider [phone] Marcel Eaton DO Unavailable Encounter Details DateTypeDepartmentCare Team (Latest Contact Info)Wvfwlkhntet78/18/2025linisync Result Encounter [facility] External Department Unsolicited Marcel Eaton DO [address] [place] [address] Social History Tobacco UseTypesPacks/DayYears UsedDateSmoking Tobacco: NeverSmokeless Tobacco: NeverAlcohol UseStandard Drinks/WeekCommentsNever0 (1 standard drink = 0.6 oz pure alcohol)CommentsNoSex and Gender InformationValueDate RecordedSex Assigned at MduwzCwsflz09/24/2023 12:48 PM EDTLegal NncVxelbt61/15/2023 7:07 PM EDTGender XpfccbegGfingy72/24/2023 12:48 PM EDTSexual OrientationStraight 11/06/2022 12:48 PM EDTdocumented as of this encounter Plan of Treatment DateTypeDepartmentCare Team (Latest Contact Info)Dfycagucowg23/18/2025 10:40 AM ESTOffice Visit [facility] [address] [place] [address] Marcel Eaton DO [address] [place] [address] documented as of this encounter Procedures Procedure NamePriorityDate/TimeAssociated DiagnosisCommentsCORTISOL, FREE DIALYSIS, ZWOPRsdktsw18/18/2025 12:45 PM EDT [facility] NDCWJBZGVZtvscym11/18/2025 12:45 PM EDT TBH JITPTSWTWUEJKMitunua71/18/2025 12:45 PM EDT CALCITRIOL(1,25 DI-OH VIT D)Zuffbzb7401/31/2025 12:45 PM EDT THYROGLOBULIN ULBROEKCXeaylif17/18/2025 12:45 PM EDT SRMCOH TESTOSTERONE FREE/TOT ZPPCXBXVrqyrcl48/18/2025 12:45 PM EDT METRO SEX BINDING HORMONE (SHBG), TESTOSTERONE, FREE AND BIOAVAILABLERoutine 01/31/2025 12:45 PM EDT ALL THY PEROXIDASE (TPO) RIIijzypf53/18/2025 12:45 PM EDT ALL T3 MSBUZLIRpodgvc28/18/2025 12:45 PM EDT ALL BEUCXPFATOQYSyklldj61/18/2025 12:45 PM EDT ALL ESTRONE(E1)Bwzlcsf3501/31/2025 12:45 PM EDT ALL DHEA WXKAGXEDqwfwds29/18/2025 12:45 PM EDT documented in this encounter Results * CORTISOL, FREE DIALYSIS, LCMS (01/31/2025 12:45 PM EDT)ComponentValueRef Range Test MethodAnalysis TimePerformed AtPathologist SignatureCORTISOL, FREE DIALYSIS, LCMS0.561. ug/dLTBHComment: These tests were developed and their performance characteristics determined by [facility]. They have not been cleared or approved by the Food and Drug Administration. Reference Range: 8 AM 0.10 ??- 1.20 4 PM 0.042 - 0.872 Performed at: ??[facility] [address] [place] [address] ??[id number] Supervisor Firearms: Mendy Ramos MD, Phone: ??[phone] Specimen (Source)Anatomical Location / LateralityCollection Method / Volume Collection TimeReceived Time01/31/2025 12:45 PM EDT1 1:08 PM EDT Narrative CLINISYNC - 02/09/2025 7:08 PM EDT Authorizing ProviderResult TypeResult StatusCorey Uma DOLAB BLOOD ORDERABLES Final ResultPerforming OrganizationAddressCity/State/ZIP CodePhone Number DEBBIEISYNC [facility] * [facility] THYROGLOBULIN (01/31/2025 12:45 PM EDT)ComponentValueRef RangeTest Method Analysis TimePerformed AtPathologist SignatureTHYROGLOBULIN (TG-MELISSA)33. ng/mL TBHComment: This test was developed and its performance characteristics determined by [facility]. It has not been cleared or approved by the Food and Drug Administration. Reference Range: Pubertal Children and Adults: <40 According to the National Academy of Clinical Biochemistry, the reference interval for Thyroglobulin (TG) should be related to euthyroid patients and not for patients who underwent thyroidectomy. ??TG reference intervals for these patients depend on the residual mass of the thyroid tissue left after surgery. ??Establishing a post-operative baseline is recommended. ??The assay quantitation limit is 2.0 ng/mL. Performed at: ??[facility] [address] [place] [address] ??[id number] Supervisor Firearms: Mendy Ramos MD, Phone: ??[phone] Specimen (Source)Anatomical Location / LateralityCollection Method / Volume Collection TimeReceived Time01/31/2025 12:45 PM EDT1 1:08 PM EDT Narrative CLINISYNC - 02/09/2025 7:08 PM EDT Authorizing ProviderResult TypeResult StatusCorey Uma DOCLINISYNCFinal Result Performing OrganizationAddressCity/State/ZIP CodePhone Number CLINISYNC [facility] * SRMCO[facility] TESTOSTERONE FREE/TOT EQUILIB (01/31/2025 12:45 PM EDT)ComponentValue Ref RangeTest MethodAnalysis TimePerformed AtPathologist SignatureTESTOSTERONE 298 - 60 ng/dLTBHFREE TESTOSTERONE(DIRECT)0.80.0 - 4.2 pg/mLTBHComment: Performed at: ?? - [address] ??[id number] Supervisor Firearms: Manjeet Rai PhD, Phone: ??[phone] Performed at: ??[address] ??[id number] Supervisor Firearms: Arnulfo Andujar MD, Phone: ??[phone] Specimen (Source)Anatomical Location / LateralityCollection Method / Volume Collection TimeReceived Time01/31/2025 12:45 PM EDT1 1:08 PM EDT Narrative CLINISYNC - 02/06/2025 1:08 PM EDT Authorizing ProviderResult TypeResult StatusCorey Uma DOCLINISYNCFinal Result Performing OrganizationAddressCity/State/ZIP CodePhone Number CLINISYNC TB * (ABNORMAL) [facility] SEROTONIN (01/31/2025 12:45 PM EDT)ComponentValueRef RangeTest MethodAnalysis TimePerformed AtPathologist SignatureSEROTONIN, SERUM15(A)31 - 207 ng/mLTBHComment: This test was developed and its performance characteristics determined by [facility]. It has not been cleared or approved by the Food and Drug Administration. Performed at: ??[address] ??[id number] Supervisor Firearms: Arnulfo Andujar MD, Phone: ??[phone] Specimen (Source)Anatomical Location / LateralityCollection Method / Volume Collection TimeReceived Time01/31/2025 12:45 PM EDT1 1:08 PM EDT Narrative CLINISYNC - 02/06/2025 1:08 PM EDT Authorizing ProviderResult TypeResult StatusCorey Uma DOCLINISYNCFinal Result Performing OrganizationAddressty/State/ZIP CodePhone Number CLINISYNC TB * METRO SEX BINDING HORMONE (SHBG), TESTOSTERONE, FREE AND BIOAVAILABLE (01/31/2025 12:45 PM EDT)ComponentValueRef RangeTest MethodAnalysis Time Performed AtPathologist SignatureSEX HORM BINDING GLOB, SERUM34.224.6 - 122.0 nmol/LTBHComment: Performed at: ?? - [facility] ??[id number] Supervisor Firearms: Manjeet Rai PhD, Phone: ??[phone] Specimen (Source)Anatomical Location / LateralityCollection Method / Volume Collection TimeReceived Time01/31/2025 12:45 PM EDT1 1:08 PM EDT Narrative CLINISYNC - 02/06/2025 1:08 PM EDT Authorizing ProviderResult TypeResult StatusCorey Uma DOCLINISYNCFinal Result Performing OrganizationAddressty/State/ZIP CodePhone Number [facility] * CALCITRIOL(1,25 DI-OH VIT D) (01/31/2025 12:45 PM EDT)ComponentValueRef Range Test MethodAnalysis TimePerformed AtPathologist SignatureCALCITRIOL(1,25 DI-OH VIT D)66.324.8 - 81.5 pg/mLTBHComment: Performed at: ??[facility] ??[id number] Supervisor Firearms: Arnulfo Andujar MD, Phone: ??[phone] Specimen (Source)Anatomical Location / LateralityCollection Method / Volume Collection TimeReceived Time01/31/2025 12:45 PM EDT1 1:08 PM EDT Narrative CLINISYNC - 02/06/2025 1:08 PM EDT Authorizing ProviderResult TypeResult StatusCorey Uma DOLAB BLOOD ORDERABLES Final ResultPerforming OrganizationAddressty/State/ZIP CodePhone Number [facility] * ALL T3 REVERSE (01/31/2025 12:45 PM EDT)ComponentValueRef RangeTest Method Analysis TimePerformed AtPathologist SignatureREVERSE T3, SERUM22.29.2 - 24.1 ng/dLTBHComment: This test was developed and its performance characteristics determined by [facility]. It has not been cleared or approved by the Food and Drug Administration. Performed at: ?? - [facility] ??[id number] Supervisor Firearms: Arnulfo Andujar MD, Phone: ??[phone] Specimen (Source)Anatomical Location / LateralityCollection Method / Volume Collection TimeReceived Time01/31/2025 12:45 PM EDT1 1:08 PM EDT Narrative CLINISYNC - 02/06/2025 1:08 PM EDT Authorizing ProviderResult TypeResult StatusCorey Uma DOCLINISYNCFinal Result Performing OrganizationAddressCity/State/ZIP CodePhone Number [facility] * THYROGLOBULIN ANTIBODY (01/31/2025 12:45 PM EDT)ComponentValueRef RangeTest MethodAnalysis TimePerformed AtPathologist SignatureTHYROGLOBULIN ANTIBODY<1.0 0.0 - 0.9 IU/mLTBHComment: Thyroglobulin Antibody measured by Padmini Hong Methodology It should be noted that the presence of thyroglobulin antibodies may not be pathogenic nor diagnostic, especially at very low levels. The assay napkin machine operator has found that four percent of individuals without evidence of thyroid disease or autoimmunity will have positive TgAb levels up to 4 IU/mL. Performed at: ?? - [facility] ??[id number] Supervisor Firearms: Manjeet Rai PhD, Phone: ??[phone] Specimen (Source)Anatomical Location / LateralityCollection Method / Volume Collection TimeReceived Time01/31/2025 12:45 PM EDT1 1:08 PM EDT Narrative CLINISYNC - 02/06/2025 1:08 PM EDT Authorizing ProviderResult TypeResult StatusCorey Uma DOLAB BLOOD ORDERABLES Final ResultPerforming OrganizationAddressty/State/ZIP CodePhone Number [facility] * ALL THY PEROXIDASE (TPO) AB (01/31/2025 12:45 PM EDT)ComponentValueRef Range Test MethodAnalysis TimePerformed AtPathologist SignatureTHYROID PEROXIDASE (TPO) AB170 - 34 IU/mLTBHSpecimen (Source)Anatomical Location / Laterality Collection Method / VolumeCollection TimeReceived Time01/31/2025 12:45 PM EDT 01/31/2025 1:08 PM EDT Narrative CLINISYNC - 02/06/2025 1:08 PM EDT Authorizing ProviderResult TypeResult StatusCorey Uma DOCLINISYNCFinal Result Performing OrganizationAddressCity/State/ZIP CodePhone Number CLINISYHI [facility] * ALL ESTRONE(E1) (01/31/2025 12:45 PM EDT)ComponentValueRef RangeTest Method Analysis TimePerformed AtPathologist OpqesjaofPFOLZIFSB599.0. pg/mLTBHComment: ? Adult Female ? Range ?Follicular phase ? 12.5 - 166.0 ?Ovulation phase ?85.8 - 498.0 ?Luteal phase ? 43.8 - 211.0 Postmenopausal <6.0 - 54.7 ? 1st trimester 215.0 - >4300.0 Sammie ECLIA methodology Specimen (Source)Anatomical Location / LateralityCollection Method / Volume Collection TimeReceived Time01/31/2025 12:45 PM EDT1 1:08 PM EDT Narrative CLINISYNC - 02/06/2025 1:08 PM EDT Authorizing ProviderResult TypeResult StatusCorey Uma DOCLINISYNCFinal Result Performing OrganizationAddressCity/State/ZIP CodePhone Number [facility] * ALL PROGESTERONE (01/31/2025 12:45 PM EDT)ComponentValueRef RangeTest Method Analysis TimePerformed AtPathologist SignaturePROGESTERONE<0.1. ng/mLTBH Comment: ? Follicular phase ? 0.1 - ?? 0.9 ? Luteal phase ? 1.8 - ??23.9 ? Ovulation phase ?0.1 - ??12.0 ?First trimester ?11.0 - ??44.3 ?Second trimester ?? 25.4 - ??83.3 ?Third trimester ?58.7 - 214.0 ? Postmenopausal ? 0.0 - ?? 0.1 Specimen (Source)Anatomical Location / LateralityCollection Method / Volume Collection TimeReceived Time01/31/2025 12:45 PM EDT1 1:08 PM EDT Narrative CLINISYNC - 02/06/2025 1:08 PM EDT Authorizing ProviderResult TypeResult StatusCorey Uma DOCLINISYNCFinal Result Performing OrganizationAddressCity/State/ZIP CodePhone Number [facility] * ALL DHEA SULFATE (01/31/2025 12:45 PM EDT)ComponentValueRef RangeTest Method Analysis TimePerformed AtPathologist SignatureDHEA-SRTUIUF57.857.3 - 279.2 ug/dLTBHSpecimen (Source)Anatomical Location / LateralityCollection Method / VolumeCollection TimeReceived Time01/31/2025 12:45 PM EDT1 1:08 PM EDT Narrative CLINISYNC - 02/06/2025 1:08 PM EDT Authorizing ProviderResult TypeResult StatusCorey Uma DOCLINISYNCFinal Result Performing OrganizationAddressCity/State/ZIP CodePhone Number CLINISYNC [facility] documented in this encounter Visit Diagnoses Not on filedocumented in this encounter Care Teams Team MemberRelationshipSpecialtyStart DateEnd Date Navi Delgado MD PCP - GeneralFamily Medicine11/13/22 Marcel Eaton DO [address] [place] [address] [place] [address] PCP - [facility]04/16/24documented as of this encounter
--- OUTSIDE RECORDS SUMMARY | 2025-02-17 14:48 | XMS_ITS | Encounter Summary ---
Author Organization [facility] Address [address] [place] [address] Care Team Providers Care Compound Mixer Name Role Phone Navi Delgado MD Primary Care Provider [phone] Marcel Eaton DO Unavailable Encounter Details DateTypeDepartmentCare Team (Latest Contact Info)Ytykqltbncd19/30/2025Orders Only [facility]any LOPE[facility] [address] [place] [address] Rosmery GarciaWest [place], [place] [address] [place] [address] Social History Tobacco UseTypesPacks/DayYears UsedDateSmoking Tobacco: NeverSmokeless Tobacco: NeverAlcohol UseStandard Drinks/WeekCommentsNever0 (1 standard drink = 0.6 oz pure alcohol)CommentsNoSex and Gender InformationValueDate RecordedSex Assigned at JndrmEpliyk32/24/2023 12:48 PM EDTLegal UpbZzpzos63/15/2023 7:07 PM EDTGender GdirfxqeOrgstt75/24/2023 12:48 PM EDTSexual OrientationStraight 11/06/2022 12:48 PM EDTdocumented as of this encounter Plan of Treatment DateTypeDepartmentCare Team (Latest Contact Info)Pbcuqwqnfnh36/18/2025 10:40 AM ESTOffice Visit [facility] Yovany LOPE[facility] [address] [place] [address] Marcel Eaton DO [address] [place] [address] documented as of this encounter Procedures Procedure NamePriorityDate/TimeAssociated DiagnosisCommentsPAP TEST, EXTERNAL Ncuvnww5301/27/2025 12:00 AM EDTdocumented in this encounter Results * PAP TEST, EXTERNAL (01/27/2025 12:00 AM EDT) Narrative Authorizing ProviderResult TypeResult StatusCorey Uma DOLAB CYTOLOGY ORDERABLESFinal ResultPerforming OrganizationAddressCity/State/ZIP CodePhone Number EXTERNAL LAB documented in this encounter Visit Diagnoses Not on filedocumented in this encounter Care Teams Team MemberRelationshipSpecialtyStart DateEnd Date Navi Delgado MD [facility] - [facility] Marcel Eaton DO [address] [place] [address] [place] [address] PCP - [facility]04/16/24documented as of this encounter
--- OUTSIDE RECORDS SUMMARY | 2025-02-17 14:48 | XMS_ITS | Patient Health Record ---
Author Organization [facility] [place] Address [address] [place] [address] Care Team Providers Care Senior Systems Engineer Name Role Phone Paul Delgado Primary Care Provider Bianca Meyers Unavailable [phone] Allergies No Known Allergies Results Component Value Reference Range Notes IGP,Aptima HPV,Age Gdln Reviewed date:02/01/2025 11:10:46 AM Interpretation: Performing Lab: Notes/Report: [facility] , Age Gdln ACOG Testing Note . Source.............[facility] [address] [place] [address] Clinician Provided Cytology Information TESTS RESULT FLAG UNITS REF RANGE LAB Performed at: <-Panic Low,>-Panic High,A-Abnormal,AA-Critical Abnormal Patrica S Bendre MD, L-Low Normal,H-High Normal,LL-Alert Low,HH-Alert High 01 =G [facility] [place] FLAG LEGEND: Age Albertoo ACOG Elke... 30-65 01 No. of containers..01 ThinPrep Vial IGP, Aptima HPV, rfx 16/18,45 Note . 02 WB [facility] [place] Performed by: 02 detection of premalignant and malignant conditions of the consistent with a history of hysterectomy. Performed at: Criteria not met, HPV Genotype not performed. <-Panic Low,>-Panic High,A-Abnormal,AA-Critical Abnormal Satisfactory for evaluation. No endocervical cells are present. This is Specimen adequacy: 02 TESTS RESULT FLAG UNITS REF RANGE LAB uterine cervix. It is not a diagnostic procedure and HPV Genotype Reflex Note 02 This liquid based ThinPrep(R) pap test was interpreted slide imaging system. FLAG LEGEND: occur. using the UmBio(R) Genius(TM) Cervical Algorithm whole Test Methodology: Note 02 Note: Note 02 The Pap smear is a screening test designed to aid in the . 02 should not be used as the sole means of detecting cervical cancer. Both false-positive and false-negative reports do Patrica Renee MD, Keagan Hargrove, Mechanical Maintenance Supervisor (ASCP) L-Low Normal,H-High Normal,LL-Alert Low,HH-Alert High [address] [place] [address] DIAGNOSIS: 02 NEGATIVE FOR INTRAEPITHELIAL LESION OR MALIGNANCY. HPV Aptima Negative Negative without differentiation. Performed at: =G - [facility] Customer Business Manager: Patrica Renee MD, Phone: [phone] [address] [place] [address] [phone] This nucleic acid amplification test detects fourteen high- risk HPV types (16,18,31,33,35,39,45,51,52,56,58 ,59,66,68) Performed at: - [facility] Customer Business Manager: Patrica Renee MD, Phone: [phone] [address] [place] [address] [phone] Performing Lab: see note LC - [facility] LBESTRONE Reviewed date:02/03/2025 05:40:57 PM Interpretation: Performing Lab: Notes/Report: [facility] ,Estrone, Bltmy7668-452 pg/mL Range Adult (Premenopausal) 27 - 231 Menstrual Cycle (11-20 days) 32 - 176 [address] [place], [place] [phone] Menstrual Cycle (1-10 days) 19 - 149 Customer Business Manager: Arnulfo Andujar MD, Phone: [phone] Performed at: [facility] Menstrual Cycle (21-30 days) 37 - 200 Performing Lab:see hammad - [facility] LBFERRITIN Reviewed date:02/01/2025 11:10:46 AM Interpretation: Performing Lab: Notes/Report: [facility] ,Jexexkzt353.08.0-252.0 ng/mLPerforming Lab:see noteML - [facility] LBFREE T3 Reviewed date:02/01/2025 11:10:46 AM Interpretation: Performing Lab: Notes/Report: [facility] ,Free T32.862.18-3.98 pg/mLPerforming Lab:see noteML - [facility] LB FREE T4 Reviewed date:02/01/2025 11:10:46 AM Interpretation: Performing Lab: Notes/Report: [facility] ,Free T40.900.76-1.46 ng/dLPerforming Lab:see noteML - [facility] LB GLUCOSE BLOOD Reviewed date:02/01/2025 11:10:46 AM Interpretation: Performing Lab: Notes/Report: [facility] ,Nsazrfq8375-848 mg/dLPerforming Lab:[facility] LB GLYCOHEMOGLOBIN A1C Reviewed date:02/01/2025 11:10:46 AM Interpretation: Performing Lab: Notes/Report: [facility] ,Glycohemoglobin A1C6.04.5-6.2 % ADA RECOMMENDED LIMIT 4.0 - 6.0 > 7.0 ADA THERAPEUTIC TARGET < 7.0 ACTION SUGGESTED Estimated Average Yetoiyr502Zqokykqpws Lab:see note - [facility] LB INSULIN Reviewed date:02/03/2025 05:40:57 PM Interpretation: Performing Lab: Notes/Report: [facility] ,Iziahes68.12.6-24.9 uIU/mL [address] [place], [place] [phone] Customer Business Manager: Manjeet Rai PhD, Phone: [phone] Performed at: [facility] Performing Lab[facility] LBT4 Reviewed date:02/01/2025 11:10:46 AM Interpretation: Performing Lab: Notes/Report: [facility] ,T4 Thyroxine8.204.80-13.90 ug/dLPerforming Lab:[facility] LBTHYROGLOBULIN Reviewed date:02/09/2025 07:13:25 PM Interpretation: Performing Lab: Notes/Report: [facility] ,Thyroglobulin (TG-MELISSA)33. ng/mL underwent thyroidectomy. TG reference intervals for these Pubertal Children Customer Business Manager: Mendy Ramos MD, Phone: [phone] Reference Range: patients depend on the residual mass of the thyroid tissue left after surgery. Establishing a post-operative baseline This test was developed and its performance characteristics is recommended. The assay quantitation limit is 2.0 ng/mL. According to the National Academy of Clinical Biochemistry, and Adults: <40 [address], [place] [phone] the reference interval for Thyroglobulin (TG) should be by the Food and Drug Administration. determined by [facility]. It has not been cleared or approved Performed at: [facility] related to euthyroid patients and not for patients who Performing Lab:see [facility] LBTSH Reviewed date:02/01/2025 11:10:46 AM Interpretation: Performing Lab: Notes/Report: [facility] ,Thyroid Stimulating Hormone0.9340.358-3.740 uIU/mLPerforming Lab:see noteML - [facility] LBProgesterone Reviewed date:02/06/2025 03:22:24 PM Interpretation: Performing Lab: Notes/Report: [facility] ,Progesterone<0.1. ng/mL First trimester 11.0 - 44.3 Ovulation phase 0.1 - 12.0 Luteal phase 1.8 - 23.9 Follicular phase 0.1 - 0.9 Postmenopausal 0.0 - 0.1 Second trimester 25.4 - 83.3 Third trimester 58.7 - 214.0 Performing Lab:see note - [facility] LBEstradiol Reviewed date:02/06/2025 03:22:24 PM Interpretation: Performing Lab: Notes/Report: [facility] ,Rkrsrmysn547.0. pg/mL Follicular phase 12.5 - 166.0 Luteal phase 43.8 - 211.0 Ovulation phase 85.8 - 498.0 Adult Female Range Postmenopausal <6.0 - 54.7 Sammie ECLIA methodology 1st trimester 215.0 - >4300.0 Performing Lab:see [facility]St[facility] LBSex Horm Binding Glob, Serum Reviewed date:02/06/2025 03:22:24 PM Interpretation: Performing Lab: Notes/Report: [facility] ,Sex Horm Binding Glob, Serum34.224.6-122.0 nmol/L Customer Business Manager: Manjeet Rai PhD, Phone: [phone] [address], [place] [phone] Performed at: [facility] Performing Lab:see noteSt. [facility] LBTestosterone,Free and Total Reviewed date:02/06/2025 03:22:24 PM Interpretation: Performing Lab: Notes/Report: [facility] ,Mwwbzzkzoifk842-30 ng/dLFree Testosterone(Direct)0.80.0-4.2 pg/mL Performed at: [facility] Performed at: [facility] Customer Business Manager: Arnulfo Andujar MD, Phone: [phone] Customer Business Manager: Manjeet Rai PhD, Phone: [phone] [address] [place] [phone] [place] [phone] Performing Lab:see hammad - [facility] LBThyroglobulin Antibody Reviewed date:02/06/2025 03:22:24 PM Interpretation: Performing Lab: Notes/Report: [facility] ,Thyroglobulin Antibody<1.00.0-0.9 IU/mL Thyroglobulin Antibody measured by Padmini Hong antibodies may not be pathogenic nor diagnostic, especially [address] [place] [address] [phone] Methodology Performed at: [facility] to 4 IU/mL. disease or autoimmunity will have positive TgAb levels up at very low levels. The assay talent acquisition consultant has found that It should be noted that the presence of thyroglobulin four percent of individuals without evidence of thyroid Customer Business Manager: Manjeet Rai PhD, Phone: [phone] Performing Lab:see hammadSt. [facility] LBC-Peptide, Serum Reviewed date:02/03/2025 05:40:57 PM Interpretation: Performing Lab: Notes/Report: [facility] ,C-Peptide, Serum7.01.1-4.4 ng/mL [address] [place] [phone] Performed at: [facility] Customer Business Manager: Manjeet Rai PhD, Phone: [phone] C-Peptide reference interval is for fasting patients. Performing Lab:see Chavez [facility] LBCortisol, Free Dialysis, LCMS Reviewed date:02/09/2025 07:13:25 PM Interpretation: Performing Lab: Notes/Report: [facility] ,Cortisol, Free Dialysis, LCMS0.561. ug/dL These tests were developed and their performance characteristics determined by [facility]. They have not been 4 PM 0.042 - 0.872 Reference Range: cleared or approved by the Food and Drug Administration. [address] [place] [phone] Performed at: [employer] 8 AM 0.10 - 1.20 Customer Business Manager: Mendy Ramos MD, Phone: [phone] Performing Lab:see hammadSt. [facility] LBDHEA-Sulfate Reviewed date:02/06/2025 03:22:24 PM Interpretation: Performing Lab: Notes/Report: [facility] ,DHEA-Oviithx28.857.3-279.2 ug/dLPerforming Lab:see hammadSt. [facility] SIRIAReverse T3, Serum Reviewed date:02/06/2025 03:22:24 PM Interpretation: Performing Lab: Notes/Report: RajivReverse T3, Serum22.29.2-24.1 ng/dL approved by the Food and Drug Administration. [facility] [place], [place] [phone] determined by [facility]. It has not been cleared or Customer Business Manager: Arnulfo Andujar MD, Phone: [phone] This test was developed and its performance characteristics Performed at: [facility] Performing Lab:see hammadSt. [facility] LBCalcitriol(1,25 di-OH Vit D) Reviewed date:02/06/2025 03:22:24 PM Interpretation: Performing Lab: Notes/Report: RajivCalcitriol(1,25 di-OH Vit D)66.324.8-81.5 pg/mL [address] [place] [phone] Performed at: [facility] Customer Business Manager: Arnulfo Andujar MD, Phone: [phone] Performing Lab:see hammadSt. [facility] SIRIASerotonin, Serum Reviewed date:02/06/2025 03:22:24 PM Interpretation: Performing Lab: Notes/Report: RajivSerotonin, Sbgkh2466-730 ng/mL Customer Business Manager: Arnulfo Andujar MD, Phone: [phone] approved by the [facility] and Drug Administration. [address] [place] [phone] determined by [facility]. It has not been cleared or This test was developed and its performance characteristics Performed at: [facility] Performing Lab:see hammadSt. [facility] LBThyroid Peroxidase (TPO) Ab Reviewed date:02/06/2025 03:22:24 PM Interpretation: Performing Lab: Notes/Report: RajivThyroid Peroxidase (TPO) Ku348-62 IU/mLPerforming Lab:see hammadSt. [facility] LB Reason For Referral No Information Medications Medication SIG (Take, Route, Frequency, Duration) Notes Start Date End Date Status Albuterol Sulfate HFA 108 (90 Base) MCG/ ACT 1 puff as needed Inhalation every 4 hrs 4ActiveALPRAZolam 0.25 MG 1 tablet Orally q 6 hours; Duration: 2 days F41.9 11/07/2023ctiveMetoprolol Tartrate 50 MG1 tablet with food Orally Twice a day; Duration: 30 daysActivePantoprazole Sodium 40 MG1 tablet Oral once daily; Duration: 30 daysActivemetFORMIN HCl 500 MG1 tablet with a meal Orally Once a dayActiveEffexor XR 37.5 MG1 capsule with food Orally Once a dayActive Social History Tobacco Use: Social History Observation Description Date Details (start date - stop date) Never Smoker NA - NA Tobacco Use/Smoking Question Answer Notes Patient is a nonsmoker Alcohol Screen (Audit-C) Question Answer Notes Did you have a drink containing alcohol in the p ast year? Yes How often did you have 6 or more drinks on one occasion in the past year?Never (0 point)How many drinks did you have on a typical day when you were drinking in the past year?1 or 2 drinks (0 point)How often did you have a drink containing alcohol in the past year?Less than monthly (1 point)Pvqglh8Suniddwqhktvwp NegativeAUDIT-C (Standard) Question Answer Notes Did you have a drink containing alcohol in the p ast year? No Zhnumi2ZagtgoshzxitsaZwyhhhfe Problems Problem Type SNOMED Code ICD Code Onset Dates Problem Status W/U Status Risk Notes Problem Obstructive sleep ap maria elena syndrome (disorder) (42220047) Obstructive sleep apnea (adult) (pediatric) (G47.33) ActiveconfirmedProblemHypertension (81588528)Hypertension (I10)Activeconfirmed ProblemArthralgia of the ankle and/or foot (774454541)Right ankle pain (M25.571) ActiveconfirmedProblemArthralgia of the pelvic region and thigh (342844678)Hip pain, acute (M25.559)Activeconfirmed Vital Signs Heart Rate 100 /min 02/21/2024 Ljpenmgqjgs12.4 degrees Fvakfwkpah56/07/1094Uzpactwt50 %02/21/2024lood pressure cicjmxadl24 mm Hg02/03/20259445Ahnmme41 in02/03/2025lood pressure ynyqbfka553 mm Hg 02/03/20252706Uospxa128.2 lbs1MI39.36 kg/m202/03/2025 Procedures Procedure Date Ordered Date Performed Result Body Sit e CARDIO Echocardiogram 02/03/2025 N/A Encounters Encounter Location Date Provider Diagnosis [facility] [address] [place] [address] 02/21/2024 Bianca Meyers Bronchitis J40 [facility] [address] [place] [address] 02/03/2025 Paul Delgado Hypertension I10 and Well adult Z00.00 [facility] [address] [place] [address] 03/17/2024 Paul Watersy [facility] [place] [address] 04/22/2024Doug [facility] [place] [address]/21/2025Doug [facility] [place] [address]/27/2024vandana Delgado Assessments Encounter Date Diagnosis (ICD Code) Assessment Notes Treatment Notes Treatment Clinical Notes Section Notes 02/21/2024 Bronchitis (ICD-10 - J40) fu if not cwbkpvury67/21/2025Hypertension (ICD-10 - I10)02/03/2025Well adult (ICD-10 - Z00.00) Plan Of Treatment Pending Test Test Name Order Date LIPID PANEL (CHOL/TRIG/HDL/LDL) 02/04/20 CARDIO Echocardiogram 02/03/2025 ESR 11/11/2023 RHEUMATOID PANEL 11/07/2023 RHEUMATOID PANEL 02/03/2025 ANTI-DNA DS AB 11/11/2023 ANTISTREPTOLYSIN O AB (ASO) 11/11/2023 CBC AUTO DIFF 11/11/2023 CRP 11/11/2023 SED RATE WESTERGREN 11/07/2023 SED RATE WESTERGREN 02/03/2025 MRI ANKLE RT WO CON 10/18/2022 XR HIP LT 2 3V W PELVIS 11/07/2023 XR HIP RT 2 3V W PELVIS 11/07/2023 CMP (COMP MET CHOI) w/eGFR CKD-EPI 2024 Insurance Providers Payer Name Payer Address Payer Phone Subscriber Number Group Number Insured Name Patient Relationship to Insured Coverage Start Date Coverage End Date [employer] [place] [employer] [address] [place] [address] [id number] Edgardo Arguello - patient is the insured Medical (General) History Medical History History ICD Code Asthma J45.909 COVID-19 U07.1 Essential Hypertension I10 Fibrocystic breast disease N60.19 GERD (gastroesophageal reflux disease) K 21.9 Generalized anxiety disorder F41.1 Iron deficiency anemia D50.9 Mitral valve prolapse I34.1 Migraine headache G43.909 Tricuspid regurgitation I07.1 Thyroid nodule E04.1 Surgical History Surgery Date(Month/Year) hy01/2018 Diagnostic Laparoscopy
--- OUTSIDE RECORDS SUMMARY | 2025-02-17 14:48 | XMS_ITS | Clinical Summary ---
Author Organization [facility] Address [address] [place] [address] Care Team Providers Care Sound Art Instructor Name Role Phone Navi Delgado MD Primary Care Provider [phone] Marcel Eaton DO Unavailable Allergies Active AllergyReactionsCriticalityNoted HczeFbbmjjnjEkzkkmyPmdhpz80/29/2023 Other Reaction(s): Skinrash, irritation, and blisters NwdvwloTjoxtky65/29/2023 Medications MedicationSigDispense QuantityRefillsLast FilledStart DateEnd DateStatus metoprolol tartrate (Lopressor) 25 MG tablet Active Protonix 40 MG EC tablet Active ALPRAZolam (Xanax) 0.25 MG tablet Take 0.25 mg by mouth every 6 (six) hours4Active venlafaxine XR (Effexor XR) 75 MG 24 hr capsule Indications:Mood changesTake 1 capsule (75 mg) by mouth Daily Do not crush or chew. 30 capsule 5Active metFORMIN XR (Glucophage-XR) 500 MG 24 hr tablet Indications:Encounter for weight managementTAKE 1 TABLET BY MOUTH TWICE DAILY (MORNING AND BEFORE BEDTIME) DO NOT CRUSH CHEW OR SPLIT 60 tablet 5Active albuterol HFA 90 mcg/act inhaler INHALE 1 PUFF BY MOUTH EVERY 4 HOURS CDEUWR224Active phentermine (Adipex-P) 37.5 MG tablet Indications:Weight gainTake 1 tablet (37.5 mg) by mouth Daily before meals 30 tablet /5Active diclofenac (Voltaren) 75 MG EC tablet Take 75 mg by mouth 2 (two) times a day as bszohh68 Discontinued phentermine (Adipex-P) 37.5 MG tablet Indications:Encounter for weight managementTake 1 tablet (37.5 mg) by mouth in the morning. Take before meals. 90 tablet Discontinued amitriptyline (Elavil) 25 MG tablet Indications:Primary insomniaTake 1 tablet (25 mg) by mouth Daily 30 tablet Discontinued metFORMIN XR (Glucophage-XR) 500 MG 24 hr tablet Indications:Encounter for weight managementTAKE 1 TABLET BY MOUTH TWICE DAILY (IN THE MORNING AND BEFORE BEDTIME) DO NOT CRUSH, CHEW, OR SPLIT 60 tablet Discontinued Active Problems ProblemNoted DateDiagnosed DateWell woman exam with routine gynecological exam 01/14/2024H/O: mbjzinuvkytj79/30/2024Night qycwuf2401/14/2024 Encounters DateTypeDepartmentCare QlugTpubakfbmat95/30/2025[place] [address] Elina Garcia MA 01/31/2025linisync Result Encounter [facility] External Department Unsolicited Marecl Eaton DO 01/27/2025 1:00 PM EDTOffice Visit [facility] [address] [place] [address] Marcel Eaton, Well woman exam with routine gynecological exam; Encounter for screening mammogram for malignant neoplasm of breast; Hormone disorder; Weight gain01/27/2025amboo flowsheet [facility] [address] [address] [place] [address] Marcel Eaton DO 01/27/20254486Gsssul00/04/2025Refill [facility] [address] [place] [address] Marcel Eaton, DO Encounter for weight piebautdog43/06/2025Refill [facility] [address] [facility] [place] [address] Marcel Eaton, DO Encounter for weight managementfrom Last 3 Months Family History Medical HistoryRelationNameCommentsCancerFatherMelanomaSleep apneaFatherMelanoma Breast cancerFather's SisterEunice, joannaCancerMaternal GrandfatherLiver cancer Breast cancerMotherMargCancerMotherMargChiari malformationMotherMargSleep apnea MotherMargDiabetesMother's Brother 1Doug,steveCancerMother's Brother 2Steve- oral cancer/melanomaCancerMother's SisterDeb- lung cancerCancerPaternal GrandfatherProstate cancerBreast cancerPaternal GrandmotherMargareteCancer Paternal GrandmotherMargareteRelationNameStatusCommentsFatherMelanomaAlive Father's SisterEunice, joannaMaternal GrandfatherLiver cancerDeceasedMaternal GrandmotherAliveMotherMargAliveMother's Brother 1Doug,steveMother's Brother 2 Kartik- oral cancer/melanomaAliveMother's SisterDeb- lung cancerAlivePaternal GrandfatherProstate cancerDeceasedPaternal GrandmotherMargareteAlive Social History Tobacco UseTypesPacks/DayYears UsedDateSmoking Tobacco: NeverSmokeless Tobacco: NeverAlcohol UseStandard Drinks/WeekCommentsNever0 (1 standard drink = 0.6 oz pure alcohol)CommentsNoSex and Gender InformationValueDate RecordedSex Assigned at EbdwnAedwzj73/24/2023 12:48 PM EDTLegal GuuHkabll74/15/2023 7:07 PM EDTGender LebelisuPsvlxc00/24/2023 12:48 PM EDTSexual OrientationStraight 11/06/2022 12:48 PM EDT Last Filed Vital Signs Vital SignReadingTime TakenCommentsBlood Zthzlvtf737/8610/ 1:17 PM EDT Cbwlm1094/ 9:29 AM ESTTemperature--Respiratory Rate--Oxygen Eqaqxuktkh72% 03/12/2024 9:29 AM ESTInhaled Oxygen Concentration--Sxtsfs744 kg (222 lb 8 oz) 01/27/2025 1:17 PM RSHPydebh050 cm (5' 3 )03/12/2024 9:29 AM ESTBody Mass Index 39.41105/12/2023 9:29 AM EST Plan of Treatment DateTypeDepartmentCare Team (Latest Contact Info)Qcvzbjvxjsc96/18/2025 10:40 AM ESTOffice Visit [facility] [address] [facility] [place] [address] Marcel Eaton DO [address] [facility] [place] [address] Health MaintenanceDue DateLast DoneCommentsMMR Vaccines (1 of 1 - Standard series)1985DTaP/Tdap/Td Vaccines (1 - Tdap)08/07/1991Varicella Vaccines (1 of 2 - 13+ 2-dose series)1997Hepatitis B Vaccines (1 of 3 - 19+ 3-dose series)08/07/2003Pneumococcal Vaccine: Pediatrics (0 to 5 Years) and At-Risk Patients (6 to 64 Years) (1 of 2 - PCV)08/07/2003HPV Vaccines (1 - 3-dose SCDM series)08/07/20113273Pffdghvsz41/23/2025OVID-19 Vaccine (1 - season) 2024Influenza Vaccine (#1)2024HPV/GpyitwScgbgzppeudw71/18/2023 Cervical Cancer ScreeningDiscontinuedPap VktujJklyzxjpganc25/14/2025, 01/14/2024, 11/13/2022HIB VaccinesAged OutNo longer eligible based on patient's age to complete this topicHepatitis A VaccinesAged OutNo longer eligible based on patient's age to complete this topicIPV VaccinesAged OutNo longer eligible based on patient's age to complete this topicMeningococcal B VaccineAged OutNo longer eligible based on patient's age to complete this topicMeningococcal VaccineAged OutNo longer eligible based on patient's age to complete this topic Rotavirus VaccinesAged OutNo longer eligible based on patient's age to complete this topic Procedures Procedure NamePriorityDate/TimeAssociated DiagnosisCommentsCORTISOL, FREE DIALYSIS, BAGPJrpapph02/18/2025 12:45 PM EDT TB[facility] RISDOBHLHJXLESdagvwo14/18/2025 12:45 PM EDT [facility] TESTOSTERONE FREE/TOT QYHKACFIkdfanw89/18/2025 12:45 PM EDT [facility] HFWBHVWBULjoazsq95/18/2025 12:45 PM EDT METRO SEX BINDING HORMONE (SHBG), TESTOSTERONE, FREE AND BIOAVAILABLERoutine 01/31/2025 12:45 PM EDT CALCITRIOL(1,25 DI-OH VIT D)Wmhazeh7601/31/2025 12:45 PM EDT ALL T3 BFVQCHZOierebk05/18/2025 12:45 PM EDT THYROGLOBULIN NFSHWMBVHxqbyjx05/18/2025 12:45 PM EDT ALL THY PEROXIDASE (TPO) WMPfuihmp16/18/2025 12:45 PM EDT ALL ESTRONE(E1)Ihfwpmr3501/31/2025 12:45 PM EDT ALL LXEWWPQBKHFRJaaengm57/18/2025 12:45 PM EDT ALL DHEA ZVGBSRZYjjkcbo48/18/2025 12:45 PM EDT PAP TEST, NVODBARVVnbuuej65/14/2025 12:00 AM EDTTHINPREP PAP AND HPV MRNA E6/E7 W/RFL HPV 16,18/53Eczcodc85/18/2023 10:07 AM EDT Well woman exam with routine gynecological exam from Last 3 Months or Most Recently Relevant to Health Maintenance Results * CORTISOL, FREE DIALYSIS, LCMS (01/31/2025 12:45 PM EDT)ComponentValueRef Range Test MethodAnalysis TimePerformed AtPathologist SignatureCORTISOL, FREE DIALYSIS, LCMS0.561. ug/dLTBHComment: These tests were developed and their performance characteristics determined by [facility]. They have not been cleared or approved by the Food and Drug Administration. Reference Range: 8 AM 0.10 ??- 1.20 4 PM 0.042 - 0.872 Performed at: ??[facility] [address] [place] [address] ??[id number] Elementary [employer] Reading Teacher: Mendy Ramos MD, Phone: ??[phone] Specimen (Source)Anatomical Location / LateralityCollection Method / Volume Collection TimeReceived Time01/31/2025 12:45 PM EDT1 1:08 PM EDT Narrative [facility] - 02/09/2025 7:08 PM EDT Authorizing ProviderResult TypeResult StatusCorey Uma DOLAB BLOOD ORDERABLES Final ResultPerforming OrganizationAddressCity/State/ZIP CodePhone Number [facility] * (ABNORMAL) [facility] SEROTONIN (01/31/2025 12:45 PM EDT)ComponentValueRef RangeTest MethodAnalysis TimePerformed AtPathologist SignatureSEROTONIN, SERUM15(A)31 - 207 ng/mLTBHComment: This test was developed and its performance characteristics determined by [facility]. It has not been cleared or approved by the Food and Drug Administration. Performed at: ?? - [facility] ??[id number] Elementary [employer] Reading Teacher: Arnulfo Andujar MD, Phone: ??[phone] Specimen (Source)Anatomical Location / LateralityCollection Method / Volume Collection TimeReceived Time01/31/2025 12:45 PM EDT1 1:08 PM EDT Narrative [facility] - 02/06/2025 1:08 PM EDT Authorizing ProviderResult TypeResult StatusCorey Uma DOCLINISYNCFinal Result Performing OrganizationAddressCity/State/ZIP CodePhone Number [facility] * [facility] THYROGLOBULIN (01/31/2025 12:45 PM EDT)ComponentValueRef RangeTest Method Analysis TimePerformed AtPathologist SignatureTHYROGLOBULIN (TG-MELISSA)33. ng/mL TBHComment: This test was developed and its performance characteristics determined by [facility]. It has not been [...] quantitation limit is 2.0 ng/mL. Performed at: ??[facility] [address] [place] [address] ??[id number] [employer] Reading Teacher: Mendy Ramos MD, Phone: ??[phone] Specimen (Source)Anatomical Location / LateralityCollection Method / Volume Collection TimeReceived Time01/31/2025 12:45 PM EDT1 1:08 PM EDT Narrative [facility] - 02/09/2025 7:08 PM EDT Authorizing ProviderResult TypeResult StatusCorey Uma HERNANDEZLINISYNCFinal Result Performing OrganizationAddressCity/State/ZIP CodePhone Number [facility] TB * CALCITRIOL(1,25 DI-OH VIT D) (01/31/2025 12:45 PM EDT)ComponentValueRef Range Test MethodAnalysis TimePerformed AtPathologist SignatureCALCITRIOL(1,25 DI-OH VIT D)66.324.8 - 81.5 pg/mLTBHComment: Performed at: ?? - [facility] [address] ??[id number] Elementary [employer] Reading Teacher: Arnulfo Andujar MD, Phone: ??[phone] Specimen (Source)Anatomical Location / LateralityCollection Method / Volume Collection TimeReceived Time01/31/2025 12:45 PM EDT1 1:08 PM EDT Narrative [facility] - 02/06/2025 1:08 PM EDT Authorizing ProviderResult TypeResult StatusCorey Uma DOLAB BLOOD ORDERABLES Final ResultPerforming OrganizationAddressCity/State/ZIP CodePhone Number [facility] * THYROGLOBULIN ANTIBODY (01/31/2025 12:45 PM EDT)ComponentValueRef RangeTest MethodAnalysis TimePerformed AtPathologist SignatureTHYROGLOBULIN ANTIBODY<1.0 0.0 - 0.9 IU/mLTBHComment: Thyroglobulin Antibody measured by Padmini Hong Methodology It should be noted that the presence of thyroglobulin antibodies may not be pathogenic nor diagnostic, especially at very low levels. The assay career education teacher has found that four percent of individuals without evidence of thyroid disease or autoimmunity will have positive TgAb levels up to 4 IU/mL. Performed at: ??[facility] ??[id number] Elementary [employer] Reading Teacher: Manjeet Rai PhD, Phone: ??[phone] Specimen (Source)Anatomical Location / LateralityCollection Method / Volume Collection TimeReceived Time01/31/2025 12:45 PM EDT1 1:08 PM EDT Narrative [facility] - 02/06/2025 1:08 PM EDT Authorizing ProviderResult TypeResult StatusCorey Uma DOLAB BLOOD ORDERABLES Final ResultPerforming OrganizationAddressty/State/ZIP CodePhone Number [facility] * [facility]MCO[facility] TESTOSTERONE FREE/TOT EQUILIB (01/31/2025 12:45 PM EDT)ComponentValue Ref RangeTest MethodAnalysis TimePerformed AtPathologist SignatureTESTOSTERONE 298 - 60 ng/dLTBHFREE TESTOSTERONE(DIRECT)0.80.0 - 4.2 pg/mLTBHComment: Performed at: ??[facility] ??[id number] Elementary School Reading Teacher: Manjeet Rai PhD, Phone: ??[phone] Performed at: ??[address] ??[id number] Elementary [employer] Reading Teacher: Arnulfo Andujar MD, Phone: ??[phone] Specimen (Source)Anatomical Location / LateralityCollection Method / Volume Collection TimeReceived Time01/31/2025 12:45 PM EDT1 1:08 PM EDT Narrative [facility] - 02/06/2025 1:08 PM EDT Authorizing ProviderResult TypeResult StatusCorey Uma DOCLINISYNCFinal Result Performing OrganizationAddPennsylvania Hospitalty/State/ZIP CodePhone Number [facility] * METRO SEX BINDING HORMONE (SHBG), TESTOSTERONE, FREE AND BIOAVAILABLE (01/31/2025 12:45 PM EDT)ComponentValueRef RangeTest MethodAnalysis Time Performed AtPathologist SignatureSEX HORM BINDING GLOB, SERUM34.224.6 - 122.0 nmol/LTBHComment: Performed at: ?? - [facility] [address] ??[id number] Elementary [employer] Reading Teacher: Manjeet Rai PhD, Phone: ??[phone] Specimen (Source)Anatomical Location / LateralityCollection Method / Volume Collection TimeReceived Time01/31/2025 12:45 PM EDT1 1:08 PM EDT Narrative [facility] - 02/06/2025 1:08 PM EDT Authorizing ProviderResult TypeResult StatusCorey Uma DOCLINISYNCFinal Result Performing OrganizationAddPennsylvania Hospitalty/State/[facility] CodePhone Number [facility] * ALL THY PEROXIDASE (TPO) AB (01/31/2025 12:45 PM EDT)ComponentValueRef Range Test MethodAnalysis TimePerformed AtPathologist SignatureTHYROID PEROXIDASE (TPO) AB170 - 34 IU/mLTBHSpecimen (Source)Anatomical Location / Laterality Collection Method / VolumeCollection TimeReceived Time01/31/2025 12:45 PM EDT 01/31/2025 1:08 PM EDT Narrative [facility] - 02/06/2025 1:08 PM EDT Authorizing ProviderResult TypeResult StatusCorey Uma DOCLINISYNCFinal Result Performing OrganizationAdd[facility]/ZIP CodePhone Number [facility] * ALL T3 REVERSE (01/31/2025 12:45 PM EDT)ComponentValueRef RangeTest Method Analysis TimePerformed AtPathologist SignatureREVERSE T3, SERUM22.29.2 - 24.1 ng/dLTBHComment: This test was developed and its performance characteristics determined by [facility]. It has not been cleared or approved by the Food and Drug Administration. Performed at: ??[facility] [address] ??[id number] [employer] Reading Teacher: Arnulfo Andujar MD, Phone: ??[phone] Specimen (Source)Anatomical Location / LateralityCollection Method / Volume Collection TimeReceived Time01/31/2025 12:45 PM EDT1 1:08 PM EDT Narrative [facility] - 02/06/2025 1:08 PM EDT Authorizing ProviderResult TypeResult StatusCorey Uma DOCLINISYNCFinal Result Performing OrganizationAddressCity/State/ZIP CodePhone Number [facility] * ALL PROGESTERONE (01/31/2025 12:45 PM EDT)ComponentValueRef [...] Uma DOCLINISYNCFinal Result Performing OrganizationAddressty/State/ZIP CodePhone Number [facility] * ALL ESTRONE(E1) (01/31/2025 12:45 PM EDT)ComponentValueRef RangeTest Method Analysis TimePerformed AtPathologist HewfrzutcWPNJSMCGD800.0. pg/mLTBHComment: ? Adult Female ? Range ?Follicular [...] ProviderResult TypeResult StatusCorey Uma DOCLINISYNCFinal Result Performing OrganizationAddHer[facility] CodePhone Number [facility] * ALL DHEA SULFATE (01/31/2025 12:45 PM EDT)ComponentValueRef RangeTest Method Analysis TimePerformed AtPathologist SignatureDHEA-PWMWJJI41.857.3 - 279.2 ug/dLTBHSpecimen (Source)Anatomical Location / LateralityCollection Method / VolumeCollection TimeReceived Time01/31/2025 12:45 PM EDT1 1:08 PM EDT Narrative [facility] - 02/06/2025 1:08 PM EDT Authorizing ProviderResult TypeResult StatusCorey Uma DOCLINISYNCFinal Result Performing OrganizationAddressCity/State/ZIP CodePhone Number [facility] * PAP TEST, EXTERNAL (01/27/2025 12:00 AM EDT) Narrative Authorizing ProviderResult TypeResult StatusCorey Uma DOLAB CYTOLOGY ORDERABLESFinal ResultPerforming OrganizationAddressCity/State/ZIP CodePhone Number EXTERNAL LAB * THINPREP PAP AND HPV MRNA E6/E7 W/RFL HPV 16,18/45 (12/01/2022 10:07 AM EDT) Narrative Authorizing ProviderResult TypeResult StatusCorey Uma DOLAB BLOOD ORDERABLES Final ResultPerforming OrganizationAddressCity/State/ZIP CodePhone Number EXTERNAL LAB from Last 3 Months or Most Recently Relevant to Health Maintenance Insurance Care Teams Team MemberRelationshipSpecialtyStart Date Navi Delgado MD PCP - GeneralFamily Medicine11/13/22 Marcel Eaton DO [address] [place] [address] [place] [address] [facility]04/16/24
--- OUTSIDE RECORDS SUMMARY | 2025-02-17 15:04 | XMS_ITS | CCD ---
Author Organization [facility] Care Team Providers Care Floor Worker Well Service Name Role Phone Navi Delgado Primary Care Physician [phone] LEONARDO TUTTLE Attending Unavailable LEONARDO TUTTLE Attending [...] Unavailable TORRES, DR MEGAN Doshi Consulting Unavailable AGVINH MOLINA Consulting Unavailable Navi Delgado MD Primary Care Provider [phone] Navi Delgado MD Primary Care Provider [phone] Marcel Eaton DO Unavailable MARCEL EATON Attending Unavailable DAVID COLE Attending Unavailable Allergies Allergy ClassificationReported Allergen(s)Allergy TypeDate of OnsetReaction(s) Facility (20 sources)benzoin resin; Translations: [benzoin topical]Drug [id number] UnknownExecutive [facility] of [facility] (2 sources)Adhesive agentDrug allergy (disorder)[facility] (2 sources)LatexDrug allergy (disorder)[facility] (1 source)Misc-Other; Translations: [Misc-Other]Propensity to adverse reactions (disorder)[facility] Medications Current Medications MedicationDrug Class(es)DatesSig (Normalized)Sig (Original)[id number] 200 actuat albuterol 0.09 mg/actuat metered dose inhaler (3 sources)beta2-Adrenergic AgonistStart: 49-45-1953xzyu 1 puff(s) by mouth every four hours as neededalbuterol HFA 90 mcg/act inhaler INHALE 1 PUFF BY MOUTH EVERY 4 HOURS NEEDED 03/27/2024 ActiveALPRAZolam 0.25 mg oral tablet (16 sources)BenzodiazepineStart: 63-40-4010fykp 1 tablet by mouth every six hoursALPRAZolam (Xanax) 0.25 MG tablet Take 0.25 mg by mouth every 6 (six) hours 11/07/2023 Ugaveu31 hr buPROPion hydrochloride 150 mg extended release oral tablet (15 sources)AminoketoneStart: 11-26-2023 End: 18-83-2410mgcu 1 tablet by mouth once dailybuPROPion XL (Wellbutrin XL) 150 MG 24 hr tablet Indications: Mood changes Take 1 tablet (150 mg) by mouth Daily Do not crush, chew, or split. 30 tablet 11 11/26/2023 03/12/2024 Discontinued (Ineffective)cephalexin 500 mg oral capsule (4 sources)Cephalosporin AntibacterialStart: 35-88-8107pich 1 capsule by mouth twice dailyKeflex 500 mg Cap 500 mg = 1 cap(s), Oral, BID, Start the day prior to procedure, # 14 cap(s), Refills(s) 0, Pharmacy: [facility], 158, cm, 08/05/21 8:44:00 EDT, Height/Length Dosing, 89.3, kg, 08/05/21 8:44:00 EDT, Weight Dosing Start Date: 08/25/21 Status: OrderedStart: 72-52-0275zbaf 1 capsule by mouth twice dailyKeflex 500 mg Cap 500 mg = 1 cap(s), Oral, BID, Start on December 13, # 14 cap(s), Refills(s) 0, Pharmacy: [facility], 158, cm, 12/03/20 10:41:00 EDT, Height/Length Dosing, 88.2, kg, 12/03/20 10:41:00 EDT, Weight Dosing Start Date: 12/03/20 Status: Orderedcitalopram 40 mg oral tablet (15 sources)Serotonin Reuptake InhibitorStart: 08-05-2021 End: 10-91-1235flxu 1 mg by mouth once dailyCeleXA 40 mg Tab mg tab(s), Oral, Daily, Refills(s) 0 Start Date: 08/05/21 Status: OrderedPristiq (5 sources)Serotonin and Norepinephrine Reuptake InhibitorStart: 11-15-2020 Pristiq Oral, Daily, Refills(s) 0 Start Date: 11/15/20 Status: Orderedesomeprazole 40 mg delayed release oral capsule (1 source)Proton Pump InhibitorStart: 92-92-6666yrarmcgcfmmw 40 mg Cap-EC 40 mg = 1 cap(s) Start Date: 01/24/21 Status: Orderedesomeprazole 40 mg Cap-EC (4 sources)Start: 33-08-0833exdxtasleivx 40 mg Cap-EC 40 mg = 1 cap(s) Start Date: 01/24/21 Status: Ojdydqb60 hr metFORMIN hydrochloride 500 mg extended release oral tablet (20 sources)BiguanideStart: 64-42-8383njjz 1 tablet by mouth twice daily at bedtimemetFORMIN XR (Glucophage-XR) 500 MG 24 hr tablet Indications: Encounter for weight management TAKE 1 TABLET BY MOUTH TWICE DAILY (MORNING AND BEFORE BEDTIME) DO NOT CRUSH CHEW OR SPLIT 60 tablet 01/19/2025 ActiveStart: 11-13-2022 End: 58-73-6057gcox 1 tablet by mouth every twenty-four hours in the morning metFORMIN XR (Glucophage-XR) 500 MG 24 hr tablet Indications: Encounter for weight management Take 1 tablet (500 mg) by mouth in the morning and 1 tablet (500 mg) before bedtime. Do not crush, chew, or split.. 60 tablet 2 12/24/2023 03/23/2024 Zbsxxz78 hr metoprolol succinate 25 mg extended release oral tablet (20 sources)beta-Adrenergic BlockerStart: 22-41-3618mshu 1 mg by mouth once dailymetoprolol 25 mg ER Tab mg tab(s), Oral, Daily, Refills(s) 0 Start Date: 08/05/21 Status: Orderedmetoprolol tartrate (Lopressor) 25 MG tablet Zckels07 hr mirabegron 50 mg extended release oral tablet (11 sources)beta3-Adrenergic AgonistStart: 59-72-2693gqjq 1 tablet by mouth once dailyMyrbetriq 50 mg oral tablet, extended release 50 mg = 1 tab(s), Oral, Daily, # 90 tab(s), Refills(s) 3, Pharmacy: [facility], 158, cm, 08/05/21 8:44:00 EDT, Height/Length Dosing, 89.3, kg,08/05/21 8:44:00 EDT, Weight Dosing Start Date: 08/05/21 Status: Ordered End: 68-32-6009iwyvlizohz ER (Myrbetriq) 50 MG 24 hr tablet 01/28/2024 Discontinuedpantoprazole 40 mg delayed release oral tablet (19 sources)Proton Pump InhibitorProtonix 40 MG EC tablet Activephentermine hydrochloride 37.5 mg oral tablet (20 sources)Sympathomimetic Amine AnorecticStart: 11-26-2023 End: 33-29-3613cwtn 1 tablet by mouth once daily before mealtimephentermine (Adipex-P) 37.5 MG tablet Indications: Weight gain Take 1 tablet (37.5 mg) by mouth Daily before meals 30 tablet 01/27/2025 02/26/2025 Activesolifenacin succinate 5 mg oral tablet (4 sources)Cholinergic Muscarinic AntagonistStart: 96-71-2635izvj 1 tablet by mouth once dailysolifenacin 5 mg Tab 5 mg = 1 tab(s), Oral, Daily, # 30 tab(s), Refills(s) 6, Pharmacy: [facility], 158, cm, 11/15/20 10:34:00 EDT, Height/Length Dosing, 88.2, kg, 11/15/20 10:34:00 EDT, Weight Dosing Start Date: 11/24/20 Status: Mmulnie38 hr venlafaxine 75 mg extended release oral capsule (13 sources)Serotonin and Norepinephrine Reuptake InhibitorStart: 03-25-2024 End: 89-69-7223uxnu 1 capsule by mouth once dailyvenlafaxine XR (Effexor XR) 75 MG 24 hr capsule Indications: Mood changes Take 1 capsule (75 mg) bymouth Daily Do not crush or chew. 30 capsule 11 03/25/2024 03/25/2025 ActiveStart: 03-12-2024 End: 06-04-9558hmrc 2 capsules by mouth once dailyvenlafaxine XR (Effexor XR) 37.5 MG 24 hr capsule Indications: Mood changes , Hormone disorder Take2 capsules (75 mg) by mouth Daily Do not crush or chew. 30 capsule 6 03/12/2024 03/12/2025 ActiveStart: 01-28-2024 End: 30-68-7277dccv 1 capsule by mouth once dailyvenlafaxine XR (Effexor XR) 37.5 MG 24 hr capsule Indications: Hormone disorder , Mood changes Take1 capsule (37.5 mg) by mouth Daily Do not crush or chew. 30 capsule 6 01/28/2024 03/12/2024 Discontinued (Reorder) Completed/Discontinued Medications MedicationDrug Class(es)DatesSig (Normalized)Sig (Original)amitriptyline hydrochloride 25 mg oral tablet (5 sources)Tricyclic AntidepressantStart: 03-12-2024 End: 75-64-3795pxhf 1 tablet by mouth once dailyamitriptyline (Elavil) 25 MG tablet Indications: Primary insomnia Take 1 tablet (25 mg) by mouth Daily 30 tablet 2 03/12/2024 01/27/2025 Discontinueddiclofenac sodium 75 mg delayed release oral tablet (15 sources)Nonsteroidal Anti-inflammatory DrugStart: 01-08-2024 End: 59-36-6875ofut 1 tablet by mouth twice daily as neededdiclofenac (Voltaren) 75 MG EC tablet Take 75 mg by mouth 2 (two) times a day as needed 01/08/2024 1 Discontinued Problems Active Problems Problem ClassificationProblemDateDocumented DateEpisodic/ChronicAbdominal pain (5 sources)Pain in fycufx91-02-4059CzyqzlntSachyesgikdyky/social admission (3 sources)Patient encounter status; Translations: [Persons encountering health services in other specified circumstances]06-04-4883AogeroxgLompfoj disorders (5 sources)Mixed anxiety and depressive -48-0514LrmwapbHqvgko (5 sources)Crfwhw48-02-7857BuppxmwMovjcgpmurkds of surgical procedures or medical care (2 sources)Menopausal flushing; Translations: [Symptomatic postprocedural ovarian failure]91-52-1272SxvhzgqKvnadbrffg and other anemia (5 sources)Emgado38-09-9760CeffmbmoPypganvtphpsy symptoms and ill-defined conditions (18 sources)Urge incontinence; Translations: [Stress incontinence (female) (male)]Onset: 61-94-3481HjwengsCywtyepbjbjaa symptoms and ill-defined conditions (6 sources)Nocturia; Translations: [Nocturia]Onset: 44-18-1085AnjopxnrIteyk valve disorders (5 sources)Mitral valve -91-9667TeigyyyXbvjdiixonem diseases of female pelvic organs (5 sources)Inflammation of kmxixg95-30-7426SjhyxmhaQqrqoiaehlwqo mental health disorders (2 sources)Primary insomnia; Translations: [Primary insomnia]81-76-3910Icihelr Mood disorders (4 sources)Disturbance in mood; Translations: [Emotional lability]01-28-2024 EpisodicNonspecific chest pain (1 source)Chest pain, unspecified; Translations: [CHEST PAIN UNSPECIFIED]Onset: 39-14-0672EiayefanUmtuu endocrine disorders (8 sources)Disorder of endocrine system; Translations: [Endocrine disorder, unspecified]99-64-7943ZzuxmgaoBatsd female genital disorders (5 sources)Pain in female genitalia on -94-4820SowotecLdxud lower respiratory disease (1 source)Acute respiratory distress; Translations: [ACUTE RESPIRATORY DISTRESS] Onset: 95-31-5023JuysiaqkEztzb lower respiratory disease (2 sources)Snoring; Translations: [Snoring]45-93-0152EgamjlkhYckgj non-traumatic joint disorders (1 source)Pain in unspecified joint; Translations: [PAIN IN UNSPECIFIED JOINT] Onset: 35-50-0064CiqovmhdFlvoo nutritional; endocrine; and metabolic disorders (5 sources)Body mass index 30+ - -15-3314EqqdxmrAtwfw nutritional; endocrine; and metabolic disorders (2 sources)Overweight; Translations: [Overweight]33-27-0647NnipiebuRprax nutritional; endocrine; and metabolic disorders (2 sources)Weight increased; Translations: [Abnormal weight gain]01-27-2025 EpisodicOther screening for suspected conditions (not mental disorders or infectious disease) (6 sources)Encounter for screening for malignant neoplasm of cervix; Translations: [Patient encounter status]Onset: 49-97-7006MwcoeyspArzphtig codes; unclassified (4 sources)Obstructive sleep apnea (adult) (pediatric); Translations: [OBSTRUCTIVE SLEEP APNEA]Onset: 11-90-4247WxbxrkuBifsqfbi codes; unclassified (2 sources)Obstructive sleep apnea syndrome; Translations: [Obstructive sleep apnea (adult) (pediatric)]82-14-3330EstngqpMknrphlq codes; unclassified (2 sources)Hypersomnia; Translations: [Hypersomnia, unspecified]03-12-2024 ChronicSpondylosis; intervertebral disc disorders; other back problems (5 sources)Fsrksnyh29-28-1471FrttmkohUtruspz disorders (5 sources)Hdyceinxfmyozk69-56-9071KwfntpnCycpwwodbbio (4 sources)Unspecified lump in the right breast, overlapping quadrants; Translations: [UNS LUMP RT BREAST OVRLPNG QUADRNTS]Onset: 11-10-2021 Past or Other Problems Problem ClassificationProblemDateDocumented DateEpisodic/ChronicImmunizations and screening for infectious disease (1 source)Encounter for screening for human papillomavirus (HPV); Translations: [ENC SCREENING HUMAN PAPILLOMAVIRUS]Onset: 58-91-5339YftojrurRrmmbcgqjfzd breast conditions (5 sources)Unspecified lump in the right breast, upper outer quadrant; Translations: [Unspecified lump in the right breast, lower inner quadrant]Onset: 38-91-8548TizvnzgfJjyyz and unspecified benign neoplasm (1 source)Benign neoplasm of right breast; Translations: [BENIGN NEOPLASM OF RIGHT BREAST]Onset: 13-77-5764LnhbeaskSvtcm skin disorders (18 sources)Night sweats; Translations: [Generalized hyperhidrosis]Onset: 271172-92-9471Dvgifzqs Results Test NameValueInterpretationReference RangeFacilityALL DHEA SULFATEon 02-06-2025 DHEA-DUSJYYQ93.8 ug/dL57.3 - 279.2 ug/dLNOMS HealthcareALL ESTRONE(E1)on 33-93-2610BBMZGNTAC662.0 pg/mL.NOMS HealthcareComment on above:Adult Female Range Follicular phase 12.5 - 166.0 Ovulation phase 85.8 - 498.0 Luteal phase 43.8 - 211.0 Postmenopausal <6.0 - 54.7 1st trimester 215.0 - >4300.0 Sammie ECLIA methodology ALL PROGESTERONEon 31-60-7637RMAQXAHTBGTA<0.1. ng/mLNOMS HealthcareComment on above:Follicular phase 0.1 - 0.9 Luteal phase 1.8 - 23.9 Ovulation phase 0.1 - 12.0 First trimester 11.0 - 44.3 Second trimester 25.4 - 83.3 Third trimester 58.7 - 214.0 Postmenopausal 0.0 - 0.1 ALL T3 REVERSEon 29-58-1053OWGBCGA T3, SERUM22.2 ng/dL9.2 - 24.1 ng/dLNOMS HealthcareComment on above:This test was developed and its performance characteristics determined by [employer]. It has not been cleared or approved by the Food and Drug Administration. Performed at: [address] [id number] Occupational Physician: Arnulfo Andujar MD, Phone: [phone] ALL THY PEROXIDASE (TPO) ABon 48-19-2581UPFCFIE PEROXIDASE (TPO) [id number] HealthcareCALCITRIOL(1,25 DI-OH VIT D)on 56-31-4736VBGKJTOUNF(1,25 DI-OH VIT D) 66.3 pg/mL24.8 - 81.5 pg/mLNOMS HealthcareComment on above:Performed at: [address] [id number] Occupational Physician: Arnulfo Andujar MD, Phone: [phone] METRO SEX BINDING HORMONE (SHBG), TESTOSTERONE, FREE AND BIOAVAILABLEon 20-22-6262DAI HORM BINDING GLOB, SERUM34.2 nmol/L24.6 - 122.0 nmol/LNOMS HealthcareComment on above:Performed at: [address] [id number] Occupational Physician: Manjeet Rai PhD, Phone: [phone] No Panel Informationon 92-65-9284WAPALKFSUMITC HealthcareSRMCOH TESTOSTERONE FREE/TOT EQUILIBon 08-19-5194BDSD TESTOSTERONE(DIRECT)0.8 pg/mL0.0 - 4.2 pg/mL NOMS HealthcareComment on above:Performed at: [address] [id number] Occupational Physician: Manjeet Rai PhD, Phone: [phone] Performed at: [address] [id number] Occupational Physician: Arnulfo Andujar MD, Phone: [phone] Testosterone [Mass/Vol]29 ng/dL8 - 60 ng/dLNOMS HealthcareTHYROGLOBULIN ANTIBODY on 48-07-8034QWZKCLFNQWNKH ANTIBODY<1.0NOMS HealthcareComment on above: Thyroglobulin Antibody measured by Padmini Hong Methodology It should be noted that the presence of thyroglobulin antibodies may not be pathogenic nor diagnostic, especially at very low levels. The assay engineer booster and exhauster has found that four percent of individuals without evidence of thyroid disease or autoimmunity will have positive TgAb levels up to 4 IU/mL. Performed at: - Lab[address] [id number] Occupational Physician: Manjeet Rai PhD, Phone: [phone] [facility]PITALon 77-78-3292Coqdaxjnbnwyfg and review of laboratory resultsAbnormal NOMS HealthcareSEROTONIN, SERUM15 ng/jESdmpdrxx20 - 207 ng/mLNALLIANCEHE[facility] Comment on above:This test was developed and its performance characteristics determined by [employer]. It has not been cleared or approved by the Food and Drug Administration. Performed at: - Lab[address] [id number] Occupational Physician: Arnulfo Andujar MD, Phone: [phone] [facility] HEMOGLOBIN A1Con 73-85-0844Ikkrmgu [Mass/Vol]114 mg/dLNOSaint Luke's North Hospital–Barry RoadUhtynkdekkJeY8c (Bld) [Mass fraction]5.6 %4.5 - 6.2 %[facility] HealthcareComment on above:ADA RECOMMENDED LIMIT 4.0 - 6.0 ADA THERAPEUTIC TARGET < 7.0 ACTION SUGGESTED > 7.0 CLINISYNCNOSaint Luke's North Hospital–Barry RoadINSULINon 85-58-6112Sajhkvl62.7 uIU/mLCritically high 2.6-24.9The [facility] CenterComment on above:Performed By: #### INSULIN #### [facility] [address] [address] [address] Hanna SeamanRHEUMATOID FACTORon 27-14-3734RP Latex Turbid.<10.0Normal<14.0The [facility] CenterComment on above:Performed By: #### RF #### [facility] [address] [address] [address] Hanna ValladaresC AUTO DIFFon 42-27-4987VHMK #0.1 103/ulNormal0.0-0.1The [facility] CenterComment on above:Performed By: #### CBC ####[facility] [address] [address]Dr.Yilan SeamanBasophils/100 WBC (Bld)0.6 %Normal0.2-2.0The [facility] CenterComment on above:Performed By: #### CBC ####[facility] Lqyczyssed[address] [place], [place] [address]Dr.Yilan ChangEO #0.1 103/ulNormal0.0-0.7The [facility] HospitalComment on above:Performed By: #### CBC ####[facility] Wxrbkmlbas[address] [place], [place] [address]Dr.Hanna ChangEosinophils/100 WBC (Bld)1.8 %Normal 0.9-7.0The [facility] HospitalComment on above:Performed By: #### CBC ####[facility] Pubgxpgops[address] [place], [place] [address]Dr.Hanna Seaman Erythrocyte distribution width (RBC) [Ratio]13.5 %Rhslet91.0-15.0The [facility] CenterComment on above:Performed By: #### CBC ####[facility] Gtxacytfoq[address] [place], [place] [address]Dr.Hanna ChangHematocrit (Bld) [Volume fraction]38.6 %Nfbyik52.0-48.0The [facility] CenterComment on above:Performed By: #### CBC ####[facility] Mbantdeytr[address] [place], [place] [address]Dr.Hanna ChangHemoglobin (Bld) [Mass/Vol]12.5 g/dL Wxzfdd38.0-16.0The [facility] CenterComment on above:Performed By: #### CBC ####[facility] [address]mrf[address]chpcz[address] [place], [place] [address]Dr. Hanna ChangIG #0.03 10e3/ulNormal0.00-0.03The [facility] CenterComment on above: Performed By: #### CBC ####[facility] Kqdgultgen[address] [place], [place] [address]Dr.Hanna ChangIG %0.4 %Normal0.0-0.5The [facility] CenterComment on above:Performed By: #### CBC ####[facility] Nnuillxpcf[address] [place], [place] [address]Dr.Tomekalan ChangLYMPH #2.4 103/ulNormal1.2-3.8The [facility] CenterComment on above:Performed By: #### CBC ####[facility] Suxreoxjks[address] [place], [place] [address]Dr. Hanna SeamanLymphocytes/100 WBC (Bld)30.1 %Kkgqna37.5-60.0[facility] Comment on above:Performed By: #### CBC ####[facility] Prdvledakh[address] [place], [place] [address]Dr.Tomekachela JurgenMANUAL DIFF REQNONormalThe [facility] CenterComment on above:Performed By: #### CBC ####[facility] Bfvadganzn[address] [place], [place] [address]Dr.Hanna SeamanH (RBC) [Entitic mass]28.2 jeNixudk50.7-34.0The [facility] CenterComment on above: Performed By: #### CBC ####[facility] Yiujlscugs[address] [place], [place] [address]Dr.Hanna SeamanMCHC (RBC) [Mass/Vol]32.4 g/dLNormal 29.9-35.2The [facility] CenterComment on above:Performed By: #### CBC ####[facility] Kphyjicyeq[address] [place], [place] [address]Dr. Hanna SeamanV (RBC) [Entitic vol]87.1 dWMttzsd77.0-99.0The [facility] Comment on above:Performed By: #### CBC ####[facility] [address]kcpavaxhr[address] [place], [place] [address]Dr.Hanna SeamanMONO #0.5 103/ulNormal0.3-0.8 The [facility] CenterComment on above:Performed By: #### CBC ####[facility] Sntepnwhpx[address] [place], [place] [address]Dr.Tomekachela Seaman Monocytes/100 WBC (Bld)6.2 %Normal1.7-12.0The [facility] CenterComment on above: Performed By: #### CBC ####[facility] Xuzihwiosr[address] [place], [place] [address]Dr.Yilan ChangNEUT #4.8 103/ulNormal1.4-6.5The [facility] CenterComment on above:Performed By: #### CBC ####[facility] [address] [address]Dr.Hanna SeamanNeutrophils/100 WBC (Bld)60.9 %Sofeda17.0-75.0The [facility] CenterComment on above:Performed By: #### CBC ####[facility] [address] [address]Dr.Hanna SeamanPlatelet mean volume (Bld) [Entitic vol]8.7 fLCritically low 9.5-13.5The [facility] CenterComment on above:Performed By: #### CBC ####[facility] [address]kjuqgdzs[address] [place], [place] [address]Dr. Hanna UpalaORH674 103/dbOdjsol197-116Zal [facility] CenterComment on above: Performed By: #### CBC ####[facility] Jxvoknjhpz[address] [place], [place] [address]Dr.Hanna ChangRBC4.43 106/ulNormal4.20-5.40The [facility] CenterComment on above:Performed By: #### CBC ####[facility] Qigowxduxu[address] [place], [place] [address]Dr.Hanna SeamanWBC7.9 103/ul Normal4.0-11.0The [facility] CenterComment on above:Performed By: #### CBC ####[facility] Hfpjgwbsht[address] [place], [place] [address]Dr. Hanna SeamanFREE THYROXINE INDEX T7on 47-12-0067AOJ5.49Vynkpu6.30-4.50The [facility] CenterComment on above:Performed By: #### CMP, LIPID, TSH, T7 #### [facility] [address] [address] [address] Hanna SeamanT3U31.0 %Dlggfu52.0-39.0The [facility] CenterComment on above: Performed By: #### CMP, LIPID, TSH, T7 #### [facility] [address] [address] [address] Hanna SeamanT4 [Mass/Vol]7.70 ug/dLNormal4.80-13.90The [facility] Comment on above:Performed By: #### CMP, LIPID, TSH, T7 #### [facility] [address] [address] [address] Hanna SeamanGLYCOHEMOGLOBIN A1Con 58-58-2820UXH RECOMMENDATIONSEE BELOWXenia The [facility] CenterComment on above:Result Comment: ADA RECOMMENDED LIMIT 4.0 - 6.0 ADA THERAPEUTIC TARGET < 7.0 ACTION SUGGESTED > 7.0Performed By: #### A1C #### [facility] [address] [place] [address] Dr. Hanna SeamanGlucose [Mass/Vol]111 mg/dLNoKettering Memorial HospitalComment on above:Performed By: #### A1C #### [facility] [address] [address] [address] Hanna SeamanHbA1c (Bld) [Mass fraction]5.5 %Normal4.5-6.2The [facility] CenterComment on above:Performed By: #### A1C #### [facility] [address] [place] [address] Dr. Hanna Lemons 21-77-8449Mihs [Mass/Vol]40.0 ug/dLCritically low 50.0-170.0The [facility] CenterComment on above:Performed By: #### IRON ####[facility] [address] [address]Dr. Hanna SeamanLIPID PROFILEon 28-41-6996IVGB-HDL RATIO NORMSEE [facility] Medical CenterComment on above:Result Comment: 3.3 - 4.4 LOW RISK 4.4 - 7.1 AVERAGE RISK 7.1 - 11.0 MODERATE RISK >11.0 HIGH RISKPerformed By: #### CMP, LIPID, TSH, T7 #### [facility] [address] [address] [address] Hanna SeamanCholesterol [Mass/Vol]149 mg/dLNormal<=200The [facility] Comment on above:Performed By: #### CMP, LIPID, TSH, T7 #### [facility] [address] [address] [address] Hanna Avilaesterol in HDL [Mass/Vol]41 mg/vEQjwrmk56-89YxwWood County HospitalComment on above:Performed By: #### CMP, LIPID, TSH, T7 #### [facility] [address] [address] [address] Hanna Avilaesterol in LDL [Mass/Vol]81.0 mg/dLNoKettering Memorial HospitalComment on above:Performed By: #### CMP, LIPID, TSH, T7 #### [facility] [address] [address] [address] Hanna Richards.total/Cholesterol in HDL [Mass ratio]3.6 {ratio} NormalWood County HospitalComment on above:Performed By: #### CMP, LIPID, TSH, T7 #### [facility] [address] [address] [address] Hanna Tabor NORMAL> or = 60 mg/dl - LOW CARDIOVASCULAR RISK <40 mg/dl - HIGH CARDIOVASCULAR RISKNoKettering Memorial HospitalComment on above:Performed By: #### CMP, LIPID, TSH, T7 #### [facility] [address] [address] [address] Hanna Rhodes CALC NORMALSEE BELOWNoKettering Memorial HospitalComment on above:Result Comment: <100 mg/dl OPTIMAL 100 - 129 mg/dl NEAR OR ABOVE OPTIMAL 130 - 159 mg/dl BORDERLINE HIGH 160 - 189 mg/dl HIGH >190 mg/dl VERY HIGH Performed By: #### CMP, LIPID, TSH, T7 #### [facility] [address] [address] [address] Hanna SeamanTriglyceride [Mass/Vol]135 mg/dLNormal<=150[facility] Comment on above:Performed By: #### CMP, LIPID, TSH, T7 #### [facility] [address] [address] [address] Hanna TatumLDL CALC27.0 mg/dLCommunity Memorial HospitalComment on above: Performed By: #### CMP, LIPID, TSH, T7 #### [facility] [address] [address] [address] Hanna SeamanNM STRESS/REST MULTIon 12-00-1540AP STRESS/REST MULTIPatient: KADY KALA Kaylyn Exam Date: 07/13/2022 : 1985 Gender:F Ordering : DR NAVI DELGADO . Admission #: [id number] Family : Order #: [id number] CLICK HERE TO VIEW EXAM RADIOLOGY REPORT [...] by: Emilie Grace MD on 07/13/2022 at 14:55NoKettering Memorial HospitalPROF 14(COMP METB)on 62-75-0854Adtwvmc [Mass/Vol]3.3 g/dLCritically low3.4-5.0The [facility] Medical CenterComment on above:Performed By: #### CMP, LIPID, TSH, T7 ####[facility] [address] [place] [address]Dr. Yilan ChangAlbumin/Globulin [Mass ratio]0.7 {ratio}NormalThe [facility] Comment on above:Performed By: #### CMP, LIPID, TSH, T7 ####[facility] [address] [place] [address]Dr. Yilan ChangALP [Catalytic activity/Vol]76 U/FMfjtmh01-799Pzy [facility] CenterComment on above:Performed By: #### CMP, LIPID, TSH, T7 ####[facility] [address] [place] [address]Dr. Yilan ChangALT [Catalytic activity/Vol]30 U/L Mkwqgp42-80Yvj [facility] CenterComment on above:Performed By: #### CMP, LIPID, TSH, T7 ####[facility] [address]we[address] [place] [address]Dr. Yilan ChangAnion gap [Moles/Vol]13.2 mmol/LNormalThe [facility] Comment on above:Performed By: #### CMP, LIPID, TSH, T7 ####[facility] Xon[address]krrn[address] [place] [address]Dr. Yilan ChangAST [Catalytic activity/Vol]17 U/FAqdrdv65-03Uxy [facility] CenterComment on above:Performed By: #### CMP, LIPID, TSH, T7 ####[facility] [address] [place] [address]Dr. Yilan ChangBilirubin [Mass/Vol]0.2 mg/dLNormal 0.2-1.0The [facility] CenterComment on above:Performed By: #### CMP, LIPID, TSH, T7 ####[facility] S[address]ti[address] [place], [place] [address]Dr. Yilan ChangCalcium [Mass/Vol]8.0 mg/dLCritically low8.5-10.1The [facility] CenterComment on above:Performed By: #### CMP, LIPID, TSH, T7 ####[facility] Mweoveoixe[address] [place], [place] [address]Dr. Yilan Seaman Chloride [Moles/Vol]101 mmol/LYanxoj07-919Ymx [facility] CenterComment on above: Performed By: #### CMP, LIPID, TSH, T7 ####[facility] [address] [place] [address]Dr. Yilan ChangCO2 [Moles/Vol]31.2 mmol/LNormal 21.0-32.0The [facility] CenterComment on above:Performed By: #### CMP, LIPID, TSH, T7 ####[facility] Iocce[address]ybyv[address] [place], [place] [address]Dr. Yilan ChangCreatinine [Mass/Vol]0.79 mg/dLNormal0.55-1.02The [facility] CenterCommunson healthcare [facility] on above:Performed By: #### CMP, LIPID, TSH, T7 ####[facility] Djosk[address] [place], [place] [address]Dr. Yilan ChangEGFR- AF DJIBOUTIAN>60Normal>=60The [facility] on above:Performed By: #### CMP, LIPID, TSH, T7 ####[facility] Anhyjgnkmt[address] [place], [place] [address]Dr. Yilan ChangEGFR-NON AF DJIBOUTIAN>60Normal>=60The [facility] CenterCommunson healthcare cad[facility] hospital on above:Performed By: #### CMP, LIPID, TSH, T7 ####[facility] Gisnosdit[address] [place], [place] [address]Dr. Yilan ChangGlobulin (S) [Mass/Vol]4.6 g/dLNormalThe [facility] CenterCommunson healthcare cad[facility] hospital on above:Performed By: #### CMP, LIPID, TSH, T7 ####[facility] Wpcukjov[address] [place], [place] [address]Dr. Yilan ChangGlucose [Mass/Vol]94 mg/zISybjqw85-212Cal [facility] CenterCommunson healthcare [facility] on above:Performed By: #### CMP, LIPID, TSH, T7 ####[facility] Jecdrcdesy[address] [place], [place] [address]Dr. Yilan ChangPotassium [Moles/Vol]4.4 mmol/LNormal 3.5-5.1The [facility] CenterComment on above:Performed By: #### CMP, LIPID, TSH, T7 ####[facility] [address] [place], [place] [address]Rg. Yilan ChangProtein [Mass/Vol]7.9 g/dLNormal6.4-8.2The [facility] CenterComment on above:Performed By: #### CMP, LIPID, TSH, T7 ####[facility] Trsqibbajj[address] [place] [address]Dr. Yilan ChangSodium [Moles/Vol]141 mmol/GMvhxwp052-744Zov [facility] CenterComment on above: Performed By: #### CMP, LIPID, TSH, T7 ####[facility] Fdzipoewdb[address] [place] [address]Dr. Yilan ChangUrea nitrogen [Mass/Vol]17.0 mg/dLNormal7.0-18.0The [facility] CenterComment on above:Performed By: #### CMP, LIPID, TSH, T7 ####[facility] [address]sh[address]rocye[address] [place] [address]Dr. Yilan ChangUrea nitrogen/Creatinine [Mass ratio]21.5 mg/mgNormal The [facility] CenterComment on above:Performed By: #### CMP, LIPID, TSH, T7 ####[facility] [address] [place], [place] [address]Lc. Yichela ChangTSHon 49-91-3617QPV7.591 uIU/mLNormal0.358-3.740The [facility] Comment on above:Performed By: #### CMP, LIPID, TSH, T7 ####[facility] Hdfyz[address]jexl[address] [place] [address]Dr. Yilan ChangUS VAC ASST BX BREAST RT W CLIPon 74-51-5906QO VAC ASST BX BREAST RT W CLIP Begin Addendum #1 COLLECTED DATE/TIME: 11/16/2021 08:49 EDT Final Diagnosis Report for THE [place] (A) RIGHT BREAST AT 10 O'CLOCK, [...] will be provided after pathology results are available.NormalWood County HospitalMAO POST BIOPSY RIGHTon 16-26-5459GKKFC POST BIOPSY RIGHTPatient: KALA HILLMAN Exam Date: 11/16/2021 : 1985 Gender:F Ordering : DR MARCEL EATON . Admission #: [id number] Family : Order #: [id number] CLICK HERE TO VIEW EXAM RADIOLOGY REPORT [...] by: Megan Rizzo M.D. on 11/16/2021 at 12:21[facility] ACOG PANEL 2: 30 to 65on 11-15-2021..NormalThe [facility] Comment on above:Result Comment: Performed at: WBPerformed By: #### [id number] ####[facility] [address]ts[address] [place] [address]Dr. Hanna Dixon Gdln ACOG Ctifyqk05-77TlhdyzUrgKettering Memorial HospitalComment on above:Performed By: #### [id number] ####[facility] T[address]ks[address] [place], [place] [address]Dr. Hanna SeamanDIAGNOSIS:CommentCommunity Memorial HospitalComment on above:Result Comment: NEGATIVE FOR INTRAEPITHELIAL LESION OR MALIGNANCY. PREDOMINANCE OF COCCOBACILLI CONSISTENT WITH SHIFT IN VAGINAL CLAY IS PRESENT. Performed at: WBPerformed By: #### [id number] ####[place] [address]Dr. Hanna SeamanHPV AptimaNegativeNormal NegativeWood County HospitalComment on above:Result Comment: This nucleic acid amplification test detects fourteen high-risk HPV types (16,18,31,33,35,39,45,51,52,56,58,59,66,68) without differentiation. Performed at: =GPerformed By: #### [id number] ####[place] [address]Dr. Hanna SeamanMethodology:CTIMNoKettering Memorial HospitalComment on above:Result Comment: The Thin Prep(R) Podiatric Aide was unable to read this specimen. Therefore a manual review was performed. Performed at: WBPerformed By: #### [id number] ####[facility] [address] [place], [place] [address]Dr. Hanna SeamanNote:CommentCommunity Memorial HospitalCommunson healthcare cadillac hospital on above:Result Comment: The Pap smear is a screening test designed to aid in the detection of premalignant and malignant conditions of the uterine cervix. It is not a diagnostic procedure and should not be used as the sole means of detecting cervical cancer. Both false-positive and false-negative reports do occur. . Performed at: WBPerformed By: #### [id number] ####[facility] [address] [place] [address]Tu. Hanna SeamanPerformed by:CommentNormNewark HospitalComment on above:Result Comment: Jared Morgan, Hotel Guest Service Agent (ASCP) Performed at: [facility] Instituteformed By: #### [id number] ####[facility] [address] [place], [place] [address]Kh. Hanna SeamanSpecimen adequacy:Comment NormalThe [facility] Medical CenterComment on above:Result Comment: Satisfactory for evaluation. No endocervical cells are present. This is consistent with a history of hysterectomy. Performed at: [facility] Instituteformed By: #### [id number] ####[facility] [address] [place], [place] [address]Oj. Hanna ChangMG MAMM DIAGNOSTIC 3D TY CAD on 68-74-9357ZJ MAMM DIAGNOSTIC 3D TY CADPatient: KALA HILLMAN Exam Date: 11/10/2021 : 1985 Gender:F Ordering : DR MARCEL EATON . Admission #: [id number] Family : Order #: [id number] CLICK HERE TO VIEW EXAM RADIOLOGY REPORT [...] Treatments None Family Cancers None LOCATION: The [facility] BREAST COMPOSITION: Heterogeneously dense,which may [...] by: Megan Rizzo M.D. on 11/10/2021 at 10:24Community Memorial HospitalUS BREAST RIGHT LIMITEDon 16-17-1897QR BREAST RIGHT LIMITEDPatient: KADY KALA M. Exam Date: 11/10/2021 : 1985 Gender:F Ordering : DR MARCEL EATON . Admission #: [id number] Family : Order #: [id number] CLICK HERE TO VIEW EXAM RADIOLOGY REPORT [...] Treatments None Family Cancers None LOCATION: [facility] BREAST COMPOSITION: Heterogeneously dense,which may [...] by: Megan Rizzo M.D. on 11/10/2021 at 10:24Community Memorial HospitalAmbulatory Visit Summaryon 59-71-4621Pnlwporscc Visit Summary KALA HILLMAN :1985 Visit Date:09/28/2021 Ambulatory Visit Instructions Your Diagnosis Urge incontinence Tests Performed Urnls Dip Stick Auto w/o Microscopy POC 52508 Your Care Team Attending Physician - LEONARDO [...] LEONARDO TUTTLE PA-C [facility]Patient Educationon 42-58-2076Fxfrgtm EducationObstetrics and Gynecology Overactive Bladder, Adult Overactive bladder [...] You may also have very sensitive muscles thatmake your bladder squeeze too soon. These symptoms [...] as stroke, dementia, Parkinson's disease, or multiple sclerosis(MS). ? Eat or drink things that irritate [...] pelvic floor muscles, which support your bladder. Toningthese muscles can help you control urination, even [...] weight loss methods that would work best foryou. ? Diet changes. This may include reducing [...] instructions ? Take ove (more content not included)...[facility] Office/Clinic Noteon 75-86-3432Ffyrvbv Office/Clinic NoteChief Complaint follow up to Botox HPI Staff [...] to take Myrbetriq 50 mg daily. discussed pros/consof attempting to wean off this. she would like to at least try. advised that if sx return then justresume it and let us know. otherwise f/u in 6 mos. Ordered: E&M of Est. Patient Low 20-29 Min 62474 Urnls Dip Stick Auto w/o Microscopy POC 34987 Follow-up With When Contact Information PARAG LOCKETT, LEONARDO [place], URL Within 6 months [address] [place] [address] [facility] (1) Additional Instructions: Patient Education Overactive Bladder, [...] Protein Urine Dipstick: Negative (09/28/21 11:12:00) Specific [place] Urine Dipstick: 1.020 (09/28/21 11:12:00) Urine Appearance Urine Dipstick: Clear (09/28/21 11:12:00) Urine Color Urine Dipstick: Yellow (09/28/21 11:12:00) Urobilinogen Urine Dipstick: Normal 0.2-1 EU/dl (09/28/21 11:12:00) pH Urine Dipstick: 7 (09/28/21 11:12:00)NormalMercy Health – The Jewish HospitalComment on above:Result Comment: Electronically Signed By: LEONARDO TUTTLE PA-Cbr\Date and Time Signed: 09/28/2213:19 EDTCoding Summary.on 23-44-9684Hbbeiy Summary. CD:[id number]:[id number]+PGhlYWQ+HO2HHAXdC23srTAabH4BX3hJGP4UJLMABSHMQW0TXK8oe EB4QNqbU9RmkiRf [file] cHNl (more content not included)...Western Reserve HospitalCoding Summary.on 88-21-5412Issekl Summary. CD:[id number]:[id number]+PGhlYWQ+PR2AUOKaA57jlLTybU5GP2eFUQ2KVSNSQIVCTH2RTP1un HH2XVgkA1HuryJt [file] ZTog (more content not included)...NormalFishUniversity of Maryland Medical Center Midtown CampusConsent for Procedure/Surgeryon 76-85-8677Lcuxyxl for Procedure/Surgery [id number]#1.00CD:127NormalMercy Health – The Jewish HospitalConsent for Treatmenton 83-77-8359Cpoklfz for Treatment [id number]#1.00CD:127NormalMercy Health – The Jewish HospitalIntraOperative Documentson 17-40-2707CxnbzDxxiqgwlc Documents [id number]#1.00CD:127NormalFisher Lev[facility] Center And HospitalMain OR Intraoperative Recordon 12-53-2710Dwva OR Intraoperative Record IntraOp Document Type FTURO Summary Primary Physician: Merrick DUNCAN MD Finalized Date/Time: 09/06/21 12:14:38 Pt. Name: KALA HILLMAN /Sex: 1985 Female Med Rec #: [id number] Physician: Merrick DUNCAN MD Financial #: [id number] Pt. Type: O Room/Bed: / Admit/Disch: 09/06/21 10:46:07 - Institution: Case Times FTURO Entry 1 Patient Times In Room 09/06/21 11:55:00 Out Room 09/06/21 12:07:00 Procedure Times Start 09/06/21 11:58:00 Stop 09/06/21 12:04:00 Anesthesia Times Last Modified By: Quentin CHAUDHARY, Gayle Lopez 09/06/21 12:07:06 Case Attendance FTURO Entry 1 Entry 2 Entry 3 Case Attendee Merrick DUNCAN MD RULING MACHINE SET UP OPERATOR, Gayle Saavedra RN, Gayle Lopez Role Performed Surgeon - Primary Scrub - Primary Form Setter Steel Pan Forms - Primary Time In 09/06/21 11:55:00 09/06/21 [...] CYSTOSCOPY WITH BOTOX 100 UNITS LOT NUMBER [id number] EXP DATE Primary Procedure Yes Primary Surgeon [...] RN 09/06/21 12:07 Gayle Saavedra RN 09/06/21 12:14NoSt. Elizabeth HospitalMain OR Preoperative Recordon 66-17-8221Dlvy OR Preoperative RecordHolding Area Document Type FTURO Summary Primary Physician: Merrick DUNCAN MD Finalized Date/Time: 09/06/21 11:59:31 Pt. Name: KALA HILLMAN Robson Morales/Sex: 1985 Female Med Rec #: [id number] Physician: Merrick DUNCAN MD Financial #: [id number] Pt. Type: O Room/Bed: / Admit/Disch: 09/06/21 [...] or her perioperative plan of care The patient'sright to privacy is maintained Surgery Checklist FTURO [...] LPN 09/06/21 11:25 Gayle Saavedra RN 09/06/21 11:59NoSt. Elizabeth HospitalOperative Reporton 32-49-6791Mcxyinpnj ReportPatient: KALA HILLMAN Age: 36 years Sex: Female : 1985 Associated Diagnoses: None Author: Merrick DUNCAN MD Procedure Operative Information Details: Date/ Time: 09/06/2021 12:06:00. Pre-Op Dx: Incont/Urge - N39.41. Post-Op Dx: Same. Anesthesia Type: Local. Procedure: Local Cystoscopy with botox injection. Complications: None. Risks/Benefits/Informed Consent: Surgical risks, benefits, details of the [...] sitting position for 20 min dwell), Urine Specime n Results Negative for infection, Patient prepped in [...] arranged. Patient is to follow-up in 2 weeks.Western Reserve HospitalComment on above:Result Comment: Electronically Signed By: FLY STEINER Merrick Fleming.br\Date and Time Signed: 09/06/21 12:07 EDTReminderson 70-31-1612Pyacpfttx From: Cristiano Castillo MA To: EU - Clinical; Sent: 08/31/2021 11:40:26 EDT Show up: 09/03/2021 11:40:00 EDT Subject: Ambulatory Reminder Reminder/Recall urine culture Minh Dorsey addressed.[facility] Urineon 09-02-2021 Bacteria identified Cx Nom (U)Microbiology PROCEDURE: Urine Culture [R1] SOURCE: U Random [...] or tested, I=Intermediate, ESBL=Extended spectrum beta-lactamase, R=Resistant, TFG=Thymidine-dependent strain, MARYLOU=Beta-lactamase positive, SHANELL=mcg/m;(mg/L), S*=Predicted susceptible interp, [...] Locations R1: This test was performed at: [facility], [address] [place] [address], [address] [place] [address], WxuvuhHkoosoWestern Reserve HospitalComment on above:Performed By: #### [id number] ####[place], [place] [address]Ambulatory Visit Summaryon 11-33-4571Jzystkycpx Visit Summary KADYKALA CARRASCO Robson :1985 Visit Date:08/31/2021 Ambulatory Visit Instructions [...] Appointments Sunday 11:30 AM EDT With: Where: [facility] Surgical Services Sunday 10:00 AM EDT With: LEONARDO TUTTLE PA-C Where: [facility] [place] [address] [place] [address]- \.br\ Medications\.br\ What How Much When Instructions\.br\ [...] depression\.br\ Asthma\.br\ Back pain\.br\ Cervicitis\.br\ Dyspareunia, female\.br\ Hypothyroidism\.br\ Mitral valve prolapse\.br\ Nocturia\.br\ Obesity (BMI 30-39.9)\.br\ Pelvic pain\.br\ Stress incontinence\.br\ Urge incontinence\.br\ Urgency incontinence\.br\ \.br\[facility] HospitalPre-Certification Formon 66-51-1992Rqw-Certification Form [id number]#1.00CD:127NoSt. Elizabeth HospitalAmbulatory Visit Summaryon 68-28-4780Pkarqcumbw Visit Summary KALA HILLMAN :1985 Visit Date:08/05/2021 Ambulatory Visit Instructions Your Diagnosis Urgency incontinence Nocturia Stress incontinence Tests Performed Urnls Dip Stick Auto w/o Microscopy POC 76256 Your Care Team Attending Physician - Merrick [...] Merrick DUNCAN MD [facility]Patient Educationon 57-27-7021Wrgeshl EducationUrology Urinary Incontinence Urinary incontinence refers to a condition in which a person is unable to control where and when topass urine. A person with this condition will [...] the bladder, urethra, and sphincter can store andrelease urine. There are different types of urodynamic [...] of moderate-intensity exercise every week. Ask your healthcare provider which activities are safe for you. [...] urges. This can include distraction techniques or controlledbreathing exercises. ? Medicines to relax the bladder muscles and prevent bladder spasms. ? Medicines to help slow or prevent the growth of a man's prostate. ? Botox injections. These can help relax the bladder muscles. ? Using pulses of electricity to help change bladder reflexes (electrical nerve stimulation). ? For women, using a medical research assistant to prevent urine leaks. This is [...] after experiencing incontinence. General instructions ? Take ipzh-cfp-llggykf and prescription medicines only as (more content not included)...NormalMercy Health – The Jewish HospitalUrology Office/Clinic Noteon 42-44-4063Tpselqj Office/Clinic NoteChief Complaint pt is here for 6mo f/u [...] an indwelling catheter or need for in/out c atheterization to empty the bladder, and need for repeat procedures over time (usually lasts up to six months), as well as fatigue and insomnia, among others. There is a minimal risk of Botox entering the blood stream and causing neurological problems, which is quite rare. Full informed consent hasbeen obtained. Will order Local anesthesia. 2. Nocturia (R35.1: Nocturia) pt denies at this time. Improved w/ Botox. 3. Stress incontinence (N39.3: Stress incontinence (female) (male)) Pt states this has improved and at times she does have to be careful so she doesn't leak when shesneezes. Follow-up With When Contact Information FLY STEINER, FUNMILAYO Bob In 3 months 11/04/2021 EDT [facility] [address] [place] [address] [phone] Additional Instructions: Patient Education Urinary Incontinence I, Adriana Ventura, personally scribed for Dr. Duncan on 08/05/2021 09:11:32. . Documentation recorded by the scriblaura, Adriana Ventura, accurately reflects the services(s) I [...] Tab, Oral, Daily es (more content not included)...[facility] HospitalComment on above:Result Comment: Electronically Signed By: Merrick DUNCAN MD\.br\Date and Time Signed: 08/05/21 09:15 EDT\.br\Electronically Co-Signed By: Adriana Ventura MA\.br\Date and Time Co-Signed: 08/05/21 09:11 EDT Vital Signs Date TimeVital SignValuePerforming KqqoneujkFyzcbvpo15-82-3620 13:17-0400Body mass index (BMI) [Ratio]39.41 kg/v0Qandw [employer] DO Work Phone: [facility] HealthcareIqbwgketcy77-21-8150 13:17-0400Body xyvtjv980.92 kgCorey [employer] DO Work Phone: [facility] HealthcareAlugytmrdu34-94-2394 13:17-0400Diastolic blood lifjpwpo19 mm[Hg][employer] DO Work Phone: NOSaint [facility]–Barry RoadFqpjlidiqv96-97-5658 13:17-0400Systolic blood oitwssia988 mm[Hg][employer] Work Phone: [facility] HealthcareBcanqrotrj82-06-0741 09:29-0500Body ilmcxt606 cm David [employer] DO Work Phone: NOSaint Luke's [facility] Hospital–Barry RoadQkrsdpuxmy79-55-7293 09:29-0500Body mass index (BMI) [Ratio]34.54 kg/w9Rddkbb Ethan DO Work Phone: NOSaint [facility] Hospital–Barry RoadSrxauynwao34-78-4396 09:29-0500Body axjgde16.45 kgNicole Ethan DO Work Phone: noSaint Luke's North Hospital–Barry RoadTpiqayznnn85-89-8858 09:29-0500Diastolic blood lwesdtal12 mm[Hg]David Cole DO Work Phone: [facility] HealthcareZfdldafyfs12-07-5200 09:29-0500Heart rate97 /min David Cole DO Work Phone: [facility] HealthcareNiqdnmvjib48-12-4043 09:29-7236AlA7% (BldA) [Mass fraction]97 %David Cole DO Work Phone: [facility] HealthcareIhlisxhpdm31-97-2022 09:29-0500Systolic blood xgvonfnq856 mm[Hg]David Cole DO Work Phone: [facility] HealthcareSbrkrjrsib32-22-3298 15:17-0400Body mass index (BMI) [Ratio]36.38 kg/l7Bnbnw Uma DO Work Phone: [facility] HealthcareVahmdzdpur08-90-2477 15:17-0400Body yinhdd81.17 kgCorey Uma DO Work Phone: [facility] HealthcareUiaqtoovut37-83-8199 15:17-0400Diastolic blood yrubjppz97 mm[Hg]Marcel Uma DO Work Phone: [facility] HealthcareHmkljbwhcp56-27-9649 15:17-0400Systolic blood jwnwpvxe132 mm[Hg]Marcel Uma DO Work Phone: [facility] HealthcareUkgkgndfgw24-27-0164 14:58-0400Body mass index (BMI) [Ratio]36.31 kg/i5Slnzw Uma DO Work Phone: [phone] [place], [place] [address]Uhrnazpwbx83-75-4217 14:58-0400Body lplibq35.99 kgCorey Uma DO Work Phone: [facility] HealthcareGypogiqhck88-53-5206 14:58-0400Diastolic blood ceexblzq37 mm[Hg]Marcel Uma DO Work Phone: [facility] HealthcareOoehmehmqz08-00-3628 14:58-0400Systolic blood mm[Hg]Marcel Uma DO Work Phone: [facility] HealthcareAjwjtbifwt93-78-7278 10:32-0400Body yhvinj708 cm Marcel Uma DO Work Phone: [facility] HealthcareVydbepfnlg38-01-0685 10:32-0400Body mass index (BMI) [Ratio]37.2 kg/u2Ebvqy Uma DO Work Phone: [facility] HealthcareAsgemwhpyj22-92-8646 10:32-0400Body wlcojf15.25 kgCorey Uma DO Work Phone: [facility] HealthcareSghljxqzbv55-68-9647 10:32-0400Diastolic blood euatefla76 mm[Hg]Marcel Uma DO Work Phone: [facility] HealthcareYebqktgrqe80-98-7107 10:32-0400Systolic blood pbkekgtv067 mm[Hg]Marcel Uma DO Work Phone: [facility] HealthcareGkjsudcoux03-95-8501 10:48-0400Blood Pressure LocationJENNIFER PARAG [facility] 06-15-2022 10:48-0400Diastolic blood yivwuijv51 mm[Hg] LEONARDO PARAG [facility] 06-15-2022 10:48-0400Heart rate78 /minJENNIFER PARAG [facility] 06-15-2022 10:48-0400Respiratory rate16 /minJENNIFER PARAG [facility] 06-15-2022 10:48-0400Systolic blood gfmospws294 mm[Hg] LEONARDO PARAG [facility] 04-22-2022 08:42-0400Blood Pressure LocationPatrick DUNCAN [facility] 04-22-2022 08:42-0400Diastolic blood hhfbaawy02 mm[Hg] Merrick DUNCAN [facility] 04-22-2022 08:42-0400Heart rate79 /minMerrick DUNCAN [facility] 04-22-2022 08:42-0400Systolic blood yytnlysx065 mm[Hg] Merrick DUNCAN [facility] Encounters Encounter DateEncounter TypeCare ProviderFacilityStart: 01-31-2025 End: 06-91-8260Xetdebeaa Result EncounterCorey Uma DO Work Phone: [facility] External Department UnsolicitedStart: 01-31-2025 End: 35-42-7830Cpotdpkpw Result EncounterCorey Uma DO Work Phone: [facility] External Department UnsolicitedStart: 01-27-2025 End: 75-69-6021Lfvehc flowsheetCorey Uma DO Work Phone: [facility] [place] [facility]BGYNStart: 01-27-2025 End: 95-67-0124Hcokiw flowsheetCorey Uma DO Work Phone: [facility] [place] [facility]BGYNStart: 01-27-2025 End: 16-38-1874Vjlmzkb encounter procedureCorey Uma DO Work Phone: noms HealthcareStart: 01-27-2025 End: 66-02-5939Kjmhdpzi preventive med est patient 40-64yrsCorey Uma DO Work Phone: [facility] [place] OBGYNComment on above:Well woman exam with routine gynecological exam; Encounter for screening mammogram for malignant neoplasm of breast; Hormone disorder; Weight gainStart: 01-27-2025 End: 75-21-5776nbmaujfbjlWEAZS FAZIONot AvailableStart: 03-12-2024 End: 92-26-7992Kzyyte flowsheetNicole Ethan DO Work Phone: no[facility]TEStart: 03-12-2024 End: 47-60-6958Nqbcaz flowsheetNicole Ethan DO Work Phone: no[facility] R[facility]TEStart: 03-12-2024 End: 96-91-1050Wrdqzf outpatient visit 25 minutesNicole Ethan DO Work Phone: noMS [place] STATE ROUTEComment on above:JARETH (obstructive sleep apnea) (Primary Dx); Hypersomnia; Primary insomnia; Snoring; OverweightStart: 03-12-2024 End: 00-14-0657nvsstoflmmYMBCTI DANNERNot AvailableStart: 03-11-2024 End: 58-01-4433Lmui/qhp telephone evaluation 5-10 minCorey Uma DO Work Phone: NOMS BCP OBComment on above:Mood changes; Hormone disorderStart: 01-28-2024 End: 98-72-9930Eiekzq outpatient visit 15 minutesCorey Uma DO Work Phone: NOMS BCP OBComment on above:Encounter for weight management; Hormone disorder; Mood changesStart: 01-28-2024 End: 58-54-1425Tmawlu flowsheetCorey Uma DO Work Phone: NOMS BCP OBStart: 01-28-2024 End: 26-09-6003Sepvdp flowsheetCorey Uma DO Work Phone: NOMS BCP OBStart: 01-21-2024 End: 10-94-4137Utbyqjazd encounterSamika Ariel SPEEDER FRAME TENDER Work Phone: noms BCP OBStart: 01-14-2024 End: 42-14-1921Quiffjkz preventive med est patient 18-39 yrsCorey Uma DO Work Phone: NOUC BCP OBComment on above:Well woman exam with routine gynecological exam; H/O: hysterectomy; Night sweats; Hot flashes due to surgical menopause; Hormone disorderStart: 01-14-2024 End: 78-04-5656Usxrur flowsheetCorey Uma DO Work Phone: NOQU BCP OBStart: 01-14-2024 End: 31-13-8051Zlcscv flowsheetCorey Uma DO Work Phone: noms BCP OBStart: 01-14-2024 End: 03-85-0381Pvelvkiji Result EncounterCorey Uma DO Work Phone: noms External Department UnsolicitedStart: 01-14-2024 End: 34-58-3345Wltchjj encounter procedureCorey Uma DO Work Phone: NORK HealthcareStart: 12-24-2023 End: 99-85-0121Gsofwl flowsheetCorey Uma DO Work Phone: noms BCP OBStart: 12-24-2023 End: 87-20-5525Htuzpc flowsheetCorey Uma DO Work Phone: noms BCP OBStart: 12-24-2023 End: 02-06-4489Xcverk outpatient visit 5 minutesCorey Uma DO Work Phone: noms BCP OBComment on above:Encounter for weight managementStart: 66-34-8226zetqpwlsfrFV NAVI HOY .Facility:R7Osnbl: 07-26-2022 End: 47-39-5013fbeejazjqsSS NAVI HOY .Facility:B4Bleue: 12-33-6510Vvtugvmwr for general adult medical examination without abnormal findingsDR NAVI HOY . [facility] End: 29-08-3791sxatvhwtfhHV NAVI HOY .Facility:C3Dlole: 07-13-2022 End: 19-23-6912Zkxxemvdh for general adult medical examination without abnormal findingsDR NAVI DELGADO .Facility:D6Fcngk: 34-93-3328ruueqrbfymVUEDMKJH E PARAG Facility:EU tart: 11-16-2021 End: 92-23-8530zdlzyxhdllIU MARCEL UMA .Facility:B4Rqejh: 08-38-2679jrvukpcxbl MD Merrick DUNCANFacility:EU BellevueStart: 11-10-2021 End: 88-39-9020mmfkzsggymPF MARCEL UMA .Facility:C1Lswdi: 11-09-2021 End: 64-86-4459twvqajrhstKZ MARCEL UMA .Facility:F8Rmwvm: 09-28-2021 End: 97-28-7502xjmglabihnWYAZYSGJ E PERRYFacility:EU tart: 09-28-2021 End: 61-82-3175Hnxdocf encounter procedureJENNIFER E PARAG [facility] start: 09-06-2021 End: 00-07-5666ckgvcyhvcxQEJerome DUNCANFacility:FTMCStart: 09-06-2021 End: 78-50-2930Nhsoyyg encounter procedureMerrick DUNCAN [facility] Start: 08-31-2021 End: 47-62-5000zheuueyfmsTE Patrick R WATERSFacility:FTMCStart: 08-31-2021 End: 55-19-9846Fyd Drop offMerrick DUNCAN [facility] Start: 08-31-2021 End: 34-31-3173Dtzloyk encounter procedureMerrick DUNCAN [facility] start: 08-05-2021 End: 64-87-0302yberhxonrpXGJerome DUNCANFacility:EU BellueStart: 08-05-2021 End: 77-14-3760Fbpzjff encounter procedurePatrick Glenda FLY [facility] Procedures DateProcedureProcedure DetailPerforming ClinicianStart: 66-08-3320LWO DHEA SULFATECorey Uma DO Work Phone: Start: 16-19-7777LSJ ESTRONE(E1)Marcel Uma DO Work Phone: Start: 70-70-8837CBK PROGESTERONECorey Uma DO Work Phone: Start: 81-91-6803HOO T3 REVERSECorey Uma DO Work Phone: Start: 51-03-5813SXI THY PEROXIDASE (TPO) ABCorey Uma DO Work Phone: Start: 71-96-3553RXXZAJBWPR(1,25 DI-OH VIT D)Marcel Uma DO Work Phone: Start: 57-25-1287GCZBM SEX BINDING HORMONE (SHBG), TESTOSTERONE, FREE AND BIOAVAILABLECorey Uma DO Work Phone: Start: 36-91-7232POUCWY TESTOSTERONE FREE/TOT EQUILIB Marcel Uma DO Work Phone: Start: 28-68-0573OZGVJWYMEXKVF ANTIBODYCorey Uma DO Work Phone: Start: 93-72-0193MF SEROTONINCorey Uma DO Work Phone: Start: 49-75-0199LPI HEMOGLOBIN O3XAvgaq Uma DO Work Phone: Start: 01-14-2024H/O: hysterectomyH/O: hysterectomy Marcel Uma DO Work Phone: Start: 05-80-4784Fqzhffaqp of therapeutic substance into bladder wallPatrick DUNCAN Start: 36-90-1737Oaadooift hysterectomyMerrick DUNCAN Start: 61-88-4333Dlncmkmc and curettage of uterus Merrick DUNCAN Start: 88-94-2530Plzxhiksfg laparoscopyMerrick DUNCAN Start: 25-44-1828Poaysbeo sectionMerrick DUNCAN Start: 30-96-6576Jwejdnaz sectionMerrick DUNCAN Plan of Treatment DateCare ActivityDetailAuthorStart: 03-03-2025 End: 32-27-1058Dgrpnwu encounter /18/2025 10:40 AM EST Office Visit KARL LOPEZ [address] [place] [phone] Marcel Eaton DO [address] [place], [place] [id number] [facility] [place] TODDGYNStart: 01-27-2025 End: 98-65-9961I-peptideC-peptide Lab Routine Hormone disorder Expected: 01/27/2025 (Approximate), Expires: 01/27/2026NOMS HealthcareComment on above: Expected: 01/27/2025 (Approximate), Expires: 01/27/2026Start: 01-27-2025 End: 68-85-0814Rlkatchg freeCortisol, free Lab Routine Hormone disorder Expected: 01/27/2025 (Approximate), Expires: 01/27/2026NOMS HealthcareComment on above:Expected: 01/27/2025 (Approximate), Expires: 01/27/2026Start: 01-27-2025 End: 74-07-3081Lyacsvp [Mass/volume] in Serum or PlasmaGlucose, random Lab Routine Hormone disorder Expected: 01/27/2025 (Approximate), Expires: 01/27/2026 NOMS HealthcareComment on above:Expected: 01/27/2025 (Approximate), Expires: 01/27/2026Start: 01-27-2025 End: 07-59-1365Psyzogb, totalInsulin, total Lab Routine Hormone disorder Expected: 01/27/2025 (Approximate), Expires: 01/27/2026NOIN HealthcareComment on above:Expected: 01/27/2025 (Approximate), Expires: 01/27/2026Start: 01-27-2025 End: 95-83-0244RR Breast - bilateral ScreeningBilateral screening mammogram Imaging Routine Encounter for screening mammogram for malignant neoplasm of breast Expected: 01/27/2025 (Approximate), Expires: 03/29/2026[facility] Work Phone: comment on above:Expected: 01/27/2025 (Approximate), Expires: 03/29/2026Start: 01-27-2025 End: 02-19-8916Wpbdsuilf serumSerotonin serum Lab Routine Hormone disorder Expected: 01/27/2025 (Approximate), Expires: 01/27/2026[facility] HealthcareComment on above:Expected: 01/27/2025 (Approximate), Expires: 01/27/2026Start: 01-27-2025 End: 33-34-9158VfajleqykvoupKtqrnohkvgwpt Lab Routine Hormone disorder Expected: 01/27/2025 (Approximate), Expires: 01/27/2026NOIN HealthcareComment on above: Expected: 01/27/2025 (Approximate), Expires: 01/27/2026Start: 01-27-2025 End: 92-71-4029Jbmvweiumegrq AntibodyThyroglobulin Antibody Lab Routine Hormone disorder Expected: 01/27/2025 (Approximate), Expires: 01/27/2026[facility] Comment on above:Expected: 01/27/2025 (Approximate), Expires: 01/27/2026Start: 01-27-2025 End: 72-33-4639Obitmmfmrvw [Units/volume] in Serum or PlasmaNOIN Healthcare Comment on above:Ordered: 01/27/2025Expected: 01/27/2025 (Approximate), Expires: 01/27/2026Start: 01-27-2025 End: 10-97-0054Mrhiyjv encounter onnszoukq28/14/2025 1:00 PM EDT Office Visit [facility] [place] [facility] [address] [place] [phone] Marcel Eaton, DO [address] [place], [place] [phone] ArrivedKARL [place] OBGYNComment on above:ArrivedStart: 01-20-2025 End: 81-77-5662Wtarxnw encounter cobpgmyxn28/07/2025 9:00 AM EDT Office Visit [facility] [address] [place] [address] Marcel Eaton, DO [address] [place], [place] [id number] NOMS BCP OBStart: 74-38-6838Ytirbvniw vaccination Influenza Vaccine (#1)NOMS HealthcareStart: 17-68-9837Qqaguipdo for malignant neoplasm of breastMammogramNOMS HealthcareStart: 03-12-2024 End: 51-97-9874Syukhnx encounter xfwcxvtcy86/27/2024 9:30 AM EST Office Visit [facility] [place] [place] [address] EthanDavid, DO [address] [place] [address] ArrivedNOMS [place] STATE ROUTEComment on above: ArrivedStart: 03-11-2024 End: 77-41-0766Fjhvkpb encounter ktwaummpu56/26/2024 8:10 AM EST Office Visit [facility] [address] [place] [address] Marcel Eaton, DO [address] [place], [place] [phone] NOMS BCP OBStart: 01-21-2024 End: 92-79-8096Vzofjai encounter lwcqpugnm69/07/2024 2:30 PM EDT Office Visit [facility] [address] [place] [address] Tiffanie Redding PA [address] [place] [address] NOMS BCP OBStart: 01-16-2024 End: 46-38-6671Izrlmrv encounter yfoffaazu58/02/2024 9:30 AM EDT Office Visit [facility] [place] [address] [place] [address] Karyn Ohara, FORK LIFT MECHANIC [address] [place], [place] NOMR[facility] [place] [facility] R[facility]TEStart: 01-14-2024 End: 34-96-4894Kguzrzi encounter procedureNOMS BCP OBComment on above:Arrived Start: 01-14-2024 End: 11-49-4059A-peptideC-peptide Lab Routine H/O: hysterectomy Night sweats Hot flashes due to surgical menopause Hormone disorder Expected: 01/14/2024 (Approximate), Expires: 01/13/2025NOMS HealthcareComment on above:Expected: 01/14/2024 (Approximate), Expires: 01/13/2025Start: 01-14-2024 End: 09-30-1009Entkxrfi freeCortisol, free Lab Routine H/O: hysterectomy Night sweats Hot flashes due to surgical menopause Hormone disorder Expected: 01/14/2024 (Approximate), Expires: 01/13/2025NOMS HealthcareComment on above: Expected: 01/14/2024 (Approximate), Expires: 01/13/2025Start: 01-14-2024 End: 74-14-1342Xtyqska [Mass/volume] in Serum or PlasmaGlucose, random Lab Routine H/O: hysterectomy Night sweats Hot flashes due to surgical menopause Hor alec disorder Expected: 01/14/2024 (Approximate), Expires: 01/13/2025NOMS HealthcareComment on above:Expected: 01/14/2024 (Approximate), Expires: 01/13/2025Start: 01-14-2024 End: 95-81-6255Wesfxte, totalInsulin, total Lab Routine H/O: hysterectomy Night sweats Hot flashes due to surgical menopause Hormone disorder Expected: 01/14/2024 (Approximate), Expires: 01/13/2025NOMS HealthcareComment on above: Expected: 01/14/2024 (Approximate), Expires: 01/13/2025Start: 01-14-2024 End: 77-72-8364Sejysuqqg serumSerotonin serum Lab Routine H/O: hysterectomy Night sweats Hot flashes due to surgical menopause Hormone disorder Expected: 01/14/2024 (Approximate), Expires: 01/13/2025NOMS HealthcareComment on above: Expected: 01/14/2024 (Approximate), Expires: 01/13/2025Start: 01-14-2024 End: 49-84-1679HfwiyswrfsffbGzocmjsiyskmo Lab Routine H/O: hysterectomy Night sweats Hot flashes due to surgical menopause Hormone disorder Expected: 01/14/2024 (Approximate), Expires: 01/13/2025NOMS HealthcareComment on above: Expected: 01/14/2024 (Approximate), Expires: 01/13/2025Start: 01-14-2024 End: 71-84-2800Cmqxigvrsrtcj AntibodyThyroglobulin Antibody Lab Routine H/O: hysterectomy Night sweats Hot flashes due to surgical menopause Hormone disorder Expected: 01/14/2024 (Approximate), Expires: 01/13/2025NOMS HealthcareComment on above:Expected: 01/14/2024 (Approximate), Expires: 01/13/2025Start: 01-14-2024 End: 66-01-6469Wxljaqpkdde [Units/volume] in Serum or PlasmaNOMS Healthcare Comment on above:Ordered: 01/14/2024Expected: 01/14/2024 (Approximate), Expires: 01/13/2025Start: 12-24-2023 End: 73-38-0943Bbbwjay encounter apmwyvxvt87/09/2024 10:20 AM EDT Office Visit [facility] [address] [place] [phone] Marcel Eaton, [address] [place] [address] [facility] OBComment on above:ArrivedCytology Cervical or vaginal smear or scraping studyPap Smear Pathology and Cytology Routine Well woman exam with routine gynecological exam Ordered: 01/14/2024[facility] Work Phone: comment on above:Ordered: 01/14/2024HEA-sulfateDHEA- sulfate Lab Routine H/O: hysterectomy Night sweats Hot flashes due to surgical menopause Hormone disorder Ordered: 01/14/2024[facility] HealthcareComment on above: Ordered: 01/14/20241607MVES-jnkerceZUJC-ezfrllq Lab Routine Hormone disorder Ordered: 01/27/2025IN HealthcareComment on above:Ordered: 01/27/2025Estradiol Estradiol Lab Routine H/O: hysterectomy Night sweats Hot flashes due to surgical menopause Hormone disorder Ordered: 01/14/2024IN HealthcareComment on above: Ordered: 01/14/2024EstradiolEstradiol Lab Routine Hormone disorder Ordered: 01/27/2025[facility] HealthcareComment on above:Ordered: 01/27/2025EstroneEstrone Lab Routine H/O: hysterectomy Night sweats Hot flashes due to surgical menopause Hormone disorder Ordered: 01/14/2024IN HealthcareComment on above:Ordered: 01/14/2024EstroneEstrone Lab Routine Hormone disorder Ordered: 01/27/2025[facility] HealthcareComment on above:Ordered: 01/27/2025Ferritin [Mass/volume] in Serum or PlasmaFerritin Lab Routine H/O: hysterectomy Night sweats Hot flashes due to surgical menopause Hormone disorder Ordered: 01/14/2024[facility] HealthcareComment on above:Ordered: 01/14/2024Ferritin [Mass/volume] in Serum or PlasmaFerritin Lab Routine Hormone disorder Ordered: 01/27/2025[facility] HealthcareComment on above: Ordered: 01/27/2025Hemoglobin A1c/Hemoglobin.total in BloodHemoglobin A1c Lab Routine H/O: hysterectomy Night sweats Hot flashes due to surgical menopause Hormone disorder Ordered: 01/14/2024[facility] HealthcareComment on above:Ordered: 01/14/2024Hemoglobin A1c/Hemoglobin.total in BloodHemoglobin A1c Lab Routine Hormone disorder Ordered: 01/27/2025[facility] HealthcareComment on above:Ordered: 01/27/2025Human papilloma virus DNA [Presence] in Unspecified specimen by Probe with amplificationHPV DNA probe, amplified Microbiology Routine Well woman exam with routine gynecological exam Ordered: 01/14/2024[facility] HealthcareComment on above:Ordered: 01/14/2024rogesteroneProgesterone Lab Routine H/O: hysterectomy Night sweats Hot flashes due to surgical menopause Hormone disorder Ordered: 01/14/2024[facility] HealthcareComment on above:Ordered: 01/14/2024rogesterone Progesterone Lab Routine Hormone disorder Ordered: 01/27/2025[facility] Healthcare Comment on above:Ordered: 01/27/2025Sex hormone binding globulinSex hormone binding globulin Lab Routine H/O: hysterectomy Night sweats Hot flashes due to surgicalmenopause Hormone disorder Ordered: 01/14/2024[facility] HealthcareComment on above:Ordered: 01/14/2024Sex hormone binding globulinSex hormone binding globulin Lab Routine Hormone disorder Ordered: 01/27/2025[facility] HealthcareComment on above:Ordered: 01/27/2025T3, reverseT3, reverse Lab Routine H/O: hysterectomy Night sweats Hot flashes due to surgical menopause Hormone disorder Ordered: 01/14/2024[facility] HealthcareComment on above:Ordered: 01/14/2024T3, reverseT3, reverse Lab Routine Hormone disorder Ordered: 01/27/2025[facility] HealthcareComment on above:Ordered: 01/27/2025TESTOSTERONE, FREETESTOSTERONE, FREE Lab Routine H/O: hysterectomy Night sweats Hot flashes due to surgical menopauseHormone disorder Ordered: 01/14/2024[facility] HealthcareComment on above:Ordered: 01/14/2024 TESTOSTERONE, FREETESTOSTERONE, FREE Lab Routine Hormone disorder Ordered: 01/27/2025[facility] HealthcareComment on above:Ordered: 01/27/2025Testosterone, free, totalTestosterone, free, total Lab Routine H/O: hysterectomy Night sweats Hot flashes due to surgical menopause Hormone disorder Ordered: 01/14/2024[facility] HealthcareComment on above:Ordered: 01/14/2024Testosterone, free, total Testosterone, free, total Lab Routine Hormone disorder Ordered: 01/27/2025[facility] HealthcareComment on above:Ordered: 01/27/2025THIN PREP TIS PAP AND HR HPV DNA THIN PREP TIS PAP AND HR HPV DNA Pathology and Cytology Routine Well woman exam with routine gynecological exam Ordered: 01/27/2025IN HealthcareComment on above:Ordered: 01/27/2025Thyroid peroxidase antibodyThyroid peroxidase antibody Lab Routine H/O: hysterectomy Night sweats Hot flashes due to surgical menopause Hormone disorder Ordered: 01/14/2024[facility] HealthcareComment on above:Ordered: 01/14/2024Thyroid peroxidase antibodyThyroid peroxidase antibody Lab Routine Hormone disorder Ordered: 01/27/2025[facility] HealthcareComment on above:Ordered: 01/27/2025Thyroxine (T4) free [Mass/volume] in Serum or PlasmaT4, free Lab Routine H/O: hysterectomy Night sweats Hot flashes due to surgical menopause Hormone disorder Ordered: 01/14/2024[facility] HealthcareComment on above:Ordered: 01/14/2024Thyroxine (T4) free [Mass/volume] in Serum or PlasmaT4, free Lab Routine Hormone disorder Ordered: 01/27/2025[facility]: Ordered: 01/27/2025Triiodothyronine (T3) Free [Mass/volume] in Serum or Plasma T3, free Lab Routine H/O: hysterectomy Night sweats Hot flashes due to surgical menopause Hormone disorder Ordered: 01/14/2024[facility] HealthcareComment on above: Ordered: 01/14/2024Triiodothyronine (T3) Free [Mass/volume] in Serum or Plasma T3, free Lab Routine Hormone disorder Ordered: 01/27/2025[facility] HealthcareComment on above:Ordered: 01/27/2025Vitamin D 1,25 dihydroxyVitamin D 1,25 dihydroxy Lab Routine H/O: hysterectomy Night sweats Hot flashes due to surgical menopause Hormone disorder Ordered: 01/14/2024[facility] HealthcareComment on above:Ordered: 01/14/2024Vitamin D 1,25 dihydroxyVitamin D 1,25 dihydroxy Lab Routine Hormone disorder Ordered: 01/27/2025[facility] HealthcareComment on above:Ordered: 01/27/2025 Immunizations Immunization DateImmunizationNotesCare ProviderFacilityNEGATED: Highlighted row has not occurred!48-83-7431epyfogiro virus vaccine, unspecified formulation Merrick DUNCAN [facility] NEGATED: Highlighted row has not occurred!08-05-2021 SARS-CoV-2 (COVID-19) Ad26 vaccine, recombinantPatrick FLY [facility] Payers DatePayer CategoryPayerPolicy ID2022MedicaidCARESOURCECARESOURCE MEDICAID CARES[employer] MEDICAID [place] [id number] 2021-Present [address] [place] [phone] [id number] Health Insurance [employer] MEDICAID [id number] 2..1.316712.3.57[id number] 2..1.965730.3.57[id number] 2..1.228219.3.57[id number] 2.16.840.1.378978.3.57[id number] 2.16.840.1.492369.3.57[id number] 2.16.840.1.261139.3.57[id number] 2.16.840.1.987815.3.57[id number] 2.16.840.1.446384.3.57[id number] 2.16.840.1.248548.3.57[id number] 2.16.840.1.030022.3.57[id number] 2.16.840.1.820888.3.57[id number] 2.16.840.1.526578.3.57[id number] 2.16.840.1.693752.3.57[id number] 2..840.1.747554.3.57[id number] 2.16.840.1.624025.3.57[id number] [id number] Social History DateTypeDetailFacilityStart: 08-05-2021 End: 51-33-7812Upuswlr smoking statusNever smoked tobacco (finding)[facility] start: 01-14-2024 End: 53-63-5922Hwy [facility] HospitaleExformerly [facility] start: 88-10-8995Pqjvhyn smoking statusNeverExecutive [facility]rology [facility] start: 47-62-9106Itvjwwm use and exposureSmokeless tobacco non-userNOMS HealthcareStart: 01-14-2024 End: 30-01-3671Zsfarpdol beverage intakeLifetime non-drinker (finding)NOM HealthcareStart: 01-14-2024 End: 49-95-6422Htrzsdw of Social functionNOIN HealthcareStart: 46-93-0376Pbi assigned at [facility] HealthcareStart: 22-41-2699Qrjcgh identityIdentifies as female gender (finding)[facility] HealthcareStart: 12-08-0074Qxxdqq orientation Heterosexual (finding)[facility] HealthcareTobacco smoking status NHISTobacco smoking consumption unknownNOIN Healthcare Functional Status HzqqSgofemzvirQyenbvTytcaqsi25-41-7800Kcosbwyfge StatusN/AExecutive [facility]rology [facility] Clinical Notes 08-05-2021 to 01-27-2025 Note Date & OcawBquvQggurdnj54-95-5452 History of Present illness Narrative* Tayla Herzog, SPEEDER FRAME TENDER - 01/27/2025 1:00 PM EDT Reason for Appointment: Patient ID: Kala Hillman [...] nursing note reviewed. Exam conducted with a agency director present. Vitals: Estimated body mass index is [...] them. Patient can also view results via [employer]. I reinforced importance of condom use for [...] PAP SMEAR 09/12/2018 Normal documented in this encounterMissouri Southern HealthcareYntqxpalyu42-45-3885 History of Present illness Narrative* David Cole, DO - 03/12/2024 9:30 AM EST Images from the original note were not included. Chief Complaint Patient presents with Sleep Apnea Subjective Kala Hillman, 38 y.o., female being seen in sleep [...] trouble falling asleep. 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 However she is only getting [...] minutes and residual AHI of 0.4. Her [place] Sleepiness scale is a 12 The patient was counseled on proper sleep hygiene and adequate hours of sleep. She should increase her cardiovascular exercise which will help consolidate her sleep Get a sleep apnea pillow The patient was counseled on the risks of stroke, [place], and sudden with JARETH, along with the [...] instructions Return to clinic: documented in this encounterMissouri Southern HealthcareHpfjpvykuy83-35-8832 History of Present illness Narrative* Tayla Herzog LPN - 03/11/2024 8:10 AM EST Reason for Appointment: Patient ID: Kala Hillman is a 38 y.o. female who presents for Telehealth Patient presents today via telephone call for a telehealth appointment. Patients Phone #: [phone] (mobile) Current Medications: has a current medication [...] of: Marcel Eaton DO documented in this encounterMissouri Southern HealthcareDtbshzjhto44-50-6472 History of Present illness Narrative* Elidia Bustillo, SPEEDER FRAME TENDER - 01/28/2024 2:50 PM EDT Reason for Appointment: Patient ID: Kala Hillman [...] nursing note reviewed. Exam conducted with a agency director present. Vitals: Estimated body mass index is [...] of: Marcel Eaton DO documented in this encounterMissouri Southern HealthcareDmittavpdq26-32-1328 Telephone encounter Note* Telephone Encounter - Delfina George LPN - 01/21/2024 3:[address] Delgado's office called wondering what the plan for for pt's low serotonin level. I told them that Dr. Eaton was on vacation but as soon as we herd from him that we would let them know. [facility] HealthcareCxtgjcrpyg41-35-3975 Miscellaneous Notes* Telephone Encounter - Delfina George LPN - 01/21/2024 3:[address] Delgado's office called wondering what the plan for for pt's low serotonin level. I told them that Dr. Eaton was on vacation but as soon as we herd from him that we would let them know. documented in this encounterMissouri Southern HealthcareRyzmzuverp79-52-0086 History of Present illness Narrative* Elidia Bustillo LPN - 01/14/2024 2:20 PM EDT Reason for Appointment: Patient ID: Kala Hillman [...] nursing note reviewed. Exam conducted with a agency director present. Vitals: Estimated body mass index is [...] cancer. Will give patient samples of LoLoEstrin Feand patient to have hormonal labs drawn and [...] of: Marcel Eaton DO documented in this encounterMissouri Southern HealthcareXndbbymwej64-26-8299 History of Present illness Narrative* Afshan Wilcox - 12/24/2023 10:20 AM EDT Reason for Appointment: Patient ID: Kala Hillman is a 38 y.o. female who presents for Weight Management Patient presents today for a weight management consultation. Patient has been prescribed Adipex andshe is here for her 2nd prescription. Today's [...] of Marcel Eaton DO documented in this encounterMissouri Southern [id number] Hospital Discharge instructions Patient Education 09/28/2021 14:18:58 Overactive Bladder, [...] You may also have very sensitive muscles thatmake your bladder squeeze too soon. These symptoms [...] fried and sweet foods. General instructions Take ocyz-lis-qwwwida and prescription medicines only as told by your health care provider. If you were prescribed an antibiotic medicine, take it as told by your health care provider. Do notstop taking the antibiotic even if you start [...] 01/27/2010 Document Revised: 07/24/2019 Document Reviewed: 04/18/2018 [email or web address] Patient Education 2019 Practice Management e-Tools. Follow Up Care 08/25/2021 15:11:49 With:LEONARDO TUTTLE PA-C, URL Address: [address] [place] [address] Business (1) When:6 months [facility] 05-24-2022 Note [id number]:127[facility] 09-06-2021 Hospital Discharge instructions Patient Education 09/06/2021 12:05:43 EU - [...] DUNCAN Address: [facility] [address] [place] [address]- Business (1) When: Unknown Comments:Keep scheduled appointment [facility]05-24-2022 NoteCustom Cystoscopy with Botox injection ? Voiding after the procedure: there may be some pain, burning, urgency, frequency and blood tingedurine following the procedure. These symptoms usually resolve [...] if you have a fever over 100 degrees.[facility] 08-05-2021 Hospital Discharge instructions Patient Education 08/05/2021 09:10:42 Urinary Incontinence Urinary Incontinence Urinary incontinence refers to a condition in which a person is unable to control where and when topass urine. A person with this condition will urinate when he or she does not mean to (involuntarily). What are the causes? This condition may be caused by: Medicines. Infections. Constipation. Overactive bladder muscles. Weak bladder muscles. Weak pelvic floor muscles. These muscles provide support for the bladder, intestine, and, in women,the uterus. Enlarged prostate in men. The prostate [...] nerve stimulation). For women, using a medical research assistant to prevent urine leaks. This is [...] right after experiencing incontinence. General instructions Take xgxr-bnl-hshczms and prescription medicines only as told by [...] is unable to control where and when topass urine. This condition may be caused by [...] 05/10/2005 Document Revised: 04/12/2018 Document Reviewed: 07/12/2017 [email or web address] Patient Education 2020 Practice Management e-Tools. Follow Up Care 01/24/2021 09:26:41 With:Merrick DUNCAN MD, URL Address: [facility] [address], [facility] [place] [address] [phone] When:11/04/2021 [facility] evaluation + Plan note Future Appointments Appointment Date:11/11/2021 08:00:00 AM Scheduled Provider:Merrick DUNCAN MD Location:[facility] Appointment Type:URO Office Visit [facility] evaluation + Plan note Future Appointments Appointment Date:09/06/2021 11:30:00 AM Scheduled Provider: Location:[facility] Appointment Type:Urology FT Appointment Date:09/28/2021 10:00:00 AM Scheduled Provider:LEONARDO TUTTLE PA-C Location:[facility] Appointment Type:URO Office Visit Appointment Date:11/11/2021 08:00:00 AM Scheduled Provider:Merrick DUNCAN MD Location:[facility] Appointment Type:URO Office Visit [facility] evaluation + Plan note Future Appointments Appointment Date:09/06/2021 11:30:00 AM Scheduled Provider: Location:[facility] Appointment Type:Urology FT Appointment Date:09/28/2021 10:00:00 AM Scheduled Provider:LEONARDO TUTTLE PA-C [facility] Office Visit Appointment Date:11/11/2021 08:00:00 AM Scheduled Provider:Merrick DUNCAN MD [facility] Type:URO Office Visit Diagnostic Tests Pending * [facility] Future Appointments Appointment Date:09/28/2021 10:00:00 AM Scheduled Provider:LEONARDO TUTTLE PA-C [facility] Type:[facility]O Office Visit Appointment Date:11/11/2021 08:00:00 AM Scheduled Provider:Merrick DUNCAN MD Location:[facility] Future Appointments Appointment Date:04/12/2022 03:00:00 PM Scheduled Provider:LEONARDO TUTTLE PA-C Location:[facility] Appointment Type:URO Office Visit [facility] evaluation note* Diagnosis Encounter for weight management Hormone disorder [...] available for this section [facility] Hospital Discharge instructions No data available for this section [facility] progress note No data available for this section [facility] Summary Purpose Family History No Family History Records FoundNo Family History Records FoundNo Family History Records Found Advance Directives No Advanced Directives Records FoundNo Advanced Directives Records FoundNo Advanced Directives Records Found Additional Source Comments Care Team (unrecognized sect ion and content) Team MemberRelationshipSpecialtyStart DateEnd Date Navi Delgado MD [address] [facility] [place] [address] PCP - GeneralFamily Medicine11/13/22Team MemberRelationshipSpecialtyStart DateEnd Date Navi Delgado MD [address] [facility] [place] [address] [facility] - [facility]11/13/22Team MemberRelationshipSpecialtyStart DateEnd Date Navi Delgado MD [address] [facility] [place] [address] PCP - GeneralFamily Medicine11/13/22Team MemberRelationshipSpecialtyStart DateEnd Date Navi Delgado MD [address] [place] [address] PCP - Generalmily Medicine11/13/22Team MemberRelationshipSpecialtyStart DateEnd Date Navi Delgado MD [address] [place] [address] PCP - GeneralFamily Medicine11/13/22Team MemberRelationshipSpecialtyStart DateEnd Date Navi Delgado MD [address] [facility] [place] [address] PCP - GeneralFamily Medicine11/13/22Team MemberRelationshipSpecialtyStart DateEnd Date Navi Delgado MD [address] [facility] [place] [address] PCP - GeneralFamily Medicine11/13/22Team MemberRelationshipSpecialtyStart DateEnd Date Navi Delgado MD [address] [facility] [place] [address] PCP - GeneralFamily Medicine11/13/22Team MemberRelationshipSpecialtyStart DateEnd Date Navi Delgado MD [address] [facility] [place] [address] PCP - GeneralFamily Medicine11/13/22Team MemberRelationshipSpecialtyStart DateEnd Date Navi Delgado MD PCP - GeneralFamily Medicine11/13/22 Marcel Eaton DO [address] [place] [address] [address] [facility], [place], [place] [id number] PCP - [facility]04/16/24Team MemberRelationshipSpecialtyStart DateEnd Date Navi Delgado MD PCP - [facility]11/13/22 Cindy EatonyDO [address] [place] [address] PCP - [facility]04/16/24Team MemberRelationshipSpecialtyStart DateEnd Date Navi Delgado MD PCP - [facility]11/13/22 Cindy Eatonmike [address] [place] [address] PCP - [facility]04/16/24 INFORMATION SOURCE (unrecogn ized section and content) DATE CREATED AUTHOR 04/10/2022 [facility] DATE CREATED AUTHOR AUTHOR'S ORGANIZ ATION 09/22/2022 [facility] DATE CREATED AUTHOR AUTHOR'S ORGANIZ ATION 01/29/2025 [facility] EPIC Reason for Visit (unrecogniz ed section and content) ReasonCommentsencounter for weight managementReasonCommentsSleep ApneaReason CommentsTelehealthAD (Adjustment Disorder)ReasonCommentsWeight ManagementReason CommentsGynecologic ExamReasonCommentsWell Women Visit FOR RECORDS PERTAINING TO PATIENTS [...] BE BASED ON THE PRIMARY CLINICAL RECORDS. [employer] provides no warranty or guarantee of the accuracy or completeness of information in this document.
[2025-02-17 15:33] LABS: Alanine Aminotransferase 26 U/L (14-59); Albumin Globulin Ratio 0.8; Albumin Level 3.6 g/dL (3.4-5.0); Alkaline Phosphatase 105 U/L (46-116); Anion Gap 12.6; Aspartate Amino Transferase 17 U/L (15-37); Blood Urea Nitrogen 16.0 mg/dL (7.0-18.0); Calcium 7.8 mg/dL (8.5-10.1); Carbon Dioxide 28.3 mmol/L (21.0-32.0); Chloride 102 mmol/L (98-107); Cholesterol 185 mg/dL (<=200); Estimated GFR (African America >60 (>=60 mL/min/1.73m^2); Estimated GFR (Non-African Ame >60 (>=60 mL/min/1.73m^2); Globulin 4.7 g/dL; Glucose 78 mg/dL (74-106); HDL Cholesterol 55 mg/dL (40-60); Potassium 3.9 mmol/L (3.5-5.1); Sodium 139 mmol/L (136-145); Total Protein 8.3 g/dL (6.4-8.2); Triglycerides 163 mg/dL (<=150); Uric Acid 5.7 mg/dL (2.6-6.0); VLDL CHOLESTEROL 32.6 mg/dL
[2025-02-19 14:09] LABS: Antinuclear Antibodies, IFA Negative (.)
== END 2025-02-17 14:45 | disposition home or self-care (01) ==
LOC: LAB 14:44
PROVIDERS: PCP Family Medicine; Visit Provider Family Medicine
DX: Z00.00 Encounter for general adult medical examination without abnormal findings (principal); I10 Essential (primary) hypertension
CPT/HCPCS: 36415; 80053; 80061; 84550; 85652; 86038; 86060; 86140; 86431